=== PATIENT | female | born 1940 | race Caucasian/White ===

== ENCOUNTER → 2018-08-26 | Day surgery (SDC) | payer MEDICARE, BC ==
[2018-08-24 14:09] VITALS: BMI 27.6
[~2018-08-26] MED LIST: ALPRAZolam 0.25 MG TAB PO PRN; ASPIRIN 325 MG TAB PO STA; IOPAMIDOL-250 100ML BTL INTRAARTER ONE; LIDOCAINE 2% INJ 20 MG/ML SQ ONE; MIDAZOLAM 2 MG/2 ML VIAL IVP ONE; SODIUM CHLORIDE 0.9% 1,000 ML IV SCH; SODIUM CHLORIDE 0.9% 1,000 ML in EMPTY BAG 1 BAG IV ONE
[2018-08-26 07:47] VITALS: TEMP 98.3
[2018-08-26 11:46] VITALS: PULSE 60
--- NOTE | 2018-08-26 12:17 | IR ---
Fluoroscopy HISTORY: Pain in left leg 120 seconds fluoroscopy time supplied to the referring clinician. 74 intraoperative C-arm images document the procedure. See dictated report from cardiology.
[2018-08-26 12:23] VITALS: BP 119/62; RESP 14
--- NOTE | 2018-08-26 15:27 | AN ---
ANGIOGRAPHY REPORT DATE OF SERVICE: August 26, 2018 PERFORMING PHYSICIAN: Buck Mera MD, executive administrative asst. PROCEDURE PERFORMED: 1. Abdominal aortogram. 2. Bilateral lower extremities runoff. INDICATION: This is a pleasant 77-year-old female patient with a past medical history significant for hypertension, dyslipidemia, and paroxysmal atrial fibrillation, who was experiencing bilateral lower extremity intermittent claudication. She underwent an anterior duplex study which showed severe disease involving the right SFA. Because of her symptoms, severity and the abnormal duplex study, an abdominal aortogram and bilateral lower extremity runoff was advised. APPROACH: Right common femoral artery. COMPLICATION: None. LEVEL OF SEDATION: Moderate with sedation length of 18 minutes. PROCEDURE DESCRIPTION: After obtaining an informed consent, the patient was brought to the cardiac engineering lab technician. The right common femoral artery was cannulated using micropuncture technique, the micropuncture wire passed easily. Then I I placed a 4-Romanian sheath in the right common femoral artery. As a matter of fact, it was 4/3 sheath. With inner diameter of 4 and outer diameter of 3-Romanian. After that, I did an abdominal aortogram and bilateral lower extremities runoff using a 4-Romanian Omni Flush catheter which was initially placed at the level of the renal arteries and it was pulled into above the bifurcation of the aorta to right and left common iliac arteries. The procedure was completed without any complication. SELECTIVE PERIPHERAL ANGIOGRAM: 1. The aorta appeared to be angiographically normal. 2. Common iliac arteries: The right and left common iliac arteries appeared to be patent. 3. Internal iliac arteries: The right and left internal iliac arteries are patent. 4. External iliac arteries: The right and left external iliac arteries are patent as well. 5. Common femoral arteries: The right and left common femoral arteries appeared to be angiographically normal. 6. The SFA: The right SFA appeared to be angiographically normal. The left SFA appeared to have intermediate mild to moderate disease in the distal portion. 7. Popliteal: The right popliteal has a tight lesion appeared to be in the range of 95%. The left popliteal appeared to have mild disease only. 8. Below the knee: There are 3 vessels runoff below the knee bilaterally. CONCLUSION: Critical right SFA disease and mild to moderate left FA disease. POSTPROCEDURE MANAGEMENT: An atherectomy and balloon angioplasty of the right SFA from the left groin approach. At the same time, I would do selective injections through the sheath in the left groin to assess the severity of the distal left SFA. EDSON / MINAN: [id number] /
== END ==
LOC: CATHCVL 06:54
PROVIDERS: ATTEND Internal Medicine Interventional Cardiology
DX: I70.213 Atherosclerosis of native arteries of extremities with intermittent claudication, bilateral legs (principal); I48.0 Paroxysmal atrial fibrillation; I25.10 Atherosclerotic heart disease of native coronary artery without angina pectoris; I12.9 Hypertensive chronic kidney disease with stage 1 through stage 4 chronic kidney disease, or unspecified chronic kidney disease; N18.9 Chronic kidney disease, unspecified; E78.49 Other hyperlipidemia; Z82.49 Family history of ischemic heart disease and other diseases of the circulatory system; Z95.2 Presence of prosthetic heart valve; J44.9 Chronic obstructive pulmonary disease, unspecified; Z79.01 Long term (current) use of anticoagulants; Z79.890 Hormone replacement therapy; Z79.51 Long term (current) use of inhaled steroids; Z79.899 Other long term (current) drug therapy; Z88.6 Allergy status to analgesic agent; Z88.1 Allergy status to other antibiotic agents; Z88.0 Allergy status to penicillin; Z88.2 Allergy status to sulfonamides; Z88.8 Allergy status to other drugs, medicaments and biological substances
CPT/HCPCS: 36200; 75625; 75716; C1769 ×3; J2001; J2250; Q9966

== ENCOUNTER 2018-10-12 07:00 | Day surgery (SDC) | payer MEDICARE, BC ==
[2018-10-05 16:13] VITALS: BMI 39.0
[2018-10-12] MEDS ORDERED: ASPIRIN 325 MG TAB PO STA (07:16)
[2018-10-12] MEDS ORDERED: ALPRAZolam 0.25 MG TAB PO PRN (07:16)
[2018-10-12] MEDS ORDERED: SODIUM CHLORIDE 0.9% 1,000 ML in EMPTY BAG 1 BAG IV ONE (07:16)
[2018-10-12] MEDS ORDERED: SODIUM CHLORIDE 0.9% 1,000 ML IV ONE (07:18)
[2018-10-12 09:20] LABS: Basophils % (A) 0 %; Eosinophils # (A) 0.3 k/uL (0-0.7); Eosinophils % (A) 6 %; HCT 34.7 % (34.0-46.0); HGB 11.5 gm/dL (11.4-16.0); Lymphocytes # (A) 1.3 k/uL (1.0-4.8); Lymphocytes % (A) 25 %; MCH 28.3 pg (25.0-35.0); MCHC 33.1 g/dL (31.0-37.0); MCV 85.6 fL (80.0-100.0); Mean Platelet Volume 7.6; Monocytes # (A) 0.5 k/uL (0-1.0); Monocytes % (A) 9 %; Neutrophils # (A) 3.1 k/uL (1.3-7.7); Neutrophils % (A) 57 %; Platelet Count 172 k/uL (150-450); RBC 4.05 m/uL (3.80-5.40); RDW 13.6 % (11.5-15.5); WBC 5.4 k/uL (3.8-10.6)
[2018-10-12 09:42] LABS: Calcium 9.5 mg/dL (8.4-10.2); Potassium 4.7 mmol/L (3.5-5.1)
[2018-10-12] MEDS ORDERED: MIDAZOLAM 2 MG/2 ML VIAL IVP ONE (13:20)
[2018-10-12] MEDS ORDERED: LIDOCAINE 1% INJ 10MG/ML (20 ML MDV) SQ ONE (13:23)
[2018-10-12] MEDS: fentaNYL (PF) 50 MCG/ML 2 ML AMP IVP ONE ×2 (13:25→14:41)
[2018-10-12] MEDS ORDERED: HEPARIN SODIUM 1,000 UN/ML (10ML VL) IV ONE (13:42)
[2018-10-12] MEDS ORDERED: MIDAZOLAM 2 MG/2 ML VIAL IV ONE (14:20)
[2018-10-12] MEDS ORDERED: NITROGLYCERIN 1000MCG/10ML SYRINGE INTRAARTER ONE (14:26)
[2018-10-12] MEDS ORDERED: IOPAMIDOL-250 100ML BTL INTRAARTER ONE (14:27)
[2018-10-12] MEDS ORDERED: CLOPIDOGREL 75 MG TAB PO ONE (14:30)
[2018-10-12] MEDS ORDERED: LOSARTAN-HCTZ 50-12.5 MG 1 EACH TAB PO PRN (14:46)
[2018-10-12] MEDS ORDERED: MAG HYDROX/AL HYDROX/SIMETH 30 ML CUP PO ONE (14:53)
[2018-10-12] MEDS ORDERED: SODIUM CHLORIDE 0.9% 1,000 ML IV SCH (15:00)
[2018-10-12] MEDS ORDERED: HYDROcodone/APAP 5-325MG 1 EACH TAB PO STA (15:44)
[2018-10-12] MEDS ORDERED: hydrALAZINE HCL 20 MG/ML 1 ML VIAL IVP PRN (15:50)
[2018-10-12] MEDS: HYDROcodone/APAP 5-325MG 1 EACH TAB PO PRN (19:19)
--- NOTE | 2018-10-12 20:47 | LTR ---
October 12, 2018 To: Dr. Leon Cheema Re: Leena Riojas (42) Dear Dr. Cheema, Ms. Leena Riojas underwent successful atherectomy and balloon angioplasty of the right femoral artery with an excellent angiographic result and reduction of stenosis from 100% to 0%. Thank you for allowing us to participate in her care. Please do not hesitate to call if you have any questions. Sincerely, MD EDSON Morin / MINAN: [id number] /
[2018-10-12] MEDS: MONTELUKAST 10 MG TAB PO SCH (21:05)
[2018-10-12] MEDS: CITALOPRAM HYDROBROMIDE 20 MG TAB PO SCH (21:05)
[2018-10-12] MEDS: METOPROLOL SUCCINATE (ER) 100 MG TAB.ER.24H PO SCH (21:05)
[2018-10-12] MEDS: HYDROmorphone 1 MG/ML 1 ML SYRINGE IVP PRN (21:05)
--- NOTE | 2018-10-12 22:43 | AN ---
ANGIOGRAPHY REPORT DATE OF SERVICE: 10/12/2018 PERFORMING PHYSICIAN: Buck Mera MD, nitroglycerin neutralizer. PROCEDURE PERFORMED: 1. Selective right [id number] angiogram. 2. Selective right popliteal/SFA angiogram. 3. Atherectomy of the right SFA using the TurboHawk atherectomy device with extraction of plaque from the right SFA. 4. Successful balloon angioplasty of the right SFA using a 5 x 14 mm Impact drug- coated balloon with excellent angiographic results and reduction of stenosis from 100% to 0%. 5. Selective left common femoral artery angiogram. INDICATION: This is a 77-year-old gentleman who sees Dr. Patel as well as Dr. Cheema as an outpatient who was experiencing right leg intermittent claudication and underwent a peripheral angiogram. Subsequently I did access the left common femoral artery using micropuncture technique. The micropuncture wire passed easily. Then I placed a 6-Vincentian sheath 11 cm in the left common femoral artery. At that point anticoagulation was initiated using heparin and the patient was given 10,000 units of heparin IV. I did after that select the right SFA using an .035 [place] Advantage wire with a 5- Vincentian RIM catheter. After that, I did advance the .035 [place] Advantage wire to the distal right SFA. I did not cross the lesion in the SFA using the .035 wire. I did after that exchange my 11 cm 6-Vincentian sheath for a 70 cm 6-Vincentian Raabe sheath where the Raabe sheath was positioned in the proximal right SFA. Subsequently I did attempt crossing the occluded right SFA using an .[address] wire and I was unable. Then I attempted using an .014 Command wire and I was unable. Finally I was able to cross the lesion using .018 gold-tipped Glidewire with .018 CXI catheter as a backup support. I did advance the catheter distal to the lesion to the right popliteal and I did selective right popliteal angiogram to prove that I was in the true lumen. After that, I did advance the .014 Command wire preparing for atherectomy. I did atherectomy of the distal right SFA using the TurboHawk device with extraction of plaque from the right SFA. After that I did balloon angioplasty initially using 4 mm x 40 regular balloon and subsequently 5 x 40 drug-coated balloon which was inflated under 6 atmospheres for 3 minutes. The following angiogram showed good angiographic results and the procedure was completed without any complication. After that I did exchange my 70 cm 6-Vincentian sheath for an 11 cm 6-Vincentian sheath using .035 [place] Advantage wire and then I did selective left common femoral artery angiogram before I deployed the Perclose device. The procedure was completed without any complication. POST-PROCEDURE MANAGEMENT: 1. Dual anti-platelet therapy. 2. Risk factor modifications. 3. Follow up with the patient. MMODRony / IJN: [id number] /
--- NOTE | 2018-10-12 23:02 | IR ---
EXAMINATION TYPE: IR fluoroscopy <1hr DATE OF EXAM: 10/12/2018 CLINICAL HISTORY: Right leg pain. TECHNIQUE: Fluoroscopy. COMPARISON: None. FINDINGS: Fluoroscopic guidance was provided during right lower extremity angiogram procedure perfor med by Dr. Mera. A total of 18.6 minutes of fluoroscopic time was utilized during the procedure and 13 cine runs are acquired. Images show metallic hardware at right knee level. Please refer to surgica l note for further details as I was not present nor performed procedure. IMPRESSION: As Above.
[2018-10-12] MEDS: ALPRAZolam 0.5 MG TAB PO SCH (23:13)
[2018-10-13] MEDS: HYDROmorphone 1 MG/ML 1 ML SYRINGE IVP PRN (01:00)
[2018-10-13] MEDS: LEVOTHYROXINE 50 MCG TAB PO SCH (06:07)
[2018-10-13 07:22] LABS: Basophils % (A) 0 %; Eosinophils # (A) 0.3 k/uL (0-0.7); Eosinophils % (A) 4 %; HCT 36.6 % (34.0-46.0); HGB 11.3 gm/dL (11.4-16.0); Lymphocytes # (A) 1.1 k/uL (1.0-4.8); Lymphocytes % (A) 15 %; MCH 26.6 pg (25.0-35.0); MCHC 30.8 g/dL (31.0-37.0); MCV 86.6 fL (80.0-100.0); Mean Platelet Volume 7.8; Monocytes # (A) 0.6 k/uL (0-1.0); Monocytes % (A) 8 %; Neutrophils # (A) 5.2 k/uL (1.3-7.7); Neutrophils % (A) 71 %; Platelet Count 176 k/uL (150-450); RBC 4.23 m/uL (3.80-5.40); RDW 13.8 % (11.5-15.5); WBC 7.4 k/uL (3.8-10.6)
[2018-10-13 07:30] LABS: Calcium 9.3 mg/dL (8.4-10.2); Potassium 4.6 mmol/L (3.5-5.1)
--- NOTE | 2018-10-13 07:57 | DS ---
DISCHARGE SUMMARY ADMISSION DATE: October 12, 2018. DISCHARGE DATE: October 13, 2018 BRIEF HISTORY: This is a 77-year-old female patient with history of paroxysmal atrial fibrillation who underwent yesterday successful balloon angioplasty of the right SFA with good angiographic results and without any complication. 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 She did develop a small hematoma at the left groin yesterday which was reduced with compression as well as with FemoStop. The left groin is soft, but tender without any discrete hematomas. I am going to order an ultrasound to check for pseudoaneurysm. If the ultrasound is negative, the patient can be discharged home. She is going to be discharged on dual anti-platelet therapy along with statin. MMODL / IJN: [id number] /
[2018-10-13] MEDS: CHOLECALCIFEROL 1,000 UNIT TAB PO SCH (08:55)
[2018-10-13] MEDS: CYANOCOBALAMIN 500 MCG TAB PO SCH (08:56)
[2018-10-13] MEDS: METOPROLOL SUCCINATE (ER) 100 MG TAB.ER.24H PO SCH ×2 (08:56→21:03)
[2018-10-13] MEDS: ASPIRIN 81 MG PO SCH (08:56)
[2018-10-13] MEDS: HYDROcodone/APAP 5-325MG 1 EACH TAB PO PRN ×2 (08:56→23:43)
[2018-10-13] MEDS: CLOPIDOGREL 75 MG TAB PO SCH (08:57)
[2018-10-13] MEDS ORDERED: CO Q10 PO SCH (09:00)
[2018-10-13] MEDS ORDERED: ASPIRIN 81 MG PO SCH (09:00)
[2018-10-13] MEDS ORDERED: NON-FORMULARY DRUG (Calcium/Magnesium 1 TAB) PO SCH (09:00)
[2018-10-13] MEDS ORDERED: OIL OF OREGANO PO SCH (09:00)
--- NOTE | 2018-10-13 11:23 | US ---
EXAMINATION TYPE: US lower ext pseudo artery LT DATE OF EXAM: 10/13/2018 COMPARISON: NONE CLINICAL HISTORY: rule out pseudoaneurysm. Patient states on 10/11 left groin catheter for right leg cl eaning. Patient states having a hematoma at site which was located in left lower pelvis EXAM PERFORMED: Grayscale and color Doppler duplex imaging performed of the groin, post cardiac mic ter to assess for pseudoaneurysm. SIDE PERFORMED: Left Color and Waveform Doppler performed to assess for the presence of pseudoaneurysm; Is there ultrasound evidence of a pseudoaneurysm: no Is there a fluid collection present: At area of bruising, pain and insertion site, heterogenous nonva scular lesion visualized = 3.8 x 3.6 x 3.1 cm. IMPRESSION: Small deep hematoma suspected at area of pain and insertion site. No pseudoaneurysm is s een.
[2018-10-13] MEDS: MULTIVITAMINS, THERA 1 EACH TAB PO SCH (13:18)
[2018-10-13] MEDS: CITALOPRAM HYDROBROMIDE 20 MG TAB PO SCH (21:02)
[2018-10-13] MEDS: MONTELUKAST 10 MG TAB PO SCH (21:03)
[2018-10-13] MEDS: ALPRAZolam 0.5 MG TAB PO SCH (22:32)
[2018-10-13 23:35] VITALS: RESP 18
[2018-10-14] MEDS: LEVOTHYROXINE 50 MCG TAB PO SCH (06:08)
[2018-10-14] MEDS: CYANOCOBALAMIN 500 MCG TAB PO SCH (08:56)
[2018-10-14] MEDS: METOPROLOL SUCCINATE (ER) 100 MG TAB.ER.24H PO SCH (08:56)
[2018-10-14] MEDS: CHOLECALCIFEROL 1,000 UNIT TAB PO SCH (08:57)
[2018-10-14] MEDS: CLOPIDOGREL 75 MG TAB PO SCH (08:57)
[2018-10-14] MEDS: ASPIRIN 81 MG PO SCH (08:57)
--- NOTE | 2018-10-14 10:13 | PN ---
PROGRESS NOTE DATE OF SERVICE: October 14, 2018 BRIEF HISTORY: This is a 77-year-old female patient who sees Dr. Patel in the office as an outpatient who was diagnosed recently with right leg intermittent claudication and underwent a peripheral angiogram which showed occluded right SFA. 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 Initially I was going to discharge the patient yesterday, but she developed a small hematoma and she developed also a small skin break because of the FemoStop. We kept the patient overnight for observation. On follow up with her today, she is feeling overall better. The skin break is better. She denies having any chest pain or chest discomfort. She is going to be discharged home on dual anti-platelet therapy. MMODL / IJN: [id number] /
[2018-10-14] MEDS: MULTIVITAMINS, THERA 1 EACH TAB PO SCH (11:34)
[2018-10-14 12:06] VITALS: BP 143/95; PULSE 62; TEMP 98.3
== END 2018-10-14 15:55 | disposition home or self-care (01) ==
LOC: CATHCVL 07:00 → 3SCARD 14:23 → CATHCVL 10-14 15:55
PROVIDERS: ATTEND Internal Medicine Interventional Cardiology
DX: I70.213 Atherosclerosis of native arteries of extremities with intermittent claudication, bilateral legs (principal); I70.92 Chronic total occlusion of artery of the extremities; E78.5 Hyperlipidemia, unspecified; L76.32 Postprocedural hematoma of skin and subcutaneous tissue following other procedure; I25.10 Atherosclerotic heart disease of native coronary artery without angina pectoris; I13.0 Hypertensive heart and chronic kidney disease with heart failure and stage 1 through stage 4 chronic kidney disease, or unspecified chronic kidney disease; N18.9 Chronic kidney disease, unspecified; I50.33 Acute on chronic diastolic (congestive) heart failure; I48.0 Paroxysmal atrial fibrillation; Z82.49 Family history of ischemic heart disease and other diseases of the circulatory system; Z95.0 Presence of cardiac pacemaker; Z95.2 Presence of prosthetic heart valve; I36.1 Nonrheumatic tricuspid (valve) insufficiency; Z79.01 Long term (current) use of anticoagulants; Z79.890 Hormone replacement therapy; Z79.51 Long term (current) use of inhaled steroids; Z79.899 Other long term (current) drug therapy; Z88.6 Allergy status to analgesic agent; Z88.1 Allergy status to other antibiotic agents; Z88.3 Allergy status to other anti-infective agents; Z88.0 Allergy status to penicillin; Z88.2 Allergy status to sulfonamides; Z88.8 Allergy status to other drugs, medicaments and biological substances
CPT/HCPCS: 37225; 85347; 80048 ×2; 85025 ×2; 93975; 93926; C1894 ×2; C1769 ×6; C1714; C2623; C1760; C1725; J2250; J0360; J2001; J3010; J1644; J1170 ×2; Q9966

== ENCOUNTER 2018-10-26 16:11 | Emergency (ER) | payer MEDICARE, BC ==
--- NOTE | 2018-10-26 16:49 | ED ---
General Adult HPI - General Chief complaint: Extremity Problem,Nontraumatic Stated complaint: Hematoma Time Seen by Provider: 10/26/18 16:11 Source: patient, RN notes reviewed Mode of arrival: ambulatory Limitations: no limitations - History of Present Illness Initial comments: This is a 77-year-old female who had a femoral artery occlusion. Couple weeks ago she had a catheterization in the left groin to fix the occlusion in the right side the procedure went without problem according to Dr. abernathy. Patient now comes in with complaints of pain in the left lower quadrant area and saw Dr. Patel today and he wanted the patient to be evaluated have a CAT scan of the abdomen and pelvis. Patient denies any nausea vomiting. Patient denies any change in bowel habits. Patient denies any chest pain difficulty breathing shortness of breath. Patient states the area of pain is the left lower quadrant right where the ecchymotic areas. Patient also has some tenderness and ecchymosis in the groin that is been ongoing since the procedure. - Related Data Home Medications Medication Instructions Recorded Confirmed Cholecalciferol [Vitamin D3] 5,000 unit PO DAILY 08/24/18 10/05/18 Citalopram Hydrobromide 20 mg PO HS 08/24/18 10/05/18 [Citalopram HBr] Furosemide [Lasix] 20 - 40 mg PO BID 08/24/18 10/12/18 HYDROcodone/APAP 5-325MG [[place] 0.5 tab PO DAILY PRN 08/24/18 10/05/18 5-325] Levothyroxine Sodium [Synthroid] 50 mcg PO MOTUWETHFRSA 08/24/18 10/05/18 Losartan/Hydrochlorothiazide 0.5 tab PO DAILY PRN 08/24/18 10/12/18 [Losartan-Hctz 100-25 mg Tab] Metoprolol Succinate (ER) [Toprol 100 mg PO BID 08/24/18 10/12/18 XL] Montelukast [Singulair] 10 mg PO HS 08/24/18 10/05/18 Multivitamins, Thera [Multivitamin 1 tab PO DAILY 08/24/18 10/05/18 (formulary)] ALPRAZolam [Xanax] 0.5 mg PO HS 10/05/18 10/05/18 Apixaban [Eliquis] 2.5 mg PO QAM 10/05/18 10/12/18 Calcium/Magnesium 1 tab PO DAILY 10/05/18 10/05/18 Co Q-10 1 tab PO DAILY 10/05/18 10/05/18 Oil Of Oregano 1 tab PO DAILY 10/05/18 10/05/18 Vitamin B-12 1 tab PO DAILY 10/05/18 10/12/18 Previous Rx's Medication Instructions Recorded Aspirin 81 mg PO DAILY #30 chewable 10/13/18 Atorvastatin Calcium [Lipitor] 10 mg PO DAILY #90 tab 10/13/18 Clopidogrel [Plavix] 75 mg PO DAILY #90 tab 10/13/18 Allergies Allergy/AdvReac Type Severity Reaction Status Date / Time amlodipine [From Lotrel] Allergy Unknown Verified 10/26/18 16:17 benazepril [From Lotrel] Allergy Unknown Verified 10/26/18 16:17 cephalexin [From Keflex] Allergy Rash/Hives Verified 10/26/18 16:17 clindamycin Allergy Rash/Hives Verified 10/26/18 16:17 clonidine [From Catapres] Allergy anxious Verified 10/26/18 16:17 diltiazem Allergy severe Verified 10/26/18 16:17 headache doxazosin [From Cardura] Allergy Unknown Verified 10/26/18 16:17 isosorbide [From Imdur] Allergy Anaphylaxis Verified 10/26/18 16:17 metoprolol [From Toprol XL] Allergy Unknown Verified 10/26/18 16:17 Penicillins Allergy "passes Verified 10/26/18 16:17 out" ramipril [From Altace] Allergy Anaphylaxis Verified 10/26/18 16:17 sulfamethoxazole Allergy severe Verified 10/26/18 16:17 [From Bactrim] skin reaction trimethoprim [From Bactrim] Allergy severe Verified 10/26/18 16:17 skin reaction valsartan [From Diovan] Allergy severe Verified 10/26/18 16:17 headache maxide Allergy Unknown Uncoded 10/26/18 16:17 oral steroids AdvReac Afib Uncoded 10/26/18 16:17 Review of Systems ROS Statement: Those systems with pertinent positive or pertinent negative responses have been documented in the HPI. ROS Other: All systems not noted in ROS Statement are negative. Past Medical History Past Medical History: Atrial Fibrillation, Coronary Artery Disease (CAD), Cancer, COPD, Hyperlipidemia, Hypertension, Osteoarthritis (OA), Sleep Apnea/CPAP/BIPAP, Thyroid Disorder, Vascular Disorder Additional Past Medical History / Comment(s): Hx skin cancer yrs ago on nose. Numbness and pain left lower leg, varicose veins, hx kidney stones, steroids Jun 2018. "2013 blood clot in heart." CPAP use. Hx Shingles 4 yrs ago. History of Any Multi-Drug Resistant Organisms: None Reported Past Surgical History: Appendectomy, Cholecystectomy, Heart Catheterization With Stent, Hernia Repair, Joint Replacement, Pacemaker, Tonsillectomy Additional Past Surgical History / Comment(s): Heart stent x1, Medtronic DAPTA DR Pacemaker 2008, Aortic valve replaced (pig)2008, bilateral total knees, cataracts removed bilaterally. Right cath for athrosclorsis Past Anesthesia/Blood Transfusion Reactions: No Reported Reaction, Motion Sickness Additional Past Anesthesia/Blood Transfusion Reaction / Comment(s): No problems with prior blood transfusions. Date of Last Stent Placement:: 1998 Type of Cardiac Device: Permanent Pacemaker Device Placement Date:: 2008 Past Psychological History: Anxiety, Depression Smoking Status: Never smoker Past Alcohol Use History: None Reported Past Drug Use History: None Reported - Past Family History Mother Family Medical History: Cancer Additional Family Medical History / Comment(s): skin CA Father Family Medical History: Cancer Additional Family Medical History / Comment(s): stomach ulcer at age 52 General Exam - General Exam Comments Initial Comments: GENERAL: Patient is well-developed and well-nourished. Patient is nontoxic and well- hydrated and is in mild distress. ENT: Neck is soft and supple. No significant lymphadenopathy is noted. Oropharynx is clear. Moist mucous membranes. EYES: The sclera were anicteric and conjunctiva were pink and moist. Extraocular movements were intact and pupils were equal round and reactive to light. Eyelids were unremarkable. PULMONARY: Unlabored respirations. Good breath sounds bilaterally. No audible rales rhonchi or wheezing was noted. CARDIOVASCULAR: There is a regular rate and rhythm without any murmurs gallops or rubs. ABDOMEN: Patient has left lower quadrant abdominal pain. Pain is over the area of ecchymosis on the abdomen and there is slight pain above the inguinal canal on a hematoma as well. SKIN: Skin is clear with no lesions or rashes and otherwise unremarkable. NEUROLOGIC: Patient is alert and oriented x3. Cranial nerves II through XII are grossly in tact. Motor and sensory are also intact. Normal speech, volume and content. Symmetrical smile. MUSCULOSKELETAL: Normal extremities with adequate strength and full range of motion. No lower extremity swelling or edema. No calf tenderness. LYMPHATICS: No significant lymphadenopathy is noted PSYCHIATRIC: Normal psychiatric evaluation. Limitations: no limitations Course Vital Signs 10/26/18 10/26/18 16:13 19:28 Temperature 98.4 F Pulse Rate 67 61 Respiratory 18 16 Rate Blood Pressure 186/97 188/93 O2 Sat by Pulse 99 99 Oximetry Medical Decision Making - Medical Decision Making Computed tomography scan of the abdomen pelvis show left inguinal omental hernia. I spoke with Dr. Mera he agreed patient could follow-up outpatient. - Lab Data Result diagrams: 10/26/18 18:49 10/26/18 18:49 Lab Results 10/26/18 10/26/18 Range/Units 18:49 18:49 WBC 7.0 (3.8-10.6) k/uL RBC 3.94 (3.80-5.40) m/uL Hgb 11.0 L (11.4-16.0) gm/dL Hct 33.9 L (34.0-46.0) % MCV 86.1 (80.0-100.0) fL MCH 27.9 (25.0-35.0) pg MCHC 32.3 (31.0-37.0) g/dL RDW 14.1 (11.5-15.5) % Plt Count 262 (150-450) k/uL Neutrophils % 61 % Lymphocytes % 24 % Monocytes % 7 % Eosinophils % 5 % Basophils % 0 % Neutrophils # 4.2 (1.3-7.7) k/uL Lymphocytes # 1.7 (1.0-4.8) k/uL Monocytes # 0.5 (0-1.0) k/uL Eosinophils # 0.4 (0-0.7) k/uL Basophils # 0.0 (0-0.2) k/uL Sodium 137 (137-145) mmol/L Potassium 4.4 (3.5-5.1) mmol/L Chloride 100 (98-107) mmol/L Carbon Dioxide 30 (22-30) mmol/L Anion Gap 7 mmol/L BUN 33 H (7-17) mg/dL Creatinine 0.97 (0.52-1.04) mg/dL Est GFR (CKD-EPI)AfAm 66 (>60 ml/min/1.73 sqM) Est GFR (CKD-EPI)NonAf 57 (>60 ml/min/1.73 sqM) Glucose 96 (74-99) mg/dL Calcium 10.0 (8.4-10.2) mg/dL Total Bilirubin 0.6 (0.2-1.3) mg/dL AST 26 (14-36) U/L ALT 26 (9-52) U/L Alkaline Phosphatase 112 (38-126) U/L Total Protein 7.1 (6.3-8.2) g/dL Albumin 4.2 (3.5-5.0) g/dL Disposition Clinical Impression: Simple left inguinal hernia Disposition: HOME SELF-CARE Instructions (If sedation given, give patient instructions): Inguinal Hernia (ED) Is patient prescribed a controlled substance at d/c from ED?: No Referrals: Leon Cheema MD [Primary Care Provider] - 1-2 days Time of Disposition: 20:28
[2018-10-26 19:06] LABS: Basophils % (A) 0 %; Eosinophils # (A) 0.4 k/uL (0-0.7); Eosinophils % (A) 5 %; HCT 33.9 % (34.0-46.0); Lymphocytes # (A) 1.7 k/uL (1.0-4.8); Lymphocytes % (A) 24 %; MCH 27.9 pg (25.0-35.0); MCHC 32.3 g/dL (31.0-37.0); MCV 86.1 fL (80.0-100.0); Mean Platelet Volume 7.3; Monocytes # (A) 0.5 k/uL (0-1.0); Monocytes % (A) 7 %; Neutrophils # (A) 4.2 k/uL (1.3-7.7); Neutrophils % (A) 61 %; Platelet Count 262 k/uL (150-450); RBC 3.94 m/uL (3.80-5.40); RDW 14.1 % (11.5-15.5)
[2018-10-26 19:18] LABS: Albumin 4.2 g/dL (3.5-5.0); Potassium 4.4 mmol/L (3.5-5.1); Total Bilirubin 0.6 mg/dL (0.2-1.3); Total Protein 7.1 g/dL (6.3-8.2)
[2018-10-26 19:29] VITALS: BP 188/93; PULSE 61; RESP 16
--- NOTE | 2018-10-26 20:15 | CT ---
EXAMINATION TYPE: CT abdomen pelvis w con DATE OF EXAM: 10/26/2018 COMPARISON: 01/05/2013 HISTORY: Abdominal pain CT DLP: 1177.9 mGycm Automated exposure control for dose reduction was used. TECHNIQUE: Helical acquisition of images was performed from the lung bases through the pelvis. CONTRAST: Performed without Oral Contrast and with IV Contrast, patient injected with 80 mL of Isovue 300. FINDINGS: LUNG BASES: No acute process. Moderate cardiomegaly. LIVER/GB: No significant abnormality is appreciated. PANCREAS: No significant abnormality is seen. SPLEEN: No significant abnormality is seen. ADRENALS: No significant abnormality is seen. KIDNEYS: Right kidney has normal appearance. Left kidney is markedly atrophic. FREE AIR: No free air is visualized. RETROPERITONEAL ADENOPATHY: None visualized REPRODUCTIVE ORGANS: No significant abnormality is seen URINARY BLADDER: No significant abnormality is seen. PELVIC ADENOPATHY: None visualized. OSSEOUS STRUCTURES: No significant abnormality is seen. BOWEL: There is a left inguinal herniation of fat consistent with omental herniation measuring 6 x 4 x 3 cm. There is a small geographic region of small multifocal ill-defined added opacities along the left external iliac vasculature, suggesting sequela of prior hemorrhage. OTHER: No acute vascular findings. IMPRESSION: LEFT INGUINAL OMENTAL HERNIATION.
[2018-10-26 20:36] VITALS: TEMP 98
== END 2018-10-26 20:28 | disposition home or self-care (01) ==
LOC: EC 16:11
DX: K40.90 Unilateral inguinal hernia, without obstruction or gangrene, not specified as recurrent (principal); I48.91 Unspecified atrial fibrillation; I25.10 Atherosclerotic heart disease of native coronary artery without angina pectoris; J44.9 Chronic obstructive pulmonary disease, unspecified; I10 Essential (primary) hypertension; M19.90 Unspecified osteoarthritis, unspecified site; G47.30 Sleep apnea, unspecified; E07.9 Disorder of thyroid, unspecified; F32.9 Major depressive disorder, single episode, unspecified; F41.9 Anxiety disorder, unspecified; Z88.0 Allergy status to penicillin; Z88.1 Allergy status to other antibiotic agents; Z88.2 Allergy status to sulfonamides; Z88.8 Allergy status to other drugs, medicaments and biological substances; Z79.01 Long term (current) use of anticoagulants; Z79.890 Hormone replacement therapy; Z79.899 Other long term (current) drug therapy; Z99.89 Dependence on other enabling machines and devices; Z90.49 Acquired absence of other specified parts of digestive tract; Z95.0 Presence of cardiac pacemaker; Z95.5 Presence of coronary angioplasty implant and graft; Z96.653 Presence of artificial knee joint, bilateral; Z85.828 Personal history of other malignant neoplasm of skin; Z83.79 Family history of other diseases of the digestive system
CPT/HCPCS: 36415; 80053; 85025; 74177; 99284; Q9967

== ENCOUNTER 2018-11-28 05:53 | Day surgery (SDC) | payer MEDICARE, BC ==
[2018-11-28] MEDS ORDERED: SODIUM CHLORIDE 0.9% 1,000 ML IV SCH (06:14)
[2018-11-28 06:50] VITALS: TEMP 98.1
[2018-11-28 07:40] LABS: Calcium 9.5 mg/dL (8.4-10.2)
[2018-11-28] MEDS ORDERED: LIDOCAINE 1% INJ 10MG/ML (20 ML MDV) ONE (07:50)
[2018-11-28] MEDS ORDERED: MIDAZOLAM 2 MG/2 ML VIAL ONE (07:50)
[2018-11-28] MEDS ORDERED: SODIUM CHLORIDE 0.9% 500 ML 500 ML IV ONE (07:51)
[2018-11-28] MEDS ORDERED: IOPAMIDOL-250 50ML BTL IV ONE (08:35)
--- NOTE | 2018-11-28 08:54 | P.PCN ---
Preoperative Diagnosis: Diagnosis Persistent symptomatic atrial fibrillation with RVR despite 200 mg of Toprol Pacemaker interrogated. Atrial fibrillation with RVR noted She has a dual-chamber Medtronic pacemaker Atherectomy and stenting of the SFA in early October 2018 Procedures performed Electrical cardioversion for atrial fibrillation Left upper extremity venogram Cinefluoroscopy of the leads Procedure Successful electrical cardioversion to an atrial paced rhythm with a single 360 J shock, delivered in the AP configuration Pacemaker interrogated thereafter Left upper extremity venogram performed Left axillary, subclavian innominate veins patent Cinefluoroscopy of the leads She has a dual-chamber pacemaker system. Atrial lead was screwed in right atrial appendage RV lead screwed in low RV septum No obvious fractures or breaks noted Plan She has an elevated PATEL VASC or, female, greater than 75 years, peripheral vascular disease, hypertension Increase ELIQUIS to 5 mg twice daily. She did have a lot of nosebleeds Now that she is over 30 days after her atherectomy I would stop aspirin and simply continue Plavix as a full dose of ELIQUIS Her PATEL VASC score is 5 Long-term plan is to anticoagulate with a full dose of a NOAC along with a single antiplatelet agent Plavix Options for A. fib management include drug therapy as long as his stress test does not show any evidence of ischemia and LV function is normal Versus upgrade to a biventricular system followed by AV junction modification, especially breath therapy fails Lexiscan Cardilate stress test in the office within 1-2 weeks and follow-up a few weeks later
--- NOTE | 2018-11-28 08:57 | P.PRLE ---
RE: Leena Riojas Dear Dr. thao Riojas has been in atrial fibrillation with a rapid ventricular response despite being on a total of 200 mg of Toprol-XL Her PATEL VASC score is 5 She has had nosebleeds on ELIQUIS and hence he had reduced the dose of ELIQUIS to 2.5 g twice daily She underwent successful electrical cardioversion to sinus rhythm but is very likely that she will recur once again Since it's been over 4 weeks after her atherectomy I am changing her anticoagulation drugs ELIQUIS is being increased to 5 mg twice daily Aspirin is being discontinued Plavix is being continued at 75 mg by mouth daily If she recurs,I will choose either drug therapy or an upgrade to a biventricular system with AV junction modification depending upon the findings of for future testing Thank you for entrusting me with the care of the patient Warm regards Sincerely Ben Patel
[2018-11-28] MEDS ORDERED: APIXABAN 2.5 MG TABLET PO SCH (09:15)
[2018-11-28 10:51] VITALS: RESP 20
[2018-11-28 10:52] VITALS: BP 124/78; PULSE 88
[2018-11-28 11:48] LABS: T4, Free (Free Thyroxine) 2.29 ng/dL (0.78-2.19)
--- NOTE | 2018-12-01 07:21 | CDI ---
Date: 12/01/18 CDS/Gas Welding Equipment Mechanic Name: Margareth White Phone: If any questions, call Hiwot Goodwin Agricultural Researcher at [phone] Patient Name: Leena Riojas Admit Date: 11/28/18 Discharge Date: 11/28/18 ATTENTION: The [facility] Coding Staff appreciate your assistance in clarifying documentation. Please respond to the clarification below the line at the bottom and electronically sign. The [facility] Coding staff will review the response and follow-up if needed. Please note: Queries are made part of the Legal Health Record. If you have any questions, please contact the Agricultural Researcher. Dear Dr. Patel, Please clarify the type of atrial fibrillation that has been diagnosed. The H&P under Impression and Plan documents Paroxysmal atrial fibrillation. The Operative report documents Persistent atrial fibrillation. Please clarify. Thank you for your kind consideration. ___ MTDD
== END 2018-11-28 10:50 | disposition home or self-care (01) ==
LOC: CATHCVL 05:53
PROVIDERS: ATTEND Internal Medicine Clinical Cardiac Electrophysiology
DX: I48.1 Persistent atrial fibrillation (principal); Z95.2 Presence of prosthetic heart valve; I10 Essential (primary) hypertension; E78.5 Hyperlipidemia, unspecified; I25.10 Atherosclerotic heart disease of native coronary artery without angina pectoris; I12.9 Hypertensive chronic kidney disease with stage 1 through stage 4 chronic kidney disease, or unspecified chronic kidney disease; N18.9 Chronic kidney disease, unspecified; J44.9 Chronic obstructive pulmonary disease, unspecified; Z82.49 Family history of ischemic heart disease and other diseases of the circulatory system; Z79.82 Long term (current) use of aspirin; Z79.890 Hormone replacement therapy; Z79.51 Long term (current) use of inhaled steroids; Z79.899 Other long term (current) drug therapy; Z88.1 Allergy status to other antibiotic agents; Z88.8 Allergy status to other drugs, medicaments and biological substances; Z88.6 Allergy status to analgesic agent; Z88.0 Allergy status to penicillin; Z88.2 Allergy status to sulfonamides
CPT/HCPCS: 92960; 84439; 80048; 84443; J2250; J2001; Q9966

== ENCOUNTER 2018-12-19 15:54 | Inpatient (IN) | payer MEDICARE, BC ==
[2018-12-19] MEDS ORDERED: IPRATROPIUM-ALBUTEROL 3 ML NEB INHALATION STA (17:34)
[2018-12-19 17:46] LABS: Appearance,Urine Clear (Clear); Bilirubin,Urine Negative (Negative); Blood,Urine Negative (Negative); Color,Urine Light Yellow; Glucose,Urine (UA) Negative (Negative); Ketones,Urine Negative (Negative); Leukocyte Esterase,Urine Negative (Negative); Nitrite,Urine Negative (Negative); PH, Urine 6.5 (5.0-8.0); Protein,Urine Negative (Negative); Specific Gravity,Urine 1.004 (1.001-1.035); Urobilinogen,Urine <2.0 mg/dL (<2.0)
[2018-12-19 17:49] LABS: Basophils % (A) 1 %; Eosinophils # (A) 0.2 k/uL (0-0.7); Eosinophils % (A) 2 %; HGB 13.3 gm/dL (11.4-16.0); Hypochromasia Slight; Lymphocytes # (A) 1.1 k/uL (1.0-4.8); Lymphocytes % (A) 16 %; MCH 27.8 pg (25.0-35.0); MCHC 31.7 g/dL (31.0-37.0); MCV 87.7 fL (80.0-100.0); Mean Platelet Volume 8.1; Monocytes # (A) 0.6 k/uL (0-1.0); Monocytes % (A) 9 %; Neutrophils # (A) 4.9 k/uL (1.3-7.7); Neutrophils % (A) 70 %; Platelet Count 180 k/uL (150-450); RBC 4.79 m/uL (3.80-5.40); RDW 15.3 % (11.5-15.5); WBC 6.9 k/uL (3.8-10.6)
[2018-12-19 18:05] LABS: INR 1.6 (<1.2); Partial Thromboplastin Time 29.7 sec (22.0-30.0); Prothrombin Time 16.4 sec (9.0-12.0)
[2018-12-19 18:08] LABS: D-Dimer 2.22 mg/L FEU (<0.60)
[2018-12-19 18:48] LABS: Calcium 9.4 mg/dL (8.4-10.2); Potassium 4.1 mmol/L (3.5-5.1); Total Bilirubin 0.9 mg/dL (0.2-1.3); Total Protein 6.6 g/dL (6.3-8.2)
--- NOTE | 2018-12-19 20:21 | XR ---
EXAMINATION: XR chest 2V DATE AND TIME: 12/19/2018 6:04 PM CLINICAL INDICATION: PHH; difficulty breathing TECHNIQUE: Departmental protocol COMPARISON: None FINDINGS: The lungs are clear. The pleural spaces are negative. Headache pacemaker and EKG leads noted. The cardiac silhouette is markedly enlarged. The remainder of the mediastinal silhouette is unremarkable. The skeletal structures and soft tissues are negative for acute findings. IMPRESSION: No definite acute process.
--- NOTE | 2018-12-19 21:27 | CT ---
EXAMINATION TYPE: CT chest angio for PE with contrast and with 3-D reconstruction renderings DATE OF EXAM: 12/19/2018 COMPARISON: None HISTORY: Shortness of breath and chest pain. CT DLP: 472.6 mGycm Automated exposure control for dose reduction was used. CONTRAST: CT Chest for pulmonary embolism performed with with IV Contrast, patient injected with 74ml mL of Isovue 370. FINDINGS: Chest radiograph 05/27/2018. Given the limitations of noncontrast CT, the following observa tions are made: LUNGS: The lungs are grossly clear, there is no concerning parenchymal mass or nodule identified. The re is no pleural effusion or pneumothorax seen. The tracheobronchial tree is patent. MEDIASTINUM: There is satisfactory enhancement of the pulmonary artery and its branches, there is no CT evidence for pulmonary embolism. There is dilation of the central pulmonary arterial tree and the right heart chambers, which can baljinder elate with a clinical diagnosis of pulmonary hypertension. There are no acute aortic findings, but the ascending aorta reaches 4.5 cm diameter consistent with a neurysmal dilation. Moreover, left and right coronary calcifications are noted and aortic and mitral valve plane calcifications. There is moderate cardiomegaly, but no pericardial effusion. No mediastinal or hilar adenopathy. OTHER: No additional significant abnormality is seen. IMPRESSION: 1. Negative for pulmonary embolism, but large caliber of the pulmonary arteries and dilated right he art chambers noted. 2. Moderate cardiomegaly with coronary calcifications and aortic/mitral valve plane calcifications. 3. 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
[2018-12-19] MEDS ORDERED: NALOXONE 0.4 MG/ML 1 ML VIAL IV PRN (23:27)
--- NOTE | 2018-12-19 23:27 | ED ---
SOB HPI - General Chief Complaint: Shortness of Breath Stated Complaint: SOB, lt shoulder pain Time Seen by Provider: 12/19/18 16:45 Source: patient, family Mode of arrival: wheelchair Limitations: no limitations - History of Present Illness Initial Comments: The patient is a 78-year-old female who presents to the emergency department with complaint of exertional shortness of breath. The patient has had the symptoms since November and they have gotten progessively worse. She follows with Dr. Lovelace who is her chute loader. She states the shortness of breath is usually secondary to her atrial fibrillation. She has been previously cardioversioned, last of which she states was in November for which she initially returned to a normal sinus rhythm however the effects were short lived and she reverted back into afib. She also had a cardiac catheterization at that time. She does have a pacemaker which she states Dr. Lovelace wants to put in a "third pacing wire". The shortness of breath has gotten increasingly worse over the past week. States she cannot take a couple steps across the room without having to stop and catch her breath. She saw Dr. Lovelace in office on for these complaints. He placed her on flecainide and spironolactone. He took her off of her hydralazine. She states she took these medications however had extreme nausea and inability to eat. She states she discontinued these medications after her first dose. The nausea has continued. States she has barely ate anything. Admits increased swelling in her lower extremities. Admits chest discomfort and pressure. No ripping or tearing sensation to her back. She has seen a heat treat worker in the past. Admits that she's been using her inhalers as directed however they haven't been working. She is unable to take steroids as it does cause an increase in her heart rate. No history of DVTs or PEs. She does take Eliquis for anticoagulation. States that she may have missed a couple of doses. She admits to prolonged immobility due to her increasing shortness of breath limiting her activities. No recent travel or surgeries. No exogenous hormone use. No calf pain. No fevers, chills, vomiting, abdominal pain. No changes in her bowel or bladder habits. There are no other alleviating, precipitating, or modifying factors - Related Data Home Medications Medication Instructions Recorded Confirmed Cholecalciferol [Vitamin D3 (25 5,000 unit PO DAILY 08/24/18 12/19/18 Mcg = 1000 Iu)] Furosemide [Lasix] 20 - 40 mg PO BID 08/24/18 12/19/18 HYDROcodone/APAP 5-325MG [[place] 0.5 tab PO DAILY PRN 08/24/18 12/19/18 5-325] Levothyroxine Sodium [Synthroid] 50 mcg PO MOTUWETHFRSA 08/24/18 12/19/18 Montelukast [Singulair] 10 mg PO HS 08/24/18 12/19/18 Multivitamins, Thera [Multivitamin 1 tab PO DAILY 08/24/18 12/19/18 (formulary)] Calcium/Magnesium 1 tab PO DAILY 10/05/18 12/19/18 Co Q-10 1 tab PO DAILY 10/05/18 12/19/18 Oil Of Oregano 1 tab PO DAILY 10/05/18 12/19/18 ALPRAZolam [Xanax] 0.25 mg PO BID 12/19/18 12/19/18 Bismuth Subsalicylate 262 mg PO Q8HR 12/19/18 12/19/18 [Pepto-Bismol] Metoprolol Succinate (ER) [Toprol 150 mg PO DAILY 12/19/18 12/19/18 XL] Pravastatin Sodium [Pravachol] 10 mg PO DIRECTED 12/19/18 12/19/18 Spironolactone [Aldactone] 25 mg PO DAILY 12/19/18 12/19/18 Previous Rx's Medication Instructions Recorded Apixaban [Eliquis] 5 mg PO BID #180 tab 11/28/18 Allergies Allergy/AdvReac Type Severity Reaction Status Date / Time amlodipine [From Lotrel] Allergy Unknown Verified 12/21/18 23:31 benazepril [From Lotrel] Allergy Unknown Verified 12/21/18 23:31 cephalexin [From Keflex] Allergy Rash/Hives Verified 12/21/18 23:31 clindamycin Allergy Rash/Hives Verified 12/21/18 23:31 clonidine [From Catapres] Allergy anxious Verified 12/21/18 23:31 diltiazem Allergy severe Verified 12/21/18 23:31 headache doxazosin [From Cardura] Allergy Unknown Verified 12/21/18 23:31 isosorbide [From Imdur] Allergy Anaphylaxis Verified 12/21/18 23:31 metoprolol [From Toprol XL] Allergy Unknown Verified 12/21/18 23:31 Penicillins Allergy "passes Verified 12/21/18 23:31 out" ramipril [From Altace] Allergy Anaphylaxis Verified 12/21/18 23:31 sulfamethoxazole Allergy severe Verified 12/21/18 23:31 [From Bactrim] skin reaction trimethoprim [From Bactrim] Allergy severe Verified 12/21/18 23:31 skin reaction valsartan [From Diovan] Allergy severe Verified 12/21/18 23:31 headache maxide Allergy Unknown Uncoded 10/26/18 16:17 oral steroids AdvReac Afib Uncoded 10/26/18 16:17 Review of Systems ROS Statement: Those systems with pertinent positive or pertinent negative responses have been documented in the HPI. ROS Other: All systems not noted in ROS Statement are negative. Past Medical History Past Medical History: Atrial Fibrillation, Coronary Artery Disease (CAD), Cancer, COPD, Hyperlipidemia, Hypertension, Osteoarthritis (OA), Sleep Apnea/CPAP/BIPAP, Thyroid Disorder, Vascular Disorder Additional Past Medical History / Comment(s): Hx skin cancer yrs ago on nose. Numbness and pain left lower leg, varicose veins, hx kidney stones, steroids Jun 2018. "2013 blood clot in heart." CPAP use. Hx Shingles 4 yrs ago. History of Any Multi-Drug Resistant Organisms: None Reported Past Surgical History: Appendectomy, Cholecystectomy, Heart Catheterization With Stent, Hernia Repair, Joint Replacement, Pacemaker, Tonsillectomy Additional Past Surgical History / Comment(s): Heart stent x1, [employer] DAPTA DR Pacemaker 2008, Aortic valve replaced (pig)2008, bilateral total knees, cataracts removed bilaterally. Right cath for athrosclorsis Past Anesthesia/Blood Transfusion Reactions: No Reported Reaction, Motion Sickness Additional Past Anesthesia/Blood Transfusion Reaction / Comment(s): No problems with prior blood transfusions. Date of Last Stent Placement:: 1998 Type of Cardiac Device: Permanent Pacemaker Device Placement Date:: 2008 Past Psychological History: Anxiety, Depression Smoking Status: Never smoker Past Alcohol Use History: None Reported Past Drug Use History: None Reported - Past Family History Mother Family Medical History: Cancer Additional Family Medical History / Comment(s): skin CA Father Family Medical History: Cancer Additional Family Medical History / Comment(s): stomach ulcer at age 52 Brother(s) Additional Family Medical History / Comment(s): Patient has 6 brothers and one is known to have coronary artery disease. Patient is no sisters. Patient has 4 children one has Crohn's disease and one has rheumatoid arthritis. General Exam Limitations: no limitations General appearance: alert, in no apparent distress, anxious Head exam: Present: atraumatic, normocephalic, normal inspection Eye exam: Present: normal appearance, PERRL, EOMI. Absent: scleral icterus, conjunctival injection, periorbital swelling ENT exam: Present: normal exam, mucous membranes moist Neck exam: Present: normal inspection. Absent: tenderness, meningismus, lymphadenopathy Respiratory exam: Present: normal lung sounds bilaterally. Absent: respiratory distress, wheezes, rales, rhonchi, stridor Cardiovascular Exam: Present: tachycardia, irregular rhythm, other (2+ lower extremity abhijit). Absent: systolic murmur, diastolic murmur, rubs, gallop, clicks GI/Abdominal exam: Present: soft, normal bowel sounds. Absent: distended, tenderness, guarding, rebound, rigid Extremities exam: Present: normal inspection, full ROM, normal capillary refill, pedal edema. Absent: tenderness, joint swelling, calf tenderness Back exam: Present: normal inspection Neurological exam: Present: alert, oriented X3, CN II-XII intact Psychiatric exam: Present: normal affect, normal mood, anxious Skin exam: Present: warm, dry, intact, normal color. Absent: rash Course Vital Signs 12/19/18 12/19/18 12/19/18 16:00 16:30 18:01 Temperature 97.7 F Pulse Rate 115 H 94 101 H Respiratory 20 26 H 20 Rate Blood Pressure 132/84 134/102 145/95 O2 Sat by Pulse 96 97 100 Oximetry 12/19/18 12/19/18 12/19/18 18:08 18:13 21:00 Temperature Pulse Rate 100 101 H 93 Respiratory 16 Rate Blood Pressure 127/87 O2 Sat by Pulse 99 Oximetry 12/19/18 22:00 Temperature Pulse Rate 107 H Respiratory 18 Rate Blood Pressure 137/99 O2 Sat by Pulse 97 Oximetry Procedures - [place] Protocol (Time Out) Nurse: Ester Vasquez Medical Decision Making - Medical Decision Making Patient was placed into room 2. She is hooked up to continuous pulse ox and cardiac monitoring. 12-lead EKG is performed which demonstrates atrial fibrillation with rapid ventricular response. IV access was established. Laboratory studies were conducted. The patient did receive a DuoNeb breathing treatment. A chest x-ray was initially ordered. Upon return of the laboratory results, the patient does have an elevated d-dimer of 2.2. Because of this and possible missed doses of Eliquis, I did send the patient for a CT PE study. Upon return of the results, I did discussed them with the patient. I did discuss the diagnosis, differential and treatment options. The patient does remain in atrial fibrillation with intermittent pacing by her pacemaker. He does have a controlled rate at this time without medication administration. She is reevaluated and admitted to improvement in her breathing with the breathing treatment. I did recommend admission to the hospital. Patient did agree. I called and discussed the case with Dr. Andrews. She did accept admission for the patient. She is requesting that I consult cardiology and pulmonology. She requested prednisone to be given every 6 hours however I discussed this with the patient and she states she cannot tolerate steroids. I will provide the patient with DuoNeb breathing treatments every 4 hours. All of her home medications are ordered. We'll continue to trend her troponins. I will continue to hold the patient's flecainide as she reports bad side effects. The patient remained in stable condition awaiting transport to the floor. - Differential Diagnosis acute respiratory insufficiency, afib with rvr, possible acs, hx sys CHF - Lab Data Result diagrams: 12/20/18 06:02 12/22/18 06:09 Lab Results 12/19/18 12/19/18 12/19/18 Range/Units 16:31 16:31 16:31 WBC 6.9 (3.8-10.6) k/uL RBC 4.79 (3.80-5.40) m/uL Hgb 13.3 (11.4-16.0) gm/dL Hct 42.0 (34.0-46.0) % MCV 87.7 (80.0-100.0) fL MCH 27.8 (25.0-35.0) pg MCHC 31.7 (31.0-37.0) g/dL RDW 15.3 (11.5-15.5) % Plt Count 180 (150-450) k/uL Neutrophils % 70 % Lymphocytes % 16 % Monocytes % 9 % Eosinophils % 2 % Basophils % 1 % Neutrophils # 4.9 (1.3-7.7) k/uL Lymphocytes # 1.1 (1.0-4.8) k/uL Monocytes # 0.6 (0-1.0) k/uL Eosinophils # 0.2 (0-0.7) k/uL Basophils # 0.0 (0-0.2) k/uL Hypochromasia Slight PT 16.4 H (9.0-12.0) sec INR 1.6 H (<1.2) APTT 29.7 (22.0-30.0) sec D-Dimer 2.22 H (<0.60) mg/L FEU Sodium (137-145) mmol/L Potassium (3.5-5.1) mmol/L Chloride (98-107) mmol/L Carbon Dioxide (22-30) mmol/L Anion Gap mmol/L BUN (7-17) mg/dL Creatinine (0.52-1.04) mg/dL Est GFR (CKD-EPI)AfAm (>60 ml/min/1.73 sqM) Est GFR (CKD-EPI)NonAf (>60 ml/min/1.73 sqM) Glucose (74-99) mg/dL POC Glucose (mg/dL) (75-99) mg/dL POC Glu Dehydrogenation Operator ID Calcium (8.4-10.2) mg/dL Magnesium (1.6-2.3) mg/dL Total Bilirubin (0.2-1.3) mg/dL AST (14-36) U/L ALT (9-52) U/L Alkaline Phosphatase (38-126) U/L Troponin I 0.013 (0.000-0.034) ng/mL NT-Pro-B Natriuret Pep pg/mL Total Protein (6.3-8.2) g/dL Albumin (3.5-5.0) g/dL TSH (0.465-4.680) mIU/L Urine Color Urine Appearance (Clear) Urine pH (5.0-8.0) Ur Specific [place] (1.001-1.035) Urine Protein (Negative) Urine Glucose (UA) (Negative) Urine Ketones (Negative) Urine Blood (Negative) Urine Nitrite (Negative) Urine Bilirubin (Negative) Urine Urobilinogen (<2.0) mg/dL Ur Leukocyte Esterase (Negative) 12/19/18 12/19/18 12/19/18 Range/Units 16:31 17:40 18:25 WBC (3.8-10.6) k/uL RBC (3.80-5.40) m/uL Hgb (11.4-16.0) gm/dL Hct (34.0-46.0) % MCV (80.0-100.0) fL MCH (25.0-35.0) pg MCHC (31.0-37.0) g/dL RDW (11.5-15.5) % Plt Count (150-450) k/uL Neutrophils % % Lymphocytes % % Monocytes % % Eosinophils % % Basophils % % Neutrophils # (1.3-7.7) k/uL Lymphocytes # (1.0-4.8) k/uL Monocytes # (0-1.0) k/uL Eosinophils # (0-0.7) k/uL Basophils # (0-0.2) k/uL Hypochromasia PT (9.0-12.0) sec INR (<1.2) APTT (22.0-30.0) sec D-Dimer (<0.60) mg/L FEU Sodium 135 L (137-145) mmol/L Potassium 4.1 (3.5-5.1) mmol/L Chloride 99 (98-107) mmol/L Carbon Dioxide 28 (22-30) mmol/L Anion Gap 8 mmol/L BUN 34 H (7-17) mg/dL Creatinine 1.08 H (0.52-1.04) mg/dL Est GFR (CKD-EPI)AfAm 57 (>60 ml/min/1.73 sqM) Est GFR (CKD-EPI)NonAf 50 (>60 ml/min/1.73 sqM) Glucose 95 (74-99) mg/dL POC Glucose (mg/dL) (75-99) mg/dL POC Glu Dehydrogenation Operator ID Calcium 9.4 (8.4-10.2) mg/dL Magnesium (1.6-2.3) mg/dL Total Bilirubin 0.9 (0.2-1.3) mg/dL AST 37 H (14-36) U/L ALT 23 (9-52) U/L Alkaline Phosphatase 147 H (38-126) U/L Troponin I (0.000-0.034) ng/mL NT-Pro-B Natriuret Pep 1910 pg/mL Total Protein 6.6 (6.3-8.2) g/dL Albumin 4.0 (3.5-5.0) g/dL TSH (0.465-4.680) mIU/L Urine Color Light Yellow Urine Appearance Clear (Clear) Urine pH 6.5 (5.0-8.0) Ur Specific [place] 1.004 (1.001-1.035) Urine Protein Negative (Negative) Urine Glucose (UA) Negative (Negative) Urine Ketones Negative (Negative) Urine Blood Negative (Negative) Urine Nitrite Negative (Negative) Urine Bilirubin Negative (Negative) Urine Urobilinogen <2.0 (<2.0) mg/dL Ur Leukocyte Esterase Negative (Negative) 12/19/18 12/19/18 12/20/18 Range/Units 18:25 20:47 06:02 WBC 7.0 (3.8-10.6) k/uL RBC 4.42 (3.80-5.40) m/uL Hgb 12.3 (11.4-16.0) gm/dL Hct 38.6 (34.0-46.0) % MCV 87.4 (80.0-100.0) fL MCH 27.8 (25.0-35.0) pg MCHC 31.8 (31.0-37.0) g/dL RDW 15.1 (11.5-15.5) % Plt Count 160 (150-450) k/uL Neutrophils % 66 % Lymphocytes % 19 % Monocytes % 10 % Eosinophils % 3 % Basophils % 1 % Neutrophils # 4.6 (1.3-7.7) k/uL Lymphocytes # 1.3 (1.0-4.8) k/uL Monocytes # 0.7 (0-1.0) k/uL Eosinophils # 0.2 (0-0.7) k/uL Basophils # 0.0 (0-0.2) k/uL Hypochromasia Slight PT (9.0-12.0) sec INR (<1.2) APTT (22.0-30.0) sec D-Dimer (<0.60) mg/L FEU Sodium (137-145) mmol/L Potassium (3.5-5.1) mmol/L Chloride (98-107) mmol/L Carbon Dioxide (22-30) mmol/L Anion Gap mmol/L BUN (7-17) mg/dL Creatinine (0.52-1.04) mg/dL Est GFR (CKD-EPI)AfAm (>60 ml/min/1.73 sqM) Est GFR (CKD-EPI)NonAf (>60 ml/min/1.73 sqM) Glucose (74-99) mg/dL POC Glucose (mg/dL) (75-99) mg/dL POC Glu Dehydrogenation Operator ID Calcium (8.4-10.2) mg/dL Magnesium (1.6-2.3) mg/dL Total Bilirubin (0.2-1.3) mg/dL AST (14-36) U/L ALT (9-52) U/L Alkaline Phosphatase (38-126) U/L Troponin I 0.015 (0.000-0.034) ng/mL NT-Pro-B Natriuret Pep pg/mL Total Protein (6.3-8.2) g/dL Albumin (3.5-5.0) g/dL TSH 2.160 (0.465-4.680) mIU/L Urine Color Urine Appearance (Clear) Urine pH (5.0-8.0) Ur Specific [place] (1.001-1.035) Urine Protein (Negative) Urine Glucose (UA) (Negative) Urine Ketones (Negative) Urine Blood (Negative) Urine Nitrite (Negative) Urine Bilirubin (Negative) Urine Urobilinogen (<2.0) mg/dL Ur Leukocyte Esterase (Negative) 12/20/18 12/20/18 12/20/18 Range/Units 06:02 06:02 16:34 WBC (3.8-10.6) k/uL RBC (3.80-5.40) m/uL Hgb (11.4-16.0) gm/dL Hct (34.0-46.0) % MCV (80.0-100.0) fL MCH (25.0-35.0) pg MCHC (31.0-37.0) g/dL RDW (11.5-15.5) % Plt Count (150-450) k/uL Neutrophils % % Lymphocytes % % Monocytes % % Eosinophils % % Basophils % % Neutrophils # (1.3-7.7) k/uL Lymphocytes # (1.0-4.8) k/uL Monocytes # (0-1.0) k/uL Eosinophils # (0-0.7) k/uL Basophils # (0-0.2) k/uL Hypochromasia PT (9.0-12.0) sec INR (<1.2) APTT (22.0-30.0) sec D-Dimer (<0.60) mg/L FEU Sodium 137 (137-145) mmol/L Potassium 3.7 (3.5-5.1) mmol/L Chloride 101 (98-107) mmol/L Carbon Dioxide 31 H (22-30) mmol/L Anion Gap 5 mmol/L BUN 36 H (7-17) mg/dL Creatinine 1.21 H (0.52-1.04) mg/dL Est GFR (CKD-EPI)AfAm 50 (>60 ml/min/1.73 sqM) Est GFR (CKD-EPI)NonAf 44 (>60 ml/min/1.73 sqM) Glucose 111 H (74-99) mg/dL POC Glucose (mg/dL) 164 H (75-99) mg/dL POC Glu Dehydrogenation Operator ID Amy Hagan Calcium 9.4 (8.4-10.2) mg/dL Magnesium 2.0 (1.6-2.3) mg/dL Total Bilirubin (0.2-1.3) mg/dL AST (14-36) U/L ALT (9-52) U/L Alkaline Phosphatase (38-126) U/L Troponin I (0.000-0.034) ng/mL NT-Pro-B Natriuret Pep pg/mL Total Protein (6.3-8.2) g/dL Albumin (3.5-5.0) g/dL TSH (0.465-4.680) mIU/L Urine Color Urine Appearance (Clear) Urine pH (5.0-8.0) Ur Specific [place] (1.001-1.035) Urine Protein (Negative) Urine Glucose (UA) (Negative) Urine Ketones (Negative) Urine Blood (Negative) Urine Nitrite (Negative) Urine Bilirubin (Negative) Urine Urobilinogen (<2.0) mg/dL Ur Leukocyte Esterase (Negative) 12/20/18 12/21/18 12/21/18 Range/Units 20:27 06:43 11:27 WBC (3.8-10.6) k/uL RBC (3.80-5.40) m/uL Hgb (11.4-16.0) gm/dL Hct (34.0-46.0) % MCV (80.0-100.0) fL MCH (25.0-35.0) pg MCHC (31.0-37.0) g/dL RDW (11.5-15.5) % Plt Count (150-450) k/uL Neutrophils % % Lymphocytes % % Monocytes % % Eosinophils % % Basophils % % Neutrophils # (1.3-7.7) k/uL Lymphocytes # (1.0-4.8) k/uL Monocytes # (0-1.0) k/uL Eosinophils # (0-0.7) k/uL Basophils # (0-0.2) k/uL Hypochromasia PT (9.0-12.0) sec INR (<1.2) APTT (22.0-30.0) sec D-Dimer (<0.60) mg/L FEU Sodium (137-145) mmol/L Potassium (3.5-5.1) mmol/L Chloride (98-107) mmol/L Carbon Dioxide (22-30) mmol/L Anion Gap mmol/L BUN (7-17) mg/dL Creatinine (0.52-1.04) mg/dL Est GFR (CKD-EPI)AfAm (>60 ml/min/1.73 sqM) Est GFR (CKD-EPI)NonAf (>60 ml/min/1.73 sqM) Glucose (74-99) mg/dL POC Glucose (mg/dL) 191 H 206 H 193 H (75-99) mg/dL POC Glu Dehydrogenation Operator Hemant Love Jamie Smith, Jamie Calcium (8.4-10.2) mg/dL Magnesium (1.6-2.3) mg/dL Total Bilirubin (0.2-1.3) mg/dL AST (14-36) U/L ALT (9-52) U/L Alkaline Phosphatase (38-126) U/L Troponin I (0.000-0.034) ng/mL NT-Pro-B Natriuret Pep pg/mL Total Protein (6.3-8.2) g/dL Albumin (3.5-5.0) g/dL TSH (0.465-4.680) mIU/L Urine Color Urine Appearance (Clear) Urine pH (5.0-8.0) Ur Specific [place] (1.001-1.035) Urine Protein (Negative) Urine Glucose (UA) (Negative) Urine Ketones (Negative) Urine Blood (Negative) Urine Nitrite (Negative) Urine Bilirubin (Negative) Urine Urobilinogen (<2.0) mg/dL Ur Leukocyte Esterase (Negative) 12/21/18 12/21/18 Range/Units 16:47 20:43 WBC (3.8-10.6) k/uL RBC (3.80-5.40) m/uL Hgb (11.4-16.0) gm/dL Hct (34.0-46.0) % MCV (80.0-100.0) fL MCH (25.0-35.0) pg MCHC (31.0-37.0) g/dL RDW (11.5-15.5) % Plt Count (150-450) k/uL Neutrophils % % Lymphocytes % % Monocytes % % Eosinophils % % Basophils % % Neutrophils # (1.3-7.7) k/uL Lymphocytes # (1.0-4.8) k/uL Monocytes # (0-1.0) k/uL Eosinophils # (0-0.7) k/uL Basophils # (0-0.2) k/uL Hypochromasia PT (9.0-12.0) sec INR (<1.2) APTT (22.0-30.0) sec D-Dimer (<0.60) mg/L FEU Sodium (137-145) mmol/L Potassium (3.5-5.1) mmol/L Chloride (98-107) mmol/L Carbon Dioxide (22-30) mmol/L Anion Gap mmol/L BUN (7-17) mg/dL Creatinine (0.52-1.04) mg/dL Est GFR (CKD-EPI)AfAm (>60 ml/min/1.73 sqM) Est GFR (CKD-EPI)NonAf (>60 ml/min/1.73 sqM) Glucose (74-99) mg/dL POC Glucose (mg/dL) 109 H 185 H (75-99) mg/dL POC Glu Dehydrogenation Operator ID Amy Hagan Kristen Calcium (8.4-10.2) mg/dL Magnesium (1.6-2.3) mg/dL Total Bilirubin (0.2-1.3) mg/dL AST (14-36) U/L ALT (9-52) U/L Alkaline Phosphatase (38-126) U/L Troponin I (0.000-0.034) ng/mL NT-Pro-B Natriuret Pep pg/mL Total Protein (6.3-8.2) g/dL Albumin (3.5-5.0) g/dL TSH (0.465-4.680) mIU/L Urine Color Urine Appearance (Clear) Urine pH (5.0-8.0) Ur Specific [place] (1.001-1.035) Urine Protein (Negative) Urine Glucose (UA) (Negative) Urine Ketones (Negative) Urine Blood (Negative) Urine Nitrite (Negative) Urine Bilirubin (Negative) Urine Urobilinogen (<2.0) mg/dL Ur Leukocyte Esterase (Negative) - EKG Data EKG Comments: First EKG completed at 1614 demonstrates a narrow complex tachycardia without indistinguishable p waves consistent with atrial fibrillation with RVR. There is a right bundle branch block present. No acute ST segment elevation. [place] interval is 0. QRS 132. QTC 593. Second EKG completed at 2232 demonstrates the demand pacemaker captures appropriately. There is underlying atrial fibrillation. Bundle branch block still present. [place] interval 0, QRS 164, QTC 559. No acute ST segment elevations that meet Sgarbossa criteria. Disposition Clinical Impression: Exertional shortness of breath, Atrial fibrillation, Systolic congestive heart failure, Acute respiratory failure Disposition: ADMITTED IP TO THIS HOSP Condition: Good Is patient prescribed a controlled substance at d/c from ED?: No Decision to Admit Reason: Admit from EC Decision Date: 12/19/18 Decision Time: 23:26
[2018-12-20] MEDS ORDERED: methylPREDNISolone SOD SUCCI 125 MG/2 ML VIAL IV SCH
[2018-12-20] MEDS: MONTELUKAST 10 MG TAB PO SCH ×2 (01:59→20:40)
[2018-12-20] MEDS: APIXABAN 5 MG TAB PO SCH ×3 (01:59→20:40)
[2018-12-20] MEDS: ALPRAZolam 0.25 MG TAB PO SCH ×3 (01:59→20:40)
[2018-12-20] MEDS: LEVOTHYROXINE 50 MCG TAB PO SCH (05:49)
[2018-12-20 06:35] LABS: Basophils % (A) 1 %; Eosinophils # (A) 0.2 k/uL (0-0.7); Eosinophils % (A) 3 %; HCT 38.6 % (34.0-46.0); HGB 12.3 gm/dL (11.4-16.0); Hypochromasia Slight; Lymphocytes # (A) 1.3 k/uL (1.0-4.8); Lymphocytes % (A) 19 %; MCH 27.8 pg (25.0-35.0); MCHC 31.8 g/dL (31.0-37.0); MCV 87.4 fL (80.0-100.0); Mean Platelet Volume 7.5; Monocytes # (A) 0.7 k/uL (0-1.0); Monocytes % (A) 10 %; Neutrophils # (A) 4.6 k/uL (1.3-7.7); Neutrophils % (A) 66 %; Platelet Count 160 k/uL (150-450); RBC 4.42 m/uL (3.80-5.40); RDW 15.1 % (11.5-15.5)
[2018-12-20 07:00] LABS: Calcium 9.4 mg/dL (8.4-10.2); Potassium 3.7 mmol/L (3.5-5.1)
[2018-12-20] MEDS ORDERED: FUROSEMIDE 20 MG TAB PO SCH (09:00)
[2018-12-20] MEDS ORDERED: DEXTROSE 5% IN WATER 100 ML with AMIODARONE 150 MG IV ONE (09:09)
[2018-12-20] MEDS ORDERED: AMIODARONE 360 MG in DEXTROSE 5% IN WATER 200 ML IV ONE ×2 (09:09)
[2018-12-20] MEDS ORDERED: AMIODARONE 300 MG in DEXTROSE 5% IN WATER 250 ML IV SCH ×2 (09:15)
[2018-12-20] MEDS ORDERED: SODIUM CHLORIDE 0.9% 1,000 ML IV SCH (09:30)
[2018-12-20] MEDS: METOPROLOL SUCCINATE (ER) 50 MG TAB.ER.24H PO SCH (10:06)
[2018-12-20] MEDS: SPIRONOLACTONE 25 MG TAB PO SCH (10:06)
[2018-12-20] MEDS: SODIUM CHLORIDE 0.9% 1,000 ML IV SCH (10:13)
[2018-12-20] MEDS: INSULIN ASPART (NovoLOG) 100 UNIT/ML VIAL SQ SCH ×3 (12:31→20:40)
[2018-12-20] MEDS: methylPREDNISolone SOD SUCCI 125 MG/2 ML VIAL IV SCH ×2 (12:38→17:49)
--- NOTE | 2018-12-20 13:14 | P.CRDCN ---
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 She follows in the office with Dr. Patel. We have been asked to see her in consultation for shortness of breath. She has been struggling with ongoing shortness of breath for the previous one month. She was successfully cardioverted in October however has converted back to atrial fibrillation shortly thereafter. She has been in the office recently and underwent a Lexiscan stress test that was negative. Her symptoms of shortness of breath are related to going in and out of A. fib. She was attempting to take flecainide however she was unable to tolerate this medication she states it caused persistent nausea and she stopped taking it. She denies symptoms of chest discomfort, dizziness, vomiting or diaphoresis. She continues to feel fatigued, short of breath and nauseated. She also feels intermittent fluttering in the chest. EKG reveals atrial fibrillation, right bundle branch block, intermittent demand dual chamber pacing. Chest x-ray is negative for acute cardiopulmonary process. 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 Laboratory data reviewed, WBC 7, hemoglobin 12.3, platelets 160, d-dimer 2.22, sodium 137, potassium 3.7, creatinine 1.21 with a GFR 44, cardiac enzymes negative 2, NT proBNP 1910. Current cardiac medications include Aldactone 25 mg daily, pravastatin 10 mg daily, Toprol 150 mg daily, Lasix 40 mg daily, Eliquis 5 mg twice a day. At the time of my exam: CONSTITUTIONAL: Denies fever. Denies chills. EYES: Denies blurred vision. Denies vision changes. Denies eye pain. EARS, NOSE, MOUTH & THROAT: Denies headache. Denies sore throat. Denies ear pain. CARDIOVASCULAR: Denies chest pain. Complains of shortness of breath. Denies orthopnea. Denies PND. Complains of palpitations. RESPIRATORY: Denies cough. GASTROINTESTINAL: Denies abdominal pain. Denies diarrhea. Denies constipation. Complains of nausea. Denies vomiting. MUSCULOSKELETAL: Denies myalgias. INTEGUMENTARY: Denies pruitis. Denies rash. NEUROLOGIC: Denies numbness. Denies tingling. Denies weakness. PSYCHIATRIC: Denies anxiety. Denies depression. ENDOCRINE: Denies fatigue. Denies weight change. Denies polydipsia. Denies polyurina. GENITOURINARY: Denies burning, hematuria or urgency with micturation. HEMATOLOGIC: Denies history of anemia. Denies bleeding. GENERAL: This is a 78-year-old female in no apparent distress at the time of my examination. Obese. HEENT: Head is atraumatic, normocephalic. Pupils are equal, round. Sclerae anicteric. Conjunctivae are clear. Mucous membranes of the mouth are moist. Neck is supple. There is no jugular venous distention. No carotid bruit is heard. LUNGS: Clear to auscultation no wheezes, rales or rhonchi. No chest wall tenderness is noted on palpation or with deep breathing. HEART: Irregular rate and rhythm without murmurs, rubs or gallops. S1 and S2 heard. ABDOMEN: Soft, nontender. Bowel sounds are heard. No organomegaly noted. EXTREMITIES: No evidence of peripheral edema and no calf tenderness noted. VASCULAR: Radial and dorsalis pedis pulses palpated, no evidence of clubbing. NEUROLOGIC: Patient is awake, alert and oriented x3. ASSESSMENT Shortness of breath secondary to atrial fibrillation Paroxysmal atrial fibrillation s/p failed cardioversion on [facility] anti- coagulation Hypertension Dyslipidemia Peripheral vascular disease s/p athrectomy and stent placement to SFA October 2018 Permanent dual chamber pacemaker implantation Valvular heart disease s/p bovine aortic valve replacement, non-rheumatic Obesity PLAN Increase lasix to 40 mg BID and resume toprol 150 mg daily. Check magnesium. Proceed with upgrade to BiV pacemaker . I have discussed the risks, benefits and alternative therapies for the above-mentioned procedure and for both sedation/analgesia as well as necessary blood product administration, if indicated, as they pertain to this patient. The patient has indicated understanding and acceptance of the risks and procedures discussed. Questions have been answered appropriately and she is agreeable to move forward with above stated procedure. Ongoing telemetry monitoring. Thank you kindly for this consultation. Nurse Practitioner note has been reviewed, I agree with a documented findings and plan of care. Patient was seen and examined. Past Medical History Past Medical History: Atrial Fibrillation, Coronary Artery Disease (CAD), Cancer, COPD, Hyperlipidemia, Hypertension, Osteoarthritis (OA), Sleep Apnea/CPAP/BIPAP, Thyroid Disorder, Vascular Disorder Additional Past Medical History / Comment(s): Hx skin cancer yrs ago on nose. Numbness and pain left lower leg, varicose veins, hx kidney stones, steroids Jun 2018. "2013 blood clot in heart." CPAP use. Hx Shingles 4 yrs ago. History of Any Multi-Drug Resistant Organisms: None Reported Past Surgical History: Appendectomy, Cholecystectomy, Heart Catheterization With Stent, Hernia Repair, Joint Replacement, Pacemaker, Tonsillectomy Additional Past Surgical History / Comment(s): Heart stent x1, Helixis JULIANNE LACEY Pacemaker 2008, Aortic valve replaced (pig)2008, bilateral total knees, cataracts removed bilaterally. Right cath for athrosclorsis Past Anesthesia/Blood Transfusion Reactions: No Reported Reaction, Motion Sickness Additional Past Anesthesia/Blood Transfusion Reaction / Comment(s): No problems with prior blood transfusions. Date of Last Stent Placement:: 1998 Type of Cardiac Device: Permanent Pacemaker Device Placement Date:: 2008 Past Psychological History: Anxiety, Depression Smoking Status: Never smoker Past Alcohol Use History: None Reported Past Drug Use History: None Reported - Past Family History Mother Family Medical History: Cancer Additional Family Medical History / Comment(s): skin CA Father Family Medical History: Cancer Additional Family Medical History / Comment(s): stomach ulcer at age 52 Medications and Allergies Home Medications Medication Instructions Recorded Confirmed Type Cholecalciferol [Vitamin D3 (25 5,000 unit PO DAILY 08/24/18 12/19/18 History Mcg = 1000 Iu)] Furosemide [Lasix] 20 - 40 mg PO BID 08/24/18 12/19/18 History HYDROcodone/APAP 5-325MG [[place] 0.5 tab PO DAILY PRN 08/24/18 12/19/18 History 5-325] Levothyroxine Sodium [Synthroid] 50 mcg PO MOTUWETHFRSA 08/24/18 12/19/18 History Montelukast [Singulair] 10 mg PO HS 08/24/18 12/19/18 History Multivitamins, Thera [Multivitamin 1 tab PO DAILY 08/24/18 12/19/18 History (formulary)] Calcium/Magnesium 1 tab PO DAILY 10/05/18 12/19/18 History Co Q-10 1 tab PO DAILY 10/05/18 12/19/18 History Oil Of Oregano 1 tab PO DAILY 10/05/18 12/19/18 History Apixaban [Eliquis] 5 mg PO BID #180 tab 11/28/18 12/19/18 Rx ALPRAZolam [Xanax] 0.25 mg PO BID 12/19/18 12/19/18 History Bismuth Subsalicylate 262 mg PO Q8HR 12/19/18 12/19/18 History [Pepto-Bismol] Metoprolol Succinate (ER) [Toprol 150 mg PO DAILY 12/19/18 12/19/18 History XL] Pravastatin Sodium [Pravachol] 10 mg PO DIRECTED 12/19/18 12/19/18 History Spironolactone [Aldactone] 25 mg PO DAILY 12/19/18 12/19/18 History Allergies Allergy/AdvReac Type Severity Reaction Status Date / Time amlodipine [From Lotrel] Allergy Unknown Verified 10/26/18 16:17 benazepril [From Lotrel] Allergy Unknown Verified 10/26/18 16:17 cephalexin [From Keflex] Allergy Rash/Hives Verified 10/26/18 16:17 clindamycin Allergy Rash/Hives Verified 10/26/18 16:17 clonidine [From Catapres] Allergy anxious Verified 10/26/18 16:17 diltiazem Allergy severe Verified 10/26/18 16:17 headache doxazosin [From Cardura] Allergy Unknown Verified 10/26/18 16:17 isosorbide [From Imdur] Allergy Anaphylaxis Verified 10/26/18 16:17 metoprolol [From Toprol XL] Allergy Unknown Verified 10/26/18 16:17 Penicillins Allergy "passes Verified 10/26/18 16:17 out" ramipril [From Altace] Allergy Anaphylaxis Verified 10/26/18 16:17 sulfamethoxazole Allergy severe Verified 10/26/18 16:17 [From Bactrim] skin reaction trimethoprim [From Bactrim] Allergy severe Verified 10/26/18 16:17 skin reaction valsartan [From Diovan] Allergy severe Verified 10/26/18 16:17 headache maxide Allergy Unknown Uncoded 10/26/18 16:17 oral steroids AdvReac Afib Uncoded 10/26/18 16:17 Physical Exam Vitals: Vital Signs Temp Pulse Pulse Resp BP BP BP 12/20/18 07:20 97.5 F L 93 18 134/111 12/20/18 03:51 97.9 F 90 16 123/82 12/20/18 03:44 18 12/20/18 02:16 18 12/20/18 01:18 97.6 F 98 18 126/96 12/19/18 22:00 107 H 18 137/99 12/19/18 21:00 93 16 127/87 12/19/18 18:13 101 H 12/19/18 18:08 100 12/19/18 18:01 101 H 20 145/95 12/19/18 16:30 94 26 H 134/102 12/19/18 16:00 97.7 F 115 H 20 132/84 Pulse Ox 12/20/18 07:20 97 12/20/18 03:51 97 12/20/18 03:44 12/20/18 02:16 12/20/18 01:18 94 L 12/19/18 22:00 97 12/19/18 21:00 99 12/19/18 18:13 12/19/18 18:08 12/19/18 18:01 100 12/19/18 16:30 97 12/19/18 16:00 96 Intake and Output 12/19/18 12/20/18 12/20/18 22:59 06:59 14:59 Intake Total 20 Balance 20 Intake: Amount of Fluid Infused ( 20 ml) Other: Voiding Method Toilet # Voids 1 Weight 90.718 kg Results 12/20/18 06:02 12/20/18 06:02 Cardiac Enzymes 12/19/18 12/19/18 12/19/18 Range/Units 16:31 18:25 20:47 AST 37 H (14-36) U/L Troponin I 0.013 0.015 (0.000-0.034) ng/mL Coagulation 12/19/18 Range/Units 16:31 PT 16.4 H (9.0-12.0) sec APTT 29.7 (22.0-30.0) sec CBC 12/19/18 12/20/18 Range/Units 16:31 06:02 WBC 6.9 7.0 (3.8-10.6) k/uL RBC 4.79 4.42 (3.80-5.40) m/uL Hgb 13.3 12.3 (11.4-16.0) gm/dL Hct 42.0 38.6 (34.0-46.0) % Plt Count 180 160 (150-450) k/uL Comprehensive Metabolic Panel 12/19/18 12/20/18 Range/Units 18:25 06:02 Sodium 135 L 137 (137-145) mmol/L Potassium 4.1 3.7 (3.5-5.1) mmol/L Chloride 99 101 (98-107) mmol/L Carbon Dioxide 28 31 H (22-30) mmol/L BUN 34 H 36 H (7-17) mg/dL Creatinine 1.08 H 1.21 H (0.52-1.04) mg/dL Glucose 95 111 H (74-99) mg/dL Calcium 9.4 9.4 (8.4-10.2) mg/dL AST 37 H (14-36) U/L ALT 23 (9-52) U/L Alkaline Phosphatase 147 H (38-126) U/L Total Protein 6.6 (6.3-8.2) g/dL Albumin 4.0 (3.5-5.0) g/dL Current Medications Generic Name Dose Route Start Last Admin Trade Name Freq PRN Reason Stop Dose Admin Alprazolam 0.25 mg 12/19/18 23:45 12/20/18 01:59 Xanax PO 0.25 mg BID BRIDGETTE Administration Apixaban 5 mg 12/19/18 23:45 12/20/18 01:59 Eliquis PO 5 mg BID BRIDGETTE Administration Furosemide 20 mg 12/20/18 09:00 Lasix PO BID BRIDGETTE Amiodarone HCl 150 mg/ 103 mls @ 618 mls/hr 12/20/18 09:09 Dextrose/Water IV 12/20/18 09:18 .Q10M ONE Amiodarone HCl 360 mg/ 200 mls @ 33.333 mls/hr 12/20/18 09:09 Dextrose/Water IV 12/20/18 15:08 .Q6H ONE Protocol 1 MG/MIN Amiodarone HCl 300 mg/ 250 mls @ 25 mls/hr 12/20/18 09:15 Dextrose/Water IV 12/21/18 03:14 .Q10H BRIDGETTE Protocol 0.5 MG/MIN Levothyroxine Sodium 50 mcg 12/20/18 06:30 12/20/18 05:49 Synthroid PO 50 mcg [id number] BRIDGETTE Administration Montelukast Sodium 10 mg 12/19/18 23:45 12/20/18 01:59 Singulair PO 10 mg HS BRIDGETTE Administration Naloxone HCl 0.2 mg 12/19/18 23:27 Narcan IV Q2M PRN Opioid Reversal Pravastatin Sodium 10 mg 12/20/18 21:00 Pravachol PO HS BRIDGETTE Spironolactone 25 mg 12/20/18 09:00 Aldactone PO DAILY BRIDGETTE Intake and Output 12/19/18 12/20/18 12/20/18 22:59 06:59 14:59 Intake Total 20 Balance 20 Intake: Amount of Fluid Infused ( 20 ml) Other: Voiding Method Toilet # Voids 1 Weight 90.718 kg 12/20/18 06:02 12/20/18 06:02
[2018-12-20] MEDS ORDERED: IPRATROPIUM-ALBUTEROL 3 ML NEB INHALATION PRN (15:08)
--- NOTE | 2018-12-20 15:10 | P.HPIM ---
History of Present Illness H&P Date: 12/20/18 This is a 78-year-old female patient of Dr. Cheeam and Dr. 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 Pike on Xolair injections. Patient complains of shortness of breath related to her atrial fibrillation. She complains of increasing shortness of breath and nausea when she is walking up stairs. She has also noted increased lower extremity edema. She came into [facility] emergency center for evaluation. She states the nebulizer treatment did help only a minimal amount. Patient underwent cardioversion in October but has subsequently converted back to atrial fibrillation. She underwent Lexiscan stress test that was negative recently. She was also unable to tolerate flecainide. Patient was placed in the observation unit and seen by cardiology with plan for upgrade to biventricular pacemaker on . Due to her underlying asthma, we will ask for Dr. Pike to see the patient. She is on Xolair injections but she's not been able to make it to the office recently. Review of Systems All systems: negative Constitutional: Reports fatigue, Reports weakness, Denies anorexia, Denies chills, Denies fever, Denies lethargy, Denies poor appetite Eyes: denies blurred vision, denies pain Ears, nose, mouth and throat: Denies dysphagia, Denies headache, Denies nasal congestion, Denies nasal discharge, Denies sore throat, Denies vertigo Cardiovascular: Reports decreased exercise tolerance, Reports dyspnea on exertion, Reports leg edema, Reports shortness of breath, Denies chest pain, Denies syncope Respiratory: Reports dyspnea, Reports sleep apnea, Denies cough, Denies cough with sputum, Denies excessive sputum, Denies hemoptysis, Denies home oxygen, Denies wheezing Gastrointestinal: Denies abdominal pain, Denies diarrhea, Denies loss of appetite, Denies nausea, Denies vomiting Genitourinary: Denies dysuria, Denies hematuria Musculoskeletal: Denies myalgias Integumentary: Denies pruritus, Denies rash, Denies wounds Neurological: Denies aphasia, Denies change in mentation, Denies change in speech, Denies numbness, Denies seizures, Denies weakness Psychiatric: Denies anxiety, Denies depression Endocrine: Denies fatigue, Denies weight change Past Medical History Past Medical History: Atrial Fibrillation, Coronary Artery Disease (CAD), Cancer, Hyperlipidemia, Hypertension, Osteoarthritis (OA), Sleep Apnea/CPAP/BIPAP, Thyroid Disorder, Vascular Disorder Additional Past Medical History / Comment(s): Hx skin cancer yrs ago on nose. Numbness and pain left lower leg, varicose veins, hx kidney stones, steroids Jun 2018. "2013 blood clot in heart." CPAP use. Hx Shingles 4 yrs ago. History of Any Multi-Drug Resistant Organisms: None Reported Past Surgical History: Appendectomy, Cholecystectomy, Heart Catheterization With Stent, Hernia Repair, Joint Replacement, Pacemaker, Tonsillectomy Additional Past Surgical History / Comment(s): Heart stent x1, [employer] DAPTA Pacemaker 2008, Aortic valve replaced (pig)2008, bilateral total knees, cataracts removed bilaterally. Right cath for athrosclorsis Past Anesthesia/Blood Transfusion Reactions: No Reported Reaction, Motion Sickness Additional Past Anesthesia/Blood Transfusion Reaction / Comment(s): No problems with prior blood transfusions. Date of Last Stent Placement:: 1998 Type of Cardiac Device: Permanent Pacemaker Device Placement Date:: 2008 Past Psychological History: Anxiety, Depression Smoking Status: Never smoker Past Alcohol Use History: None Reported Additional Past Alcohol Use History / Comment(s): Patient is a lifelong nonsmoker but she was exposed to secondhand smoke. No illicit drug use. No alcohol use. Past Drug Use History: None Reported - Past Family History Mother Family Medical History: Cancer Additional Family Medical History / Comment(s): Mother at age 95 from old age. She had history of diabetes and skin cancer. Father Family Medical History: Cancer Additional Family Medical History / Comment(s): stomach ulcer at age 52 with history of coronary artery disease as well. Brother(s) Additional Family Medical History / Comment(s): Patient has 6 brothers and one is known to have coronary artery disease. Patient is no sisters. Patient has 4 children one has Crohn's disease and one has rheumatoid arthritis. Medications and Allergies Home Medications Medication Instructions Recorded Confirmed Type Cholecalciferol [Vitamin D3 (25 5,000 unit PO DAILY 08/24/18 12/19/18 History Mcg = 1000 Iu)] Furosemide [Lasix] 20 - 40 mg PO BID 08/24/18 12/19/18 History HYDROcodone/APAP 5-325MG [[place] 0.5 tab PO DAILY PRN 08/24/18 12/19/18 History 5-325] Levothyroxine Sodium [Synthroid] 50 mcg PO MOTUWETHFRSA 08/24/18 12/19/18 History Montelukast [Singulair] 10 mg PO HS 08/24/18 12/19/18 History Multivitamins, Thera [Multivitamin 1 tab PO DAILY 08/24/18 12/19/18 History (formulary)] Calcium/Magnesium 1 tab PO DAILY 10/05/18 12/19/18 History Co Q-10 1 tab PO DAILY 10/05/18 12/19/18 History Oil Of Oregano 1 tab PO DAILY 10/05/18 12/19/18 History Apixaban [Eliquis] 5 mg PO BID #180 tab 11/28/18 12/19/18 Rx ALPRAZolam [Xanax] 0.25 mg PO BID 12/19/18 12/19/18 History Bismuth Subsalicylate 262 mg PO Q8HR 12/19/18 12/19/18 History [Pepto-Bismol] Metoprolol Succinate (ER) [Toprol 150 mg PO DAILY 12/19/18 12/19/18 History XL] Pravastatin Sodium [Pravachol] 10 mg PO DIRECTED 12/19/18 12/19/18 History Spironolactone [Aldactone] 25 mg PO DAILY 12/19/18 12/19/18 History Allergies Allergy/AdvReac Type Severity Reaction Status Date / Time amlodipine [From Lotrel] Allergy Unknown Verified 10/26/18 16:17 benazepril [From Lotrel] Allergy Unknown Verified 10/26/18 16:17 cephalexin [From Keflex] Allergy Rash/Hives Verified 10/26/18 16:17 clindamycin Allergy Rash/Hives Verified 10/26/18 16:17 clonidine [From Catapres] Allergy anxious Verified 10/26/18 16:17 diltiazem Allergy severe Verified 10/26/18 16:17 headache doxazosin [From Cardura] Allergy Unknown Verified 10/26/18 16:17 isosorbide [From Imdur] Allergy Anaphylaxis Verified 10/26/18 16:17 metoprolol [From Toprol XL] Allergy Unknown Verified 10/26/18 16:17 Penicillins Allergy "passes Verified 10/26/18 16:17 out" ramipril [From Altace] Allergy Anaphylaxis Verified 10/26/18 16:17 sulfamethoxazole Allergy severe Verified 10/26/18 16:17 [From Bactrim] skin reaction trimethoprim [From Bactrim] Allergy severe Verified 10/26/18 16:17 skin reaction valsartan [From Diovan] Allergy severe Verified 10/26/18 16:17 headache maxide Allergy Unknown Uncoded 10/26/18 16:17 oral steroids AdvReac Afib Uncoded 10/26/18 16:17 Physical Exam Vitals: Vital Signs Temp Pulse Pulse Resp BP BP BP 12/20/18 07:20 97.5 F L 93 18 134/111 12/20/18 03:51 97.9 F 90 16 123/82 12/20/18 03:44 18 12/20/18 02:16 18 12/20/18 01:18 97.6 F 98 18 126/96 12/19/18 22:00 107 H 18 137/99 12/19/18 21:00 93 16 127/87 12/19/18 18:13 101 H 12/19/18 18:08 100 12/19/18 18:01 101 H 20 145/95 12/19/18 16:30 94 26 H 134/102 12/19/18 16:00 97.7 F 115 H 20 132/84 Pulse Ox 12/20/18 07:20 97 12/20/18 03:51 97 12/20/18 03:44 12/20/18 02:16 12/20/18 01:18 94 L 12/19/18 22:00 97 12/19/18 21:00 99 12/19/18 18:13 12/19/18 18:08 12/19/18 18:01 100 12/19/18 16:30 97 12/19/18 16:00 96 Intake and Output 12/19/18 12/20/18 12/20/18 22:59 06:59 14:59 Intake Total 20 Balance 20 Intake: Amount of Fluid Infused ( 20 ml) Other: Voiding Method Toilet # Voids 1 Weight 90.718 kg Gen: This is an obese 78-year-old female. Patient is resting in bed and appears to be comfortable and in no acute distress. HEENT: Head is atraumatic, normocephalic. Pupils equal, round. Sclerae is anicteric. NECK: Supple. No JVD. No lymphadenopathy. No thyromegaly. LUNGS: Clear to auscultation. No wheezes or rhonchi. No intercostal retractions. HEART: Irregular rate and rhythm. No murmur. ABDOMEN: Soft. Bowel sounds are present. No masses. No tenderness. EXTREMITIES: No pedal edema. No calf tenderness. NEUROLOGICAL: Patient is awake, alert and oriented x3. Cranial nerves 2 through 12 are grossly intact. Results CBC & Chem 7: 12/20/18 06:02 12/20/18 06:02 Labs: Abnormal Lab Results - Last 24 Hours (Table) 12/19/18 12/19/18 12/20/18 Range/Units 16:31 18:25 06:02 PT 16.4 H (9.0-12.0) sec INR 1.6 H (<1.2) D-Dimer 2.22 H (<0.60) mg/L FEU Sodium 135 L (137-145) mmol/L Carbon Dioxide 31 H (22-30) mmol/L BUN 34 H 36 H (7-17) mg/dL Creatinine 1.08 H 1.21 H (0.52-1.04) mg/dL Glucose 111 H (74-99) mg/dL AST 37 H (14-36) U/L Alkaline Phosphatase 147 H (38-126) U/L Thrombosis Risk Factor Assmnt - DVT/VTE Prophylaxis DVT/VTE Prophylaxis: Pharmacologic Prophylaxis ordered - Choose All That Apply Any of the Below Risk Factors Present?: Yes Each Factor Represents 1 point: Obesity (BMI >25) Other Risk Factors: Yes Each Risk Factor Represents 3 Points: Age 75 years or older Thrombosis Risk Factor Assessment Total Risk Factor Score: 4 Thrombosis Risk Factor Assessment Level: Moderate Risk Assessment and Plan Plan: 1. Atrial fibrillation with mild RVR on presentation, paroxysmal atrial fibrillation. Patient is scheduled for my IV pacemaker upgrade on . Cardiology consult appreciated. Continue eliquis 5 mg twice daily, metoprolol 150 mg daily, Aldactone 25 mg daily 2. Hypertension. Continue Toprol-XL, Lasix, Aldactone. 3. Obstructive sleep apnea on CPAP. Patient will have family bring in CPAP from home 4. Moderate persistent asthma. Consult with Dr. Pike. Solu-Medrol 60 mg IV every 6 hours, Pulmicort, DuoNeb treatments, Singulair. 5. Hyperlipidemia. Continue pravastatin 6. Hypothyroidism. Continue levothyroxine 50 g Wednesday to see once a Wednesday, TSH free T4. 7. Status post aortic valve replacement. 8. Peripheral vascular disease status post atherectomy and stent placement to October 2018. 9. Generalized anxiety disorder. Continue Xanax. 10. DVT prophylaxis. Continue eliquis. 11. GI prophylaxis. Pepcid. Patient will be admitted to the hospital for a minimum of 2 night stay. Discharge plan: home Impression and plan of care have been directed as dictated by the signing physician. Vickie Garg nurse practitioner acting as scribe for signing physician.
--- NOTE | 2018-12-20 15:27 | P.CNPUL ---
History of Present Illness Consult date: 12/20/18 Reason for consult: dyspnea, chest pain Chief complaint: chest pain History of present illness: This is a 78-year-old female who presented to the emergency department stating that she is having shortness of breath and chest tightness. She states that her chest pain went into her shoulder and she was scared and came to the ER. She states that she believes her shortness of breath is from her heart. She denies any wheezing, fevers, chills. She is a lifelong never smoker. She states she does have seasonal and environmental allergies. She states she was told that she has COPD but does not know what it is from since she is a never smoker. She did have bronchitis as a child. She is on Eliquis for anticoagulation. She states that she was getting injections for her breathing but cannot remember the last time she had it. She states that she could not come to the office to get her injections because of her heart and having recurrent atrial fibrillation. She does follow with cardiology for this. She states that she has inhalers and nebulizers which she only uses twice a week. She cannot remember when her last pulmonary function test was not states that "I am due." She does have obstructive sleep apnea as well and uses her CPAP nightly without fail. She uses it 5-6 hours nightly on average. Upon review of the patient's office records the patient did have a pulmonary function test in August 2018. She does have moderate obstruction with good bronchodilator reversibility more consistent with asthma. The patient was also on Xolair and her last injection was September 27, 2018. Past Medical History Past Medical History: Atrial Fibrillation, Coronary Artery Disease (CAD), Cancer, Hyperlipidemia, Hypertension, Osteoarthritis (OA), Sleep Apnea/CPAP/BIPAP, Thyroid Disorder, Vascular Disorder Additional Past Medical History / Comment(s): Hx skin cancer yrs ago on nose. Numbness and pain left lower leg, varicose veins, hx kidney stones, steroids Jun 2018. "2013 blood clot in heart." CPAP use. Hx Shingles 4 yrs ago. History of Any Multi-Drug Resistant Organisms: None Reported Past Surgical History: Appendectomy, Cholecystectomy, Heart Catheterization With Stent, Hernia Repair, Joint Replacement, Pacemaker, Tonsillectomy Additional Past Surgical History / Comment(s): Heart stent x1, [employer] [address] Pacemaker 2008, Aortic valve replaced (pig)2008, bilateral total knees, cataracts removed bilaterally. Right cath for athrosclorsis Past Anesthesia/Blood Transfusion Reactions: No Reported Reaction, Motion Sickness Additional Past Anesthesia/Blood Transfusion Reaction / Comment(s): No problems with prior blood transfusions. Date of Last Stent Placement:: 1998 Type of Cardiac Device: Permanent Pacemaker Device Placement Date:: 2008 Past Psychological History: Anxiety, Depression Smoking Status: Never smoker Past Alcohol Use History: None Reported Additional Past Alcohol Use History / Comment(s): Patient is a lifelong nonsmoker but she was exposed to secondhand smoke. No illicit drug use. No alcohol use. Past Drug Use History: None Reported - Past Family History Mother Family Medical History: Cancer Additional Family Medical History / Comment(s): Mother at age 95 from old age. She had history of diabetes and skin cancer. Father Family Medical History: Cancer Additional Family Medical History / Comment(s): stomach ulcer at age 52 with history of coronary artery disease as well. Brother(s) Additional Family Medical History / Comment(s): Patient has 6 brothers and one is known to have coronary artery disease. Patient is no sisters. Patient has 4 children one has Crohn's disease and one has rheumatoid arthritis. Medications and Allergies Home Medications Medication Instructions Recorded Confirmed Type Cholecalciferol [Vitamin D3 (25 5,000 unit PO DAILY 08/24/18 12/19/18 History Mcg = 1000 Iu)] Furosemide [Lasix] 20 - 40 mg PO BID 08/24/18 12/19/18 History HYDROcodone/APAP 5-325MG [[place] 0.5 tab PO DAILY PRN 08/24/18 12/19/18 History 5-325] Levothyroxine Sodium [Synthroid] 50 mcg PO MOTUWETHFRSA 08/24/18 12/19/18 History Montelukast [Singulair] 10 mg PO HS 08/24/18 12/19/18 History Multivitamins, Thera [Multivitamin 1 tab PO DAILY 08/24/18 12/19/18 History (formulary)] Calcium/Magnesium 1 tab PO DAILY 10/05/18 12/19/18 History Co Q-10 1 tab PO DAILY 10/05/18 12/19/18 History Oil Of Oregano 1 tab PO DAILY 10/05/18 12/19/18 History Apixaban [Eliquis] 5 mg PO BID #180 tab 11/28/18 12/19/18 Rx ALPRAZolam [Xanax] 0.25 mg PO BID 12/19/18 12/19/18 History Bismuth Subsalicylate 262 mg PO Q8HR 12/19/18 12/19/18 History [Pepto-Bismol] Metoprolol Succinate (ER) [Toprol 150 mg PO DAILY 12/19/18 12/19/18 History XL] Pravastatin Sodium [Pravachol] 10 mg PO DIRECTED 12/19/18 12/19/18 History Spironolactone [Aldactone] 25 mg PO DAILY 12/19/18 12/19/18 History Allergies Allergy/AdvReac Type Severity Reaction Status Date / Time amlodipine [From Lotrel] Allergy Unknown Verified 10/26/18 16:17 benazepril [From Lotrel] Allergy Unknown Verified 10/26/18 16:17 cephalexin [From Keflex] Allergy Rash/Hives Verified 10/26/18 16:17 clindamycin Allergy Rash/Hives Verified 10/26/18 16:17 clonidine [From Catapres] Allergy anxious Verified 10/26/18 16:17 diltiazem Allergy severe Verified 10/26/18 16:17 headache doxazosin [From Cardura] Allergy Unknown Verified 10/26/18 16:17 isosorbide [From Imdur] Allergy Anaphylaxis Verified 10/26/18 16:17 metoprolol [From Toprol XL] Allergy Unknown Verified 10/26/18 16:17 Penicillins Allergy "passes Verified 10/26/18 16:17 out" ramipril [From Altace] Allergy Anaphylaxis Verified 10/26/18 16:17 sulfamethoxazole Allergy severe Verified 10/26/18 16:17 [From Bactrim] skin reaction trimethoprim [From Bactrim] Allergy severe Verified 10/26/18 16:17 skin reaction valsartan [From Diovan] Allergy severe Verified 10/26/18 16:17 headache maxide Allergy Unknown Uncoded 10/26/18 16:17 oral steroids AdvReac Afib Uncoded 10/26/18 16:17 Physical Exam Osteopathic Statement: *. No significant issues noted on an osteopathic structural exam other than those noted in the History and Physical/Consult. Vitals: Vital Signs Temp Pulse Pulse Resp BP BP BP 12/20/18 12:19 97.6 F 94 18 121/86 12/20/18 07:20 97.5 F L 93 18 134/111 12/20/18 03:51 97.9 F 90 16 123/82 12/20/18 03:44 18 12/20/18 02:16 18 12/20/18 01:18 97.6 F 98 18 126/96 12/19/18 22:00 107 H 18 137/99 12/19/18 21:00 93 16 127/87 12/19/18 18:13 101 H 12/19/18 18:08 100 12/19/18 18:01 101 H 20 145/95 12/19/18 16:30 94 26 H 134/102 12/19/18 16:00 97.7 F 115 H 20 132/84 Pulse Ox 12/20/18 12:19 96 12/20/18 07:20 97 12/20/18 03:51 97 12/20/18 03:44 12/20/18 02:16 12/20/18 01:18 94 L 12/19/18 22:00 97 12/19/18 21:00 99 12/19/18 18:13 12/19/18 18:08 12/19/18 18:01 100 12/19/18 16:30 97 12/19/18 16:00 96 Intake and Output 12/20/18 12/20/18 12/20/18 06:59 14:59 22:59 Intake Total 20 222 Balance 20 222 Intake: Amount of Fluid Infused ( 20 ml) Oral 222 Other: Voiding Method Toilet Toilet # Voids 1 General: Patient is alert and oriented 3, no acute distress, obese Cardiovascular: Regular rate and rhythm, S1/S2 Lungs: Diminished breath sounds bilaterally otherwise clear Abdomen: Soft nontender nondistended positive bowel sounds Extremities: No edema Results - Laboratory Findings CBC and BMP: 12/20/18 06:02 12/20/18 06:02 PT/INR, D-dimer PT 16.4 sec (9.0-12.0) H 12/19/18 16:31 INR 1.6 (<1.2) H 12/19/18 16:31 D-Dimer 2.22 mg/L FEU (<0.60) H 12/19/18 16:31 Abnormal lab findings: Abnormal Labs 12/19/18 12/19/18 12/20/18 16:31 18:25 06:02 PT 16.4 H INR 1.6 H D-Dimer 2.22 H Sodium 135 L Carbon Dioxide 31 H BUN 34 H 36 H Creatinine 1.08 H 1.21 H Glucose 111 H AST 37 H Alkaline Phosphatase 147 H - Diagnostic Findings Chest x-ray: report reviewed, image reviewed Assessment and Plan Assessment: Acute exacerbation of severe persistent asthma, allergic type Atrial fibrillation with RVR GEO compliant with CPAP Hypertension Dyslipidemia Hypothyroid Morbid obesity History of aortic valve replacement Anxiety O2 to maintain saturation greater than or equal to 90% Steroid taper Pulmicort and DuoNeb Singulair Echocardiogram - suspect pulmonary hypertension Incentive spirometry and pulmonary hygiene GI and DVT prophylaxis Rate control per cardiology Thank you for this consultation. We will continue to follow along.
[2018-12-20 16:37] LABS: Glucose,Whole Blood 164 mg/dL (75-99)
[2018-12-20] MEDS ORDERED: ONDANSETRON ODT 4 MG TAB PO PRN (17:32)
[2018-12-20] MEDS: CALCIUM CARBONATE 500 MG CHEWABLE PO PRN (17:50)
[2018-12-20] MEDS: IPRATROPIUM-ALBUTEROL 3 ML NEB INHALATION SCH (18:48)
[2018-12-20] MEDS: BUDESONIDE 0.5 MG/2 ML NEBU INHALATION SCH (18:49)
[2018-12-20 20:33] LABS: Glucose,Whole Blood 191 mg/dL (75-99)
[2018-12-20] MEDS: PRAVASTATIN SODIUM 20 MG TAB PO SCH (20:40)
[2018-12-20] MEDS: FUROSEMIDE 40 MG TAB PO SCH (20:40)
[2018-12-21] MEDS: methylPREDNISolone SOD SUCCI 125 MG/2 ML VIAL IV SCH (00:26)
[2018-12-21] MEDS: MELATONIN 3 MG TABLET PO PRN ×2 (01:30→23:31)
[2018-12-21] MEDS: SODIUM CHLORIDE 0.9% 1,000 ML IV SCH ×2 (04:16→12:32)
[2018-12-21] MEDS: LEVOTHYROXINE 50 MCG TAB PO SCH (06:16)
[2018-12-21 06:45] LABS: Glucose,Whole Blood 206 mg/dL (75-99)
[2018-12-21] MEDS: BUDESONIDE 0.5 MG/2 ML NEBU INHALATION SCH ×2 (07:29→19:12)
[2018-12-21] MEDS: IPRATROPIUM-ALBUTEROL 3 ML NEB INHALATION SCH ×3 (07:29→19:12)
[2018-12-21] MEDS: INSULIN ASPART (NovoLOG) 100 UNIT/ML VIAL SQ SCH ×4 (09:12→21:52)
[2018-12-21] MEDS: ALPRAZolam 0.25 MG TAB PO SCH ×2 (09:12→23:31)
[2018-12-21] MEDS: FUROSEMIDE 40 MG TAB PO SCH ×2 (09:12→20:26)
[2018-12-21] MEDS: FAMOTIDINE 20 MG TAB PO SCH (09:13)
[2018-12-21] MEDS: METOPROLOL SUCCINATE (ER) 50 MG TAB.ER.24H PO SCH (09:13)
[2018-12-21] MEDS: SPIRONOLACTONE 25 MG TAB PO SCH (09:13)
[2018-12-21] MEDS: APIXABAN 5 MG TAB PO SCH ×2 (09:13→20:24)
[2018-12-21 11:29] LABS: Glucose,Whole Blood 193 mg/dL (75-99)
--- NOTE | 2018-12-21 12:05 | P.PN ---
Subjective Patient is still short of breath doing better than yesterday. Avoid water about the upcoming procedure. No chest discomfort Blood pressure 130s over 64 and 152 88 mmHg afebrile Atrial fibrillation pulse rate between 99-104 beats a minute irregular Mildly short of breath at rest but better than yesterday Breath sounds are reduced bilaterally Heart sounds are crisp S2 Impression Atrial fibrillation with RVR Failed antiarrhythmic drug therapy Intolerance to flecainide Patient has a permanent pacemaker implantation dual-chamber Enlarged right atrium and right ventricle with severe tricuspid regurgitation Reduced LV systolic function since August and the patient's been complaining of heart failure symptoms 2-D echo shows left ventricular ejection fraction of 40-45% with distal septal and apical hypokinesis Bypass and aortic valve is functioning normally with a gradient of 12 mmHg Significant calcification of the mitral valve Enlarged right ventricle Suggest Upgrade to a biventricular pacemaker followed by AV node modification Maximize cardio myopathy medications and diuretics Intraoperatively I will measure her PA pressures also confirm absence of pulmonary hypertension. Other than left frontal hypertrophy and a normally func tioning by prostatic valve she has no significant left-sided disease that could explain RV enlargement. The mitral valve is heavily calcified on the posterior valve seems to be opening recently well and is mitralregurgitation Objective - Vital Signs Vital signs: Vital Signs Temp 97.4 F L 12/21/18 08:00 Pulse 104 H 12/21/18 08:00 Resp 18 12/21/18 04:00 BP 152/88 12/21/18 08:30 Pulse Ox 95 12/21/18 08:00 Intake & Output 12/20/18 12/21/18 12/21/18 18:59 06:59 18:59 Intake Total 444 Balance 444 Intake: Oral 444 Other: Voiding Method Toilet Toilet # Voids 1 1 1 - Labs CBC & Chem 7: 12/20/18 06:02 12/20/18 06:02 Labs: Abnormal Lab Results - Last 24 Hours (Table) 12/20/18 12/20/18 12/21/18 Range/Units 16:34 20:27 06:43 POC Glucose (mg/dL) 164 H 191 H 206 H (75-99) mg/dL 12/21/18 Range/Units 11:27 POC Glucose (mg/dL) 193 H (75-99) mg/dL
[2018-12-21] MEDS ORDERED: SODIUM CHLORIDE 0.9% 1,000 ML IV SCH (12:15)
--- NOTE | 2018-12-21 13:51 | P.PN ---
Subjective Progress Note Date: 12/21/18 12/21/2017: Patient seen and examined. Patient is sitting up in the chair on room air. She states she has been able to ambulate to the bathroom without shortness of breath. She denies cough, fevers, chills, wheezing. She would like to restart on Xolair and states that she will call as an outpatient. Objective - Vital Signs Vital signs: Vital Signs Temp 97.5 F L 12/21/18 12:00 Pulse 95 12/21/18 13:05 Resp 16 12/21/18 12:00 BP 152/88 12/21/18 08:30 Pulse Ox 93 L 12/21/18 12:00 Intake & Output 12/20/18 12/21/18 12/21/18 18:59 06:59 18:59 Intake Total 444 240 Balance 444 240 Intake: Oral 444 240 Other: Voiding Method Toilet Toilet Toilet # Voids 1 1 1 - Exam General: Patient is alert and oriented 3, no acute distress, obese Cardiovascular: Regular rate and rhythm, S1/S2 Lungs: Diminished breath sounds bilaterally otherwise clear Abdomen: Soft nontender nondistended positive bowel sounds Extremities: No edema - Labs CBC & Chem 7: 12/20/18 06:02 12/20/18 06:02 Labs: Abnormal Lab Results - Last 24 Hours (Table) 12/20/18 12/20/18 12/21/18 Range/Units 16:34 20:27 06:43 POC Glucose (mg/dL) 164 H 191 H 206 H (75-99) mg/dL 12/21/18 Range/Units 11:27 POC Glucose (mg/dL) 193 H (75-99) mg/dL Assessment and Plan Assessment: Acute exacerbation of severe persistent asthma, allergic type Atrial fibrillation with RVR GEO compliant with CPAP Hypertension Dyslipidemia Hypothyroid Morbid obesity History of aortic valve replacement Anxiety O2 to maintain saturation greater than or equal to 90% Steroid taper Pulmicort and DuoNeb Singulair Echocardiogram - suspect pulmonary hypertension Incentive spirometry and pulmonary hygiene GI and DVT prophylaxis Rate control per cardiology, plan for biV pacemaker Xolair outpatient
--- NOTE | 2018-12-21 14:30 | P.PN ---
Subjective Progress Note Date: 12/21/18 This is a 78-year-old female patient of Dr. Cheema and Dr. 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 Pike on Xolair injections. Patient complains of shortness of breath related to her atrial fibrillation. She complains of increasing shortness of breath and nausea when she is walking up stairs. She has also noted increased lower extremity edema. She came into [facility] emergency center for evaluation. She states the nebulizer treatment did help only a minimal amount. Patient underwent cardioversion in October but has subsequently converted back to atrial fibrillation. She underwent Lexiscan stress test that was negative recently. She was also unable to tolerate flecainide. Patient was placed in the observation unit and seen by cardiology with plan for upgrade to biventricular pacemaker on . Due to her underlying asthma, we will ask for Dr. Pike to see the patient. She is on Xolair injections but she's not been able to make it to the office recently. 12/21: Patient states that she is feeling tired today. Her shortness of breath is decreased from yesterday. She does have some wheezing and completed Solu- Medrol on 2 doses and will be transitioned to prednisone for tomorrow. She is scheduled for pacemaker upgrade to biventricular pacemaker tomorrow. Patient has been seen by Dr. alvarado with the plan to restart her Xolair in the office as an outpatient. Echocardiogram has been done and report is pending. Patient is afebrile, heart rate 95, blood pressure 152/88, pulse ox 93% on room air. Capillary blood glucose running between 164 and 206. Repeat basic metabolic panel will be ordered for tomorrow. Objective - Vital Signs Vital signs: Vital Signs Temp 97.4 F L 12/21/18 08:00 Pulse 104 H 12/21/18 08:00 Resp 18 12/21/18 04:00 BP 152/88 12/21/18 08:30 Pulse Ox 95 12/21/18 08:00 Intake & Output 12/20/18 12/21/18 12/21/18 18:59 06:59 18:59 Intake Total 444 Balance 444 Intake: Oral 444 Other: Voiding Method Toilet Toilet # Voids 1 1 1 - Exam Review of Systems Constitutional: Reports fatigue, Reports weakness, Denies anorexia, Denies chills, Denies fever, Denies lethargy, Denies poor appetite Eyes: denies blurred vision, denies pain Ears, nose, mouth and throat: Denies dysphagia, Denies headache, Denies nasal congestion, Denies nasal discharge, Denies sore throat, Denies vertigo Cardiovascular: Reports decreased exercise tolerance, Reports dyspnea on exertion, Reports leg edema, Reports shortness of breath, Denies chest pain, Denies syncope Respiratory: Reports dyspnea, Reports sleep apnea, Denies cough, Denies cough with sputum, Denies excessive sputum, Denies hemoptysis, Denies home oxygen, Denies wheezing Gastrointestinal: Denies abdominal pain, Denies diarrhea, Denies loss of appetite, Denies nausea, Denies vomiting Genitourinary: Denies dysuria, Denies hematuria Musculoskeletal: Denies myalgias Integumentary: Denies pruritus, Denies rash, Denies wounds Neurological: Denies aphasia, Denies change in mentation, Denies change in speech, Denies numbness, Denies seizures, Denies weakness Psychiatric: Denies anxiety, Denies depression Endocrine: Denies fatigue, Denies weight change reports abnormal sugars Physical exam: Gen: This is an obese 78-year-old female. Patient appears to be comfortable and in no acute distress. HEENT: Head is atraumatic, normocephalic. Pupils equal, round. Sclerae is anicteric. NECK: Supple. No JVD. No lymphadenopathy. No thyromegaly. LUNGS: Clear to auscultation. No wheezes or rhonchi. No intercostal retrac tions. HEART: Irregular rate and rhythm. No murmur. ABDOMEN: Soft. Bowel sounds are present. No masses. No tenderness. EXTREMITIES: No pedal edema. No calf tenderness. NEUROLOGICAL: Patient is awake, alert and oriented x3. Cranial nerves 2 through 12 are grossly intact. - Labs CBC & Chem 7: 12/20/18 06:02 12/20/18 06:02 Labs: Abnormal Lab Results - Last 24 Hours (Table) 12/20/18 12/20/18 12/21/18 Range/Units 16:34 20:27 06:43 POC Glucose (mg/dL) 164 H 191 H 206 H (75-99) mg/dL Assessment and Plan Plan: 1. Atrial fibrillation with mild RVR on presentation, paroxysmal atrial fibrillation. Patient is scheduled for biventricular pacemaker upgrade on . Cardiology consult appreciated. Continue eliquis 5 mg twice daily, metoprolol 150 mg daily, Aldactone 25 mg daily 2. Hypertension. Continue Toprol-XL, Lasix, Aldactone. 3. Obstructive sleep apnea on CPAP. Patient will have family bring in CPAP from home 4. Moderate persistent asthma. Consult with Dr. Pike. Solu-Medrol 60 mg IV every 6 hours completed and transitioned to prednisone 40 mg daily, Pulmicort, DuoNeb treatments, Singulair. Consult appreciated. Patient follow-up in the office for Xolair as an outpatient. 5. Hyperlipidemia. Continue pravastatin 6. Hypothyroidism. Continue levothyroxine 50 g Wednesday to see once a Wednesday, TSH free T4. 7. Status post aortic valve replacement. 8. Peripheral vascular disease status post atherectomy and stent placement to October 2018. 9. Generalized anxiety disorder. Continue Xanax. 10. DVT prophylaxis. Continue eliquis. 11. GI prophylaxis. Pepcid. 12. Hyperglycemia secondary to steroids. Continue NovoLog scale. Discharge plan: home Impression and plan of care have been directed as dictated by the signing physician. Vickie Garg nurse practitioner acting as scribe for signing tonyai
[2018-12-21 16:49] LABS: Glucose,Whole Blood 109 mg/dL (75-99)
[2018-12-21] MEDS: MONTELUKAST 10 MG TAB PO SCH (20:24)
[2018-12-21] MEDS: PRAVASTATIN SODIUM 20 MG TAB PO SCH (20:24)
[2018-12-21 20:57] LABS: Glucose,Whole Blood 185 mg/dL (75-99)
[2018-12-21] MEDS ORDERED: MELATONIN 3 MG TABLET PO SCH (21:00)
[2018-12-22] MEDS ORDERED: ACETAMINOPHEN TAB 325 MG TAB PO STA ×2 (01:38→05:16)
[2018-12-22] MEDS: MELATONIN 3 MG TABLET PO PRN (02:06)
[2018-12-22] MEDS: CALCIUM CARBONATE 500 MG CHEWABLE PO PRN ×2 (02:07→15:02)
[2018-12-22] MEDS: SODIUM CHLORIDE 0.9% 1,000 ML IV SCH ×2 (03:35→14:21)
[2018-12-22] MEDS ORDERED: VANCOMYCIN 1,500 MG in SODIUM CHLORIDE 0.9% 250 ML IVPB ONE (05:00)
[2018-12-22] MEDS: LEVOTHYROXINE 50 MCG TAB PO SCH (05:30)
[2018-12-22] MEDS: FAMOTIDINE 20 MG TAB PO SCH (05:30)
[2018-12-22] MEDS: ALPRAZolam 0.25 MG TAB PO SCH ×2 (05:30→19:43)
[2018-12-22] MEDS: METOPROLOL SUCCINATE (ER) 50 MG TAB.ER.24H PO SCH (05:31)
[2018-12-22] MEDS: APIXABAN 5 MG TAB PO SCH ×2 (06:36→19:43)
[2018-12-22] MEDS: INSULIN ASPART (NovoLOG) 100 UNIT/ML VIAL SQ SCH ×4 (06:39→19:57)
[2018-12-22 06:43] LABS: Glucose,Whole Blood 109 mg/dL (75-99)
[2018-12-22] MEDS ORDERED: MIDAZOLAM 2 MG/2 ML VIAL ONE (07:21)
[2018-12-22] MEDS ORDERED: fentaNYL (PF) 50 MCG/ML 2 ML AMP ONE (07:21)
[2018-12-22] MEDS ORDERED: PROPOFOL 10 MG/ML 20 ML VIAL IV ONE (07:21)
[2018-12-22] MEDS ORDERED: diphenhydrAMINE 50 MG/ML 1 ML VIAL ONE (07:21)
[2018-12-22] MEDS ORDERED: ePHEDrine SULFATE/0.9% NACL/PF 50 MG/5 ML SYRINGE IV ONE (07:21)
[2018-12-22] MEDS ORDERED: ATROPINE SULFATE 0.1 MG/ML 10ML SYRINGE ONE (07:21)
[2018-12-22] MEDS ORDERED: SODIUM CHLORIDE 0.9% 500 ML 500 ML IV ONE ×3 (07:26→12:43)
[2018-12-22] MEDS: BUDESONIDE 0.5 MG/2 ML NEBU INHALATION SCH ×2 (07:40→20:15)
[2018-12-22] MEDS: IPRATROPIUM-ALBUTEROL 3 ML NEB INHALATION SCH ×3 (07:40→20:15)
[2018-12-22] MEDS ORDERED: LIDOCAINE 1% INJ 10MG/ML (20 ML MDV) ONE ×3 (07:58→09:16)
[2018-12-22] MEDS ORDERED: LIDOCAINE 1% INJ 10MG/ML (20 ML MDV) SQ ONE ×4 (08:09→09:40)
[2018-12-22 08:52] LABS: Calcium 9.7 mg/dL (8.4-10.2)
[2018-12-22] MEDS ORDERED: predniSONE 20 MG TAB PO SCH (09:00)
[2018-12-22 09:14] LABS: Potassium 4.4 mmol/L (3.5-5.1)
--- NOTE | 2018-12-22 09:52 | CDI ---
Documentation Clarification Form Date: 12/22/2018 9:42:02 AM From: Shanna Baptiste RN, CCDS Admit Date: 12/21/2018 9:49:00 PM Patient Name: Leena Riojas Visit Number: [id number] ATTENTION: The Clinical Documentation Specialists (CDI) and [facility] Coding Staff appreciate your assistance in clarifying documentation. Please respond to the clarification below the line at the bottom and electronically sign. The CDI & [facility] Coding staff will review the response and follow-up if needed. Please note: Queries are made part of the Legal Health Record. If you have any questions, please contact the author of this message via ITS. Dr. Ben Patel CHF is documented in the ED Impression and cardiology Progress Note, and requires further specificity. History/Risk Factors: Paroxysmal a-fib failed cardioversion, dual chamber pacemaker, bovine AVR, PVD Clinical Indicators: 12/21 Cardiology Progress Note: "Patient has a permanent pacemaker implantation dual-chamber Enlarged right atrium and right ventricle with severe tricuspid regurgitation Reduced LV systolic function since August and the patient's been complaining of heart failure symptoms." VS/Pulse OX: 96% RA BNP:1910 Echocardiogram Results: 12/21 Cardiology progress Note: "2-D echo shows left ventricular ejection fraction of 40-45% with distal septal and apical hypokinesis." 12/19 Chest X Ray: no acute process Treatment: Lasix 40 mg PO BID Aldactone 25 mg PO QD Toprol XL 150 mg PO QD In your professional opinion, can you please clarify the acuity and type of CHF if known? Chronic Systolic Heart Failure: Chronic Diastolic Heart Failure: Chronic Systolic & Diastolic Heart Failure: Unable to Determine Other, please specify (Last Revision: October 2017) Patient admitted with acute on chronic systolic heart failure with atrial fibrillation and high percentage RV pacing MTDD
[2018-12-22] MEDS ORDERED: IOPAMIDOL-250 50ML BTL IV ONE (10:00)
[2018-12-22] MEDS ORDERED: ACETAMINOPHEN TAB 325 MG TAB PO PRN (10:54)
[2018-12-22] MEDS ORDERED: ACETAMINOPHEN IV (For NPO) 1,000 MG in EMPTY BAG 1 BAG IVPB ONE (10:54)
[2018-12-22] MEDS ORDERED: VANCOMYCIN IV PER PHARMACY 1 EACH MISC MISCELLANE PRN (10:57)
--- NOTE | 2018-12-22 11:06 | P.PCN ---
Preoperative Diagnosis: Diagnosis Right ventricular enlargement, atrial fibrillation, LVH with aortic valve replacement Left ventricular ejection fraction 45% Right heart cath performed to assess the degree of pulmonary hypertension Patient was admitted with acute on chronic heart failure symptoms The venous sheath was placed in the right femoral vein under sterile precautions A [place] catheter was placed in the right heart It is difficult to placed a [place] catheter in the pulmonary artery despite multiple attempts over multiple wires Right ventricular pressures were 50/3/29 Right atrial pressure 38/8/26 SVC 40/22/26 IVC 38/19/26 PA pressures 47/22/36 Impression Moderate-severe pulmonary hypertension
--- NOTE | 2018-12-22 11:51 | P.PCN ---
Preoperative Diagnosis: Procedure: Device interrogation with reprogramming prior to the procedure AV Node Ablation/modification. Device interrogation with reprogramming postprocedure Patient was brought to the EP lab in a fasting state. Written, informed consent was obtained prior to the procedure. Access was obtained, sheath placed in right femoral vein. 1. Preprocedure device interrogation and reprogramming Device interrogation with reprogramming performed. Rate responsiveness was turned off and the pacing rate was reprogrammed to a backup mode prior to ablation. Tachycardia detections turned off. Lead impedance is documented, sensing and pacing thresholds performed prior to the procedure Backup pacing, VVI 40 bpm 3. AV node ablation A Mapping/Ablation catheter was placed and right-sided AV node radiofrequency ablation/modification was performed. Complete heart block was achieved with occasional junctional escape rhythm above 40 bpm 4. Device programming postprocedure Post ablation, device reprogramming was performed. Base Pacing rate was programmed to 90 bpm. Patient's device was reprogrammed and the interrogated. RF mode turned on Vascular sheaths were removed at the end of the procedure, hemostasis was assured, the patient was then transferred to recovery room/telemetry in stable condition. Conclusions: Successful ablation of the AV node. Plan: Pacing at 90 bpm for at least 3 weeks. Telemetry monitoring for 24-48 hours. Continue anticoagulation. Patient tolerated the procedure well without any acute complications
--- NOTE | 2018-12-22 12:26 | P.PRLE ---
RE: Leena Riojas Deacynthia Rodriguez María was admitted with acute on chronic systolic heart failure with reduced LV systolic function of about 40-45% with a high RV pacing percentage and under lying atrial fibrillation, persistent She has failed electrical cardioversion as well as antiarrhythmic drug therapy In addition to the LV systolic dysfunction she also has an enlarged RV I performed an upgrade to a biventricular system Following that I performed an AV node ablation She is now 100% paced by her biventricular device and hopefully this results in improvement in her heart failure status However I performed a right heart cath and while her right-sided pressures are about 50 mg of mercury systolic, the pulmonary capillary wedge pressure/left sided pressures are about 27 mmHg Therefore the left-sided disease does not explain the right-sided pressures in the heart I hope that with a more controlled ventricular response and biventricular pacing for symptoms of heart failure improve although I suspect that some degree of right-sided failure will persist and therefore I would continue with her current dose of Lasix If she did not react adversely to valsartan then a low dose of losartan may be considered I will continue beta blockers as well as spironolactone and Lasix She is on ELIQUIS for life as well as aspirin since she has had atherectomy in her peripheral arterial vessels Thank you for entrusting me with the care of the patient Warm regards Sincerely Ben Patel
[2018-12-22 13:02] LABS: Glucose,Whole Blood 123 mg/dL (75-99)
--- NOTE | 2018-12-22 13:04 | PCN ---
PROCEDURE NOTE Leena Riojas is a 78-year-old female who has underlying persistent atrial fibrillation who has failed electrical cardioversion,. acute on chronic congestive heart failure with the reduction in LV systolic function to about 45%. Her RV pacing percentage is consistently above 40% and sometimes close to 90%. She was admitted to the hospital once again with heart failure symptoms and she was brought in for upgrade to a biventricular system. Patient was brought to the EP lab in a fasting state. Written informed consent was obtained prior to the procedure. The left shoulder area was prepped and draped as per protocol. IV antibiotics, IV vancomycin was administered preoperatively. The left pectoral area was prepped and draped as per protocol. Lidocaine was used, an incision was made in the left pectoral region about 4 cm. This was carried down to the level of the generator. The dual-chamber pacemaker generator was explanted from the pocket. Partial capsulectomy was performed. Hemostasis was assured. The left axillary vein access was obtained and via an appropriately-sized introducer sheath, the coronary sinus was cannulated. The sheath was placed in the coronary sinus and venogram was performed. The patient had a paucity of LV veins. She had a tortuous anterolateral vein and middle cardiac vein and a calcified coronary sinus body. [employer] LV lead is placed in the anterolateral vein successfully. This was a [employer] model #1458Q, 86 cm in length and serial #[id number]. Thresholds were excellent along all the 4 bipoles, and the best threshold was 1 V at 0.4 milliseconds in poles 1 to 2 and pacing impedance 850 ohms, 10 V test was negative. No diaphragmatic stimulation was noted. The sheaths were removed. The lead was secured to the underlying pectoralis muscle and then connected to the new generator. The old generator that was explanted was a dual-chamber pacemaker Medtronic ADDRL1, serial #[id number]. The new generator implanted was a [employer] model #EY3997, serial #[id number]. The chronic right atrial right ventricular leads were interrogated. The chronic right atrial lead was a Medtronic model #4076. serial #[id number]. Patient was in atrial fibrillation, pacing impedance 400 ohms. The chronic RV lead was a Medtronic model #4076 serial #[id number]. The R-waves were 3.9 mV. Pacing impedance 490 ohms, pacing threshold 1.25 V at 0.4 milliseconds. The generator was then placed in subfascial pocket. The wound was closed in 3 layers and dressed per protocol. RESULT: Successful upgrade to a biventricular pacemaker with implantation of a new LV lead in this chronic dual-chamber pacemaker system. LV lead is placed in the anterolateral vein. PLAN: AV node ablation and biventricular pacing thereafter for management of heart failure and reduced LV systolic function with underlying high RV pacing percentage and atrial fibrillation. MMODL / IJN: [id number] /
--- NOTE | 2018-12-22 14:42 | P.PN ---
Subjective Progress Note Date: 12/22/18 This is a 78-year-old female patient of Dr. Cheema and Dr. 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 Pike on Xolair injections. Patient complains of shortness of breath related to her atrial fibrillation. She complains of increasing shortness of breath and nausea when she is walking up stairs. She has also noted increased lower extremity edema. She came into [facility] emergency center for evaluation. She states the nebulizer treatment did help only a minimal amount. Patient underwent cardioversion in October but has subsequently converted back to atrial fibrillation. She underwent Lexiscan stress test that was negative recently. She was also unable to tolerate flecainide. Patient was placed in the observation unit and seen by cardiology with plan for upgrade to biventricular pacemaker on . Due to her underlying asthma, we will ask for Dr. Pike to see the patient. She is on Xolair injections but she's not been able to make it to the office recently. 12/21: Patient states that she is feeling tired today. Her shortness of breath is decreased from yesterday. She does have some wheezing and completed Solu- Medrol on 2 doses and will be transitioned to prednisone for tomorrow. She is scheduled for pacemaker upgrade to biventricular pacemaker tomorrow. Patient has been seen by Dr. alvarado with the plan to restart her Xolair in the office as an outpatient. Echocardiogram has been done and report is pending. Patient is afebrile, heart rate 95, blood pressure 152/88, pulse ox 93% on room air. Capillary blood glucose running between 164 and 206. Repeat basic metabolic panel will be ordered for tomorrow. 12/22: This morning, patient underwent a successful biventricular system upgrade on her pacemaker. She is not 100% paced. Right heart cath was done as well sh owing right-sided pressures are 50 mmHg systolic and pulmonary capillary wedge pressure/left-sided pressures are [address] Patel suspect small degree of right-sided failure persist and will continue current dose of Lasix. Losartan may also be considered. Plan is to continue beta thomas, spironolactone and Lasix. Patient is on eliquis for life as well as aspirin since she had atherectomy at her peripheral artery vessels. Patient is seen for demented after procedure. Her respiratory status is stable. She states she has not been sleeping because of steroids which we will decrease to 30 mg daily starting tomorrow morning. She is requesting that CoQ10 and vitamin D be resumed which we will start. Anticipate discharge home tomorrow. Objective - Vital Signs Vital signs: Vital Signs Temp 97.4 F L 12/22/18 04:34 Pulse 95 12/22/18 04:34 Resp 18 12/22/18 04:34 BP 128/93 12/22/18 04:34 Pulse Ox 95 12/22/18 04:34 Intake & Output 12/21/18 12/22/18 12/22/18 18:59 06:59 18:59 Intake Total 240 400 Output Total 1 Balance 239 400 Intake: IV 400 Oral 240 Output: Stool 1 Other: Voiding Method Toilet Toilet # Voids 3 1 - Exam Review of Systems Constitutional: Reports fatigue, Reports weakness, Denies anorexia, Denies chills, Denies fever, Denies lethargy, Denies poor appetite Eyes: denies blurred vision, denies pain Ears, nose, mouth and throat: Denies dysphagia, Denies headache, Denies nasal congestion, Denies nasal discharge, Denies sore throat, Denies vertigo Cardiovascular: Reports decreased exercise tolerance, Reports dyspnea on exertion, Reports leg edema, Reports shortness of breath, Denies chest pain, Denies syncope Respiratory: Denies dyspnea, Reports sleep apnea, Denies cough, Denies cough with sputum, Denies excessive sputum, Denies hemoptysis, Denies home oxygen, Denies wheezing Gastrointestinal: Denies abdominal pain, Denies diarrhea, Denies loss of appetite, Denies nausea, Denies vomiting Genitourinary: Denies dysuria, Denies hematuria Musculoskeletal: Denies myalgias Integumentary: Denies pruritus, Denies rash, Denies wounds Neurological: Denies aphasia, Denies change in mentation, Denies change in speech, Denies numbness, Denies seizures, Denies weakness Psychiatric: Denies anxiety, Denies depression Endocrine: Denies fatigue, Denies weight change reports abnormal sugars Physical exam: Gen: This is an obese 78-year-old female. Patient appears to be comfortable flat in bed and in no acute distress. HEENT: Head is atraumatic, normocephalic. Pupils equal, round. Sclerae is anicteric. NECK: Supple. No JVD. No lymphadenopathy. No thyromegaly. LUNGS: Clear to auscultation. No wheezes or rhonchi. No intercostal retractions. HEART: Irregular rate and rhythm. No murmur. ABDOMEN: Soft. Bowel sounds are present. No masses. No tenderness. EXTREMITIES: No pedal edema. No calf tenderness. NEUROLOGICAL: Patient is awake, alert and oriented x3. Cranial nerves 2 through 12 are grossly intact. - Labs CBC & Chem 7: 12/20/18 06:02 12/22/18 06:09 Labs: Abnormal Lab Results - Last 24 Hours (Table) 12/21/18 12/21/18 12/22/18 Range/Units 16:47 20:43 06:09 Sodium 135 L (137-145) mmol/L BUN 31 H (7-17) mg/dL Creatinine 1.13 H (0.52-1.04) mg/dL POC Glucose (mg/dL) 109 H 185 H (75-99) mg/dL 12/22/18 12/22/18 Range/Units 06:36 13:01 Sodium (137-145) mmol/L BUN (7-17) mg/dL Creatinine (0.52-1.04) mg/dL POC Glucose (mg/dL) 109 H 123 H (75-99) mg/dL Assessment and Plan Plan: 1. Atrial fibrillation with mild RVR on presentation, paroxysmal atrial fibril lation. Patient is status post biventricular pacemaker upgrade and currently 100% paced. Cardiology consult appreciated. Continue eliquis 5 mg twice daily, metoprolol 150 mg daily, Aldactone 25 mg daily, Lasix 40 mg twice daily oral. 2. Hypertension. Continue Toprol-XL, Lasix, Aldactone. 3. Obstructive sleep apnea on CPAP. 4. Moderate persistent asthma. Consult with Dr. Pike. Decrease prednisone to 30 mg daily, Pulmicort, DuoNeb treatments, Singulair. Consult appreciated. Patient follow-up in the office for Eusebio as an outpatient. 5. Hyperlipidemia. Continue pravastatin 6. Hypothyroidism. Continue levothyroxine 50 g Wednesday to see once a Wednesday, TSH free T4. Are normal 7. Status post aortic valve replacement. 8. Peripheral vascular disease status post atherectomy and stent placement to October 2018. 9. Generalized anxiety disorder. Continue Xanax. 10. DVT prophylaxis. Continue eliquis. 11. GI prophylaxis. Pepcid. 12. Hyperglycemia secondary to steroids. Continue NovoLog scale. Discharge plan: home on Wednesday Impression and plan of care have been directed as dictated by the signing physician. Vickie Garg nurse practitioner acting as scribe for signing physician.
[2018-12-22] MEDS: HYDROcodone/APAP 5-325MG 1 EACH TAB PO PRN ×2 (14:56→23:08)
[2018-12-22 16:38] LABS: Glucose,Whole Blood 117 mg/dL (75-99)
[2018-12-22] MEDS: SPIRONOLACTONE 25 MG TAB PO SCH (17:59)
[2018-12-22] MEDS: FUROSEMIDE 40 MG TAB PO SCH ×2 (18:00→19:43)
[2018-12-22] MEDS: MONTELUKAST 10 MG TAB PO SCH (19:43)
[2018-12-22] MEDS: PRAVASTATIN SODIUM 20 MG TAB PO SCH (19:44)
[2018-12-22 19:49] LABS: Glucose,Whole Blood 147 mg/dL (75-99)
[2018-12-23] MEDS: SODIUM CHLORIDE 0.9% 1,000 ML IV SCH ×2 (02:11→05:50)
[2018-12-23] MEDS: MELATONIN 3 MG TABLET PO PRN (02:18)
[2018-12-23] MEDS: LEVOTHYROXINE 50 MCG TAB PO SCH (05:55)
[2018-12-23] MEDS ORDERED: VANCOMYCIN 1,500 MG in SODIUM CHLORIDE 0.9% 250 ML IVPB ONE (06:00)
[2018-12-23 06:49] LABS: Glucose,Whole Blood 116 mg/dL (75-99)
[2018-12-23] MEDS: INSULIN ASPART (NovoLOG) 100 UNIT/ML VIAL SQ SCH ×4 (07:37→20:53)
--- NOTE | 2018-12-23 07:40 | P.PN ---
Subjective Patient is doing well. She is resting comfortably in bed. She is a paced rhythm at 90 beats a minute status post AV junction ablation following upgrade to a biventricular ICD LV lead was placed in the anterolateral vein, [employer] She denies any chest discomfort she is not dizzy or lightheaded she appears less short of breath at rest Groins of healed well no hematoma There is minimal bruising around the pacemaker site no hematoma Heart sounds are soft and distant S2 is crisp Lungs are clear Blood pressure 110/75 mmHg normal respirations nonlabored pulse rate 90 beats a minute, afebrile 97.4F Impression Acute and chronic congestive heart failure with LV systolic dysfunction EF 45%, reduction in LV systolic function with RV pacing She is a chronic dual-chamber pacemaker and a pacing percentage is almost up to 90% Underlying permanent atrial fibrillation and she has failed electrical cardioversion and antiarrhythmic drug therapy in the past Enlarged RV and RA Pulmonary hypertension moderate to severe. Pressures around 50 mmHg Pulmicort via wedge pressure 27 mmHg Aortic valve by intracardiac echo stable position and opening normally. By transthoracic echo gradient of around 12 mmHg Thickening of the mitral valve leaflets with reduced mobility Tricuspid regurgitation dilated RV and RA Obstructive sleep apnea BMI 39 Suggest Pacemaker interrogation today IV vancomycin is infusing If the chest x-ray is within normal limits in the pacemaker is functioning normally she should be able to go home today on her usual medications without any changes and we'll see her in the office in about 2 weeks Pacemaker will have to be reprogrammed in about 2 weeks Objective - Vital Signs Vital signs: Vital Signs Temp 97.4 F L 12/23/18 04:00 Pulse 90 12/23/18 04:00 Resp 18 12/23/18 04:00 BP 110/75 12/23/18 04:00 Pulse Ox 99 12/23/18 04:00 Intake & Output 12/22/18 12/23/18 12/23/18 18:59 06:59 18:59 Intake Total 400 330 Balance 400 330 Intake: IV 400 Oral 330 Other: Voiding Method Toilet Toilet # Voids 1 1 - Labs CBC & Chem 7: 12/20/18 06:02 12/22/18 06:09 Labs: Abnormal Lab Results - Last 24 Hours (Table) 12/22/18 12/22/18 12/22/18 Range/Units 06:09 13:01 16:24 Sodium 135 L (137-145) mmol/L BUN 31 H (7-17) mg/dL Creatinine 1.13 H (0.52-1.04) mg/dL POC Glucose (mg/dL) 123 H 117 H (75-99) mg/dL 12/22/18 12/23/18 Range/Units 19:48 06:48 Sodium (137-145) mmol/L BUN (7-17) mg/dL Creatinine (0.52-1.04) mg/dL POC Glucose (mg/dL) 147 H 116 H (75-99) mg/dL
[2018-12-23] MEDS: BUDESONIDE 0.5 MG/2 ML NEBU INHALATION SCH ×2 (07:52→19:38)
[2018-12-23] MEDS: IPRATROPIUM-ALBUTEROL 3 ML NEB INHALATION SCH ×3 (07:52→19:38)
[2018-12-23] MEDS: FUROSEMIDE 40 MG TAB PO SCH ×3 (08:31→20:57)
[2018-12-23] MEDS: SPIRONOLACTONE 25 MG TAB PO SCH (08:31)
[2018-12-23] MEDS: CHOLECALCIFEROL 1,000 UNIT TAB PO SCH (08:31)
[2018-12-23] MEDS: FAMOTIDINE 20 MG TAB PO SCH (08:31)
[2018-12-23] MEDS: ALPRAZolam 0.25 MG TAB PO SCH ×2 (08:31→20:51)
[2018-12-23] MEDS: APIXABAN 5 MG TAB PO SCH ×2 (08:31→20:52)
[2018-12-23] MEDS: predniSONE 10 MG TAB PO SCH (08:31)
[2018-12-23] MEDS: METOPROLOL SUCCINATE (ER) 50 MG TAB.ER.24H PO SCH (08:31)
[2018-12-23] MEDS ORDERED: CO Q10 PO SCH (09:00)
--- NOTE | 2018-12-23 09:15 | XR ---
EXAMINATION TYPE: XR chest 2V DATE OF EXAM: 12/23/2018 COMPARISON: 12/19/2018 HISTORY: Lead placement check. TECHNIQUE: Frontal and lateral views of the chest are obtained. FINDINGS: There has been replacement of the previously seen left-sided cardiac device with a new 3-l ead left-sided cardiac device. 2 ventricular leads and 1 charlene lead are seen. No postprocedural pneum othorax is identified. Very trace left pleural effusion is present, new. Cardiomediastinal silhouette is stable but enlarged. No new pulmonary vascular congestion or focal consolidation. Diffuse osseous demineralization and mild degenerative changes of the spine are seen. IMPRESSION: New 3-lead cardiac device as described above without postprocedural pneumothorax.
--- NOTE | 2018-12-23 10:52 | P.DS ---
Providers Date of admission: 12/21/18 21:49 Expected date of discharge: 12/23/18 Attending physician: Annette Andrews Consults: 12/19/18 23:30 Consult Physician Urgent Consulting Provider: [facility] Consult Reason/Comments: persistent afib with CVR, exertional SOB Do you want consulting provider notified?: Yes 12/19/18 23:41 Consult Physician Urgent Consulting Provider: Easton Pike Consult Reason/Comments: respiratory insufficiency Do you want consulting provider notified?: Yes Primary care physician: [facility] Course: This is a 78-year-old female patient of Dr. Cheema and Dr. 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 Pike on Xolair injections. Patient complains of shortness of breath related to her atrial fibrillation. She complains of increasing shortness of breath and nausea when she is walking up stairs. She has also noted increased lower extremity edema. She came into [facility] emergency center for evaluation. She states the nebulizer treatment did help only a minimal amount. Patient underwent cardioversion in October but has subsequently converted back to atrial fibrillation. She underwent Lexiscan stress test that was negative recently. She was also unable to tolerate flecainide. Patient was placed in the observation unit and seen by cardiology with plan for upgrade to biventricular pacemaker on . Due to her underlying asthma, we will ask for Dr. Pike to see the patient. She is on Xolair injections but she's not been able to make it to the office recently. 12/21: Patient states that she is feeling tired today. Her shortness of breath is decreased from yesterday. She does have some wheezing and completed Solu- Medrol on 2 doses and will be transitioned to prednisone for tomorrow. She is scheduled for pacemaker upgrade to biventricular pacemaker tomorrow. Patient has been seen by Dr. alvarado with the plan to restart her Xolair in the office as an outpatient. Echocardiogram has been done and report is pending. Patient is afebrile, heart rate 95, blood pressure 152/88, pulse ox 93% on room air. Capillary blood glucose running between 164 and 206. Repeat basic metabolic panel will be ordered for tomorrow. 12/22: This morning, patient underwent a successful biventricular system upgrade on her pacemaker. She is not 100% paced. Right heart cath was done as well showing right-sided pressures are 50 mmHg systolic and pulmonary capillary wedge pressure/left-sided pressures are [address] Patel suspect small degree of right-sided failure persist and will continue current dose of Lasix. Losartan may also be considered. Plan is to continue beta thomas, spironolactone and Lasix. Patient is on eliquis for life as well as aspirin since she had atherectomy at her peripheral artery vessels. Patient is seen for demented after procedure. Her respiratory status is stable. She states she has not been sleeping because of steroids which we will decrease to 30 mg daily starting tomorrow morning. She is requesting that CoQ10 and vitamin D be resumed which we will start. Anticipate discharge home tomorrow. 12/23: Patient has been evaluated by Dr. Patel this morning. Pacemaker interrogation as well as to occur today. And a chest x-ray is within normal limits, patient was cleared for discharge home with planned follow-up in the office in 2 weeks. Chest x-ray revealed new 3-lead cardiac device without postprocedural pneumothorax. Patient is complaining of dry cough and laryngitis. Lungs are clear at this point. She'll be placed on prednisone tapering dose. Patient has been evaluated by physical therapy with recommendations for subacute rehab. Patient would like to go to [facility] and case management is making arrangements. Patient will be discharged to [facility] once all arrangements are completed. Discharge diagnoses: 1. Atrial fibrillation with mild RVR on presentation, paroxysmal atrial fibrillation. Patient is status post biventricular pacemaker upgrade and currently 100% paced. 2. Hypertension. 3. Obstructive sleep apnea on CPAP. 4. Moderate persistent asthma. 5. Hyperlipidemia. 6. Hypothyroidism. 7. Status post aortic valve replacement. 8. Peripheral vascular disease status post atherectomy and stent placement to October 2018. 9. Generalized anxiety disorder. 10. Hyperglycemia secondary to steroids. Discharge plan: [facility] Impression and plan of care have been directed as dictated by the signing physician. Vickie Garg nurse practitioner acting as scribe for signing physician. Patient Condition at Discharge: Good Plan - Discharge Summary Discharge Rx Participant: No New Discharge Prescriptions: New Ipratropium-Albuterol Nebulize [Duoneb 0.5 mg-3 mg/3 ml Soln] 3 ml INHALATION RT-TID #90 ampul.neb Furosemide [Lasix] 40 mg PO BID tab Melatonin 6 mg PO HS PRN tablet PRN Reason: Insomnia Budesonide [Pulmicort] 0.5 mg INHALATION RT-BID #60 nebu Acetaminophen Tab [Tylenol] 650 mg PO Q6HR PRN tab PRN Reason: Mild Pain predniSONE 0 mg PO DIRECTED #12 tab Continue Montelukast [Singulair] 10 mg PO HS Cholecalciferol [Vitamin D3 (25 Mcg = 1000 Iu)] 5,000 unit PO DAILY Multivitamins, Thera [Multivitamin (formulary)] 1 tab PO DAILY Levothyroxine Sodium [Synthroid] 50 mcg PO MOTUWETHFRSA Calcium/Magnesium 1 tab PO DAILY Co Q-10 1 tab PO DAILY Oil Of Oregano 1 tab PO DAILY Apixaban [Eliquis] 5 mg PO BID #180 tab Spironolactone [Aldactone] 25 mg PO DAILY Metoprolol Succinate (ER) [Toprol XL] 150 mg PO DAILY Bismuth Subsalicylate [Pepto-Bismol] 262 mg PO Q8HR Pravastatin Sodium [Pravachol] 10 mg PO DIRECTED HYDROcodone/APAP 5-325MG [Stanton 5-325] 0.5 tab PO DAILY PRN #2 tab PRN Reason: Pain ALPRAZolam [Xanax] 0.25 mg PO BID #6 tablet Discontinued Furosemide [Lasix] 20 - 40 mg PO BID Discharge Medication List Cholecalciferol [Vitamin D3 (25 Mcg = 1000 Iu)] 5,000 unit PO DAILY 08/24/18 [History] Levothyroxine Sodium [Synthroid] 50 mcg PO MOTUWETHFRSA 08/24/18 [History] Montelukast [Singulair] 10 mg PO HS 08/24/18 [History] Multivitamins, Thera [Multivitamin (formulary)] 1 tab PO DAILY 08/24/18 [History] Calcium/Magnesium 1 tab PO DAILY 10/05/18 [History] Co Q-10 1 tab PO DAILY 10/05/18 [History] Oil Of Oregano 1 tab PO DAILY 10/05/18 [History] Apixaban [Eliquis] 5 mg PO BID #180 tab 11/28/18 [Rx] Bismuth Subsalicylate [Pepto-Bismol] 262 mg PO Q8HR 12/19/18 [History] Metoprolol Succinate (ER) [Toprol XL] 150 mg PO DAILY 12/19/18 [History] Pravastatin Sodium [Pravachol] 10 mg PO DIRECTED 12/19/18 [History] Spironolactone [Aldactone] 25 mg PO DAILY 12/19/18 [History] ALPRAZolam [Xanax] 0.25 mg PO BID #6 tablet 12/23/18 [Rx] Acetaminophen Tab [Tylenol] 650 mg PO Q6HR PRN tab 12/23/18 [Rx] Budesonide [Pulmicort] 0.5 mg INHALATION RT-BID #60 nebu 12/23/18 [Rx] Furosemide [Lasix] 40 mg PO BID tab 12/23/18 [Rx] HYDROcodone/APAP 5-325MG [Stanton 5-325] 0.5 tab PO DAILY PRN #2 tab 12/23/18 [Rx] Ipratropium-Albuterol Nebulize [Duoneb 0.5 mg-3 mg/3 ml Soln] 3 ml INHALATION RT-TID #90 ampul.neb 12/23/18 [Rx] Melatonin 6 mg PO HS PRN tablet 12/23/18 [Rx] predniSONE 0 mg PO DIRECTED #12 tab 12/23/18 [Rx] Follow up Appointment(s)/Referral(s): Leon Cheema MD [Primary Care Provider] - 1 Week (at [facility]) Ben Patel MD [STAFF PHYSICIAN] - As Needed (Device clinic follow-up in 2 weeks Follow-up with Dr. Ramsey in 6 weeks) Activity/Diet/Wound Care/Special Instructions: Post EP study - Ablation instructions 1. Keep access sites dry for 2 days. 2. No heavy lifting or straining for 2 days. 3. Avoid bending the hips repeatedly for 2 days. 4. You may go up and down stairs slowly Call if the following is noted 1. Bleeding, increasing swelling or pain at the access sites. 2. Increasing chest discomfort, especially upon taking a deep breath. 3. Increasing shortness of breath, at rest or with exertion. 4. Undue cough / phlegm 5. Difficulty or pain while swallowing. 6. Pain or change in color in the extremities. 7. Fever, chills, rigors. 8. Increasing headache or neurologic symptoms. 9. Dizziness, fainting, palpitations PATIENT EDUCATION MATERIAL Instructions following a heart rhythm device implant. 1. Keep dressing DRY for 5 DAYS. You may cover the area with Saran or Cling Wrap, prior to a shower. 2. The dressing will be removed in the Device Clinic at [facility]. Absorbable sutures were used to close the wound. 3. Avoid raising the left arm above the shoulder level. 4 week restriction 4. Avoid arm movements, like backscratching, rubbing the head, or pulling on a cord. 4 weeks restriction 5. Gentle range of motion movements of the shoulder, closest to the incision should be performed to avoid a frozen shoulder. (Pendulum exercises of the shoulder) 6. The opposite arm may be used freely. 7. Avoid driving for 7 days. 8. Avoid activities such as golfing, swimming, weed whacking, lifting more than 10 pounds weight, bowling, gymnastics and weight training/lifting. (6 weeks restriction) 9. Activities such as wood chopping with an axe, pull-ups in the gymnasium, power lifting, arc-welding, being close to home induction cooktops will always be a problem. 10. Arm sling is only a reminder not to raise the arm above the head. You do not need to keep the arm completely immobilized. Your free to move the arm and use it and for normal activities. In case of any problems, please call [facility], Nava Miller, @ [phone], Attention: Device Clinic Device clinic follow-up in 2 weeks Follow-up with primary kettleman in 6-8 weeks months/Dr. Ramsey/Kim Keller/Lexie Reyes Discharge Disposition: TRANSFER TO SNF/ECF
[2018-12-23 11:51] LABS: Glucose,Whole Blood 131 mg/dL (75-99)
--- NOTE | 2018-12-23 11:51 | P.PN ---
Subjective Progress Note Date: 12/23/18 This is a 78-year-old female patient of Dr. Cheema and Dr. 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 Pike on Xolair injections. Patient complains of shortness of breath related to her atrial fibrillation. She complains of increasing shortness of breath and nausea when she is walking up stairs. She has also noted increased lower extremity edema. She came into [facility] emergency center for evaluation. She states the nebulizer treatment did help only a minimal amount. Patient underwent cardioversion in October but has subsequently converted back to atrial fibrillation. She underwent Lexiscan stress test that was negative recently. She was also unable to tolerate flecainide. Patient was placed in the observation unit and seen by cardiology with plan for upgrade to biventricular pacemaker on . Due to her underlying asthma, we will ask for Dr. Pike to see the patient. She is on Xolair injections but she's not been able to make it to the office recently. 12/21: Patient states that she is feeling tired today. Her shortness of breath is decreased from yesterday. She does have some wheezing and completed Solu- Medrol on 2 doses and will be transitioned to prednisone for tomorrow. She is scheduled for pacemaker upgrade to biventricular pacemaker tomorrow. Patient has been seen by Dr. alvarado with the plan to restart her Xolair in the office as an outpatient. Echocardiogram has been done and report is pending. Patient is afebrile, heart rate 95, blood pressure 152/88, pulse ox 93% on room air. Capillary blood glucose running between 164 and 206. Repeat basic metabolic panel will be ordered for tomorrow. 12/22: This morning, patient underwent a successful biventricular system upgrade on her pacemaker. She is not 100% paced. Right heart cath was done as well sh owing right-sided pressures are 50 mmHg systolic and pulmonary capillary wedge pressure/left-sided pressures are [address] Patel suspect small degree of right-sided failure persist and will continue current dose of Lasix. Losartan may also be considered. Plan is to continue beta thomas, spironolactone and Lasix. Patient is on eliquis for life as well as aspirin since she had atherectomy at her peripheral artery vessels. Patient is seen for demented after procedure. Her respiratory status is stable. She states she has not been sleeping because of steroids which we will decrease to 30 mg daily starting tomorrow morning. She is requesting that CoQ10 and vitamin D be resumed which we will start. Anticipate discharge home tomorrow. 12/23: Patient has been evaluated by Dr. Patel this morning. Pacemaker interrogation as well as to occur today. And a chest x-ray is within normal limits, patient was cleared for discharge home with planned follow-up in the office in 2 weeks. Chest x-ray revealed new 3-lead cardiac device without postprocedural pneumothorax. Patient is complaining of dry cough and laryngitis. Lungs are clear at this point. She'll be placed on prednisone tapering dose. Patient has been evaluated by physical therapy with recommendations for subacute rehab. Patient would like to go to [facility] and case management is making arrangements. Patient will be discharged to [facility] once all arrangements are completed. * Patient needs 3 day stay and will be prepared for discharge tomorrow morning. Objective - Vital Signs Vital signs: Vital Signs Temp 97.7 F 12/23/18 08:00 Pulse 92 12/23/18 08:09 Resp 16 12/23/18 08:00 BP 104/72 12/23/18 08:00 Pulse Ox 97 12/23/18 08:00 Intake & Output 12/22/18 12/23/18 12/23/18 18:59 06:59 18:59 Intake Total 400 330 Balance 400 330 Intake: IV 400 Oral 330 Other: Voiding Method Toilet Toilet Toilet # Voids 1 1 - Exam Review of Systems Constitutional: Reports weakness, Denies anorexia, Denies chills, Denies fever, Denies lethargy, Denies poor appetite Eyes: denies blurred vision, denies pain Ears, nose, mouth and throat: Denies dysphagia, Denies headache, Denies nasal congestion, Denies nasal discharge, Denies sore throat, Denies vertigo Cardiovascular: Reports decreased exercise tolerance, Reports dyspnea on exertion, Reports leg edema, Reports shortness of breath, Denies chest pain, Denies syncope Respiratory: Denies dyspnea, Reports sleep apnea, Denies cough, Denies cough with sputum, Denies excessive sputum, Denies hemoptysis, Denies home oxygen, Denies wheezing Gastrointestinal: Denies abdominal pain, Denies diarrhea, Denies loss of appetite, Denies nausea, Denies vomiting Genitourinary: Denies dysuria, Denies hematuria Musculoskeletal: Denies myalgias Integumentary: Denies pruritus, Denies rash, Denies wounds Neurological: Denies aphasia, Denies change in mentation, Denies change in speech, Denies numbness, Denies seizures, Denies weakness Psychiatric: Denies anxiety, Denies depression Endocrine: Denies fatigue, Denies weight change reports abnormal sugars Physical exam: Gen: This is an obese 78-year-old female. Patient appears to be comfortable in bed and in no acute distress. HEENT: Head is atraumatic, normocephalic. Pupils equal, round. Sclerae is anicteric. NECK: Supple. No JVD. No lymphadenopathy. No thyromegaly. LUNGS: Clear to auscultation. No wheezes or rhonchi. No intercostal retractions. HEART: Irregular rate and rhythm. No murmur. ABDOMEN: Soft. Bowel sounds are present. No masses. No tenderness. EXTREMITIES: No pedal edema. No calf tenderness. NEUROLOGICAL: Patient is awake, alert and oriented x3. Cranial nerves 2 through 12 are grossly intact. - Labs CBC & Chem 7: 12/20/18 06:02 12/22/18 06:09 Labs: Abnormal Lab Results - Last 24 Hours (Table) 12/22/18 12/22/18 12/22/18 Range/Units 13:01 16:24 19:48 POC Glucose (mg/dL) 123 H 117 H 147 H (75-99) mg/dL 12/23/18 Range/Units 06:48 POC Glucose (mg/dL) 116 H (75-99) mg/dL Assessment and Plan Plan: 1. Atrial fibrillation with mild RVR on presentation, paroxysmal atrial fibrillation. Patient is status post biventricular pacemaker upgrade and currently 100% paced. Cardiology consult appreciated. Continue eliquis 5 mg twice daily, metoprolol 150 mg daily, Aldactone 25 mg daily, Lasix 40 mg twice daily oral. 2. Hypertension. Continue Toprol-XL, Lasix, Aldactone. 3. Obstructive sleep apnea on CPAP. 4. Moderate persistent asthma. Consult with Dr. Pike. Decrease prednisone to 30 mg daily, Pulmicort, DuoNeb treatments, Singulair. Consult appreciated. Patient follow-up in the office for Violetair as an outpatient. 5. Hyperlipidemia. Continue pravastatin 6. Hypothyroidism. Continue levothyroxine 50 g Wednesday to see once a Wednesday, TSH free T4. Are normal 7. Status post aortic valve replacement. 8. Peripheral vascular disease status post atherectomy and stent placement to October 2018. 9. Generalized anxiety disorder. Continue Xanax. 10. DVT prophylaxis. Continue eliquis. 11. GI prophylaxis. Pepcid. 12. Hyperglycemia secondary to steroids. Continue NovoLog scale. Discharge plan: [facility] on Wednesday. Impression and plan of care have been directed as dictated by the signing physician. Vickie Garg nurse practitioner acting as scribe for signing physician.
--- NOTE | 2018-12-23 14:49 | P.PN ---
Subjective Progress Note Date: 12/23/18 12/24/2007: Patient seen and examined for follow-up. The patient is resting in bed on room air. She states her breathing is good. She states she is just tired because he hasn't slept well the past few days. She does have her CPAP at that time but is not currently wearing it. The lesion is encouraged to wear her CPAP for as well as at night. She has been hemodynamically stable. Objective - Vital Signs Vital signs: Vital Signs Temp 97.5 F L 12/23/18 12:00 Pulse 88 12/23/18 12:58 Resp 18 12/23/18 12:00 BP 99/70 12/23/18 12:00 Pulse Ox 98 12/23/18 12:00 Intake & Output 12/22/18 12/23/18 12/23/18 18:59 06:59 18:59 Intake Total 400 330 Output Total 1 Balance 400 330 -1 Intake: IV 400 Oral 330 Output: Stool 1 Other: Voiding Method Toilet Toilet Toilet # Voids 1 1 - Exam General: Patient is alert and oriented 3, no acute distress, obese Cardiovascular: Regular rate and rhythm, S1/S2 Lungs: Diminished breath sounds bilaterally otherwise clear Abdomen: Soft nontender nondistended positive bowel sounds Extremities: No edema - Labs CBC & Chem 7: 12/20/18 06:02 12/22/18 06:09 Labs: Abnormal Lab Results - Last 24 Hours (Table) 12/22/18 12/22/18 12/23/18 Range/Units 16:24 19:48 06:48 POC Glucose (mg/dL) 117 H 147 H 116 H (75-99) mg/dL 12/23/18 Range/Units 11:49 POC Glucose (mg/dL) 131 H (75-99) mg/dL Assessment and Plan Assessment: Acute exacerbation of severe persistent asthma, allergic type Atrial fibrillation with RVR GEO compliant with CPAP Hypertension Dyslipidemia Hypothyroid Morbid obesity History of aortic valve replacement Anxiety O2 to maintain saturation greater than or equal to 90% Steroid taper Pulmicort and DuoNeb Singulair Echocardiogram - suspect pulmonary hypertension - not done Incentive spirometry and pulmonary hygiene GI and DVT prophylaxis Rate control per cardiology, plan for biV pacemaker Xolair outpatient Okay to DC from pulmonary standpoint, follow-up one week
[2018-12-23 16:59] LABS: Glucose,Whole Blood 144 mg/dL (75-99)
[2018-12-23 20:11] LABS: Glucose,Whole Blood 183 mg/dL (75-99)
[2018-12-23] MEDS: MONTELUKAST 10 MG TAB PO SCH (20:51)
[2018-12-23] MEDS: PRAVASTATIN SODIUM 20 MG TAB PO SCH (20:51)
[2018-12-24] MEDS: SODIUM CHLORIDE 0.9% 1,000 ML IV SCH ×2 (02:41)
[2018-12-24] MEDS: HYDROcodone/APAP 5-325MG 1 EACH TAB PO PRN (03:37)
[2018-12-24] MEDS: LEVOTHYROXINE 50 MCG TAB PO SCH (06:21)
[2018-12-24 06:49] LABS: Glucose,Whole Blood 105 mg/dL (75-99)
[2018-12-24] MEDS: IPRATROPIUM-ALBUTEROL 3 ML NEB INHALATION SCH (07:29)
[2018-12-24] MEDS: BUDESONIDE 0.5 MG/2 ML NEBU INHALATION SCH (07:30)
[2018-12-24] MEDS: INSULIN ASPART (NovoLOG) 100 UNIT/ML VIAL SQ SCH ×2 (08:10→12:10)
[2018-12-24] MEDS: predniSONE 10 MG TAB PO SCH (08:24)
[2018-12-24] MEDS: APIXABAN 5 MG TAB PO SCH (08:24)
[2018-12-24] MEDS: SPIRONOLACTONE 25 MG TAB PO SCH (08:24)
[2018-12-24] MEDS: CHOLECALCIFEROL 1,000 UNIT TAB PO SCH (08:24)
[2018-12-24] MEDS: FUROSEMIDE 40 MG TAB PO SCH (08:25)
[2018-12-24] MEDS: METOPROLOL SUCCINATE (ER) 50 MG TAB.ER.24H PO SCH (08:25)
[2018-12-24] MEDS: ALPRAZolam 0.25 MG TAB PO SCH (08:25)
[2018-12-24] MEDS: FAMOTIDINE 20 MG TAB PO SCH (08:25)
[2018-12-24 08:37] VITALS: RESP 18
[2018-12-24] MEDS ORDERED: IPRATROPIUM-ALBUTEROL 3 ML NEB INHALATION PRN (10:02)
--- NOTE | 2018-12-24 10:02 | P.PN ---
Subjective Progress Note Date: 12/24/18 Principal diagnosis: Acute exacerbation of severe persistent asthma, chronic ALLERGIC asthma, atrial fibrillation with rapid ventricular response, obstructive sleep apnea on CPAP, h ypertension hypertensive cardiovascular disease, dyslipidemia, hypothyroidism, morbid obesity, aortic valve disease, December 24 2018, patient seen and evaluated examined during the rounds clinically she is feeling better and denies any chest pain her pacemaker site is healing well, her breathing is better, she is been evaluated for placement in extended care facility for short-term rehab, denies any chest pain afterwards she can resume on her anti-IgE therapy, she said that she takes the albuterol and the Pulmicort do not take ipratropium so we'll stop the DuoNeb according to his wishes, stable pulmonary standpoint for discharge, Objective - Vital Signs Vital signs: Vital Signs Temp 98.1 F 12/24/18 08:00 Pulse 85 12/24/18 08:00 Resp 18 12/24/18 08:00 BP 118/74 12/24/18 08:00 Pulse Ox 97 12/24/18 08:00 Intake & Output 12/23/18 12/24/18 12/24/18 18:59 06:59 18:59 Intake Total 300 Output Total 2 550 Balance -2 -250 Intake: Oral 300 Output: Urine 550 Stool 2 Other: Voiding Method Toilet Toilet # Voids 1 - Exam General: Patient is alert and oriented 3, no acute distress, obese Cardiovascular: Regular rate and rhythm, S1/S2, pacemaker site is healing well Lungs: Diminished breath sounds bilaterally otherwise clear Abdomen: Soft nontender nondistended positive bowel sounds Extremities: No edema - Labs CBC & Chem 7: 12/20/18 06:02 12/22/18 06:09 Labs: Abnormal Lab Results - Last 24 Hours (Table) 12/23/18 12/23/18 12/23/18 Range/Units 11:49 16:57 20:10 POC Glucose (mg/dL) 131 H 144 H 183 H (75-99) mg/dL 12/24/18 Range/Units 06:46 POC Glucose (mg/dL) 105 H (75-99) mg/dL Assessment and Plan Assessment: Acute exacerbation of severe persistent asthma, allergic type Atrial fibrillation with RVR GEO compliant with CPAP Hypertension Dyslipidemia Hypothyroid Morbid obesity History of aortic valve replacement Anxiety Plan: Overall plan is to O2 to maintain saturation greater than or equal to 90% Steroid taper Pulmicort and when necessary albuterol, will DC the [place] Singulair Echocardiogram - suspect pulmonary hypertension - not done Incentive spirometry and pulmonary hygiene GI and DVT prophylaxis Rate control per cardiology, plan for biV pacemaker Xolair outpatient Okay to DC from pulmonary standpoint, Time with Patient: Greater than 30
[2018-12-24 12:07] LABS: Glucose,Whole Blood 99 mg/dL (75-99)
[2018-12-24 12:24] VITALS: BP 124/84; PULSE 92; TEMP 97.4
== END 2018-12-24 12:33 | DRG 226 ==
LOC: EC 15:54 → 1SOBS 23:29 → OBSVTOIN 12-21 21:49
PROVIDERS: ADMIT Family Medicine; ATTEND Family Medicine
PROC: 0JPT0PZ Removal of Cardiac Rhythm Related Device from Trunk Subcutaneous Tissue and Fascia, Open Approach (ICD-10-PCS; principal; 2018-12-22 07:26)
PROC: 0JH609Z Insertion of Cardiac Resynchronization Defibrillator Pulse Generator into Chest Subcutaneous Tissue and Fascia, Open Approach (ICD-10-PCS; principal; 2018-12-22 07:26)
PROC: 02HL3KZ Insertion of Defibrillator Lead into Left Ventricle, Percutaneous Approach (ICD-10-PCS; principal; 2018-12-22 07:26)
PROC: 02K83ZZ Map Conduction Mechanism, Percutaneous Approach (ICD-10-PCS; principal; 2018-12-22 07:26)
PROC: 02583ZZ Destruction of Conduction Mechanism, Percutaneous Approach (ICD-10-PCS; principal; 2018-12-22 07:26)
DX: I48.0 Paroxysmal atrial fibrillation (principal); I50.23 Acute on chronic systolic (congestive) heart failure; J45.51 Severe persistent asthma with (acute) exacerbation; I48.1 Persistent atrial fibrillation; I48.2 Chronic atrial fibrillation; E03.9 Hypothyroidism, unspecified; E66.01 Morbid (severe) obesity due to excess calories; Z68.39 Body mass index [BMI] 39.0-39.9, adult; E78.5 Hyperlipidemia, unspecified; F32.9 Major depressive disorder, single episode, unspecified; F41.1 Generalized anxiety disorder; G47.33 Obstructive sleep apnea (adult) (pediatric); I07.1 Rheumatic tricuspid insufficiency; I11.0 Hypertensive heart disease with heart failure; I25.10 Atherosclerotic heart disease of native coronary artery without angina pectoris; I27.20 Pulmonary hypertension, unspecified; I42.9 Cardiomyopathy, unspecified; I44.2 Atrioventricular block, complete; I45.10 Unspecified right bundle-branch block; I73.9 Peripheral vascular disease, unspecified; J04.0 Acute laryngitis; J44.9 Chronic obstructive pulmonary disease, unspecified; T38.0X5A Adverse effect of glucocorticoids and synthetic analogues, initial encounter; Z77.22 Contact with and (suspected) exposure to environmental tobacco smoke (acute) (chronic); Z79.01 Long term (current) use of anticoagulants; Z79.02 Long term (current) use of antithrombotics/antiplatelets; Z79.890 Hormone replacement therapy; Z79.899 Other long term (current) drug therapy; Z80.8 Family history of malignant neoplasm of other organs or systems; Z82.49 Family history of ischemic heart disease and other diseases of the circulatory system; Z83.3 Family history of diabetes mellitus; Z85.828 Personal history of other malignant neoplasm of skin; Z87.442 Personal history of urinary calculi; Z95.3 Presence of xenogenic heart valve; Z95.5 Presence of coronary angioplasty implant and graft; Z88.0 Allergy status to penicillin; Z88.8 Allergy status to other drugs, medicaments and biological substances; Z88.2 Allergy status to sulfonamides; Z99.89 Dependence on other enabling machines and devices
CPT/HCPCS: 33214; 33225; 36415; 71046; 71275; 80048; 80053; 81003; 83735; 83880; 84443; 84484; 85025; 85379; 85610; 85730; 93005; 93306; 93451; 93650; 94640; 94760; 99285

== ENCOUNTER → 2019-05-19 | Outpatient (CLI) | payer MEDICARE, BC ==
--- NOTE | 2019-05-19 14:38 | US ---
EXAMINATION TYPE: US extremity nonvasc mass RT DATE OF EXAM: 05/19/2019 COMPARISON: NONE CLINICAL HISTORY: SOFT TISSUE MASS RIGHT FOOT. TECHNIQUE/FINDINGS: Targeted color and grayscale ultrasound was performed of the patient's palpable a bnormality of the right foot. Patient has palpable mass on great toe. She has had mass for 7-10 years . It is not painful. Corresponding the palpable abnormality there is a superficial, hypoechoic non-vascular mass measuring 1.1 x 0.8 x 0.5cm. This is well-circumscribed borders. IMPRESSION: Superficial nonspecific 1.1 cm avascular mass posterior to the great toe on the right fo ot. Considerations are for Everett's neuroma, complex ganglion cyst, nerve sheath tumor, epidermal inc lusion cyst, versus other. MRI with contrast could evaluate internal characteristics and enhancement. This does not appear as a typical lipoma.
== END | disposition home or self-care (01) ==
LOC: RADUSWWP 13:44
PROVIDERS: ATTEND Podiatrist Foot & Ankle Surgery
DX: R22.41 Localized swelling, mass and lump, right lower limb (principal)

== ENCOUNTER → 2019-12-01 | Outpatient (CLI) | payer MEDICARE, BC ==
--- NOTE | 2019-12-01 16:19 | US ---
EXAMINATION TYPE: US transvaginal DATE OF EXAM: 12/01/2019 COMPARISON: CT 2019 CLINICAL HISTORY: N93.9 Abn vaginal bleeding. Intermittent spotting x 1 year, 6, para 4, misc arriage 2, history of tubal ligation TECHNIQUE: Transvaginal only per ordering physician. Date of LMP: 30 years ago EXAM MEASUREMENTS: Uterus: 6.6 x 3.3 x 3.6 cm Endometrial Stripe: 0.6 cm Right Ovary: not seen Left Ovary: not seen Difficult and limited study due to body habitus 1. Uterus: heterogeneous 2. Endometrium: measures in upper limits of normal 3. Right Ovary: not seen due to overlying bowel 4. Left Ovary: not seen due to overlying bowel 5. Bilateral Adnexa: wnl 6. Posterior cul-de-sac: wnl IMPRESSION: 1. Normal pelvic ultrasound. 2. Exam is limited due to bowel gas.
== END | disposition home or self-care (01) ==
LOC: RADUSWWP 15:10
PROVIDERS: ATTEND Internal Medicine Geriatric Medicine
DX: R14.3 Flatulence (principal)
CPT/HCPCS: 76830

== ENCOUNTER → 2020-04-17 | Outpatient (CLI) | payer MEDICARE, BC ==
--- NOTE | 2020-04-18 06:30 | CT ---
EXAMINATION TYPE: CT lumbar spine wo con DATE OF EXAM: 04/17/2020 5:52 PM COMPARISON: CT lumbar spine May 18, 2016 HISTORY: Lt side back pain, weakness and numbness in legs. No current injury but pt did reference [place] several years ago. Lumbar disc disease, left lower extremity weakness, scoliosis, low back pa in, and radiculopathy all per order. CT DLP: 1383.60 mGycm Automated exposure control for dose reduction was used. Unenhanced CT of the lumbar spine was performed. Bone and soft tissue window settings are submitted as well as coronal and sagittal reconstructions. There are 5 lumbar type vertebra are redemonstrated. There is persistent levoconvex scoliosis centere d at L2-L3 level. Vertebral body heights are maintained. There is grade 1 retrolisthesis L1 on L2, L2 on L3, L3 on L4, and to lesser degree L4-L5 all redemonstrated. There is grade 1 anterolisthesis L5 on S1 redemonstrated. There is severe disc space narrowing and vacuum disc phenomenon with moderate a nterior spurring L2-L3 level redemonstrated. This additional fairly moderate multilevel disc space na rrowing with multilevel vacuum disc phenomenon. Moderate anterior and lateral spurring lower thoracic and upper lumbar spine is redemonstrated. Axial images at the T12-L1 level show mild broad disc bulge mildly effacing the anterior thecal sac, bilateral neural foramina are patent. No significant change from prior. Axial images at the L1-L2 level show spondylolisthesis with moderate broad-based posterior disc protr usion mildly effacing the anterior thecal sac. There is mild facet arthropathy bilaterally, there is [id number] right-sided neural foraminal narrowing. Axial images at L2-L3 level show posterior spur disc complex and spondylitic associated facing anteri or thecal sac. There is prominent right lateral spur. This causes mild to moderate inferior neural fo raminal narrowing. Left-sided neural foramina patent. Axial images at L3-L4 levels with spondylolisthesis with mild/moderate facet arthropathy bilaterally. There is effacement of the right anterolateral thecal sac. There is asymmetric moderate right-sided neural foraminal narrowing. Axial images at L4-L5 level show moderate to advanced facet arthropathy bilaterally effacing lateral thecal sac bilaterally. There is mild right and moderate to severe left-sided neural foraminal narrow ing, encroachment of exiting left L4 nerve suspected sagittal image 44 and axial image 55. Axial images at L5-S1 levels with advanced left greater than right facet arthropathy. There is spondy lolisthesis. Spinal canal preserved. There is moderate left and mild right-sided neural foraminal brandon rowing. Some distal colonic diverticula are present redemonstrated. Asymmetric left renal cortical thinning a nd diminished size redemonstrated. Atherosclerotic and ectatic abdominal aorta again seen. No greater than 3.0 cm AAA. IMPRESSION: Scoliosis, multilevel spondylolisthesis and fairly moderate to advanced degenerative cotton ges. No significant change or progression from 2016 CT No paraspinal masses are identified. Lumbar segments are intact.
== END | disposition home or self-care (01) ==
LOC: RADCTMAIN 17:00
PROVIDERS: ATTEND Orthopaedic Surgery Orthopaedic Surgery of the Spine
DX: M43.16 Spondylolisthesis, lumbar region (principal); M47.896 Other spondylosis, lumbar region; M41.9 Scoliosis, unspecified
CPT/HCPCS: 72131

== ENCOUNTER 2020-09-11 21:33 | Inpatient (IN) | payer MEDICARE, BC ==
--- NOTE | 2020-09-11 22:30 | ED ---
General Adult HPI - General Chief complaint: Shortness of Breath Stated complaint: Leg swelling Time Seen by Provider: 09/11/20 21:57 Source: patient Mode of arrival: ambulatory Limitations: no limitations - History of Present Illness Initial comments: 79-year-old female with history of COPD, heart failure, A. fib presents to emergency department with a chief complaint of shortness of breath. Patient reports about 3 months ago she was switched from her Lasix to demadex which she believes it is not working well. Patient reports now her legs are starting to swell, particularly around the ankles and feet. Patient reports she is gained about 20 pounds during the last 2 weeks. She also reports dyspnea on exertion and some generalized chest pressure without pain radiation. Denies any dizziness, lightheadedness, blurry vision or headaches. Patient reports she feels some crackles whenever taking deep breaths. She denies any nausea vomiting or diarrhea. States she had a recent echocardiogram. - Related Data Home Medications Medication Instructions Recorded Confirmed Cholecalciferol [Vitamin D3 (25 5,000 unit PO DAILY 08/24/18 09/11/20 Mcg = 1000 Iu)] Levothyroxine Sodium [Synthroid] 50 mcg PO DAILY 08/24/18 09/11/20 Montelukast [Singulair] 10 mg PO HS 08/24/18 09/11/20 Oil Of Oregano 1 tab PO DAILY 10/05/18 09/11/20 Metoprolol Succinate (ER) [Toprol 100 mg PO BID 12/19/18 09/11/20 XL] Pravastatin Sodium [Pravachol] 10 mg PO DAILY 12/19/18 09/11/20 ALPRAZolam [Xanax] 0.25 mg PO BID PRN 09/11/20 09/11/20 Ammonium Lactate Cream [Lac-Hydrin 1 applic TOPICAL BID 09/11/20 09/11/20 12% Cream] Ascorbic Acid [Vitamin C] 500 mg PO DAILY 09/11/20 09/11/20 Citalopram Hydrobromide 20 mg PO DAILY 09/11/20 09/11/20 [Citalopram HBr] HYDROcodone/APAP 5-325MG [[place] 1 tab PO Q6H PRN 09/11/20 09/11/20 5-325] L.acidoph,Paracasei, B.lactis 1 cap PO DAILY 09/11/20 09/11/20 [Probiotic] Magnesium Oxide 400 mg PO DAILY 09/11/20 09/11/20 Melatonin 5 mg PO HS 09/11/20 09/11/20 Torsemide [Demadex] 20 mg PO BID 09/11/20 09/11/20 Ubidecarenone [Co Q-10] 100 mg PO DAILY 09/11/20 09/11/20 Zinc 50 mg PO DAILY 09/11/20 09/11/20 Previous Rx's Medication Instructions Recorded Apixaban [Eliquis] 5 mg PO BID #180 tab 11/28/18 Acetaminophen Tab [Tylenol] 650 mg PO Q6HR PRN tab 12/23/18 Allergies Allergy/AdvReac Type Severity Reaction Status Date / Time amlodipine [From Lotrel] Allergy Unknown Verified 09/11/20 22:53 benazepril [From Lotrel] Allergy Unknown Verified 09/11/20 22:53 cephalexin [From Keflex] Allergy Rash/Hives Verified 09/11/20 22:53 clindamycin Allergy Rash/Hives Verified 09/11/20 22:53 clonidine [From Catapres] Allergy anxious Verified 09/11/20 22:53 diltiazem Allergy severe Verified 09/11/20 22:53 headache doxazosin [From Cardura] Allergy Unknown Verified 09/11/20 22:53 isosorbide [From Imdur] Allergy Anaphylaxis Verified 09/11/20 22:53 metoprolol [From Toprol XL] Allergy Unknown Verified 09/11/20 22:53 Penicillins Allergy "passes Verified 09/11/20 22:53 out" ramipril [From Altace] Allergy Anaphylaxis Verified 09/11/20 22:53 sulfamethoxazole Allergy severe Verified 09/11/20 22:53 [From Bactrim] skin reaction trimethoprim [From Bactrim] Allergy severe Verified 09/11/20 22:53 skin reaction valsartan [From Diovan] Allergy severe Verified 09/11/20 22:53 headache maxide Allergy Unknown Uncoded 10/26/18 16:17 oral steroids AdvReac Afib Uncoded 10/26/18 16:17 Review of Systems ROS Statement: Those systems with pertinent positive or pertinent negative responses have been documented in the HPI. ROS Other: All systems not noted in ROS Statement are negative. Past Medical History Past Medical History: Atrial Fibrillation, Coronary Artery Disease (CAD), Cancer, COPD, Hyperlipidemia, Hypertension, Osteoarthritis (OA), Sleep Apnea/CPAP/BIPAP, Thyroid Disorder, Vascular Disorder Additional Past Medical History / Comment(s): Hx skin cancer yrs ago on nose. Numbness and pain left lower leg, varicose veins, hx kidney stones, steroids Jun 2018. "2013 blood clot in heart." CPAP use. Hx Shingles 4 yrs ago. CHF, History of Any Multi-Drug Resistant Organisms: None Reported Past Surgical History: Appendectomy, Cholecystectomy, Heart Catheterization With Stent, Hernia Repair, Joint Replacement, Pacemaker, Tonsillectomy Additional Past Surgical History / Comment(s): Heart stent x1, Medtronic DAPTA DR Pacemaker 2008, Aortic valve replaced (pig)2008, bilateral total knees, cataracts removed bilaterally. Right cath for athrosclorsis Past Anesthesia/Blood Transfusion Reactions: No Reported Reaction, Motion Sickness Additional Past Anesthesia/Blood Transfusion Reaction / Comment(s): No problems with prior blood transfusions. Date of Last Stent Placement:: 1998 Type of Cardiac Device: Permanent Pacemaker Device Placement Date:: 2008 Past Psychological History: Anxiety, Depression Smoking Status: Never smoker Past Alcohol Use History: None Reported Past Drug Use History: None Reported - Past Family History Mother Family Medical History: Cancer Additional Family Medical History / Comment(s): skin CA Father Family Medical History: Cancer Additional Family Medical History / Comment(s): stomach ulcer at age 52 Brother(s) Additional Family Medical History / Comment(s): Patient has 6 brothers and one is known to have coronary artery disease. Patient is no sisters. Patient has 4 children one has Crohn's disease and one has rheumatoid arthritis. General Exam Limitations: no limitations General appearance: alert, in no apparent distress Head exam: Present: atraumatic, normocephalic, normal inspection Eye exam: Present: normal appearance, PERRL, EOMI Pupils: Present: normal accommodation ENT exam: Present: normal exam, normal oropharynx, mucous membranes moist Neck exam: Present: normal inspection, full ROM. Absent: tenderness Respiratory exam: Present: normal lung sounds bilaterally, rales (Skin diffuse crackles, bilaterally.). Absent: respiratory distress, wheezes, rhonchi, stridor, chest wall tenderness Cardiovascular Exam: Present: regular rate, normal rhythm, normal heart sounds GI/Abdominal exam: Present: soft. Absent: distended, tenderness, guarding Extremities exam: Present: normal inspection, full ROM, normal capillary refill, pedal edema (Nonpitting edema bilateral lower extremities), other (Palpable DP and PT bilaterally.). Absent: tenderness, joint swelling Back exam: Present: normal inspection, full ROM Neurological exam: Present: alert, oriented X3 Psychiatric exam: Present: normal affect, normal mood Skin exam: Present: warm, dry, intact, normal color Course Vital Signs 09/11/20 09/12/20 09/12/20 21:44 01:15 02:09 Temperature 98.4 F 97.4 F L Pulse Rate 60 60 60 Respiratory 18 16 20 Rate Blood Pressure 135/81 143/89 124/67 O2 Sat by Pulse 98 98 97 Oximetry Medical Decision Making - Medical Decision Making 79-year-old female with history of COPD, heart failure, A. fib presents to emergency department with a chief complaint of shortness of breath. on physical examination, patient is not in respiratory distress. Oxygen saturation within normal limits. On auscultation, patient has few scattered rales diffusely. She has bilateral lower extremity edema, nonpitting. CBC unremarkable. Elevated coags. Elevated d-dimer 2.85. carbon dioxide is 32. Elevated BUNs at 32. Creatinine 1.13. Initial troponin negative. BNP 1380. Chest x-ray showing cardiomegaly but no signs of heart failure at this time. We had a hard time obtaining IV access. After multiple attempts, a 22-gauge was obtained and this was not a large enough access for IV contrast. VQ scan pending for the morning. Patient will be started on 90 mg of Lovenox SQ. eliquis on hold. 40mg Lasix Q8hr per Dr Andrews. Patient will be admitted for further medical management. Case discussed with . Admitting is Dr Andrews Cardiology on consult - Lab Data Result diagrams: 09/12/20 00:15 09/12/20 00:15 Lab Results 09/12/20 09/12/20 09/12/20 Range/Units 00:15 00:15 00:15 WBC 4.5 (3.8-10.6) k/uL RBC 5.10 (3.80-5.40) m/uL Hgb 14.8 (11.4-16.0) gm/dL Hct 46.7 H (34.0-46.0) % MCV 91.5 (80.0-100.0) fL MCH 29.0 (25.0-35.0) pg MCHC 31.7 (31.0-37.0) g/dL RDW 14.2 (11.5-15.5) % Plt Count 93 L (150-450) k/uL MPV 8.2 Neutrophils % 54 % Lymphocytes % 26 % Monocytes % 13 % Eosinophils % 5 % Basophils % 0 % Neutrophils # 2.4 (1.3-7.7) k/uL Lymphocytes # 1.1 (1.0-4.8) k/uL Monocytes # 0.6 (0-1.0) k/uL Eosinophils # 0.2 (0-0.7) k/uL Basophils # 0.0 (0-0.2) k/uL Manual Slide Review Performed Hypochromasia Slight PT 14.9 H (9.0-12.0) sec INR 1.5 H (<1.2) APTT 30.7 H (22.0-30.0) sec D-Dimer 2.31 H (<0.60) mg/L FEU Sodium 137 (137-145) mmol/L Potassium 4.0 (3.5-5.1) mmol/L Chloride 95 L (98-107) mmol/L Carbon Dioxide 32 H (22-30) mmol/L Anion Gap 10 mmol/L BUN 32 H (7-17) mg/dL Creatinine 1.13 H (0.52-1.04) mg/dL Est GFR (CKD-EPI)AfAm 54 (>60 ml/min/1.73 sqM) Est GFR (CKD-EPI)NonAf 47 (>60 ml/min/1.73 sqM) Glucose 84 (74-99) mg/dL Calcium 10.4 H (8.4-10.2) mg/dL Magnesium 2.0 (1.6-2.3) mg/dL Total Bilirubin 1.9 H (0.2-1.3) mg/dL AST 52 H (14-36) U/L ALT 18 (4-34) U/L Alkaline Phosphatase 205 H (38-126) U/L Troponin I (0.000-0.034) ng/mL NT-Pro-B Natriuret Pep pg/mL Total Protein 7.4 (6.3-8.2) g/dL Albumin 4.5 (3.5-5.0) g/dL 09/12/20 09/12/20 Range/Units 00:15 00:15 WBC (3.8-10.6) k/uL RBC (3.80-5.40) m/uL Hgb (11.4-16.0) gm/dL Hct (34.0-46.0) % MCV (80.0-100.0) fL MCH (25.0-35.0) pg MCHC (31.0-37.0) g/dL RDW (11.5-15.5) % Plt Count (150-450) k/uL MPV Neutrophils % % Lymphocytes % % Monocytes % % Eosinophils % % Basophils % % Neutrophils # (1.3-7.7) k/uL Lymphocytes # (1.0-4.8) k/uL Monocytes # (0-1.0) k/uL Eosinophils # (0-0.7) k/uL Basophils # (0-0.2) k/uL Manual Slide Review Hypochromasia PT (9.0-12.0) sec INR (<1.2) APTT (22.0-30.0) sec D-Dimer (<0.60) mg/L FEU Sodium (137-145) mmol/L Potassium (3.5-5.1) mmol/L Chloride (98-107) mmol/L Carbon Dioxide (22-30) mmol/L Anion Gap mmol/L BUN (7-17) mg/dL Creatinine (0.52-1.04) mg/dL Est GFR (CKD-EPI)AfAm (>60 ml/min/1.73 sqM) Est GFR (CKD-EPI)NonAf (>60 ml/min/1.73 sqM) Glucose (74-99) mg/dL Calcium (8.4-10.2) mg/dL Magnesium (1.6-2.3) mg/dL Total Bilirubin (0.2-1.3) mg/dL AST (14-36) U/L ALT (4-34) U/L Alkaline Phosphatase (38-126) U/L Troponin I 0.026 (0.000-0.034) ng/mL NT-Pro-B Natriuret Pep 1370 pg/mL Total Protein (6.3-8.2) g/dL Albumin (3.5-5.0) g/dL Disposition Clinical Impression: Exertional shortness of breath Disposition: ADMITTED IP TO THIS HOSP Condition: Good Is patient prescribed a controlled substance at d/c from ED?: No Referrals: Leon Cheema MD [Primary Care Provider] - 1-2 days Time of Disposition: 02:11
--- NOTE | 2020-09-11 23:43 | XR ---
EXAMINATION TYPE: XR chest 2V DATE OF EXAM: 09/11/2020 COMPARISON: 12/23/2018 HISTORY: Chest pain TECHNIQUE: 2 views FINDINGS: Heart is enlarged. There is no heart failure. There is left axillary pacemaker. There is no pleural effusion. There are no hilar masses. Bony thorax is intact. IMPRESSION: Cardiomegaly. No active cardiopulmonary disease. No change.
[2020-09-12 00:25] LABS: Basophils % (A) 0 %; Eosinophils # (A) 0.2 k/uL (0-0.7); Eosinophils % (A) 5 %; HCT 46.7 % (34.0-46.0); HGB 14.8 gm/dL (11.4-16.0); Hypochromasia Slight; Lymphocytes # (A) 1.1 k/uL (1.0-4.8); Lymphocytes % (A) 26 %; MCHC 31.7 g/dL (31.0-37.0); MCV 91.5 fL (80.0-100.0); Mean Platelet Volume 8.2; Monocytes # (A) 0.6 k/uL (0-1.0); Monocytes % (A) 13 %; Neutrophils # (A) 2.4 k/uL (1.3-7.7); Neutrophils % (A) 54 %; RDW 14.2 % (11.5-15.5); WBC 4.5 k/uL (3.8-10.6)
[2020-09-12 00:26] LABS: Platelet Count 93 k/uL (150-450)
[2020-09-12 00:39] LABS: INR 1.5 (<1.2); Partial Thromboplastin Time 30.7 sec (22.0-30.0); Prothrombin Time 14.9 sec (9.0-12.0)
[2020-09-12 00:51] LABS: D-Dimer 2.31 mg/L FEU (<0.60)
[2020-09-12] MEDS ORDERED: FUROSEMIDE 10 MG/ML 4 ML VIAL IV STA (01:11)
[2020-09-12 01:18] LABS: Albumin 4.5 g/dL (3.5-5.0); Calcium 10.4 mg/dL (8.4-10.2); Total Bilirubin 1.9 mg/dL (0.2-1.3); Total Protein 7.4 g/dL (6.3-8.2)
[2020-09-12] MEDS ORDERED: ENOXAPARIN 100 MG/ML SYRINGE SQ STA (01:51)
[2020-09-12] MEDS ORDERED: ACETAMINOPHEN TAB 325 MG TAB PO PRN (08:41)
[2020-09-12] MEDS ORDERED: HYDROcodone/APAP 5-325MG 1 EACH TAB PO PRN (08:41)
--- NOTE | 2020-09-12 08:42 | NM ---
EXAMINATION TYPE: NM pul vent and perfuse DATE OF EXAM: 09/12/2020 COMPARISON: Chest x-ray from yesterday. HISTORY: Elevated d-dimer. Dyspnea on exertion. TECHNIQUE: Utilizing inhalation of 69.6 mCi Tc 99m DTPA aerosol and intravenous injection of 5.3 mCi of Tc 99m MAA, ventilation and perfusion images are acquired post injection in multiple projections. FINDINGS: Small to moderate size matching defects seen bilaterally. There is no evidence of mismatched defects. IMPRESSION: Low scintigraphic evidence for acute pulmonary embolism
[2020-09-12] MEDS ORDERED: CHOLECALCIFEROL 25 MCG (1000 IU) TABLET PO SCH (09:00)
[2020-09-12] MEDS: METOPROLOL SUCCINATE (ER) 100 MG TAB.ER.24H PO SCH ×2 (09:08→21:16)
[2020-09-12] MEDS: ASCORBIC ACID 500 MG TAB PO SCH (09:08)
[2020-09-12] MEDS: CHOLECALCIFEROL 25 MCG (1000 IU) TABLET PO SCH (09:08)
[2020-09-12] MEDS: PRAVASTATIN SODIUM 20 MG TAB PO SCH (09:08)
[2020-09-12] MEDS: ZINC SULFATE 220 MG CAP PO SCH (09:08)
[2020-09-12] MEDS: CITALOPRAM HYDROBROMIDE 20 MG TAB PO SCH (09:08)
[2020-09-12] MEDS: MAGNESIUM OXIDE 400 MG TAB PO SCH (09:08)
[2020-09-12] MEDS: AMMONIUM LACTATE 12% CREAM 140 GM TUBE TOPICAL SCH ×2 (09:08→21:15)
[2020-09-12] MEDS: APIXABAN 5 MG TAB PO SCH ×2 (09:09→21:16)
[2020-09-12] MEDS: NON FORMULARY DRUG (Ubidecarenone [Co Q-10] 100 MG Capsule) PO SCH (09:09)
[2020-09-12] MEDS: LACTOBACILLUS ACIDOPH & BULGAR 1 EACH PACKET PO SCH (09:09)
[2020-09-12] MEDS: LEVOTHYROXINE 50 MCG TAB PO SCH (09:12)
--- NOTE | 2020-09-12 11:01 | P.CRDCN ---
History of Present Illness History of present illness: HISTORY OF PRESENTING ILLNESS This is a pleasant 79-year-old female past medical history significant for chronic diastolic heart failure, pulmonary hypertension, hypertension, valvular heart disease status post aortic valve replacement, atrial fibrillation status post AV node ablation, BiV pacemaker and coronary artery disease status post PCI in 1998. She follows in the office with Dr. Patel. We have been asked to see in consultation for exertional shortness of breath. She states she has been having exertional shortness of breath that has been going on for the last 2 years. She states her symptoms have been worked up in the past however she is achieving no relief. Over the last 1 week her symptoms seem to be somewhat intensified. Her diuretics have been adjusted however she doesn't always take them. She states she does have chest pain and tightness at times, mostly at r est, with some radiation to the neck, left shoulder and down the left arm. She is currently comfortable laying flat in bed. She has no orthopnea. Most recent echo in the office 07/2019 revealed preserved LV systolic function with EF 50- 55%, grade 3 diastolic dysfunction, moderately dilated RA, mild-moderate MR, prosthetic AV with mean gradient of 12 mmHg, severe TR and RVSP 32 mmHg. DIAGNOSTICS EKG reveals ventricular paced rhythm with underling atrial fibrillation. Telemetry tracings indicate paced rhythm. Chest xray negative for an acute cardiopulmonary process. VQ scan low probability for PE Laboratory reviewed, WBC 4.5, hemoglobin 14.8, platelets 93, INR 1.5, d-dimer 2.31, sodium 137, potassium 4.0, creatinine 1.13, magnesium 2.0, cardiac enzymes negative 3, NT proBNP 1370. Current cardiac medications include Eliquis 5 mg twice a day, Toprol 100 mg twice a day, pravastatin 10 mg daily, torsemide 20 mg twice a day. REVIEW OF SYSTEMS At the time of my exam: CONSTITUTIONAL: Denies fever or chills. CARDIOVASCULAR: Denies chest pain, shortness of breath, orthopnea, PND or palpitations. RESPIRATORY: Denies cough. GASTROINTESTINAL: Denies abdominal pain, diarrhea, constipation, nausea or vomiting. MUSCULOSKELETAL: Denies myalgias. NEUROLOGIC: Denies numbness, tingling, headacbe or weakness. ENDOCRINE: Denies fatigue, weight change, polydipsia or polyurina. GENITOURINARY: Denies burning, hematuria or urgency with micturation. HEMATOLOGIC: Denies history of anemia or bleeding. PHYSICAL EXAMINATION Blood pressure 126/67 heart rate 60 afebrile and maintaining oxygen saturation on room air. CONSTITUTIONAL: No apparent distress. HEENT: Head is normocephalic. Pupils are equal, round. Sclerae anicteric. Mucous membranes of the mouth are moist. No JVD. No carotid bruit. CHEST EXAMINATION: Lungs are clear to auscultation. No chest wall tenderness is noted on palpation or with deep breathing. HEART EXAMINATION: Irregular rate and rhythm. S1, S2 heard. Systolic ejection murmur at the base, no gallops or rub. ABDOMEN: Soft, nontender. Positive bowel sounds. EXTREMITIES: 2+ peripheral pulses, bilateral lower extremity non-pitting edema and no calf tenderness. NEUROLOGIC EXAMINATION: Patient is awake, alert and oriented x3. ASSESSMENT Exertional shortness of breath, chronic Acute on chronic diastolic heart failure Chronic kidney disease Hypertension Coronary artery disease s/p PCI 1998 Valvular heart disease s/p bovine aortic valve replacement 2008 BiV pacemaker implantation Permanent atrial fibrillation on eliquis PLAN IV lasix has been started by the primary care team. Continue for another 24 hours. Follow renal function and electrolytes in the morning. Document accurate intake and output along with daily weights. Depending on her course we may consider ischemic work-up with a stress test. Decrease aspirin to 81 mg daily. Further recommendations to follow based on clinical course. Thank you kindly for this consultation. Nurse Practitioner note has been reviewed, I agree with a documented findings and plan of care. Patient was seen and examined. Past Medical History Past Medical History: Atrial Fibrillation, Coronary Artery Disease (CAD), Cancer, COPD, Hyperlipidemia, Hypertension, Osteoarthritis (OA), Sleep Apnea/CPAP/BIPAP, Thyroid Disorder, Vascular Disorder Additional Past Medical History / Comment(s): Hx skin cancer yrs ago on nose. Numbness and pain left lower leg, varicose veins, hx kidney stones, steroids Jun 2018. "2013 blood clot in heart." CPAP use. Hx Shingles 4 yrs ago. CHF, History of Any Multi-Drug Resistant Organisms: None Reported Past Surgical History: Appendectomy, Cholecystectomy, Heart Catheterization With Stent, Hernia Repair, Joint Replacement, Pacemaker, Tonsillectomy Additional Past Surgical History / Comment(s): Heart stent x1, Medtronic JULIANNE LACEY Pacemaker 2008, Aortic valve replaced (pig)2008, bilateral total knees, cataracts removed bilaterally. Right cath for athrosclorsis Past Anesthesia/Blood Transfusion Reactions: No Reported Reaction, Motion Sickness Additional Past Anesthesia/Blood Transfusion Reaction / Comment(s): No problems with prior blood transfusions. Date of Last Stent Placement:: 1998 Type of Cardiac Device: Permanent Pacemaker Device Placement Date:: 2008 Past Psychological History: Anxiety, Depression Smoking Status: Never smoker Past Alcohol Use History: None Reported Additional Past Alcohol Use History / Comment(s): Patient is a lifelong nonsmoker but she was exposed to secondhand smoke. No illicit drug use. No alcohol use. Past Drug Use History: None Reported - Past Family History Mother Family Medical History: Cancer Additional Family Medical History / Comment(s): skin CA Father Family Medical History: Cancer Additional Family Medical History / Comment(s): stomach ulcer at age 52 Brother(s) Additional Family Medical History / Comment(s): Patient has 6 brothers and one is known to have coronary artery disease. Patient is no sisters. Patient has 4 children one has Crohn's disease and one has rheumatoid arthritis. Medications and Allergies Home Medications Medication Instructions Recorded Confirmed Type Cholecalciferol [Vitamin D3 (25 5,000 unit PO DAILY 08/24/18 09/11/20 History Mcg = 1000 Iu)] Levothyroxine Sodium [Synthroid] 50 mcg PO DAILY 08/24/18 09/11/20 History Montelukast [Singulair] 10 mg PO HS 08/24/18 09/11/20 History Oil Of Oregano 1 tab PO DAILY 10/05/18 09/11/20 History Apixaban [Eliquis] 5 mg PO BID #180 tab 11/28/18 09/11/20 Rx Metoprolol Succinate (ER) [Toprol 100 mg PO BID 12/19/18 09/11/20 History XL] Pravastatin Sodium [Pravachol] 10 mg PO DAILY 12/19/18 09/11/20 History Acetaminophen Tab [Tylenol] 650 mg PO Q6HR PRN tab 12/23/18 09/11/20 Rx ALPRAZolam [Xanax] 0.25 mg PO BID PRN 09/11/20 09/11/20 History Ammonium Lactate Cream [Lac-Hydrin 1 applic TOPICAL BID 09/11/20 09/11/20 History 12% Cream] Ascorbic Acid [Vitamin C] 500 mg PO DAILY 09/11/20 09/11/20 History Citalopram Hydrobromide 20 mg PO DAILY 09/11/20 09/11/20 History [Citalopram HBr] HYDROcodone/APAP 5-325MG [[place] 1 tab PO Q6H PRN 09/11/20 09/11/20 History 5-325] L.acidoph,Paracasei, B.lactis 1 cap PO DAILY 09/11/20 09/11/20 History [Probiotic] Magnesium Oxide 400 mg PO DAILY 09/11/20 09/11/20 History Melatonin 5 mg PO HS 09/11/20 09/11/20 History Torsemide [Demadex] 20 mg PO BID 09/11/20 09/11/20 History Ubidecarenone [Co Q-10] 100 mg PO DAILY 09/11/20 09/11/20 History Zinc 50 mg PO DAILY 09/11/20 09/11/20 History Allergies Allergy/AdvReac Type Severity Reaction Status Date / Time amlodipine [From Lotrel] Allergy Unknown Verified 09/11/20 22:53 benazepril [From Lotrel] Allergy Unknown Verified 09/11/20 22:53 cephalexin [From Keflex] Allergy Rash/Hives Verified 09/11/20 22:53 clindamycin Allergy Rash/Hives Verified 09/11/20 22:53 clonidine [From Catapres] Allergy anxious Verified 09/11/20 22:53 diltiazem Allergy severe Verified 09/11/20 22:53 headache doxazosin [From Cardura] Allergy Unknown Verified 09/11/20 22:53 isosorbide [From Imdur] Allergy Anaphylaxis Verified 09/11/20 22:53 metoprolol [From Toprol XL] Allergy Unknown Verified 09/11/20 22:53 Penicillins Allergy "passes Verified 09/11/20 22:53 out" ramipril [From Altace] Allergy Anaphylaxis Verified 09/11/20 22:53 sulfamethoxazole Allergy severe Verified 09/11/20 22:53 [From Bactrim] skin reaction trimethoprim [From Bactrim] Allergy severe Verified 09/11/20 22:53 skin reaction valsartan [From Diovan] Allergy severe Verified 09/11/20 22:53 headache maxide Allergy Unknown Uncoded 10/26/18 16:17 oral steroids AdvReac Afib Uncoded 10/26/18 16:17 Physical Exam Vitals: Vital Signs Temp Pulse Pulse Resp BP BP Pulse Ox 09/12/20 03:03 97.6 F 60 18 134/87 100 09/12/20 02:09 60 20 124/67 97 09/12/20 01:15 97.4 F L 60 16 143/89 98 09/11/20 21:44 98.4 F 60 18 135/81 98 Intake and Output 09/11/20 09/12/20 09/12/20 22:59 06:59 14:59 Other: Voiding Method Toilet # Voids 1 1 Weight 92.079 kg 91.1 kg Results 09/12/20 00:15 09/12/20 00:15 Cardiac Enzymes 09/12/20 09/12/20 09/12/20 Range/Units 00:15 00:15 05:48 AST 52 H (14-36) U/L Troponin I 0.026 0.017 (0.000-0.034) ng/mL Coagulation 09/12/20 Range/Units 00:15 PT 14.9 H (9.0-12.0) sec APTT 30.7 H (22.0-30.0) sec CBC 09/12/20 Range/Units 00:15 WBC 4.5 (3.8-10.6) k/uL RBC 5.10 (3.80-5.40) m/uL Hgb 14.8 (11.4-16.0) gm/dL Hct 46.7 H (34.0-46.0) % Plt Count 93 L (150-450) k/uL Comprehensive Metabolic Panel 09/12/20 Range/Units 00:15 Sodium 137 (137-145) mmol/L Potassium 4.0 (3.5-5.1) mmol/L Chloride 95 L (98-107) mmol/L Carbon Dioxide 32 H (22-30) mmol/L BUN 32 H (7-17) mg/dL Creatinine 1.13 H (0.52-1.04) mg/dL Glucose 84 (74-99) mg/dL Calcium 10.4 H (8.4-10.2) mg/dL AST 52 H (14-36) U/L ALT 18 (4-34) U/L Alkaline Phosphatase 205 H (38-126) U/L Total Protein 7.4 (6.3-8.2) g/dL Albumin 4.5 (3.5-5.0) g/dL Current Medications Generic Name Dose Route Start Last Admin Trade Name Freq PRN Reason Stop Dose Admin Acetaminophen 650 mg 09/12/20 08:41 Acetaminophen Tab 325 Mg Tab PO Q6HR PRN Mild Pain Hydrocodone Bitart/Acetaminophen 1 each 09/12/20 08:41 Hydrocodone/Apap 5-325mg 1 Each Tab PO Q6H PRN Pain Alprazolam 0.25 mg 09/12/20 08:41 Alprazolam 0.25 Mg Tab PO BID PRN Anxiety Apixaban 5 mg 09/12/20 09:00 09/12/20 09:09 Apixaban 5 Mg Tab PO 5 mg BID BR[facility]GET[facility] Administration Ascorbic Acid 500 mg 09/12/20 09:00 09/12/20 09:08 Ascorbic Acid 500 Mg Tab PO 500 mg DAILY BRIDGETTE Administration Aspirin 81 mg 09/13/20 09:00 Aspirin 81 Mg PO DAILY BRIDGETTE Cholecalciferol 125 mcg 09/12/20 09:00 09/12/20 09:08 Cholecalciferol 25 Mcg (1000 Iu) Tablet PO 125 mcg DAILY BRIDGET[facility] Administration Citalopram Hydrobromide 20 mg 09/12/20 09:00 09/12/20 09:08 Citalopram Hydrobromide 20 Mg Tab PO 20 mg DAILY BR[facility] Administration Furosemide 40 mg 09/12/20 21:00 Furosemide 10 Mg/Ml 4 Ml Vial IV Q12HR BRIDGETTE Lactic Acid 1 applic 09/12/20 09:00 09/12/20 09:08 Ammonium Lactate 12% Cream 140 Gm Tube TOPICAL 1 applic BID BRIDGETTE Administration Lactobacillus Acidoph/Bulgaricus 1 each 09/12/20 09:00 09/12/20 09:09 Lactobacillus Acidoph & Bulgar 1 Each Packet PO 1 each DAILY BRIDGETTE Administration Levothyroxine Sodium 50 mcg 09/12/20 09:00 09/12/20 09:12 Levothyroxine 50 Mcg Tab PO 50 mcg DAILY@0630 BR[facility]GET[facility] Administration Magnesium Oxide 400 mg 09/12/20 09:00 09/12/20 09:08 Magnesium Oxide 400 Mg Tab PO 400 mg DAILY BR[place] Administration Melatonin 5 mg 09/12/20 21:00 Melatonin 5 Mg Tablet PO HS [facility] Metoprolol Succinate 100 mg 09/12/20 09:00 09/12/20 09:08 Metoprolol Succinate (Er) 100 Mg Tab.Er.24h PO 100 mg BID BR[place]GET[facility] Administration Montelukast Sodium 10 mg 09/12/20 21:00 Montelukast 10 Mg Tab PO HS [facility] Non-Formulary Medication 100 mg 09/12/20 09:00 09/12/20 09:09 Ubidecarenone [Co Q-10] PO Not Given DAILY [facility] Pravastatin Sodium 10 mg 09/12/20 09:00 09/12/20 09:08 Pravastatin Sodium 20 Mg Tab PO 10 mg DAILY [facility] Administration Zinc Sulfate 220 mg 09/12/20 09:00 09/12/20 09:08 Zinc Sulfate 220 Mg Cap PO 220 mg DAILY [facility] Administration Intake and Output 09/11/20 09/12/20 09/12/20 22:59 06:59 14:59 Other: Voiding Method Toilet # Voids 1 1 Weight 92.079 kg 91.1 kg 09/12/20 00:15 09/12/20 00:15
--- NOTE | 2020-09-12 12:22 | P.HPIM ---
History of Present Illness H&P Date: 09/12/20 Chief Complaint: Dyspnea HISTORY OF PRESENT ILLNESS This is a 79-year-old female patient of Dr. Cheema and Dr. 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 Pike on Xolair injections. Patient complains of increasing shortness of breath, shortness of breath with exertion, weight gain of 20 pounds over the past 2 weeks and increase edema to the bilateral lower extremities. 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 Her off Lasix and put her on Demadex 3 months ago because she was retaining fluid. She was on Lasix 20 mg twice daily prior to transition to Demadex. Patient presented to [facility] emergency center for evaluation. Patient was afebrile, heart rate 60, blood pressure 135/81, pulse ox 90% on room air. A d-dimer was 2.85. WBC 4.5, hemoglobin 14.8, platelet count 93. Sodium 137, potassium 4.0, chloride 95, CO2 32, BUN 32 and creatinine 1.13. Blood sugar 84. Magnesium 2.0. Total bilirubin 1.9. AST 52, ALT 18, alkaline phosphatase 205. Troponin 0.026. ProBNP 1370. Chest x-ray reveals cardiomegaly. No active coronary pulmonary disease. No change. EKG ventricular paced rhythm with atrial fibrillation. VQ scan shows low probability for acute pulmonary embolism. Patient was given 1 dose of Lovenox, admitted to the cardiac stepdown unit and cardiology consult requested. REVIEW OF SYSTEMS Constitutional: No fever, no chills, no night sweats. No weight change. No weakness, fatigue or lethargy. No daytime sleepiness. EENT: No headache. No blurred vision or double vision, no loss of vision. No loss of Hearing, no ringing in the ears, no dizziness. No nasal drainage or congestion. No epistaxis. No sore throat. Lungs: Reports shortness of breath, cough, no sputum production. No wheezing. Cardiovascular: No chest pain, no lower extremity edema. No palpitations. No paroxysmal nocturnal dyspnea. No orthopnea. No lightheadedness or dizziness. No syncopal episodes. Abdominal: No abdominal pain. No nausea, vomiting. No diarrhea. No constipation. No bloody or tarry stools.. No loss of appetite. Genitourinary: No dysuria, increased frequency, urgency. No urinary retention. Musculoskeletal: No myalgias. No muscle weakness, no gait dysfunction, no frequent falls. No back pain. No neck pain. Integumentary: No wounds, no lesions. No rash or pruritus. No unusual bruising. No change in hair or nails. Neurologic: No aphasia. No facial droop. No change in mentation. No head injury. No headache. No paralysis. No paresthesia. Psychiatric: No depression. No anxiety. No mood swings. Endocrine: No abnormal blood sugars. No weight change. No excessive sweating or thirst. No cold intolerance. SOCIAL HISTORY Patient is a lifelong nonsmoker but she was exposed to secondhand smoke. No illicit drug use. No alcohol use. FAMILY HISTORY Mother at age 95 from old age. She had history of diabetes and skin cancer. Father at age 52 from stomach ulcer. Patient has 6 brothers and one is known to have coronary artery disease. Patient is no sisters. Patient has 4 children one has Crohn's disease and one has rheumatoid arthritis. PHYSICAL EXAMINATION Gen: This is a 79-year-old female. Patient is resting in bed and appears comfortable and in no acute distress. HEENT: Head is atraumatic, normocephalic. Pupils equal, round. Sclerae is anicteric. NECK: Supple. No JVD. No lymphadenopathy. No thyromegaly. LUNGS: Clear to auscultation. No wheezes or rhonchi. No intercostal retractions. HEART: Regular rate and rhythm. No murmur. ABDOMEN: Soft. Bowel sounds are present. No masses. No tenderness. EXTREMITIES: No pedal edema. No calf tenderness. NEUROLOGICAL: Patient is awake, alert and oriented x3. Cranial nerves 2 through 12 are grossly intact. ASSESSMENT AND PLAN 1. Acute on chronic diastolic heart failure. Patient will be started on Lasix 40 mg twice daily, monitor I&O and daily weights, monitor renal function and electrolytes. For now to consult. 2. Persistent atrial fibrillation status post ventricular pacemaker. Continue eliquis 5 mg twice daily, metoprolol 100 mg twice daily. 3. Hypertension. Continue Toprol-XL, Lasix. 4. Obstructive sleep apnea on CPAP. Continue CPAP 5. Moderate persistent asthma without exacerbation. Patient follows with Dr. Pike. Continue Singulair. 6. Hyperlipidemia. Continue pravastatin 7. Hypothyroidism. Continue levothyroxine 50 g daily. 8. Status post aortic valve replacement. 9. Peripheral vascular disease status post atherectomy and stent placement to October 2018. 10. Generalized anxiety disorder. Continue Xanax 0.25 mg twice daily as needed. 11. DVT prophylaxis. Continue eliquis. 12. GI prophylaxis. Pepcid. Patient will be admitted to the hospital for a minimum of 2 night stay. DISCHARGE PLAN [ ]. Impression and plan of care have been directed as dictated by the signing physician. Vickie Garg nurse practitioner acting as scribe for signing physician. Past Medical History Past Medical History: Atrial Fibrillation, Coronary Artery Disease (CAD), Cancer , COPD, Hyperlipidemia, Hypertension, Osteoarthritis (OA), Sleep Apnea/CPAP/BIPAP, Thyroid Disorder, Vascular Disorder Additional Past Medical History / Comment(s): Hx skin cancer yrs ago on nose. Numbness and pain left lower leg, varicose veins, hx kidney stones, steroids Jun 2018. "2013 blood clot in heart." CPAP use. Hx Shingles 4 yrs ago. CHF, History of Any Multi-Drug Resistant Organisms: None Reported Past Surgical History: Appendectomy, Cholecystectomy, Heart Catheterization With Stent, Hernia Repair, Joint Replacement, Pacemaker, Tonsillectomy Additional Past Surgical History / Comment(s): Heart stent x1, [employer]ania [employer] [address] Pacemaker 2008, Aortic valve replaced (pig)2008, bilateral total knees, cataracts removed bilaterally. Right cath for athrosclorsis Past Anesthesia/Blood Transfusion Reactions: No Reported Reaction, Motion Sickness Additional Past Anesthesia/Blood Transfusion Reaction / Comment(s): No problems with prior blood transfusions. Date of Last Stent Placement:: 1998 Type of Cardiac Device: Permanent Pacemaker Device Placement Date:: 2008 Past Psychological History: Anxiety, Depression Smoking Status: Never smoker Past Alcohol Use History: None Reported Additional Past Alcohol Use History / Comment(s): Patient is a lifelong nonsmoker but she was exposed to secondhand smoke. No illicit drug use. No alcohol use. Past Drug Use History: None Reported - Past Family History Mother Family Medical History: Cancer Additional Family Medical History / Comment(s): skin CA Father Family Medical History: Cancer Additional Family Medical History / Comment(s): stomach ulcer at age 52 Brother(s) Additional Family Medical History / Comment(s): Patient has 6 brothers and one is known to have coronary artery disease. Patient is no sisters. Patient has 4 children one has Crohn's disease and one has rheumatoid arthritis. Medications and Allergies Home Medications Medication Instructions Recorded Confirmed Type Cholecalciferol [Vitamin D3 (25 5,000 unit PO DAILY 08/24/18 09/11/20 History Mcg = 1000 Iu)] Levothyroxine Sodium [Synthroid] 50 mcg PO DAILY 08/24/18 09/11/20 History Montelukast [Singulair] 10 mg PO HS 08/24/18 09/11/20 History Oil Of Oregano 1 tab PO DAILY 10/05/18 09/11/20 History Apixaban [Eliquis] 5 mg PO BID #180 tab 11/28/18 09/11/20 Rx Metoprolol Succinate (ER) [Toprol 100 mg PO BID 12/19/18 09/11/20 History XL] Pravastatin Sodium [Pravachol] 10 mg PO DAILY 12/19/18 09/11/20 History Acetaminophen Tab [Tylenol] 650 mg PO Q6HR PRN tab 12/23/18 09/11/20 Rx ALPRAZolam [Xanax] 0.25 mg PO BID PRN 09/11/20 09/11/20 History Ammonium Lactate Cream [Lac-Hydrin 1 applic TOPICAL BID 09/11/20 09/11/20 History 12% Cream] Ascorbic Acid [Vitamin C] 500 mg PO DAILY 09/11/20 09/11/20 History Citalopram Hydrobromide 20 mg PO DAILY 09/11/20 09/11/20 History [Citalopram HBr] HYDROcodone/APAP 5-325MG [[place] 1 tab PO Q6H PRN 09/11/20 09/11/20 History 5-325] L.acidoph,Paracasei, B.lactis 1 cap PO DAILY 09/11/20 09/11/20 History [Probiotic] Magnesium Oxide 400 mg PO DAILY 09/11/20 09/11/20 History Melatonin 5 mg PO HS 09/11/20 09/11/20 History Torsemide [Demadex] 20 mg PO BID 09/11/20 09/11/20 History Ubidecarenone [Co Q-10] 100 mg PO DAILY 09/11/20 09/11/20 History Zinc 50 mg PO DAILY 09/11/20 09/11/20 History Allergies Allergy/AdvReac Type Severity Reaction Status Date / Time amlodipine [From Lotrel] Allergy Unknown Verified 09/11/20 22:53 benazepril [From Lotrel] Allergy Unknown Verified 09/11/20 22:53 cephalexin [From Keflex] Allergy Rash/Hives Verified 09/11/20 22:53 clindamycin Allergy Rash/Hives Verified 09/11/20 22:53 clonidine [From Catapres] Allergy anxious Verified 09/11/20 22:53 diltiazem Allergy severe Verified 09/11/20 22:53 headache doxazosin [From Cardura] Allergy Unknown Verified 09/11/20 22:53 isosorbide [From Imdur] Allergy Anaphylaxis Verified 09/11/20 22:53 metoprolol [From Toprol XL] Allergy Unknown Verified 09/11/20 22:53 Penicillins Allergy "passes Verified 09/11/20 22:53 out" ramipril [From Altace] Allergy Anaphylaxis Verified 09/11/20 22:53 sulfamethoxazole Allergy severe Verified 09/11/20 22:53 [From Bactrim] skin reaction trimethoprim [From Bactrim] Allergy severe Verified 09/11/20 22:53 skin reaction valsartan [From Diovan] Allergy severe Verified 09/11/20 22:53 headache maxide Allergy Unknown Uncoded 10/26/18 16:17 oral steroids AdvReac Afib Uncoded 10/26/18 16:17 Physical Exam Vitals: Vital Signs Temp Pulse Pulse Resp BP BP Pulse Ox 09/12/20 03:03 97.6 F 60 18 134/87 100 09/12/20 02:09 60 20 124/67 97 09/12/20 01:15 97.4 F L 60 16 143/89 98 09/11/20 21:44 98.4 F 60 18 135/81 98 Intake and Output 09/11/20 09/12/20 09/12/20 22:59 06:59 14:59 Other: Voiding Method Toilet # Voids 1 1 Weight 92.079 kg 91.1 kg Results CBC & Chem 7: 09/12/20 00:15 09/12/20 00:15 Labs: Abnormal Lab Results - Last 24 Hours (Table) 09/12/20 09/12/20 09/12/20 Range/Units 00:15 00:15 00:15 Hct 46.7 H (34.0-46.0) % Plt Count 93 L (150-450) k/uL PT 14.9 H (9.0-12.0) sec INR 1.5 H (<1.2) APTT 30.7 H (22.0-30.0) sec D-Dimer 2.31 H (<0.60) mg/L FEU Chloride 95 L (98-107) mmol/L Carbon Dioxide 32 H (22-30) mmol/L BUN 32 H (7-17) mg/dL Creatinine 1.13 H (0.52-1.04) mg/dL Calcium 10.4 H (8.4-10.2) mg/dL Total Bilirubin 1.9 H (0.2-1.3) mg/dL AST 52 H (14-36) U/L Alkaline Phosphatase 205 H (38-126) U/L Thrombosis Risk Factor Assmnt - Choose All That Apply Each Factor Represents 1 point: Swollen legs (current), Varicose veins Other congenital or acquired thrombophilia - If yes, enter type in comment: No Thrombosis Risk Factor Assessment Total Risk Factor Score: 2 Thrombosis Risk Factor Assessment Level: Low Risk
[2020-09-12] MEDS: FUROSEMIDE 10 MG/ML 4 ML VIAL IV SCH (21:16)
[2020-09-12] MEDS: MONTELUKAST 10 MG TAB PO SCH (21:16)
[2020-09-12] MEDS: ALPRAZolam 0.25 MG TAB PO PRN (21:16)
[2020-09-12] MEDS: MELATONIN 5 MG TABLET PO SCH (21:16)
[2020-09-13] MEDS: LEVOTHYROXINE 50 MCG TAB PO SCH (06:35)
[2020-09-13 08:38] LABS: Cholesterol 127 mg/dL (<200); HDL Cholesterol 41 mg/dL (40-60); LDL Cholesterol,Calculated 64 mg/dL (0-99); Triglycerides 110 mg/dL (<150)
[2020-09-13] MEDS ORDERED: CAFFEINE CITRATE 60 MG/3 ML VIAL IV PRN (08:48)
[2020-09-13] MEDS ORDERED: AMINOPHYLLINE 500 MG/20 ML VIAL IV PRN (08:48)
[2020-09-13] MEDS ORDERED: REGADENOSON 0.4 MG/5 ML SYRINGE IV PRN (08:48)
[2020-09-13] MEDS ORDERED: ASPIRIN 325 MG TAB PO SCH (09:00)
[2020-09-13 10:23] LABS: Calcium 9.9 mg/dL (8.4-10.2)
[2020-09-13 10:25] LABS: Potassium 4.8 mmol/L (3.5-5.1)
--- NOTE | 2020-09-13 11:02 | P.PN ---
<[place] Gertrudis - Last Filed: 09/13/20 11:02> Subjective HISTORY OF PRESENTING ILLNESS This is a pleasant 79-year-old female past medical history significant for chronic diastolic heart failure, pulmonary hypertension, hypertension, valvular heart disease status post aortic valve replacement, atrial fibrillation status post AV node ablation, BiV pacemaker and coronary artery disease status post PCI in 1998. She follows in the office with Dr. Patel. We have been asked to see in consultation for exertional shortness of breath. She states she has been having exertional shortness of breath that has been going on for the last 2 years. She states her symptoms have been worked up in the past however she is achieving no relief. Over the last 1 week her symptoms seem to be somewhat intensified. Her diuretics have been adjusted however she doesn't always take them. She states she does have chest pain and tightness at times, mostly at rest, with some radiation to the neck, left shoulder and down the left arm. She is currently comfortable laying flat in bed. She has no orthopnea. Most recent echo in the office 07/2019 revealed preserved LV systolic function with EF 50- 55%, grade 3 diastolic dysfunction, moderately dilated RA, mild-moderate MR, prosthetic AV with mean gradient of 12 mmHg, severe TR and RVSP 32 mmHg. 09/13/2020 Pt seen and examined laying flat sleeping in bed in no acute distress. She states she slept well through the night. She has been up to the bathroom several times and feels like her breathing is mildly improving. No worsening shortness of breath. No chest pain, dizziness or palpitations. Blood pressure 133/74 heart rate 63 afebrile and maintaining oxygen saturation on room air. Laboratory data reviewed, sodium 142, potassium 4.8, creatinine 1.06, LDL 64 and HDL 41. No documented output, however weight is down 1 kg. Currently maintained on IV lasix. PHYSICAL EXAMINATION CONSTITUTIONAL: No apparent distress. HEENT: Head is normocephalic. Pupils are equal, round. Sclerae anicteric. Mucous membranes of the mouth are moist. No JVD. No carotid bruit. CHEST EXAMINATION: Lungs are clear to auscultation. No chest wall tenderness is noted on palpation or with deep breathing. HEART EXAMINATION: Irregular rate and rhythm. S1, S2 heard. Systolic ejection murmur at the base, no gallops or rub. EXTREMITIES: 2+ peripheral pulses, bilateral lower extremity non-pitting edema and no calf tenderness. ASSESSMENT Exertional shortness of breath, chronic Acute on chronic diastolic heart failure Chronic kidney disease Hypertension Coronary artery disease s/p PCI 1998 Valvular heart disease s/p bovine aortic valve replacement 2008 BiV pacemaker implantation Permanent atrial fibrillation on eliquis PLAN Clinically she is improving. We discussed performing a Lexiscan stress test however she had a VQ yesterday which contraindicates her from having another nuclear scan today. Her troponins are normal and she is improving with diuresis. Therefore, we will pursue stress testing as an outpatient in the office. Continue to monitor for another 24 hours. Nurse Practitioner note has been reviewed, I agree with a documented findings and plan of care. Patient was seen and examined. Objective - Vital Signs Vital signs: Vital Signs Temp 97.7 F 09/13/20 04:00 Pulse 63 09/13/20 04:00 Resp 18 09/13/20 04:00 BP 133/74 09/13/20 04:00 Pulse Ox 96 09/13/20 04:00 Intake & Output 09/12/20 09/13/20 09/13/20 18:59 06:59 18:59 Intake Total 1320 300 Balance 1320 300 Weight 90.9 kg Intake: Oral 1320 300 Other: # Voids 1 2 # Bowel Movements 1 - Labs CBC & Chem 7: 09/12/20 00:15 09/13/20 06:42 Labs: Abnormal Lab Results - Last 24 Hours (Table) 09/13/20 Range/Units 06:42 BUN 30 H (7-17) mg/dL Creatinine 1.06 H (0.52-1.04) mg/dL <Harrison Witt - Last Filed: 09/13/20 16:55> Objective - Vital Signs Vital signs: Vital Signs Temp 97.7 F 09/13/20 08:00 Pulse 60 09/13/20 12:00 Resp 18 09/13/20 14:00 BP 131/69 09/13/20 12:00 Pulse Ox 95 09/13/20 12:00 Intake & Output 09/12/20 09/13/20 09/13/20 18:59 06:59 18:59 Intake Total 1320 300 240 Balance 1320 300 240 Weight 90.9 kg Intake: Oral 1320 300 240 Other: # Voids 1 2 1 # Bowel Movements 1 1 - Labs CBC & Chem 7: 09/12/20 00:15 09/13/20 06:42 Labs: Abnormal Lab Results - Last 24 Hours (Table) 09/13/20 Range/Units 06:42 BUN 30 H (7-17) mg/dL Creatinine 1.06 H (0.52-1.04) mg/dL
--- NOTE | 2020-09-13 12:33 | ECHOF ---
Referral Reason:exertional sob MEASUREMENTS -------- HEIGHT: 149.9 cm WEIGHT: 90.7 kg BP: 126/67 RVIDd: 5.9 cm (< 3.3) IVSd: 1.4 cm (0.6 - 1.1) LVIDd: 2.7 cm (3.9 - 5.3) LVPWd: 1.4 cm (0.6 - 1.1) IVSs: 1.6 cm LVIDs: 1.9 cm LVPWs: 1.7 cm LAESV Index (A-L): 43.65 ml/m MV EXCURSION: 10.811 mm (> 18.000) MV EF SLOPE: 51 mm/s (70 - 150) EPSS: 0.4 cm AV maxP.73 mmHg AV meanP.26 mmHg RAP: 20.00 mmHg RVSP: 38.72 mmHg FINDINGS -------- Atrial fibrillation. This was a technically difficult study with suboptimal apical views. The left ventricular size is normal. There is moderate concentric left ventricular hypertrophy. O verall left ventricular systolic function is low-normal with, an EF between 50 - 55 %. The right ventricle is severely enlarged. LA is severely dilated >40 ml/m2 The right atrium is moderately enlarged. 5.0mg of Lumason was utilized for enhancement of images Interatrial and interventricular septum intact. Peak/mean gradient across the Aortic Valve is 25.73mmHg / 15.26mmHg. Normally functioning bioprosth etic valve. Moderate mitral annular calcification present. No mitral regurgitation. Severe tricuspid regurgitation present. There is mild pulmonary hypertension. The right ventricul ar systolic pressure, as measured by Doppler, is 38.72mmHg. Under estimated RVSP due lack of a good TR envelope. Moderate pulmonic regurgitation. The aortic root size is normal. The inferior vena cava is severely dilated. The inferior vena cava is dilated with no significant i nspiratory collapse which is consistent estimated right atrial pressure of >20 mmHg. There is no pericardial effusion. CONCLUSIONS -------- 1. The left ventricular size is normal. 2. There is moderate concentric left ventricular hypertrophy. 3. Overall left ventricular systolic function is low-normal with, an EF between 50 - 55 %. 4. The right ventricle is severely enlarged. 5. LA is severely dilated >40 ml/m2 6. The right atrium is moderately enlarged. 7. Peak/mean gradient across the Aortic Valve is 25.73mmHg / 15.26mmHg. 8. Normally functioning bioprosthetic valve. 9. Moderate mitral annular calcification present. 10. Severe tricuspid regurgitation present. 11. There is mild pulmonary hypertension. 12. The right ventricular systolic pressure, as measured by Doppler, is 38.72mmHg. 13. Under estimated RVSP due lack of a good TR envelope. 14. Moderate pulmonic regurgitation. 15. The inferior vena cava is severely dilated. 16. The inferior vena cava is dilated with no significant inspiratory collapse which is consistent es timated right atrial pressure of >20 mmHg. ENVIRONMENTAL COMPLIANCE MANAGER: Meredith Egan RDCS
[2020-09-13] MEDS: APIXABAN 5 MG TAB PO SCH ×2 (12:52→20:57)
[2020-09-13] MEDS: PRAVASTATIN SODIUM 20 MG TAB PO SCH (12:52)
[2020-09-13] MEDS: CHOLECALCIFEROL 25 MCG (1000 IU) TABLET PO SCH (12:52)
[2020-09-13] MEDS: METOPROLOL SUCCINATE (ER) 100 MG TAB.ER.24H PO SCH ×2 (12:53→20:57)
[2020-09-13] MEDS: ZINC SULFATE 220 MG CAP PO SCH (12:53)
[2020-09-13] MEDS: FAMOTIDINE 20 MG TAB PO SCH (12:53)
[2020-09-13] MEDS: LACTOBACILLUS ACIDOPH & BULGAR 1 EACH PACKET PO SCH (12:53)
[2020-09-13] MEDS: MAGNESIUM OXIDE 400 MG TAB PO SCH (12:53)
[2020-09-13] MEDS: ASCORBIC ACID 500 MG TAB PO SCH (12:53)
[2020-09-13] MEDS: AMMONIUM LACTATE 12% CREAM 140 GM TUBE TOPICAL SCH ×2 (12:54→20:58)
[2020-09-13] MEDS: CITALOPRAM HYDROBROMIDE 20 MG TAB PO SCH (12:54)
[2020-09-13] MEDS: NON FORMULARY DRUG (Ubidecarenone [Co Q-10] 100 MG Capsule) PO SCH (12:54)
[2020-09-13] MEDS: ASPIRIN 81 MG PO SCH (12:54)
[2020-09-13] MEDS: FUROSEMIDE 10 MG/ML 4 ML VIAL IV SCH (13:02)
--- NOTE | 2020-09-13 13:22 | P.PN ---
Subjective Progress Note Date: 09/13/20 HISTORY OF PRESENT ILLNESS This is a 79-year-old female patient of Dr. Cheema and Dr. 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 Pike on Xolair injections. Patient complains of increasing shortness of breath, shortness of breath with exertion, weight gain of 20 pounds over the past 2 weeks and increase edema to the bilateral lower extremities. 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 Her off Lasix and put her on Demadex 3 months ago because she was retaining fluid. She was on Lasix 20 mg twice daily prior to transition to Demadex. Patient presented to [facility] emergency center for evaluation. Patient was afebrile, heart rate 60, blood pressure 135/81, pulse ox 90% on room air. A d-dimer was 2.85. WBC 4.5, hemoglobin 14.8, platelet count 93. Sodium 137, potassium 4.0, chloride 95, CO2 32, BUN 32 and creatinine 1.13. Blood sugar 84. Magnesium 2.0. Total bilirubin 1.9. AST 52, ALT 18, alkaline phosphatase 205. Troponin 0.026. ProBNP 1370. Chest x-ray reveals cardiomegaly. No active coronary pulmonary disease. No change. EKG ventricular paced rhythm with atrial fibrillation. VQ scan shows low probability for acute pulmonary embolism. Patient was given 1 dose of Lovenox, admitted to the cardiac stepdown unit and cardiology consult requested. 09/13: Echocardiogram reveals EF of 50-55% with moderate concentric left hypertrophy, severe tricuspid regurgitation, mild pulmonary hypertension, moderate pulmonary regurgitation, inferior vena cava severely dilated, RVSP 32 mmHg. the patient denies having any chest pain. She seems dyspneic with speaking. She has decreased edema and decreased shortness of breath with activity. She is on Lasix IV 40 twice daily will be switched to oral. Weight is down almost 2 kg. Cardiology is planning for outpatient stress test. Patient has been afebrile, heart rate 60, blood pressure 130/79, pulse ox 94% on room air. Electrolytes are within normal limits. BUN 30 creatinine 1.06. Triglycerides 110, cholesterol 127, LDL 64, HDL 41. Patient will be monitored overnight and plan for discharge tomorrow. Patient is requesting discharge to rehab. Social work to meet with the patient and her daughter to determine facility. We'll plan for discharge tomorrow. REVIEW OF SYSTEMS Constitutional: No fever, no chills, no night sweats. No weight change. No weakness, fatigue or lethargy. No daytime sleepiness. EENT: No headache. No blurred vision or double vision, no loss of vision. No loss of Hearing, no ringing in the ears, no dizziness. No nasal drainage or c ongestion. No epistaxis. No sore throat. Lungs: Reports shortness of breath, improved, cough, no sputum production. No wheezing. Reports shortness of breath with exertion and improved Cardiovascular: No chest pain, improved lower extremity edema. No palpitations. No paroxysmal nocturnal dyspnea. No orthopnea. No lightheadedness or dizziness. No syncopal episodes. Abdominal: No abdominal pain. No nausea, vomiting. No diarrhea. No constipation. No bloody or tarry stools.. No loss of appetite. Genitourinary: No dysuria, increased frequency, urgency. No urinary retention. Musculoskeletal: No myalgias. No muscle weakness, no gait dysfunction, no frequent falls. No back pain. No neck pain. Integumentary: No wounds, no lesions. No rash or pruritus. No unusual bruising. No change in hair or nails. Neurologic: No aphasia. No facial droop. No change in mentation. No head injury. No headache. No paralysis. No paresthesia. Psychiatric: No depression. No anxiety. No mood swings. Endocrine: No abnormal blood sugars. No weight change. No excessive sweating or thirst. No cold intolerance. PHYSICAL EXAMINATION Gen: This is a 79-year-old female. Patient is resting in bed and appears comfortable and in no acute distress. HEENT: Head is atraumatic, normocephalic. Pupils equal, round. Sclerae is anicteric. NECK: Supple. No JVD. No lymphadenopathy. No thyromegaly. LUNGS: Clear to auscultation. No wheezes or rhonchi. No intercostal retractions. HEART: Irregular rate and rhythm. Systolic ejection murmur murmur. ABDOMEN: Soft. Bowel sounds are present. No masses. No tenderness. EXTREMITIES: + pedal edema. No calf tenderness. NEUROLOGICAL: Patient is awake, alert and oriented x3. Cranial nerves 2 through 12 are grossly intact. ASSESSMENT AND PLAN 1. Acute on chronic diastolic heart failure. Patient will be started on Lasix 40 mg twice daily addition to oral this morning, monitor I&O and daily weights, monitor renal function and electrolytes. Cardiology consult appreciated. 2. Persistent atrial fibrillation status post ventricular pacemaker. Continue eliquis 5 mg twice daily, metoprolol 100 mg twice daily. 3. Hypertension. Continue Toprol-XL, Lasix. 4. Obstructive sleep apnea on CPAP. Continue CPAP 5. Moderate persistent asthma without exacerbation. Patient follows with Dr. Pike. Continue Singulair. 6. Hyperlipidemia. Continue pravastatin 7. Hypothyroidism. Continue levothyroxine 50 g daily. 8. Status post aortic valve replacement. 9. Peripheral vascular disease status post atherectomy and stent placement to October 2018. 10. Generalized anxiety disorder. Continue Xanax 0.25 mg twice daily as needed. 11. DVT prophylaxis. Continue eliquis. 12. GI prophylaxis. Pepcid. DISCHARGE PLAN Subacute rehab tomorrow. Impression and plan of care have been directed as dictated by the signing physician. Vickie Garg nurse practitioner acting as scribe for signing physician. Objective - Vital Signs Vital signs: Vital Signs Temp 97.7 F 09/13/20 04:00 Pulse 63 09/13/20 04:00 Resp 18 09/13/20 04:00 BP 133/74 09/13/20 04:00 Pulse Ox 96 09/13/20 04:00 Intake & Output 09/12/20 09/13/20 09/13/20 18:59 06:59 18:59 Intake Total 1320 300 Balance 1320 300 Weight 90.9 kg Intake: Oral 1320 300 Other: # Voids 1 2 # Bowel Movements 1 - Labs CBC & Chem 7: 09/12/20 00:15 09/13/20 06:42
--- NOTE | 2020-09-13 13:32 | P.DS ---
<BritanyVickie A - Last Filed: 09/13/20 13:22> Providers Expected date of discharge: 09/14/20 Hospital Course: HISTORY OF PRESENT ILLNESS This is a 79-year-old female patient of Dr. Cheema and Dr. 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 Pike on Xolair injections. Patient complains of increasing shortness of breath, shortness of breath with exertion, weight gain of 20 pounds over the past 2 weeks and increase edema to the bilateral lower extremities. 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 Her off Lasix and put her on Demadex 3 months ago because she was retaining fluid. She was on Lasix 20 mg twice daily prior to transition to Demadex. Patient presented to [facility] emergency center for evaluation. Patient was afebrile, heart rate 60, blood pressure 135/81, pulse ox 90% on room air. A d-dimer was 2.85. WBC 4.5, hemoglobin 14.8, platelet count 93. Sodium 137, potassium 4.0, chloride 95, CO2 32, BUN 32 and creatinine 1.13. Blood sugar 84. Magnesium 2.0. Total bilirubin 1.9. AST 52, ALT 18, alkaline phosphatase 205. Troponin 0.026. ProBNP 1370. Chest x-ray reveals cardiomegaly. No active coronary pulmonary disease. No change. EKG ventricular paced rhythm with atrial fibrillation. VQ scan shows low probability for acute pulmonary embolism. Patient was given 1 dose of Lovenox, admitted to the cardiac stepdown unit and cardiology consult requested. 09/13: Echocardiogram reveals EF of 50-55% with moderate concentric left hypertrophy, severe tricuspid regurgitation, mild pulmonary hypertension, moderate pulmonary regurgitation, inferior vena cava severely dilated, RVSP 32 mmHg. the patient denies having any chest pain. She seems dyspneic with speaking. She has decreased edema and decreased shortness of breath with activity. She is on Lasix IV 40 twice daily will be switched to oral. Weight is down almost 2 kg. Cardiology is planning for outpatient stress test. Patient has been afebrile, heart rate 60, blood pressure 130/79, pulse ox 94% on room air. Electrolytes are within normal limits. BUN 30 creatinine 1.06. Triglycerides 110, cholesterol 127, LDL 64, HDL 41. Patient will be monitored overnight and plan for discharge tomorrow. Patient is requesting discharge to rehab. Social work to meet with the patient and her daughter to determine facility. We'll plan for discharge tomorrow. ASSESSMENT AND PLAN 1. Acute on chronic diastolic heart failure. 2. Persistent atrial fibrillation status post ventricular pacemaker. 3. Hypertension. 4. Obstructive sleep apnea on CPAP. 5. Moderate persistent asthma without exacerbation. 6. Hyperlipidemia. 7. Hypothyroidism. 8. Status post aortic valve replacement. 9. Peripheral vascular disease status post atherectomy and stent placement to October 2018. 10. Generalized anxiety disorder. DISCHARGE PLAN Subacute rehab. Impression and plan of care have been directed as dictated by the signing physician. Vickie Garg nurse practitioner acting as scribe for signing physician. Patient Condition at Discharge: Good Plan - Discharge Summary Discharge Rx Participant: No New Discharge Prescriptions: New Aspirin 81 mg PO DAILY chew Furosemide [Lasix] 40 mg PO BID@0900,1600 tab Continue Montelukast [Singulair] 10 mg PO HS Cholecalciferol [Vitamin D3 (25 Mcg = 1000 Iu)] 5,000 unit PO DAILY Levothyroxine Sodium [Synthroid] 50 mcg PO DAILY Oil Of Oregano 1 tab PO DAILY Apixaban [Eliquis] 5 mg PO BID #180 tab Metoprolol Succinate (ER) [Toprol XL] 100 mg PO BID Pravastatin Sodium [Pravachol] 10 mg PO DAILY Acetaminophen Tab [Tylenol] 650 mg PO Q6HR PRN tab PRN Reason: Mild Pain Ubidecarenone [Co Q-10] 100 mg PO DAILY L.acidoph,Paracasei, B.lactis [Probiotic] 1 cap PO DAILY Zinc 50 mg PO DAILY Melatonin 5 mg PO HS Ascorbic Acid [Vitamin C] 500 mg PO DAILY Citalopram Hydrobromide [Citalopram HBr] 20 mg PO DAILY Ammonium Lactate Cream [Lac-Hydrin 12% Cream] 1 applic TOPICAL BID Magnesium Oxide 400 mg PO DAILY Changed HYDROcodone/APAP 5-325MG [[place] 5-325] 1 tab PO Q6H PRN #12 tab PRN Reason: Pain ALPRAZolam [Xanax] 0.25 mg PO BID PRN #6 tab PRN Reason: Anxiety Discontinued Torsemide [Demadex] 20 mg PO BID Discharge Medication List Cholecalciferol [Vitamin D3 (25 Mcg = 1000 Iu)] 5,000 unit PO DAILY 08/24/18 [History] Levothyroxine Sodium [Synthroid] 50 mcg PO DAILY 08/24/18 [History] Montelukast [Singulair] 10 mg PO HS 08/24/18 [History] Oil Of Oregano 1 tab PO DAILY 10/05/18 [History] Apixaban [Eliquis] 5 mg PO BID #180 tab 11/28/18 [Rx] Metoprolol Succinate (ER) [Toprol XL] 100 mg PO BID 12/19/18 [History] Pravastatin Sodium [Pravachol] 10 mg PO DAILY 12/19/18 [History] Acetaminophen Tab [Tylenol] 650 mg PO Q6HR PRN tab 12/23/18 [Rx] Ammonium Lactate Cream [Lac-Hydrin 12% Cream] 1 applic TOPICAL BID 09/11/20 [History] Ascorbic Acid [Vitamin C] 500 mg PO DAILY 09/11/20 [History] Citalopram Hydrobromide [Citalopram HBr] 20 mg PO DAILY 09/11/20 [History] L.acidoph,Paracasei, B.lactis [Probiotic] 1 cap PO DAILY 09/11/20 [History] Magnesium Oxide 400 mg PO DAILY 09/11/20 [History] Melatonin 5 mg PO HS 09/11/20 [History] Ubidecarenone [Co Q-10] 100 mg PO DAILY 09/11/20 [History] Zinc 50 mg PO DAILY 09/11/20 [History] ALPRAZolam [Xanax] 0.25 mg PO BID PRN #6 tab 09/13/20 [Rx] Aspirin 81 mg PO DAILY chew 09/13/20 [Rx] Furosemide [Lasix] 40 mg PO BID@0900,1600 tab 09/13/20 [Rx] HYDROcodone/APAP 5-325MG [[place] 5-325] 1 tab PO Q6H PRN #12 tab 09/13/20 [Rx] Follow up Appointment(s)/Referral(s): Ben Patel MD [STAFF PHYSICIAN] - 2 Weeks Leon Cheema MD [Primary Care Provider] - 1 Week Discharge Disposition: TRANSFER TO SNF/ECF <Yanni Osei - Last Filed: 09/14/20 11:36> Providers Date of admission: 09/12/20 02:42 Attending physician: Annette Andrews Consults: 09/12/20 02:21 Consult Physician Urgent Consulting Provider: Ben Patel Consult Reason/Comments: exertional dyspnea, Bilateral lower extremity edema Do you want consulting provider notified?: Yes Primary care physician: Leon Cheema [facility] Course: Addendum: Patient was examined today resting in bed without any difficulties. Anticipating discharge to [facility] this afternoon. Patient has no complaint or concerns at this time. Patient is resting without any difficulties. Impression and plan of care have been directed as dictated by the signing physician. Yanni Osei nurse practitioner acting as scribe for signing physician.
[2020-09-13] MEDS: FUROSEMIDE 40 MG TAB PO SCH (17:33)
[2020-09-13] MEDS: MELATONIN 5 MG TABLET PO SCH (20:57)
[2020-09-13] MEDS: MONTELUKAST 10 MG TAB PO SCH (20:57)
[2020-09-13] MEDS: ALPRAZolam 0.25 MG TAB PO PRN (20:58)
[2020-09-14] MEDS: LEVOTHYROXINE 50 MCG TAB PO SCH (06:51)
[2020-09-14 07:29] LABS: Calcium 9.8 mg/dL (8.4-10.2); Potassium 3.6 mmol/L (3.5-5.1)
[2020-09-14] MEDS: NON FORMULARY DRUG (Ubidecarenone [Co Q-10] 100 MG Capsule) PO SCH (07:32)
[2020-09-14 09:33] VITALS: TEMP 97.9
[2020-09-14] MEDS: FUROSEMIDE 40 MG TAB PO SCH (09:34)
[2020-09-14] MEDS: ZINC SULFATE 220 MG CAP PO SCH (09:34)
[2020-09-14] MEDS: METOPROLOL SUCCINATE (ER) 100 MG TAB.ER.24H PO SCH (09:34)
[2020-09-14] MEDS: CITALOPRAM HYDROBROMIDE 20 MG TAB PO SCH (09:34)
[2020-09-14] MEDS: LACTOBACILLUS ACIDOPH & BULGAR 1 EACH PACKET PO SCH (09:34)
[2020-09-14] MEDS: ASPIRIN 81 MG PO SCH (09:34)
[2020-09-14] MEDS: APIXABAN 5 MG TAB PO SCH (09:34)
[2020-09-14] MEDS: MAGNESIUM OXIDE 400 MG TAB PO SCH (09:34)
[2020-09-14] MEDS: FAMOTIDINE 20 MG TAB PO SCH (09:34)
[2020-09-14] MEDS: PRAVASTATIN SODIUM 20 MG TAB PO SCH (09:35)
[2020-09-14] MEDS: CHOLECALCIFEROL 25 MCG (1000 IU) TABLET PO SCH (09:35)
[2020-09-14] MEDS: ASCORBIC ACID 500 MG TAB PO SCH (09:35)
[2020-09-14] MEDS: AMMONIUM LACTATE 12% CREAM 140 GM TUBE TOPICAL SCH (09:36)
[2020-09-14 12:33] VITALS: BP 147/89; PULSE 60; RESP 16
== END 2020-09-14 15:05 | DRG 291 ==
LOC: EC 21:33 → 3SCARD 09-12 02:42
PROVIDERS: ADMIT Family Medicine; ATTEND Family Medicine
DX: I13.0 Hypertensive heart and chronic kidney disease with heart failure and stage 1 through stage 4 chronic kidney disease, or unspecified chronic kidney disease (principal); I50.33 Acute on chronic diastolic (congestive) heart failure; I48.19 Other persistent atrial fibrillation; N18.9 Chronic kidney disease, unspecified; Z79.01 Long term (current) use of anticoagulants; I73.9 Peripheral vascular disease, unspecified; E78.5 Hyperlipidemia, unspecified; Z95.2 Presence of prosthetic heart valve; Z95.0 Presence of cardiac pacemaker; I49.5 Sick sinus syndrome; E03.9 Hypothyroidism, unspecified; G47.33 Obstructive sleep apnea (adult) (pediatric); F41.1 Generalized anxiety disorder; I27.20 Pulmonary hypertension, unspecified; I25.10 Atherosclerotic heart disease of native coronary artery without angina pectoris; Z95.5 Presence of coronary angioplasty implant and graft; I07.1 Rheumatic tricuspid insufficiency
CPT/HCPCS: 36415; 71046; 78582; 80048; 80053; 80061; 83735; 83880; 84484; 85025; 85379; 85610; 85730; 87635; 93005; 93306; 94760

== ENCOUNTER 2021-08-17 13:23 | Inpatient (IN) | payer MEDICARE, BC ==
[2021-08-17] MEDS ORDERED: DIPH,PERTUS(ACELL)TETVAC-LF 0.5 ML VIAL IM ONE (14:03)
[2021-08-17] MEDS ORDERED: ACETAMINOPHEN TAB 325 MG TAB PO STA (14:04)
--- NOTE | 2021-08-17 14:08 | ED ---
General Adult HPI - General Chief complaint: Fall Stated complaint: R hand sore Time Seen by Provider: 08/17/21 13:55 Source: patient, family, RN notes reviewed, old records reviewed Mode of arrival: wheelchair Limitations: no limitations - History of Present Illness Initial comments: 80-year-old female, alert and oriented, presents to the emergency room with family member complaining of having an episode of dizziness yesterday around 5 PM and falling. She states that she put her hand out to stop her fall hitting a table sustaining a skin tear to her right hand and wrist. She did go to urgent care today and they recommended she come to the emergency room for evaluation since she is taking eliquis and had a fall. Patient denies hitting her head during this fall. Patient denies any dizziness at this time. She does have a history of atrial fibrillation, COPD, hypertension, coronary artery disease and pacemaker. She does have bilateral lower extremity edema that is chronic. She walks with a walker at home. She had a fall a month and a half ago when she hit her head but did not seek medical care at that time. -: days(s) (1) Location: right, upper extremity Severity scale (1-10): 8 Quality: aching Consistency: intermittent Improves with: immobilization Worsens with: none Associated Symptoms: other (dizziness) Treatments Prior to Arrival: other (urgent care, bandage to right hand ) - Related Data Home Medications Medication Instructions Recorded Confirmed Levothyroxine Sodium [Synthroid] 50 mcg PO DAILY 08/24/18 08/17/21 Montelukast [Singulair] 10 mg PO HS 08/24/18 08/17/21 Metoprolol Succinate (ER) [Toprol 100 mg PO HS 12/19/18 08/17/21 XL] Pravastatin Sodium [Pravachol] 10 mg PO DAILY 12/19/18 08/17/21 Ubidecarenone [Co Q-10] 100 mg PO DAILY 09/11/20 08/17/21 Citalopram Hydrobromide [CeleXA] 20 mg PO DAILY 08/17/21 08/17/21 Meclizine [Antivert] 12.5 mg PO BID PRN 08/17/21 08/17/21 Midodrine [ProAmatine] 5 mg PO TID 08/17/21 08/17/21 dexAMETHasone 4 mg PO DAILY 08/17/21 08/17/21 metOLazone [Zaroxolyn] 2.5 mg PO MOWEFR 08/17/21 08/17/21 Previous Rx's Medication Instructions Recorded Apixaban [Eliquis] 5 mg PO BID #180 tab 11/28/18 Furosemide [Lasix] 40 mg PO BID@0900,1600 tab 09/13/20 Allergies Allergy/AdvReac Type Severity Reaction Status Date / Time amlodipine [From Lotrel] Allergy Unknown Verified 08/17/21 16:47 benazepril [From Lotrel] Allergy Unknown Verified 08/17/21 16:47 cephalexin [From Keflex] Allergy Rash/Hives Verified 08/17/21 16:47 clindamycin Allergy Rash/Hives Verified 08/17/21 16:47 doxazosin [From Cardura] Allergy Unknown Verified 08/17/21 16:47 hydrochlorothiazide Allergy Unknown Verified 08/17/21 16:47 [From Maxzide] isosorbide [From Imdur] Allergy Anaphylaxis Verified 08/17/21 16:47 metoprolol [From Toprol XL] Allergy Unknown Verified 08/17/21 16:47 ramipril [From Altace] Allergy Anaphylaxis Verified 08/17/21 16:47 sulfamethoxazole Allergy severe Verified 08/17/21 16:47 [From Bactrim] skin reaction triamterene [From Maxzide] Allergy Unknown Verified 08/17/21 16:47 trimethoprim [From Bactrim] Allergy severe Verified 08/17/21 16:47 skin reaction valsartan [From Diovan] Allergy severe Verified 08/17/21 16:47 headache clonidine [From Catapres] AdvReac anxious Verified 08/17/21 16:47 diltiazem AdvReac severe Verified 08/17/21 16:47 headache Penicillins AdvReac "passes Verified 08/17/21 16:47 out" oral steroids AdvReac Afib Uncoded 08/17/21 16:47 Review of Systems ROS Statement: Those systems with pertinent positive or pertinent negative responses have been documented in the HPI. ROS Other: All systems not noted in ROS Statement are negative. Past Medical History Past Medical History: Atrial Fibrillation, Coronary Artery Disease (CAD), Cancer, COPD, Hyperlipidemia, Hypertension, Osteoarthritis (OA), Sleep Ap liudmila/CPAP/BIPAP, Thyroid Disorder, Vascular Disorder Additional Past Medical History / Comment(s): Hx skin cancer yrs ago on nose. Numbness and pain left lower leg, varicose veins, hx kidney stones, steroids Jun 2018. "2013 blood clot in heart." CPAP use. Hx Shingles 4 yrs ago. CHF, History of Any Multi-Drug Resistant Organisms: None Reported Past Surgical History: Appendectomy, Cholecystectomy, Heart Catheterization With Stent, Hernia Repair, Joint Replacement, Pacemaker, Tonsillectomy Additional Past Surgical History / Comment(s): Heart stent x1, [employer] DAPTA DR Pacemaker 2008, Aortic valve replaced (pig)2008, bilateral total knees, cataracts removed bilaterally. Right cath for athrosclorsis Past Anesthesia/Blood Transfusion Reactions: No Reported Reaction, Motion Sickness Additional Past Anesthesia/Blood Transfusion Reaction / Comment(s): No problems with prior blood transfusions. Date of Last Stent Placement:: 1998 Type of Cardiac Device: Permanent Pacemaker Device Placement Date:: 2008 Past Psychological History: Anxiety, Depression Smoking Status: Never smoker Past Alcohol Use History: None Reported Past Drug Use History: None Reported - Past Family History Mother Family Medical History: Cancer Additional Family Medical History / Comment(s): skin CA Father Family Medical History: Cancer Additional Family Medical History / Comment(s): stomach ulcer at age 52 Brother(s) Additional Family Medical History / Comment(s): Patient has 6 brothers and one is known to have coronary artery disease. Patient is no sisters. Patient has 4 children one has Crohn's disease and one has rheumatoid arthritis. General Exam Limitations: physical limitation (walks with walker) General appearance: alert, in no apparent distress Head exam: Present: atraumatic, normocephalic, normal inspection Eye exam: Present: normal appearance, PERRL, EOMI. Absent: conjunctival injection, nystagmus, periorbital swelling, periorbital tenderness ENT exam: Present: normal exam, normal oropharynx, mucous membranes moist Neck exam: Present: normal inspection, full ROM. Absent: tenderness, meningismus, lymphadenopathy, thyromegaly Respiratory exam: Present: normal lung sounds bilaterally. Absent: respiratory distress, wheezes, rales, rhonchi, stridor, chest wall tenderness, accessory muscle use Cardiovascular Exam: Present: regular rate GI/Abdominal exam: Present: soft. Absent: distended, tenderness, guarding, rebound, rigid Extremities exam: Present: pedal edema, other (Bilateral lower extremity edema chronic). Absent: tenderness Right Hand Wrist exam: Present: other (3cmx 4cm skin tear dorsal surface of hand; 1cm skin tear right wrist) Back exam: Present: normal inspection, other (Abrasion to right upper shoulder). Absent: tenderness, CVA tenderness (R), CVA tenderness (L) Neurological exam: Present: alert, oriented X3 Expanded Patient oriented to: Present: person, place, time Speech: Present: fluid speech Cranial nerves: EOM's Intact: Normal, Tongue Deviation: Normal Cerebellar function: Finger to Nose: Normal Motor strength exam: RUE: 5, LUE: 5, RLE: 3, LLE: 3 Eye Response: (4) open spontaneously Motor Response: (6) obeys commands Verbal Response: (5) oriented [place] Total: 15 Psychiatric exam: Present: normal affect, normal mood Skin exam: Present: warm, dry. Absent: diaphoretic Course Vital Signs 08/17/21 08/17/21 08/17/21 13:24 16:44 18:34 Temperature 98.1 F Pulse Rate 61 62 65 Respiratory 18 18 18 Rate Blood Pressure 131/80 149/106 133/85 O2 Sat by Pulse 98 98 96 Oximetry EKG Findings - AL, Pacemaker, Normal: Pacemaker: ventricular pacing w/capture (except when refractory) (Ventricular rate of 60, QRS 0.190, QTC 0.566) Medical Decision Making - Medical Decision Making 80-year-old presents with dizziness and fall yesterday catching her right hand on the table resulting in a skin tear to her right hand and wrist. She denies hitting her head. She did go to urgent care today and they recommended she come to the emergency room for evaluation since she is taking eliquis for afib. CT of brain shows no intracranial hemorrhage or mass effect or midline shift. There is approximately 4 mm posterior displacement of the left occipital condyle relative lateral mass of C1. There is likely chronic fracture of the posterior arch of C2 on the left with a 1.6 cm well-corticated ossific fragment directed towards the posterior paraspinal soft tissues. There is a mild deformity of the posterior arch of C3 on the left likely related to a healed fracture. There is also a chronic grade 1 anterolisthesis of C7 on T1. Labs show no evidence of leukocytosis. Potassium is 2.9 and she was started on replacement in the emergency room. BUN and creatinine are elevated at 100 and 2.01 respectively, consistent with acute kidney injury. Troponin is positive at 0.098. EKG shows ventricularly paced rhythm. Chest x-ray shows no acute pulmonary process. Case was discussed with Dr. Sr. She will be admitted for hypokalemia, elevated troponin, acute kidney injury and dizziness. Consults for cardiology and nephrology placed - Lab Data Result diagrams: 08/17/21 14:32 08/17/21 14:32 Lab Results 08/17/21 08/17/21 08/17/21 Range/Units 14:32 14:32 14:32 WBC 6.5 (3.8-10.6) k/uL RBC 5.18 (3.80-5.40) m/uL Hgb 13.9 (11.4-16.0) gm/dL Hct 45.7 (34.0-46.0) % MCV 88.3 (80.0-100.0) fL MCH 26.9 (25.0-35.0) pg MCHC 30.5 L (31.0-37.0) g/dL RDW 17.5 H (11.5-15.5) % Plt Count 102 L (150-450) k/uL MPV 9.7 Neutrophils % 80 % Lymphocytes % 11 % Monocytes % 7 % Eosinophils % 0 % Basophils % 0 % Neutrophils # 5.3 (1.3-7.7) k/uL Lymphocytes # 0.7 L (1.0-4.8) k/uL Monocytes # 0.5 (0-1.0) k/uL Eosinophils # 0.0 (0-0.7) k/uL Basophils # 0.0 (0-0.2) k/uL Hypochromasia Moderate Anisocytosis Slight PT 16.6 H (9.0-12.0) sec INR 1.6 H (<1.2) Sodium 134 L (137-145) mmol/L Potassium 2.9 L (3.5-5.1) mmol/L Chloride 88 L (98-107) mmol/L Carbon Dioxide 36 H (22-30) mmol/L Anion Gap 10 mmol/L BUN 100 H (7-17) mg/dL Creatinine 2.01 H (0.52-1.04) mg/dL Est GFR (CKD-EPI)AfAm 27 (>60 ml/min/1.73 sqM) Est GFR (CKD-EPI)NonAf 23 (>60 ml/min/1.73 sqM) Glucose 95 (74-99) mg/dL Calcium 10.7 H (8.4-10.2) mg/dL Magnesium (1.6-2.3) mg/dL Total Bilirubin 3.7 H (0.2-1.3) mg/dL AST 62 H (14-36) U/L ALT 27 (4-34) U/L Alkaline Phosphatase 153 H (38-126) U/L Troponin I (0.000-0.034) ng/mL Total Protein 7.1 (6.3-8.2) g/dL Albumin 4.1 (3.5-5.0) g/dL Coronavirus (PCR) (Not Detectd) 08/17/21 08/17/21 08/17/21 Range/Units 14:32 14:32 16:23 WBC (3.8-10.6) k/uL RBC (3.80-5.40) m/uL Hgb (11.4-16.0) gm/dL Hct (34.0-46.0) % MCV (80.0-100.0) fL MCH (25.0-35.0) pg MCHC (31.0-37.0) g/dL RDW (11.5-15.5) % Plt Count (150-450) k/uL MPV Neutrophils % % Lymphocytes % % Monocytes % % Eosinophils % % Basophils % % Neutrophils # (1.3-7.7) k/uL Lymphocytes # (1.0-4.8) k/uL Monocytes # (0-1.0) k/uL Eosinophils # (0-0.7) k/uL Basophils # (0-0.2) k/uL Hypochromasia Anisocytosis PT (9.0-12.0) sec INR (<1.2) Sodium (137-145) mmol/L Potassium (3.5-5.1) mmol/L Chloride (98-107) mmol/L Carbon Dioxide (22-30) mmol/L Anion Gap mmol/L BUN (7-17) mg/dL Creatinine (0.52-1.04) mg/dL Est GFR (CKD-EPI)AfAm (>60 ml/min/1.73 sqM) Est GFR (CKD-EPI)NonAf (>60 ml/min/1.73 sqM) Glucose (74-99) mg/dL Calcium (8.4-10.2) mg/dL Magnesium 2.6 H (1.6-2.3) mg/dL Total Bilirubin (0.2-1.3) mg/dL AST (14-36) U/L ALT (4-34) U/L Alkaline Phosphatase (38-126) U/L Troponin I 0.098 H* (0.000-0.034) ng/mL Total Protein (6.3-8.2) g/dL Albumin (3.5-5.0) g/dL Coronavirus (PCR) Not Detected (Not Detectd) Disposition Clinical Impression: Fall, Hypokalemia, MARY (acute kidney injury), Elevated troponin Disposition: ADMITTED IP TO THIS [facility] Decision Date: 08/17/21 Decision Time: 16:18
[2021-08-17 14:44] LABS: Anisocytosis Slight; Basophils % (A) 0 %; Eosinophils % (A) 0 %; HCT 45.7 % (34.0-46.0); HGB 13.9 gm/dL (11.4-16.0); Hypochromasia Moderate; Lymphocytes # (A) 0.7 k/uL (1.0-4.8); Lymphocytes % (A) 11 %; MCH 26.9 pg (25.0-35.0); MCHC 30.5 g/dL (31.0-37.0); MCV 88.3 fL (80.0-100.0); Mean Platelet Volume 9.7; Monocytes # (A) 0.5 k/uL (0-1.0); Monocytes % (A) 7 %; Neutrophils # (A) 5.3 k/uL (1.3-7.7); Neutrophils % (A) 80 %; Platelet Count 102 k/uL (150-450); RBC 5.18 m/uL (3.80-5.40); RDW 17.5 % (11.5-15.5); WBC 6.5 k/uL (3.8-10.6)
[2021-08-17 14:56] LABS: Albumin 4.1 g/dL (3.5-5.0); Calcium 10.7 mg/dL (8.4-10.2); Potassium 2.9 mmol/L (3.5-5.1); Total Bilirubin 3.7 mg/dL (0.2-1.3); Total Protein 7.1 g/dL (6.3-8.2)
[2021-08-17 15:01] LABS: INR 1.6 (<1.2); Prothrombin Time 16.6 sec (9.0-12.0)
[2021-08-17] MEDS ORDERED: Potassium Replacement Protocol 1 EACH MISC MISCELLANE PRN (15:25)
--- NOTE | 2021-08-17 15:41 | CT ---
EXAMINATION TYPE: CT brain cspine wo con DATE OF EXAM: 08/17/2021 COMPARISON: CT cervical spine 05/18/2016. CT brain 08/22/2012. HISTORY: fall CT DLP: 1181 mGycm Automated exposure control for dose reduction was used. TECHNIQUE: CT scan of the head and cervical spine are performed without contrast. FINDINGS: There is no acute intracranial hemorrhage, mass effect, or midline shift identified. The ventricles and sulci are prominent likely related to the degree of cerebral atrophy. The globes are intact and the visualized sinuses are clear. Cervical spine is visualized in its entirety from C1 through upper thoracic levels and demonstrates m ild reversal of the normal cervical or doses. There is a grade 1 spondylolisthesis of C7 on T1 simil ar to prior CT from 2015. There is approximately 4 mm of posterior displacement of the occipital cond yle relative lateral mass of C1. Congenital nonunion of the posterior arch of C1. There is fracture o f the posterior arch of C2 on the left with a 1.6 cm well-corticated ossific fragment directed toward s the posterior paraspinal soft tissues. The nondisplaced fracture of the arch of C3 on the left. There is diffuse degenerative disc disease and hypertrophic spondylosis throughout the cervical spine with relative sparing of C2-C3. There is osseous fusion of the C3-C4 vertebral bodies. IMPRESSION: 1. No acute intracranial hemorrhage, mass effect, or midline shift is seen. 2. There is approximately 4 mm of posterior displacement of the left occipital condyle relative later al mass of C1. There is a likely chronic fracture of the posterior arch of C2 on the left with a 1.6 cm well-corticated ossific fragment directed towards the posterior paraspinal soft tissues. There is a mild deformity of the posterior arch of C3 on the left. Likely relating to a healed fracture. 3. There is chronic grade 1 anterolisthesis of C7 on T1.
--- NOTE | 2021-08-17 15:44 | XR ---
EXAMINATION TYPE: XR chest 2V DATE OF EXAM: 08/17/2021 COMPARISON: Chest x-ray September 11, 2020 HISTORY: Fall injury with pain. TECHNIQUE: Frontal and lateral views of the chest are obtained. FINDINGS: There are chronic parenchymal changes without suspicious focal air space opacity or pneumo thorax seen. Stable small to tiny right pleural effusion or pleural thickening. Cardiomegaly with mul ti lead pacemaker is redemonstrated/. The osseous structures remain demineralized. IMPRESSION: Chronic changes and cardiomegaly without acute pulmonary process.
[2021-08-17] MEDS ORDERED: POTASSIUM CHLORIDE 10 MEQ in WATER FOR INJECTION 1 100ML.BAG IVPB SCH (16:00)
--- NOTE | 2021-08-17 16:13 | XR ---
EXAMINATION TYPE: XR wrist complete RT, XR hand complete RT DATE OF EXAM: 08/17/2021 CLINICAL HISTORY: Fall TECHNIQUE: Frontal, lateral and oblique images of the right and wrist are obtained. COMPARISON: None FINDINGS: Hand/wrist: Osteopenia. Advanced degenerative changes the first carpometacarpal joint. First digit is held in add uction. There is no acute fracture/dislocation evident in the hand or wrist. Degenerative changes of the radioulnar joint and IP joints. The overlying soft tissue appears unremarkable. IMPRESSION: There is no acute fracture or dislocation in the right hand or wrist.
[2021-08-17] MEDS ORDERED: NALOXONE 0.4 MG/ML 1 ML VIAL IV PRN (16:22)
[2021-08-17] MEDS: POTASSIUM CHLORIDE ER 20 MEQ TAB.ER PO SCH ×3 (16:40→18:39)
[2021-08-17] MEDS ORDERED: MECLIZINE 12.5 MG TAB PO PRN (16:53)
[2021-08-17] MEDS: MIDODRINE 5 MG TAB PO SCH (18:39)
[2021-08-17 18:49] LABS: Appearance,Urine Clear (Clear); Bilirubin,Urine Negative (Negative); Blood,Urine Negative (Negative); Color,Urine Yellow; Glucose,Urine (UA) Negative (Negative); Ketones,Urine Negative (Negative); Leukocyte Esterase,Urine Large (Negative); Mucus,Urine Rare /hpf; Nitrite,Urine Negative (Negative); PH, Urine 5.5 (5.0-8.0); Protein,Urine Negative (Negative); RBC,Urine 1 /hpf (0-5); Specific Gravity,Urine 1.015 (1.001-1.035); Squamous Epithelial Cell,Urine <1 /hpf (0-4); Urobilinogen,Urine <2.0 mg/dL (<2.0); WBC,Urine 53 /hpf (0-5)
--- NOTE | 2021-08-17 19:48 | XR ---
EXAMINATION TYPE: XR Hip Bilateral Complete DATE OF EXAM: 08/17/2021 COMPARISON: NONE HISTORY: Bilateral hip pain TECHNIQUE: 4 views FINDINGS: There is no sign of fracture nor dislocation. The acetabula appear intact. Proximal femurs are intact. IMPRESSION: No acute abnormality of the hip joints.
--- NOTE | 2021-08-17 19:50 | XR ---
EXAMINATION TYPE: XR femur bilateral DATE OF EXAM: 08/17/2021 COMPARISON: NONE HISTORY: Hip pain TECHNIQUE: 8 views FINDINGS: There is bilateral knee prosthesis. Components appear in anatomic position. There is vascul ar calcification. The hip joints are intact. There is no evidence of focal bone destruction. IMPRESSION: No acute abnormality of the left and right femur.
[2021-08-18] MEDS ORDERED: LORazepam 2 MG/ML INJ IV STA (01:09)
[2021-08-18] MEDS: APIXABAN 5 MG TAB PO SCH ×3 (01:51→20:00)
[2021-08-18] MEDS: MONTELUKAST 10 MG TAB PO SCH ×2 (01:52→20:00)
[2021-08-18] MEDS: METOPROLOL SUCCINATE (ER) 100 MG TAB.ER.24H PO SCH ×2 (01:52→09:40)
[2021-08-18] MEDS: LEVOTHYROXINE 50 MCG TAB PO SCH (07:00)
[2021-08-18] MEDS ORDERED: FUROSEMIDE 40 MG TAB PO SCH (09:00)
[2021-08-18] MEDS ORDERED: NON FORMULARY DRUG (Ubidecarenone [Co Q-10] 100 MG Capsule) PO SCH (09:00)
[2021-08-18] MEDS ORDERED: metOLazone 2.5 MG TAB PO SCH (09:00)
[2021-08-18 09:37] LABS: Albumin 3.7 g/dL (3.5-5.0); Calcium 10.4 mg/dL (8.4-10.2); Magnesium 2.5 mg/dL (1.6-2.3); Potassium 3.7 mmol/L (3.5-5.1); Total Protein 6.8 g/dL (6.3-8.2)
[2021-08-18] MEDS: MIDODRINE 5 MG TAB PO SCH ×3 (09:39→17:50)
[2021-08-18] MEDS: PRAVASTATIN SODIUM 20 MG TAB PO SCH (09:39)
[2021-08-18] MEDS: dexAMETHasone 4 MG TAB PO SCH (09:39)
[2021-08-18] MEDS: CITALOPRAM HYDROBROMIDE 20 MG TAB PO SCH (09:39)
--- NOTE | 2021-08-18 11:12 | P.HPIM ---
History of Present Illness H&P Date: 08/18/21 HISTORY OF PRESENT ILLNESS This is a 80-year-old female patient of Dr. Cheema and Dr. 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 Pike on Xolair injections. Patient patient states that she was feeling dizzy and hit her hand on the table, obtain skin tear to the right hand that was bleeding significantly. She denies any other injuries and no loss consciousness. She also gives history of a fall about 2 months ago where she hit her head and did not seek treatment at that time. She also gives history of having pain muscle pain secondary to statins and was taking CoQ10. She is also obtain the Materna vaccine on 08/07 and has had significant pain in her arm since that and has been on Benadryl and steroi ds. Patient initially presented to urgent care and was subsequently sent to the hospital for further evaluation. Patient presented to [facility] emergency center for evaluation. Patient was afebrile, heart rate 61, blood pressure 131/80, pulse ox 90% on room air. EKG is ventricular pacer. WBC 6.5, hemoglobin 13.9, platelet count 102. Sodium 134, potassium 2.9, chloride 88, CO2 36, BUN 100 creatinine 2.01. Blood sugar 95. INR 1.6. Calcium 10.7. Total bilirubin 3.7, AST 62, ALT 27, alkaline phosphatase 153. Coronavirus PCR not detected. Troponin 0.098, 0.077 and 0.086. Magnesium 2.6. Urinalysis was leukoesterase large, WBCs 53. X-ray bilateral hips showed no acute abnormality. Bilateral femur x-ray revealed no acute abnormality. X-ray right wrist no acute fracture or dislocation. CAT scan of the brain and cervical spine revealed no acute intracranial hemorrhage, mass effect or midline shift. There is approximately 4 mm of posterior displacement of the left occipital condyle relative lateral mass of C1. There is a likely chronic fracture of the posterior arch of C2 on the left with 1.6 cm well corticated ossific fragment directed towards the posterior p araspinal soft tissues there is a mild deformity of the posterior arch of C3 on the left. Likely related to healed fracture. There is chronic grade 1 anterior listhesis of C7 on T1. Chest x-ray reveals chronic changes and cardiomegaly without acute pulmonary process. Patient is seen today in the emergency center waiting for a bed on the cardiac stepdown unit, consults and placed with cardiology and nephrology, wound care center consult added. REVIEW OF SYSTEMS Constitutional: No fever, no chills, no night sweats. No weight change. No weakness, fatigue or lethargy. No daytime sleepiness. EENT: No headache. No blurred vision or double vision, no loss of vision. No loss of Hearing, no ringing in the ears, reports dizziness. No nasal drainage or congestion. No epistaxis. No sore throat. Lungs: Denies shortness of breath, cough, no sputum production. No wheezing. Cardiovascular: No chest pain, no lower extremity edema. No palpitations. No paroxysmal nocturnal dyspnea. No orthopnea. No lightheadedness reports dizziness. No syncopal episodes. Abdominal: No abdominal pain. No nausea, vomiting. No diarrhea. No constipation. No bloody or tarry stools.. No loss of appetite. Genitourinary: No dysuria, increased frequency, urgency. No urinary retention. Musculoskeletal: No myalgias. No muscle weakness, no gait dysfunction, no frequent falls. No back pain. No neck pain. Integumentary: Reports right hand wounds, no lesions. No rash or pruritus. No unusual bruising. No change in hair or nails. Neurologic: No aphasia. No facial droop. No change in mentation. No head injury. No headache. No paralysis. No paresthesia. Psychiatric: No depression. No anxiety. No mood swings. Endocrine: No abnormal blood sugars. No weight change. No excessive sweating or thirst. No cold intolerance. SOCIAL HISTORY Patient is a lifelong nonsmoker but she was exposed to secondhand smoke. No illicit drug use. No alcohol use. FAMILY HISTORY Mother at age 95 from old age. She had history of diabetes and skin cancer. Father at age 52 from stomach ulcer. Patient has 6 brothers and o ne is known to have coronary artery disease. Patient is no sisters. Patient has 4 children one has Crohn's disease and one has rheumatoid arthritis. PHYSICAL EXAMINATION Gen: This is a 80-year-old female. Patient is resting on the ER stretcher and appears comfortable and in no acute distress. HEENT: Head is atraumatic, normocephalic. Pupils equal, round. Sclerae is anicteric. NECK: Supple. No JVD. No lymphadenopathy. No thyromegaly. LUNGS: Clear to auscultation. No wheezes or rhonchi. No intercostal retractions. HEART: Regular rate and rhythm. No murmur. ABDOMEN: Soft. Bowel sounds are present. No masses. No tenderness. EXTREMITIES: No pedal edema. No calf tenderness. NEUROLOGICAL: Patient is awake, alert and oriented x3. Cranial nerves 2 through 12 are grossly intact. ASSESSMENT AND PLAN 1. Dizziness of unclear etiology, rule out arrhythmia, orthostatic hypotension. Continue cardiac monitoring. 2. Acute kidney injury. Avoid nephrotoxic agents, hold Lasix and metolazone. 3. Acute urinary tract infection. Patient will be started on doxycycline 100 mg twice daily, urine culture. 4. Elevated troponins. Consult with cardiology. 5. Persistent atrial fibrillation status post ventricular pacemaker. Continue eliquis 5 mg twice daily, metoprolol 100 mg at bedtime. 6. Hypokalemia status post replacement. 7. Hypertension. Continue Toprol-XL, hold Lasix. 8. Moderate persistent asthma without exacerbation. Patient follows with Dr. Pike. Continue Singulair. 9. Hyperlipidemia. Continue pravastatin 10. Hypothyroidism. Continue levothyroxine 50 g daily. 11. Status post aortic valve replacement. 12. Peripheral vascular disease status post atherectomy and stent placement to October 2018. 13. Obstructive sleep apnea on CPAP. Continue CPAP 14. Generalized anxiety disorder. 15. DVT prophylaxis. Continue eliquis. 16. GI prophylaxis. Pepcid. Patient will be admitted to the hospital for a minimum of 2 night stay. DISCHARGE PLAN TBD. Consult PT and OT. Impression and plan of care have been directed as dictated by the signing physician. Vickie Garg nurse practitioner acting as scribe for signing physician. Past Medical History Past Medical History: Atrial Fibrillation, Coronary Artery Disease (CAD), Cancer, COPD, Hyperlipidemia, Hypertension, Osteoarthritis (OA), Sleep Apnea/CPAP/BIPAP, Thyroid Disorder, Vascular Disorder Additional Past Medical History / Comment(s): Hx skin cancer yrs ago on nose. Numbness and pain left lower leg, varicose veins, hx kidney stones, steroids Jun 2018. "2013 blood clot in heart." CPAP use. Hx Shingles 4 yrs ago. CHF, History of Any Multi-Drug Resistant Organisms: None Reported Past Surgical History: Appendectomy, Cholecystectomy, Heart Catheterization With Stent, Hernia Repair, Joint Replacement, Pacemaker, Tonsillectomy Additional Past Surgical History / Comment(s): Heart stent x1, Medtronic DAPTA Pacemaker 2008, Aortic valve replaced (pig)2008, bilateral total knees, cataracts removed bilaterally. Right cath for athrosclorsis Past Anesthesia/Blood Transfusion Reactions: No Reported Reaction, Motion Sickness Additional Past Anesthesia/Blood Transfusion Reaction / Comment(s): No problems with prior blood transfusions. Date of Last Stent Placement:: 1998 Type of Cardiac Device: Permanent Pacemaker Device Placement Date:: 2008 Past Psychological History: Anxiety, Depression Smoking Status: Never smoker Past Alcohol Use History: None Reported Past Drug Use History: None Reported - Past Family History Mother Family Medical History: Cancer Additional Family Medical History / Comment(s): skin CA Father Family Medical History: Cancer Additional Family Medical History / Comment(s): stomach ulcer at age 52 Brother(s) Additional Family Medical History / Comment(s): Patient has 6 brothers and one is known to have coronary artery disease. Patient is no sisters. Patient has 4 children one has Crohn's disease and one has rheumatoid arthritis. Medications and Allergies Home Medications Medication Instructions Recorded Confirmed Type Levothyroxine Sodium [Synthroid] 50 mcg PO DAILY 08/24/18 08/17/21 History Montelukast [Singulair] 10 mg PO HS 08/24/18 08/17/21 History Apixaban [Eliquis] 5 mg PO BID #180 tab 11/28/18 08/17/21 Rx Metoprolol Succinate (ER) [Toprol 100 mg PO HS 12/19/18 08/17/21 History XL] Pravastatin Sodium [Pravachol] 10 mg PO DAILY 12/19/18 08/17/21 History Ubidecarenone [Co Q-10] 100 mg PO DAILY 09/11/20 08/17/21 History Furosemide [Lasix] 40 mg PO BID@0900,1600 tab 09/13/20 08/17/21 Rx Citalopram Hydrobromide [CeleXA] 20 mg PO DAILY 08/17/21 08/17/21 History Meclizine [Antivert] 12.5 mg PO BID PRN 08/17/21 08/17/21 History Midodrine [ProAmatine] 5 mg PO TID 08/17/21 08/17/21 History dexAMETHasone 4 mg PO DAILY 08/17/21 08/17/21 History metOLazone [Zaroxolyn] 2.5 mg PO MOWEFR 08/17/21 08/17/21 History Allergies Allergy/AdvReac Type Severity Reaction Status Date / Time amlodipine [From Lotrel] Allergy Unknown Verified 08/17/21 16:47 benazepril [From Lotrel] Allergy Unknown Verified 08/17/21 16:47 cephalexin [From Keflex] Allergy Rash/Hives Verified 08/17/21 16:47 clindamycin Allergy Rash/Hives Verified 08/17/21 16:47 doxazosin [From Cardura] Allergy Unknown Verified 08/17/21 16:47 hydrochlorothiazide Allergy Unknown Verified 08/17/21 16:47 [From Maxzide] isosorbide [From Imdur] Allergy Anaphylaxis Verified 08/17/21 16:47 metoprolol [From Toprol XL] Allergy Unknown Verified 08/17/21 16:47 ramipril [From Altace] Allergy Anaphylaxis Verified 08/17/21 16:47 sulfamethoxazole Allergy severe Verified 08/17/21 16:47 [From Bactrim] skin reaction triamterene [From Maxzide] Allergy Unknown Verified 08/17/21 16:47 trimethoprim [From Bactrim] Allergy severe Verified 08/17/21 16:47 skin reaction valsartan [From Diovan] Allergy severe Verified 08/17/21 16:47 headache clonidine [From Catapres] AdvReac anxious Verified 08/17/21 16:47 diltiazem AdvReac severe Verified 08/17/21 16:47 headache Penicillins AdvReac "passes Verified 08/17/21 16:47 out" oral steroids AdvReac Afib Uncoded 08/17/21 16:47 Physical Exam Vitals: Vital Signs Temp Pulse Resp BP Pulse Ox 08/18/21 06:57 97.9 F 60 18 116/75 92 L 08/18/21 04:00 71 18 119/83 96 08/18/21 01:15 60 18 115/72 96 08/17/21 21:00 62 18 141/87 96 08/17/21 18:34 65 18 133/85 96 08/17/21 16:44 62 18 149/106 98 08/17/21 13:24 98.1 F 61 18 131/80 98 Results CBC & Chem 7: 08/17/21 14:32 08/18/21 08:56 Labs: Abnormal Lab Results - Last 24 Hours (Table) 08/17/21 08/17/21 08/17/21 Range/Units 14:32 14:32 14:32 MCHC 30.5 L (31.0-37.0) g/dL RDW 17.5 H (11.5-15.5) % Plt Count 102 L (150-450) k/uL Lymphocytes # 0.7 L (1.0-4.8) k/uL PT 16.6 H (9.0-12.0) sec INR 1.6 H (<1.2) Sodium 134 L (137-145) mmol/L Potassium 2.9 L (3.5-5.1) mmol/L Chloride 88 L (98-107) mmol/L Carbon Dioxide 36 H (22-30) mmol/L BUN 100 H (7-17) mg/dL Creatinine 2.01 H (0.52-1.04) mg/dL Calcium 10.7 H (8.4-10.2) mg/dL Magnesium (1.6-2.3) mg/dL Total Bilirubin 3.7 H (0.2-1.3) mg/dL AST 62 H (14-36) U/L Alkaline Phosphatase 153 H (38-126) U/L Troponin I (0.000-0.034) ng/mL Ur Leukocyte Esterase (Negative) Urine WBC (0-5) /hpf Urine Mucus (None) /hpf 08/17/21 08/17/21 08/17/21 Range/Units 14:32 14:32 16:26 MCHC (31.0-37.0) g/dL RDW (11.5-15.5) % Plt Count (150-450) k/uL Lymphocytes # (1.0-4.8) k/uL PT (9.0-12.0) sec INR (<1.2) Sodium (137-145) mmol/L Potassium (3.5-5.1) mmol/L Chloride (98-107) mmol/L Carbon Dioxide (22-30) mmol/L BUN (7-17) mg/dL Creatinine (0.52-1.04) mg/dL Calcium (8.4-10.2) mg/dL Magnesium 2.6 H (1.6-2.3) mg/dL Total Bilirubin (0.2-1.3) mg/dL AST (14-36) U/L Alkaline Phosphatase (38-126) U/L Troponin I 0.098 H* (0.000-0.034) ng/mL Ur Leukocyte Esterase Large H (Negative) Urine WBC 53 H (0-5) /hpf Urine Mucus Rare H (None) /hpf 08/17/21 Range/Units 18:11 MCHC (31.0-37.0) g/dL RDW (11.5-15.5) % Plt Count (150-450) k/uL Lymphocytes # (1.0-4.8) k/uL PT (9.0-12.0) sec INR (<1.2) Sodium (137-145) mmol/L Potassium (3.5-5.1) mmol/L Chloride (98-107) mmol/L Carbon Dioxide (22-30) mmol/L BUN (7-17) mg/dL Creatinine (0.52-1.04) mg/dL Calcium (8.4-10.2) mg/dL Magnesium (1.6-2.3) mg/dL Total Bilirubin (0.2-1.3) mg/dL AST (14-36) U/L Alkaline Phosphatase (38-126) U/L Troponin I 0.077 H* (0.000-0.034) ng/mL Ur Leukocyte Esterase (Negative) Urine WBC (0-5) /hpf Urine Mucus (None) /hpf Microbiology - Last 24 Hours (Table) 08/17/21 16:26 Urine Culture - Preliminary Urine,Clean Catch
--- NOTE | 2021-08-18 12:47 | P.CRDCN ---
History of Present Illness History of present illness: HISTORY OF PRESENTING ILLNESS This is a pleasant 79-year-old female past medical history significant for chronic heart failure with preserved ejection fraction, pulmonary hypertension, hypertension, valvular heart disease status post TAVR in 2008, atrial fibrillation status post AV node ablation, BiV pacemaker and coronary artery disease status post PCI in 1998, obstructive sleep apnea wears CPAP, history of vertigo. She follows in the office with Dr. Patel. We have been asked to see in consultation for elevated troponin. Patient presents to the emergency department with episode of dizziness and fall yesterday evening around 5PM. Patient states last week she received her Covid vaccine had side effects of arm soreness, itching. She states she was started on a steroid and has been taking it for 5 days. She also states she was taking benadryl as well at home. She states yesterday she stood up and was walking with her walker at home and had episode of dizziness and fell to the ground. She states that she put her hand out to stop her fall hitting a table sustaining a skin tear to her right hand and wrist. She did go to urgent care and they recommended she come to the emergency room for evaluation. She also endorses decrease PO intake. She denies any chest pain, shortness of breath, loss of consciousness, nausea, vomiting, diarrhea. She denies any symptoms of orthopnea or PND. DIAGNOSTICS EKG reveals ventricular paced rhythm with underling atrial fibrillation. Telemetry tracings indicate paced rhythm. Chest xray negative for an acute cardiopulmonary process. X-ray of the hand, wrist, hip and femur with no acute fracture. CT brain revealed no intracranial hemorrhage. Approximately 4 mm posterior displacement of left occipital condyle relative lateral mass of C1. Mild deformity of the posterior arch of C3 on the left likely related to healed fracture Laboratory reviewed, sodium 134, potassium 3.7, BUN 99, serum creatinine 1.8, magnesium 2.5, troponin 0.09, 0.07, 0.08, COVID-19 negative Current cardiac medications include metolazone 2.5 mg Wednesday, dexamethasone 4mg daily, pravastatin 10 mg daily, midodrine 5 mg 3 times a day, metoprolol titrate 100 mg nightly, meclizine 12.5 mg twice a day, Synthroid, Lasix 40 mg twice a day, Eliquis 5 mg twice a day Most recent Echocardiogram 09/2020 revealed preserved LV systolic function with EF 50-55% REVIEW OF SYSTEMS At the time of my exam: CONSTITUTIONAL: Denies fever or chills. CARDIOVASCULAR: Denies chest pain, shortness of breath, orthopnea, PND or palpitations. RESPIRATORY: Denies cough. GASTROINTESTINAL: Denies abdominal pain, diarrhea, constipation, nausea or vomiting. MUSCULOSKELETAL: Denies myalgias. NEUROLOGIC: Denies numbness, tingling, headacbe or weakness. ENDOCRINE: Denies fatigue, weight change, polydipsia or polyurina. GENITOURINARY: Denies burning, hematuria or urgency with micturation. HEMATOLOGIC: Denies history of anemia or bleeding. PHYSICAL EXAMINATION Blood pressure 116/75, heart rate 60, afebrile, oxygen saturation is 96% on room air CONSTITUTIONAL: No apparent distress. HEENT: Head is normocephalic. Pupils are equal, round. Sclerae anicteric. Mucous membranes of the mouth are moist. No JVD. No carotid bruit. CHEST EXAMINATION: Lungs are clear to auscultation. No chest wall tenderness is noted on palpation or with deep breathing. HEART EXAMINATION: Irregular rate and rhythm. S1, S2 heard. Systolic ejection murmur at the base, no gallops or rub. ABDOMEN: Soft, nontender. Positive bowel sounds. EXTREMITIES: 2+ peripheral pulses, bilateral lower extremity non-pitting edema and no calf tenderness. NEUROLOGIC EXAMINATION: Patient is awake, alert and oriented x3. ASSESSMENT Elevated troponin, not indicative of acute coronary syndrome, likely related to acute kidney injury, no chest pain or evidence of ischemia on EKG Acute Kidney Injury Dizziness could be related to recent benadryl use History of Vertigo Chronic heart failure with preserved ejection fraction Chronic kidney disease Hypertension Coronary artery disease s/p PCI 1998 Valvular heart disease s/p bovine aortic valve replacement 2008 BiV pacemaker implantation Permanent atrial fibrillation on eliquis PLAN Obtain 2D echocardiogram Hold Lasix and metolazone at this time IV fluids 0.9NaCL 75mL/hr Continue cardiac telemetry Interrogate patient's device Continue Eliquis, metoprolol, and statin Further recommendations to follow based on clinical course. Thank you kindly for this consultation. Nurse Practitioner note has been reviewed, I agree with a documented findings and plan of care. Patient was seen and examined. Past Medical History Past Medical History: Atrial Fibrillation, Coronary Artery Disease (CAD), Cance r, COPD, Hyperlipidemia, Hypertension, Osteoarthritis (OA), Sleep Apnea/CPAP/BIPAP, Thyroid Disorder, Vascular Disorder Additional Past Medical History / Comment(s): Hx skin cancer yrs ago on nose. Numbness and pain left lower leg, varicose veins, hx kidney stones, steroids Jun 2018. "2013 blood clot in heart." CPAP use. Hx Shingles 4 yrs ago. CHF, History of Any Multi-Drug Resistant Organisms: None Reported Past Surgical History: Appendectomy, Cholecystectomy, Heart Catheterization With Stent, Hernia Repair, Joint Replacement, Pacemaker, Tonsillectomy Additional Past Surgical History / Comment(s): Heart stent x1, [employer] DAPTA DR Pacemaker 2008, Aortic valve replaced (pig)2008, bilateral total knees, cataracts removed bilaterally. Right cath for athrosclorsis Past Anesthesia/Blood Transfusion Reactions: No Reported Reaction, Motion Sickness Additional Past Anesthesia/Blood Transfusion Reaction / Comment(s): No problems with prior blood transfusions. Date of Last Stent Placement:: 1998 Type of Cardiac Device: Permanent Pacemaker Device Placement Date:: 2008 Past Psychological History: Anxiety, Depression Smoking Status: Never smoker Past Alcohol Use History: None Reported Past Drug Use History: None Reported - Past Family History Mother Family Medical History: Cancer Additional Family Medical History / Comment(s): skin CA Father Family Medical History: Cancer Additional Family Medical History / Comment(s): stomach ulcer at age 52 Brother(s) Additional Family Medical History / Comment(s): Patient has 6 brothers and one is known to have coronary artery disease. Patient is no sisters. Patient has 4 children one has Crohn's disease and one has rheumatoid arthritis. Medications and Allergies Home Medications Medication Instructions Recorded Confirmed Type Levothyroxine Sodium [Synthroid] 50 mcg PO DAILY 08/24/18 08/17/21 History Montelukast [Singulair] 10 mg PO HS 08/24/18 08/17/21 History Apixaban [Eliquis] 5 mg PO BID #180 tab 11/28/18 08/17/21 Rx Metoprolol Succinate (ER) [Toprol 100 mg PO HS 12/19/18 08/17/21 History XL] Pravastatin Sodium [Pravachol] 10 mg PO DAILY 12/19/18 08/17/21 History Ubidecarenone [Co Q-10] 100 mg PO DAILY 09/11/20 08/17/21 History Furosemide [Lasix] 40 mg PO BID@0900,1600 tab 09/13/20 08/17/21 Rx Citalopram Hydrobromide [CeleXA] 20 mg PO DAILY 08/17/21 08/17/21 History Meclizine [Antivert] 12.5 mg PO BID PRN 08/17/21 08/17/21 History Midodrine [ProAmatine] 5 mg PO TID 08/17/21 08/17/21 History dexAMETHasone 4 mg PO DAILY 08/17/21 08/17/21 History metOLazone [Zaroxolyn] 2.5 mg PO MOWEFR 08/17/21 08/17/21 History Allergies Allergy/AdvReac Type Severity Reaction Status Date / Time amlodipine [From Lotrel] Allergy Unknown Verified 08/17/21 16:47 benazepril [From Lotrel] Allergy Unknown Verified 08/17/21 16:47 cephalexin [From Keflex] Allergy Rash/Hives Verified 08/17/21 16:47 clindamycin Allergy Rash/Hives Verified 08/17/21 16:47 doxazosin [From Cardura] Allergy Unknown Verified 08/17/21 16:47 hydrochlorothiazide Allergy Unknown Verified 08/17/21 16:47 [From Maxzide] isosorbide [From Imdur] Allergy Anaphylaxis Verified 08/17/21 16:47 metoprolol [From Toprol XL] Allergy Unknown Verified 08/17/21 16:47 ramipril [From Altace] Allergy Anaphylaxis Verified 08/17/21 16:47 sulfamethoxazole Allergy severe Verified 08/17/21 16:47 [From Bactrim] skin reaction triamterene [From Maxzide] Allergy Unknown Verified 08/17/21 16:47 trimethoprim [From Bactrim] Allergy severe Verified 08/17/21 16:47 skin reaction valsartan [From Diovan] Allergy severe Verified 08/17/21 16:47 headache clonidine [From Catapres] AdvReac anxious Verified 08/17/21 16:47 diltiazem AdvReac severe Verified 08/17/21 16:47 headache Penicillins AdvReac "passes Verified 08/17/21 16:47 out" oral steroids AdvReac Afib Uncoded 08/17/21 16:47 Physical Exam Vitals: Vital Signs Temp Pulse Resp BP Pulse Ox 08/17/21 18:34 65 18 133/85 96 08/17/21 16:44 62 18 149/106 98 08/17/21 13:24 98.1 F 61 18 131/80 98 Intake and Output 08/17/21 08/17/21 08/17/21 06:59 14:59 22:59 Other: Weight 72.575 kg Results 08/17/21 14:32 08/18/21 08:56 Cardiac Enzymes 08/17/21 08/17/21 08/17/21 Range/Units 14:32 14:32 18:11 AST 62 H (14-36) U/L Troponin I 0.098 H* 0.077 H* (0.000-0.034) ng/mL Coagulation 08/17/21 Range/Units 14:32 PT 16.6 H (9.0-12.0) sec CBC 08/17/21 Range/Units 14:32 WBC 6.5 (3.8-10.6) k/uL RBC 5.18 (3.80-5.40) m/uL Hgb 13.9 (11.4-16.0) gm/dL Hct 45.7 (34.0-46.0) % Plt Count 102 L (150-450) k/uL Comprehensive Metabolic Panel 08/17/21 Range/Units 14:32 Sodium 134 L (137-145) mmol/L Potassium 2.9 L (3.5-5.1) mmol/L Chloride 88 L (98-107) mmol/L Carbon Dioxide 36 H (22-30) mmol/L BUN 100 H (7-17) mg/dL Creatinine 2.01 H (0.52-1.04) mg/dL Glucose 95 (74-99) mg/dL Calcium 10.7 H (8.4-10.2) mg/dL AST 62 H (14-36) U/L ALT 27 (4-34) U/L Alkaline Phosphatase 153 H (38-126) U/L Total Protein 7.1 (6.3-8.2) g/dL Albumin 4.1 (3.5-5.0) g/dL Current Medications Generic Name Dose Route Start Last Admin Trade Name Freq PRN Reason Stop Dose Admin Apixaban 5 mg 08/17/21 21:00 Apixaban 5 Mg Tab PO BID [facility] Protocol Citalopram Hydrobromide 20 mg 08/18/21 09:00 Citalopram Hydrobromide 20 Mg Tab PO DAILY [facility] Dexamethasone 4 mg 08/18/21 09:00 Dexamethasone 4 Mg Tab PO DAILY [facility] Furosemide 40 mg 08/18/21 09:00 Furosemide 40 Mg Tab PO BID@0900,1600 [facility] Levothyroxine Sodium 50 mcg 08/18/21 06:30 Levothyroxine 50 Mcg Tab PO DAILY@0630 [facility] Meclizine HCl 12.5 mg 08/17/21 16:53 Meclizine 12.5 Mg Tab PO BID PRN Vertigo Metolazone 2.5 mg 08/18/21 09:00 Metolazone 2.5 Mg Tab PO MOWEFR [facility] Metoprolol Succinate 100 mg 08/17/21 21:00 Metoprolol Succinate (Er) 100 Mg Tab.Er.24h PO HS [facility] Midodrine 5 mg 08/17/21 17:30 08/17/21 18:39 Midodrine 5 Mg Tab PO 5 mg AC-TID [facility] Administration Miscellaneous Information 1 each 08/17/21 15:25 Potassium Replacement Protocol 1 Each Misc MISCELLANE DAILY PRN Per Protocol Protocol Montelukast Sodium 10 mg 08/17/21 21:00 Montelukast 10 Mg Tab PO HS [facility] Naloxone HCl 0.2 mg 08/17/21 16:22 Naloxone 0.4 Mg/Ml 1 Ml Vial IV Q2M PRN Opioid Reversal Pravastatin Sodium 10 mg 08/18/21 09:00 Pravastatin Sodium 20 Mg Tab PO DAILY [facility] Intake and Output 08/17/21 08/17/21 08/17/21 06:59 14:59 22:59 Other: Weight 72.575 kg Patient Weight 08/18/21 06:59 Weight 72.575 kg 08/17/21 14:32 08/17/21 14:32
[2021-08-18] MEDS ORDERED: SODIUM CHLORIDE 0.9% 1,000 ML IV STA (12:48)
--- NOTE | 2021-08-18 14:11 | P.NPCON ---
History of Present Illness - Reason for Consult acute renal failure - History of Present Illness Patient is a 80-year-old female with history of chronic A. fib chronic diastolic CHF peripheral vascular disease and valvular heart disease. Patient was admitted to the hospital with history of feeling weak she's felt dizzy and hit her head on the table and developed a skin tear. Patient denies any previous history of kidney diseases. Patient did report decreased oral intake over the past few days. She also had an episode of diarrhea. Serum creatinine was 2.0 on admission, decreased to 1.83 today. Serum creatinine was 1.2 on 09/27/2020. No history of use of NSAIDs. Patient was maintained on Lasix at home prior to admission. She was also on midodrine. Systolic blood pressures here have not been lower than 115 mmHg. Patient states she has been voiding. calcium was noted to be elevated at 10.7, now down to 10.4. Patient did admit to use of Tums for heartburn. Troponin has been borderline elevated at 0.086. Review of Systems As per HPI, other systems negative Past Medical History Past Medical History: Atrial Fibrillation, Asthma, Coronary Artery Disease (CAD), Cancer, Heart Failure, COPD, Hyperlipidemia, Hypertension, Osteoarthritis (OA), Sleep Apnea/CPAP/BIPAP, Thyroid Disorder, Vascular Disorder Additional Past Medical History / Comment(s): Tachy/tracey syndrome with pacemaker, PVD, bilateral intermittent claudication, varicosities, GEO with Cpap, hypothyroid, vertigo, kidney stones surgically removed, skin cancer removed from nose, past shingelles. History of Any Multi-Drug Resistant Organisms: None Reported Past Surgical History: Appendectomy, Cholecystectomy, Heart Catheterization, Heart Catheterization With Stent, Joint Replacement, Pacemaker, Tonsillectomy Additional Past Surgical History / Comment(s): Cardioversion, 2008 Aortic valve replacement/bovine, pacemaker originally placed 2008 with gen change 2013, PCI with stent 1998, R groin hemotoma with evacuation of clot, bilateral vascular procedures/aortagram with runoffs/ arteriogram/arthrectomy with stent SFA, bilateral total knee arthroplasties, colonoscopy, skin cancer removal, bilateral cataract removals. Past Anesthesia/Blood Transfusion Reactions: No Reported Reaction, Motion Sickness Additional Past Anesthesia/Blood Transfusion Reaction / Comment(s): No problems with prior blood transfusions. Date of Last Stent Placement:: 1998 Type of Cardiac Device: Permanent Pacemaker Device Placement Date:: 2008 device/gen change 2013 Past Psychological History: Anxiety, Depression Additional Psychological History / Comment(s): Pt resides with her spouse. She uses a walker to ambulate. She no longer drives. Her spouse is able to assist her when needed and can drive. Lately, spouse has been managing her medications. Smoking Status: Second hand smoke exposure Past Alcohol Use History: None Reported Additional Past Alcohol Use History / Comment(s): Patient is a lifelong nonsmoker but she was exposed to secondhand smoke. Past Drug Use History: None Reported - Past Family History Mother Family Medical History: Cancer Additional Family Medical History / Comment(s): skin CA Father Family Medical History: Cancer Additional Family Medical History / Comment(s): stomach ulcer at age 52 Brother(s) Additional Family Medical History / Comment(s): Patient has 6 brothers and one is known to have coronary artery disease. Patient is no sisters. Patient has 4 children one has Crohn's disease and one has rheumatoid arthritis. Medications and Allergies Home Medications Medication Instructions Recorded Confirmed Type Levothyroxine Sodium [Synthroid] 50 mcg PO DAILY 08/24/18 08/17/21 History Montelukast [Singulair] 10 mg PO HS 08/24/18 08/17/21 History Apixaban [Eliquis] 5 mg PO BID #180 tab 11/28/18 08/17/21 Rx Metoprolol Succinate (ER) [Toprol 100 mg PO HS 12/19/18 08/17/21 History XL] Pravastatin Sodium [Pravachol] 10 mg PO DAILY 12/19/18 08/17/21 History Ubidecarenone [Co Q-10] 100 mg PO DAILY 09/11/20 08/17/21 History Furosemide [Lasix] 40 mg PO BID@0900,1600 tab 09/13/20 08/17/21 Rx Citalopram Hydrobromide [CeleXA] 20 mg PO DAILY 08/17/21 08/17/21 History Meclizine [Antivert] 12.5 mg PO BID PRN 08/17/21 08/17/21 History Midodrine [ProAmatine] 5 mg PO TID 08/17/21 08/17/21 History dexAMETHasone 4 mg PO DAILY 08/17/21 08/17/21 History metOLazone [Zaroxolyn] 2.5 mg PO MOWEFR 08/17/21 08/17/21 History Allergies Allergy/AdvReac Type Severity Reaction Status Date / Time amlodipine [From Lotrel] Allergy Unknown Verified 08/17/21 16:47 benazepril [From Lotrel] Allergy Unknown Verified 08/17/21 16:47 cephalexin [From Keflex] Allergy Rash/Hives Verified 08/17/21 16:47 clindamycin Allergy Rash/Hives Verified 08/17/21 16:47 doxazosin [From Cardura] Allergy Unknown Verified 08/17/21 16:47 hydrochlorothiazide Allergy Unknown Verified 08/17/21 16:47 [From Maxzide] isosorbide [From Imdur] Allergy Anaphylaxis Verified 08/17/21 16:47 metoprolol [From Toprol XL] Allergy Unknown Verified 08/17/21 16:47 ramipril [From Altace] Allergy Anaphylaxis Verified 08/17/21 16:47 sulfamethoxazole Allergy severe Verified 08/17/21 16:47 [From Bactrim] skin reaction triamterene [From Maxzide] Allergy Unknown Verified 08/17/21 16:47 trimethoprim [From Bactrim] Allergy severe Verified 08/17/21 16:47 skin reaction valsartan [From Diovan] Allergy severe Verified 08/17/21 16:47 headache clonidine [From Catapres] AdvReac anxious Verified 08/17/21 16:47 diltiazem AdvReac severe Verified 08/17/21 16:47 headache Penicillins AdvReac "passes Verified 08/17/21 16:47 out" oral steroids AdvReac Afib Uncoded 08/17/21 16:47 Physical Exam Vitals: Vital Signs Temp Pulse Resp BP Pulse Ox 08/18/21 12:15 60 12 130/85 99 08/18/21 06:57 97.9 F 60 18 116/75 92 L 08/18/21 04:00 71 18 119/83 96 08/18/21 01:15 60 18 115/72 96 08/17/21 21:00 62 18 141/87 96 08/17/21 18:34 65 18 133/85 96 08/17/21 16:44 62 18 149/106 98 Patient is comfortable awake she is not in any acute distress. Alert oriented 3. Examination of the heart S1 and S2 Examination lungs bilateral breath sounds are heard Abdomen is soft nontender Examination lower extremities shows no significant edema. 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 Acute kidney injury, mostly prerenal, currently improving with IV fluids. 2. Chronic kidney disease NKF stage III with previous creatinine 1.2 in September 2020. UA is completely benign with no proteinuria or hematuria noted. Mostly nephrosclerosis 3. Pyuria rule out urinary tract infection 4. Chronic A. fib status post pacemaker, maintained on a liquid is for anticoagulation and metoprolol for rate control 5. Hypokalemia status post replacement 6. Elevated troponins being followed by cardiology Plan: 1. Continue with IV fluids 2. Continue empiric antibiotics and follow-up on results of urine culture 3. Agree with holding diuretics. 4. Continue with midodrine 5. Check ultrasound of the kidneys 6. Repeat labs in a.m. Thank you for the consultation we'll continue to follow the patient with you during her hospitalization
[2021-08-18] MEDS: DOXYCYCLINE 100 MG CAP PO SCH ×2 (14:22→21:16)
--- NOTE | 2021-08-18 16:13 | US ---
EXAMINATION TYPE: US kidneys/renal and bladder DATE OF EXAM: 08/18/2021 COMPARISON: Correlation CT lumbar spine 04/17/2020 CLINICAL HISTORY: 80 year-old female renal failure TECHNIQUE: Multiple sonographic images of the kidneys and bladder are obtained. FINDINGS: EXAM MEASUREMENTS: Right Kidney: 9.7 x 4.6 x 4.4 cm Left Kidney: 5.6 x 3.2 x 2.9 cm Right Kidney: no evidence of hydronephrosis or mass Left Kidney: limited evaluation, atropic. No evidence of hydronephrosis. Bladder: Underdistention limits its evaluation. Bilateral Jets seen: no hypoechoic masslike area LUQ adjacent to spleen and left kidney = 3.0 x 3.2 x 3.1cm IMPRESSION: 1. Atrophic left kidney. Limited detail visualization. No definite hydronephrosis on either side. 2. Lobulated masslike area measuring 3.2 cm adjacent to the left kidney and spleen. No clear correlat e on the lumbar spine CT of 04/17/2020. Further contrast enhanced CT of the abdomen/pelvis recommended to exclude a new mass.
[2021-08-19] MEDS: MIDODRINE 5 MG TAB PO SCH ×3 (06:13→17:09)
[2021-08-19] MEDS: LEVOTHYROXINE 50 MCG TAB PO SCH (06:13)
[2021-08-19 08:25] LABS: Calcium 9.9 mg/dL (8.4-10.2)
[2021-08-19 08:28] LABS: Magnesium 2.3 mg/dL (1.6-2.3); Potassium 4.1 mmol/L (3.5-5.1)
[2021-08-19] MEDS: CITALOPRAM HYDROBROMIDE 20 MG TAB PO SCH (09:34)
[2021-08-19] MEDS: dexAMETHasone 4 MG TAB PO SCH (09:34)
[2021-08-19] MEDS: APIXABAN 5 MG TAB PO SCH ×2 (09:34→21:21)
[2021-08-19] MEDS: FAMOTIDINE 20 MG TAB PO SCH (09:35)
[2021-08-19] MEDS: DOXYCYCLINE 100 MG CAP PO SCH ×2 (09:35→21:21)
[2021-08-19] MEDS: PRAVASTATIN SODIUM 20 MG TAB PO SCH (09:36)
[2021-08-19] MEDS: ACETAMINOPHEN TAB 325 MG TAB PO PRN ×2 (09:36→22:41)
--- NOTE | 2021-08-19 10:46 | ECHOF ---
Referral Reason:elevated troponin MEASUREMENTS -------- HEIGHT: 177.8 cm WEIGHT: 72.6 kg BP: RVIDd: 4.7 cm (< 3.3) IVSd: 1.3 cm (0.6 - 1.1) LVIDd: 2.9 cm (3.9 - 5.3) LVPWd: 1.5 cm (0.6 - 1.1) IVSs: 1.9 cm LVIDs: 1.6 cm LVPWs: 2.2 cm LAESV Index (A-L): 45.43 ml/m Ao Diam: 2.8 cm (2.0 - 3.7) AV Cusp: 1.4 cm (1.5 - 2.6) LA Diam: 4.9 cm (2.7 - 3.8) MV EXCURSION: 13.883 mm (> 18.000) MV EF SLOPE: 57 mm/s (70 - 150) EPSS: 0.6 cm MV E Robert: 1.16 m/s MV DecT: 256 ms MV A Robert: 0.46 m/s MV E/A Ratio: 2.50 AV maxP.46 mmHg AV meanP.08 mmHg RAP: 20.00 mmHg RVSP: 36.14 mmHg FINDINGS -------- Paced rhythm. This was a technically good study. The left ventricular size is normal. There is moderate concentric left ventricular hypertrophy. O verall left ventricular systolic function is normal with, an EF between 55 - 60 %. Left ventricular fillimg pressure cannot be estimated due to paced rhythm. The right ventricle is severely enlarged. LA is severely dilated >40 ml/m2 The right atrial size is normal. Aortic valve is trileaflet and is moderately thickened. There is moderate aortic stenosis present. Peak/mean gradient across the Aortic Valve is 31.46mmHg / 20.08mmHg. The mitral valve is normal. The mitral valve leaflets are moderately thickened. Moderate mitral a nnular calcification present. Mild mitral regurgitation is present. The peak and mean MV gradien ts are 6.97mmHg 1.94mmHg as measured by doppler. Moderate mitral stenosis. The tricuspid valve appears structurally normal. Severe tricuspid regurgitation present. Right ve ntricular systolic pressure is normal at < 35 mmHg. There is mild pulmonary hypertension. There is no pulmonic regurgitation present. The aortic root size is normal. The inferior vena cava is dilated with no significant inspiratory collapse which is consistent estima luz right atrial pressure of >20 mmHg. There is no pericardial effusion. CONCLUSIONS -------- 1. Paced rhythm. 2. The left ventricular size is normal. 3. There is moderate concentric left ventricular hypertrophy. 4. Overall left ventricular systolic function is normal with, an EF between 55 - 60 %. 5. Left ventricular fillimg pressure cannot be estimated due to paced rhythm. 6. The right ventricle is severely enlarged. 7. LA is severely dilated >40 ml/m2 8. Aortic valve is trileaflet and is moderately thickened. 9. There is moderate aortic stenosis present. 10. Peak/mean gradient across the Aortic Valve is 31.46mmHg / 20.08mmHg. 11. The mitral valve leaflets are moderately thickened. 12. Moderate mitral annular calcification present. 13. Mild mitral regurgitation is present. 14. The peak and mean MV gradients are 6.97mmHg 1.94mmHg as measured by doppler. 15. Moderate mitral stenosis. 16. Severe tricuspid regurgitation present. 17. Right ventricular systolic pressure is normal at < 35 mmHg. 18. There is mild pulmonary hypertension. 19. The inferior vena cava is dilated with no significant inspiratory collapse which is consistent es timated right atrial pressure of >20 mmHg. 20. There is no pericardial effusion. LAND INSPECTOR: Jazzy Saul RDCS
[2021-08-19 11:24] LABS: Anisocytosis Slight; Basophils % (A) 0 %; Eosinophils % (A) 0 %; HGB 13.9 gm/dL (11.4-16.0); Hypochromasia Marked; Lymphocytes # (A) 0.9 k/uL (1.0-4.8); Lymphocytes % (A) 14 %; MCH 26.6 pg (25.0-35.0); MCHC 29.5 g/dL (31.0-37.0); MCV 90.3 fL (80.0-100.0); Mean Platelet Volume 10.1; Monocytes # (A) 0.5 k/uL (0-1.0); Monocytes % (A) 8 %; Neutrophils # (A) 4.8 k/uL (1.3-7.7); Neutrophils % (A) 77 %; Platelet Count 103 k/uL (150-450); RBC 5.21 m/uL (3.80-5.40); RDW 17.1 % (11.5-15.5); WBC 6.2 k/uL (3.8-10.6)
[2021-08-19 12:04] VITALS: BMI 31.2
--- NOTE | 2021-08-19 12:30 | P.CONS ---
History of Present Illness - Reason for Consult Consult date: 08/19/21 wound care - History of Present Illness This is a 80-year-old pleasant female being seen on [address] for nonhealing ulceration to the right dorsal hand. Patient states that she had fallen at home resulting in a skin tear to the right dorsal hand. Patient is refusing to have the dressing removed for to be visualized. Utilize the chart notes and nursing information regarding the ulceration. Ulceration of the skin tears to the right dorsal hand. Wound edges are attached to the wound base, ulceration is Limited to skin breakdown. Patient's past medical history significant for her fibrillation, coronary artery disease, COPD, hyperlipidemia, hypertension, hypothyroidism, peripheral vascular disease. Denies diabetes she is a lifelong nonsmoker. Review Of Systems: Constitutional: No fever, no chills, no night sweats. No weight change. No weakness, fatigue or lethargy. No daytime sleepiness. Integumentary:reports wounds, no lesions. No rash or pruritus. No unusual bruising. No change in hair or nails. Physical exam: General Appearance: Alert, cooperative, no distress, appears stated age. Skin: See HPI all other Skin color, texture, tugor normal, no rashes or lesions. Neurologic: Alert oriented x3 Assessment: 1. Skin tear 2. Non-pressure ulceration of right hand Limited to skin breakdown Plan: 1. Apply zinc, non-adherent dressing and wrap with rolled gauze. Change every other day. We will more than happy to see her in the wound care clinic if needed upon discharge. Thank you for the consultation any questions contact the wound care center DNP note has been reviewed and discussed with Dr. iPttman and the impression and plan of care has been directed as dictated. Past Medical History Past Medical History: Atrial Fibrillation, Asthma, Coronary Artery Disease (CAD), Cancer, Heart Failure, COPD, Hyperlipidemia, Hypertension, Osteoarthritis (OA), Sleep Apnea/CPAP/BIPAP, Thyroid Disorder, Vascular Disorder Additional Past Medical History / Comment(s): Tachy/tracey syndrome with pacemaker, PVD, bilateral intermittent claudication, varicosities, GEO with Cpap, hypothyroid, vertigo, kidney stones surgically removed, skin cancer removed from nose, past shingelles. History of Any Multi-Drug Resistant Organisms: None Reported Past Surgical History: Appendectomy, Cholecystectomy, Heart Catheterization, Heart Catheterization With Stent, Joint Replacement, Pacemaker, Tonsillectomy Additional Past Surgical History / Comment(s): Cardioversion, 2008 Aortic valve replacement/bovine, pacemaker originally placed 2008 with gen change 2013, PCI with stent 1998, R groin hemotoma with evacuation of clot, bilateral vascular procedures/aortagram with runoffs/ arteriogram/arthrectomy with stent SFA, bilateral total knee arthroplasties, colonoscopy, skin cancer removal, bilateral cataract removals. Past Anesthesia/Blood Transfusion Reactions: No Reported Reaction, Motion Sickness Additional Past Anesthesia/Blood Transfusion Reaction / Comm: No problems with prior blood transfusions. Date of Last Stent Placement:: 1998 Type of Cardiac Device: Permanent Pacemaker Device Placement Date:: 2008 device/gen change 2013 Past Psychological History: Anxiety, Depression Additional Psychological History / Comment(s): Pt resides with her spouse. She uses a walker to ambulate. She no longer drives. Her spouse is able to assist her when needed and can drive. Lately, spouse has been managing her medications. Smoking Status: Second hand smoke exposure Past Alcohol Use History: None Reported Additional Past Alcohol Use History / Comment(s): Patient is a lifelong nonsmoker but she was exposed to secondhand smoke. Past Drug Use History: None Reported - Past Family History Mother Family Medical History: Cancer Additional Family Medical History / Comment(s): skin CA Father Family Medical History: Cancer Additional Family Medical History / Comment(s): stomach ulcer at age 52 Brother(s) Additional Family Medical History / Comment(s): Patient has 6 brothers and one is known to have coronary artery disease. Patient is no sisters. Patient has 4 children one has Crohn's disease and one has rheumatoid arthritis. Medications and Allergies Home Medications Medication Instructions Recorded Confirmed Type Levothyroxine Sodium [Synthroid] 50 mcg PO DAILY 08/24/18 08/17/21 History Montelukast [Singulair] 10 mg PO HS 08/24/18 08/17/21 History Apixaban [Eliquis] 5 mg PO BID #180 tab 11/28/18 08/17/21 Rx Metoprolol Succinate (ER) [Toprol 100 mg PO HS 12/19/18 08/17/21 History XL] Pravastatin Sodium [Pravachol] 10 mg PO DAILY 12/19/18 08/17/21 History Ubidecarenone [Co Q-10] 100 mg PO DAILY 09/11/20 08/17/21 History Furosemide [Lasix] 40 mg PO BID@0900,1600 tab 09/13/20 08/17/21 Rx Citalopram Hydrobromide [CeleXA] 20 mg PO DAILY 08/17/21 08/17/21 History Meclizine [Antivert] 12.5 mg PO BID PRN 08/17/21 08/17/21 History Midodrine [ProAmatine] 5 mg PO TID 08/17/21 08/17/21 History dexAMETHasone 4 mg PO DAILY 08/17/21 08/17/21 History metOLazone [Zaroxolyn] 2.5 mg PO MOWEFR 08/17/21 08/17/21 History Allergies Allergy/AdvReac Type Severity Reaction Status Date / Time amlodipine [From Lotrel] Allergy Unknown Verified 08/17/21 16:47 benazepril [From Lotrel] Allergy Unknown Verified 08/17/21 16:47 cephalexin [From Keflex] Allergy Rash/Hives Verified 08/17/21 16:47 clindamycin Allergy Rash/Hives Verified 08/17/21 16:47 doxazosin [From Cardura] Allergy Unknown Verified 08/17/21 16:47 hydrochlorothiazide Allergy Unknown Verified 08/17/21 16:47 [From Maxzide] isosorbide [From Imdur] Allergy Anaphylaxis Verified 08/17/21 16:47 metoprolol [From Toprol XL] Allergy Unknown Verified 08/17/21 16:47 ramipril [From Altace] Allergy Anaphylaxis Verified 08/17/21 16:47 sulfamethoxazole Allergy severe Verified 08/17/21 16:47 [From Bactrim] skin reaction triamterene [From Maxzide] Allergy Unknown Verified 08/17/21 16:47 trimethoprim [From Bactrim] Allergy severe Verified 08/17/21 16:47 skin reaction valsartan [From Diovan] Allergy severe Verified 08/17/21 16:47 headache clonidine [From Catapres] AdvReac anxious Verified 08/17/21 16:47 diltiazem AdvReac severe Verified 08/17/21 16:47 headache Penicillins AdvReac "passes Verified 08/17/21 16:47 out" oral steroids AdvReac Afib Uncoded 08/17/21 16:47 Physical Exam Vitals: Vital Signs Temp Pulse Pulse Resp BP BP Pulse Ox 08/19/21 11:45 97.6 F 60 15 128/85 99 08/19/21 08:00 60 16 08/19/21 07:51 97.4 F L 60 16 130/84 97 08/19/21 03:45 59 L 17 121/82 95 08/18/21 23:35 60 19 138/88 93 L 08/18/21 19:50 98.1 F 60 18 134/88 98 08/18/21 17:52 98.1 F 80 14 136/82 97 Intake and Output 08/18/21 08/19/21 08/19/21 22:59 06:59 14:59 Intake Total 400 Balance 400 Intake: Oral 400 Other: Voiding Method Toilet Toilet Toilet # Voids 1 1 Weight 72.575 kg Results CBC & Chem 7: 08/19/21 07:39 08/19/21 07:39 Labs: Abnormal Lab Results - Last 24 Hours (Table) 08/19/21 08/19/21 Range/Units 07:39 07:39 Hct 47.0 H (34.0-46.0) % MCHC 29.5 L (31.0-37.0) g/dL RDW 17.1 H (11.5-15.5) % Plt Count 103 L (150-450) k/uL Lymphocytes # 0.9 L (1.0-4.8) k/uL Sodium 136 L (137-145) mmol/L Chloride 96 L (98-107) mmol/L Carbon Dioxide 34 H (22-30) mmol/L BUN 83 H (7-17) mg/dL Creatinine 1.48 H (0.52-1.04) mg/dL Glucose 120 H (74-99) mg/dL Microbiology - Last 24 Hours (Table) 08/17/21 16:26 Urine Culture - Final Urine,Clean Catch Assessment and Plan (1) Skin tear of right hand without complication Current Visit: Yes Status: Acute Code(s): S61.411A - LACERATION WITHOUT FOREIGN BODY OF RIGHT HAND, INIT ENCNTR SNOMED Code(s): 577415658 (2) Non-pressure chronic ulcer of skin of other sites limited to breakdown of skin Current Visit: Yes Status: Acute Code(s): L98.491 - NON-PRS CHRONIC ULCER SKIN/ SITES LIMITED TO BRKDWN SKIN SNOMED Code(s): 22293482
--- NOTE | 2021-08-19 13:55 | P.PN ---
Subjective Progress Note Date: 08/19/21 HISTORY OF PRESENT ILLNESS This is a 80-year-old female patient of Dr. Cheema and Dr. 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 Pike on Xolair injections. Patient patient states that she was feeling dizzy and hit her hand on the table, obtain skin tear to the right hand that was bleeding significantly. She denies any other injuries and no loss consciousness. She also gives history of a fall about 2 months ago where she hit her head and did not seek treatment at that time. She also gives history of having pain muscle pain secondary to statins and was taking CoQ10. She is also obtain the Materna vaccine on 08/07 and has had significant pain in her arm since that and has been on Benadryl and steroids. Allyson lan initially presented to urgent care and was subsequently sent to the hospital for further evaluation. Patient presented to [facility] emergency center for evaluation. Patient was afebrile, heart rate 61, blood pressure 131/80, pulse ox 90% on room air. EKG is ventricular pacer. WBC 6.5, hemoglobin 13.9, platelet count 102. Sodium 134, potassium 2.9, chloride 88, CO2 36, BUN 100 creatinine 2.01. Blood sugar 95. INR 1.6. Calcium 10.7. Total bilirubin 3.7, AST 62, ALT 27, alkaline phosphatase 153. Coronavirus PCR not detected. Troponin 0.098, 0.077 and 0.086. Magnesium 2.6. Urinalysis was leukoesterase large, WBCs 53. X-ray bilateral hips showed no acute abnormality. Bilateral femur x-ray revealed no acute abnormality. X-ray right wrist no acute fracture or dislocation. CAT scan of the brain and cervical spine revealed no acute intracranial hemorrhage, mass effect or midline shift. There is approximately 4 mm of posterior displacement of the left occipital condyle relative lateral mass of C1. There is a likely chronic fracture of the posterior arch of C2 on the left with 1.6 cm well corticated ossific fragment directed towards the posterior paraspinal soft tissues there is a mild deformity of the posterior arch of C3 on the left. Likely related to healed fracture. There is chronic grade 1 anterior listhesis of C7 on T1. Chest x-ray reveals chronic changes and cardiomegaly without acute pulmonary process. Patient is seen today in the emergency center waiting for a bed on the cardiac stepdown unit, consults and placed with cardiology and nephrology, wound care center consult added. 08/19: Patient has been afebrile, heart rate 60, blood pressure 128/85, pulse ox 99% on room air. Repeat blood work reveals WBC 6.2, hemoglobin 13.9, platelet count 103. Sodium 136, potassium 4.1, chloride 96, CO2 34, BUN 83 and creatinine 1.48. Blood sugar 120. Hemoglobin A1c ordered. Patient has been seen by nephrology for acute kidney injury with recommendations to continue IV fluids, hold diuretics, continue midodrine, monitor renal function. Patient has been seen by cardiology and acute coronary syndrome has been ruled out, pacemaker to be interrogated, recommend continuing eliquis metoprolol and statin. Echocardiogram reveals EF of 55-60% with moderate concentric left ventricular hypertrophy, moderate aortic stenosis, moderate mitral calcification, mild mitral regurgitation, moderate mitral stenosis, severe tricuspid regurgitation, mild pulmonary hypertension. Renal ultrasound revealed atrophic left kidney. No definite hydronephrosis on either side. Lobulated masslike area measuring 3.2 cm adjacent to the left kidney and spleen. Further contrast-enhanced CAT scan of the abdomen and pelvis recommended to exclude new mass. Consult with urologist been added. Patient has been seen by Wound Center with recommendations to apply zinc nonadherent dressing and wrap with rolled gauze and change every other day. This is a wound to her right dorsal hand. Patient may follow-up in the Wound Center if needed. Discharge plan is to return home with homecare. REVIEW OF SYSTEMS Constitutional: No fever, no chills, no night sweats. No weight change. No weakness, fatigue or lethargy. No daytime sleepiness. EENT: No headache. No blurred vision or double vision, no loss of vision. No loss of Hearing, no ringing in the ears, reports dizziness. No nasal drainage or congestion. No epistaxis. No sore throat. Lungs: Denies shortness of breath, cough, no sputum production. No wheezing. Cardiovascular: No chest pain, no lower extremity edema. No palpitations. No paroxysmal nocturnal dyspnea. No orthopnea. No lightheadedness reports dizziness. No syncopal episodes. Abdominal: No abdominal pain. No nausea, vomiting. No diarrhea. No constipation. No bloody or tarry stools.. No loss of appetite. Genitourinary: No dysuria, increased frequency, urgency. No urinary retention. Musculoskeletal: No myalgias. No muscle weakness, no gait dysfunction, no frequent falls. No back pain. No neck pain. Integumentary: Reports right hand wounds, no lesions. No rash or pruritus. No unusual bruising. No change in hair or nails. Neurologic: No aphasia. No facial droop. No change in mentation. No head injury. No headache. No paralysis. No paresthesia. Psychiatric: No depression. No anxiety. No mood swings. Endocrine: Noted abnormal blood sugars. No weight change. PHYSICAL EXAMINATION Gen: This is a 80-year-old female. Patient is resting in recliner and appears comfortable and in no acute distress. HEENT: Head is atraumatic, normocephalic. Pupils equal, round. Sclerae is anicteric. NECK: Supple. No JVD. No lymphadenopathy. No thyromegaly. LUNGS: Clear to auscultation. No wheezes or rhonchi. No intercostal retractions. HEART: Regular rate and rhythm. Systolic ejection murmur. ABDOMEN: Soft. Bowel sounds are present. No masses. No tenderness. EXTREMITIES: No pedal edema. No calf tenderness. NEUROLOGICAL: Patient is awake, alert and oriented x3. Cranial nerves 2 through 12 are grossly intact. ASSESSMENT AND PLAN 1. Dizziness most likely secondary to acute kidney injury, dehydration and moderate aortic stenosis. Continue cardiac monitoring. 2. Acute kidney injury. Avoid nephrotoxic agents, hold Lasix and metolazone. 3. Acute urinary tract infection. Patient will be started on doxycycline 100 mg twice daily, urine culture. 4. Elevated troponins and acute coronary syndrome ruled out. Consult with cardiology. 5. Persistent atrial fibrillation status post ventricular pacemaker. Continue eliquis 5 mg twice daily, metoprolol 100 mg at bedtime. 6. Hypokalemia status post replacement. 7. Hypertension. Continue Toprol-XL, hold Lasix. 8. Moderate persistent asthma without exacerbation. Patient follows with Dr. Pike. Continue Singulair. 9. Hyperlipidemia. Continue pravastatin 10. Hypothyroidism. Continue levothyroxine 50 g daily. 11. Status post aortic valve replacement. 12. Peripheral vascular disease status post atherectomy and stent placement to October 2018. 13. Obstructive sleep apnea on CPAP. Continue CPAP 14. Generalized anxiety disorder. 15. Elevated blood sugar readings. Obtain hemoglobin A1c. 16. Valvular heart disease with moderate aortic stenosis, mild mitral regurgitation, moderate mitral stenosis, severe tricuspid regurgitation and mild pulmonary hypertension. 17. DVT prophylaxis. Continue eliquis. 18. GI prophylaxis. Pepcid. Patient will be admitted to the hospital for a minimum of 2 night stay. DISCHARGE PLAN Home with [facility]. Consult PT and OT. Impression and plan of care have been directed as dictated by the signing physician. Vickie Garg nurse practitioner acting as scribe for signing physician. Objective - Vital Signs Vital signs: Vital Signs Temp 97.4 F L 08/19/21 07:51 Pulse 60 08/19/21 07:51 Resp 16 08/19/21 07:51 BP 130/84 08/19/21 07:51 Pulse Ox 97 08/19/21 07:51 Intake & Output 08/18/21 08/19/21 08/19/21 18:59 06:59 18:59 Weight 72.575 kg Other: Voiding Method Toilet # Voids 1 - Labs CBC & Chem 7: 08/19/21 07:39 08/19/21 07:39 Labs: Abnormal Lab Results - Last 24 Hours (Table) 08/18/21 08/18/21 Range/Units 08:56 08:56 Sodium 134 L (137-145) mmol/L Chloride 95 L (98-107) mmol/L Carbon Dioxide 31 H (22-30) mmol/L BUN 99 H (7-17) mg/dL Creatinine 1.83 H (0.52-1.04) mg/dL Glucose 147 H (74-99) mg/dL Calcium 10.4 H (8.4-10.2) mg/dL Magnesium 2.5 H (1.6-2.3) mg/dL Total Bilirubin 3.0 H (0.2-1.3) mg/dL AST 61 H (14-36) U/L Troponin I 0.086 H* (0.000-0.034) ng/mL Microbiology - Last 24 Hours (Table) 08/17/21 16:26 Urine Culture - Final Urine,Clean Catch
--- NOTE | 2021-08-19 14:09 | P.PN ---
Subjective This is a pleasant 79-year-old female past medical history significant for chronic heart failure with preserved ejection fraction, pulmonary hypertension, hypertension, valvular heart disease status post TAVR in 2008, atrial fibrillation status post AV node ablation, BiV pacemaker and coronary artery disease status post PCI in 1998, obstructive sleep apnea wears CPAP, history of vertigo. She follows in the office with Dr. Patel. We have been asked to see in consultation for elevated troponin. Patient presents to the emergency department with episode of dizziness and fall yesterday evening around 5PM. Patient states last week she received her Covid vaccine had side effects of arm soreness, itching. She states she was started on a steroid and has been taking it for 5 days. She also states she was taking benadryl as well at home. She stat es yesterday she stood up and was walking with her walker at home and had episode of dizziness and fell to the ground. She states that she put her hand out to stop her fall hitting a table sustaining a skin tear to her right hand and wrist. She did go to urgent care and they recommended she come to the emergency room for evaluation. She also endorses decrease PO intake. 08/19/21 Patient seen and examined at bedside, no distress. She denies any further dizziness or lightheadedness. Echocardiogram revealed EF 55-60%, LA severely dilated, RA ventricle is severely enlarged, moderate aortic stenosis with exertion gradient of 31 mmHg/ 20 mmHg, mild mitral regurgitation, moderate mitral stenosis, mild pulmonary hypertension. Telemetry reviewed, patient is paced with heart rates in the 60s Patient is currently maintained on Eliquis 5 mg twice a day, metoprolol succinate 100 mg nightly, pravastatin 10 mg daily, IV fluids Labs, sodium 136, potassium 4.1, BUN 83, serum creatinine 1.4, magnesium 2.3 PHYSICAL EXAMINATION Vitals reviewed CONSTITUTIONAL: No apparent distress. HEENT: Neck Supple. No JVD. CHEST EXAMINATION: Lungs are clear to auscultation. No chest wall tenderness is noted on palpation or with deep breathing. HEART EXAMINATION: Irregular rate and rhythm. S1, S2 heard. Systolic ejection murmur at the base, no gallops or rub. ABDOMEN: Soft, nontender. Positive bowel sounds. EXTREMITIES: 2+ peripheral pulses, bilateral lower extremity non-pitting edema and no calf tenderness. NEUROLOGIC EXAMINATION: Patient is awake, alert and oriented x3. ASSESSMENT Elevated troponin, not indicative of acute coronary syndrome, likely related to acute kidney injury, no chest pain or evidence of ischemia on EKG Acute Kidney Injury Dizziness could be related to recent benadryl use History of Vertigo Chronic heart failure with preserved ejection fraction Chronic kidney disease Hypertension Coronary artery disease s/p PCI 1998 Valvular heart disease s/p bovine aortic valve replacement 2008 BiV pacemaker implantation Permanent atrial fibrillation on eliquis Mitral stenosis Aortic stenosis PLAN: Patient's kidney function improved with IV Fluids, no further dizziness or ligh theadedness, no chest pain or shortness of breath. Her symptoms of dizziness are likely medication related and dehydration. We will obtain Device Interrogation. Continue cardiac telemetry Continue home Eliquis, metoprolol, and statin Would continue to hold Lasix and metolazone On discharge patient to follow up with Dr. Patel Further recommendations to follow based on clinical course. Nurse Practitioner note has been reviewed, I agree with a documented findings and plan of care. Patient was seen and examined. Objective - Vital Signs Vital signs: Vital Signs Temp 97.6 F 08/19/21 11:45 Pulse 60 08/19/21 11:45 Resp 15 08/19/21 11:45 BP 128/85 08/19/21 11:45 Pulse Ox 99 08/19/21 11:45 Intake & Output 08/18/21 08/19/21 08/19/21 18:59 06:59 18:59 Intake Total 640 Balance 640 Weight 72.575 kg 72.575 kg Intake: Oral 640 Other: Voiding Method Toilet Toilet # Voids 1 - Labs CBC & Chem 7: 08/19/21 07:39 08/19/21 07:39 Labs: Abnormal Lab Results - Last 24 Hours (Table) 08/19/21 08/19/21 Range/Units 07:39 07:39 Hct 47.0 H (34.0-46.0) % MCHC 29.5 L (31.0-37.0) g/dL RDW 17.1 H (11.5-15.5) % Plt Count 103 L (150-450) k/uL Lymphocytes # 0.9 L (1.0-4.8) k/uL Sodium 136 L (137-145) mmol/L Chloride 96 L (98-107) mmol/L Carbon Dioxide 34 H (22-30) mmol/L BUN 83 H (7-17) mg/dL Creatinine 1.48 H (0.52-1.04) mg/dL Glucose 120 H (74-99) mg/dL Microbiology - Last 24 Hours (Table) 08/17/21 16:26 Urine Culture - Final Urine,Clean Catch
--- NOTE | 2021-08-19 15:04 | P.PN ---
Subjective Principal diagnosis: Patient is seen for follow-up for acute kidney injury. It is mostly prerenal. Patient is maintained on IV fluids and her renal function has improved. Creatinine is down to 1.48. Calcium has also improved to 9.9 today. Good urine output. Patient denies any complaints today. Objective - Vital Signs Vital signs: Vital Signs Temp 97.6 F 08/19/21 11:45 Pulse 60 08/19/21 11:45 Resp 15 08/19/21 11:45 BP 128/85 08/19/21 11:45 Pulse Ox 99 08/19/21 11:45 Intake & Output 08/18/21 08/19/21 08/19/21 18:59 06:59 18:59 Intake Total 640 Balance 640 Weight 72.575 kg 72.575 kg Intake: Oral 640 Other: Voiding Method Toilet Toilet # Voids 1 - Exam Patient is awake comfortable. She is alert and oriented 3. Examination of the heart S1 and S2 Examination lungs bilateral breath sounds are heard Abdomen is soft obese nontender Examination of lower extremities shows chronic edema. Chronic skin changes noted. [employer] exam is grossly intact. - Labs CBC & Chem 7: 08/19/21 07:39 08/19/21 07:39 Labs: Abnormal Lab Results - Last 24 Hours (Table) 08/19/21 08/19/21 Range/Units 07:39 07:39 Hct 47.0 H (34.0-46.0) % MCHC 29.5 L (31.0-37.0) g/dL RDW 17.1 H (11.5-15.5) % Plt Count 103 L (150-450) k/uL Lymphocytes # 0.9 L (1.0-4.8) k/uL Sodium 136 L (137-145) mmol/L Chloride 96 L (98-107) mmol/L Carbon Dioxide 34 H (22-30) mmol/L BUN 83 H (7-17) mg/dL Creatinine 1.48 H (0.52-1.04) mg/dL Glucose 120 H (74-99) mg/dL Microbiology - Last 24 Hours (Table) 08/17/21 16:26 Urine Culture - Final Urine,Clean Catch Assessment and Plan Assessment: 1. Acute kidney injury, mostly prerenal, currently improving with IV fluids. No evidence of hydronephrosis on ultrasound. 2. Chronic kidney disease NKF stage III with previous creatinine 1.2 in September 2020. UA is completely benign with no proteinuria or hematuria noted. Mostly nephrosclerosis 3. Pyuria rule out urinary tract infection 4. Chronic A. fib status post pacemaker, maintained on a liquid is for anticoagulation and metoprolol for rate control 5. Hypokalemia status post replacement 6. Elevated troponins being followed by cardiology, unlikely acute coronary syndrome. Plan: 1. Discontinue IV fluids 2. Continue empiric antibiotics and follow-up on results of urine culture 3. Agree with holding diuretics. 4. Continue with midodrine 5. Check labs in am
--- NOTE | 2021-08-19 15:36 | P.GSCN ---
History of Present Illness Consult date: 08/19/21 History of present illness: 80 yo female in the hospital for dizziness. SHe has multiple medial problems outlined in the pmh. THe patient has crf/arf. AN us of the abdomen was done identifying a mass in between the spleen and left kidney. The patient has an atrophic left kidney. A ct scan in 2019 showed the scarring of the kidney where the lower pole was worse than the upper pole No mass was seen then.Her urine does not show blood. She however states that she has had recurrent gross hematuria for many years. She states she has a history of stones. Review of Systems All systems: negative - Constitutional Denies fever, Denies weight loss - EENT Eyes: denies blurred vision Ears, nose, mouth and throat: Denies dysphagia - Cardiovascular Denies chest pain, Denies shortness of breath - Respiratory Denies cough, Denies 7 - Gastrointestinal Reports as per HPI - Genitourinary Genitourinary: Denies dysuria, Denies hematuria - Integumentary Denies rash, Denies unusual bruising - Neurological Denies headaches, Denies syncope - Hematologic/Lymphatic Denies easy bleeding, Denies easy bruising Past Medical History Past Medical History: Atrial Fibrillation, Asthma, Coronary Artery Disease (CAD), Cancer, Heart Failure, COPD, Hyperlipidemia, Hypertension, Osteoarthritis (OA), Sleep Apnea/CPAP/BIPAP, Thyroid Disorder, Vascular Disorder Additional Past Medical History / Comment(s): Tachy/tracey syndrome with pacemaker, PVD, bilateral intermittent claudication, varicosities, GEO with Cpap, hypothyroid, vertigo, kidney stones surgically removed, skin cancer removed from nose, past shingelles. History of Any Multi-Drug Resistant Organisms: None Reported Past Surgical History: Appendectomy, Cholecystectomy, Heart Catheterization, Heart Catheterization With Stent, Joint Replacement, Pacemaker, Tonsillectomy Additional Past Surgical History / Comment(s): Cardioversion, 2009 Aortic valve replacement/bovine, pacemaker originally placed 2008 with gen change 2013, PCI with stent 1998, R groin hemotoma with evacuation of clot, bilateral vascular procedures/aortagram with runoffs/ arteriogram/arthrectomy with stent SFA, bilateral total knee arthroplasties, colonoscopy, skin cancer removal, bilateral cataract removals. Past Anesthesia/Blood Transfusion Reactions: No Reported Reaction, Motion Sickness Additional Past Anesthesia/Blood Transfusion Reaction / Comm: No problems with prior blood transfusions. Date of Last Stent Placement:: 1998 Type of Cardiac Device: Permanent Pacemaker Device Placement Date:: 2008 device/gen change 2013 Past Psychological History: Anxiety, Depression Additional Psychological History / Comment(s): Pt resides with her spouse. She uses a walker to ambulate. She no longer drives. Her spouse is able to assist her when needed and can drive. Lately, spouse has been managing her me dications. Smoking Status: Second hand smoke exposure Past Alcohol Use History: None Reported Additional Past Alcohol Use History / Comment(s): Patient is a lifelong nonsmoker but she was exposed to secondhand smoke. Past Drug Use History: None Reported - Past Family History Mother Family Medical History: Cancer Additional Family Medical History / Comment(s): skin CA Father Family Medical History: Cancer Additional Family Medical History / Comment(s): stomach ulcer at age 52 Brother(s) Additional Family Medical History / Comment(s): Patient has 6 brothers and one is known to have coronary artery disease. Patient is no sisters. Patient has 4 children one has Crohn's disease and one has rheumatoid arthritis. Medications and Allergies Home Medications Medication Instructions Recorded Confirmed Type Levothyroxine Sodium [Synthroid] 50 mcg PO DAILY 08/24/18 08/17/21 History Montelukast [Singulair] 10 mg PO HS 08/24/18 08/17/21 History Apixaban [Eliquis] 5 mg PO BID #180 tab 11/28/18 08/17/21 Rx Metoprolol Succinate (ER) [Toprol 100 mg PO HS 12/19/18 08/17/21 History XL] Pravastatin Sodium [Pravachol] 10 mg PO DAILY 12/19/18 08/17/21 History Ubidecarenone [Co Q-10] 100 mg PO DAILY 09/11/20 08/17/21 History Furosemide [Lasix] 40 mg PO BID@0900,1600 tab 09/13/20 08/17/21 Rx Citalopram Hydrobromide [CeleXA] 20 mg PO DAILY 08/17/21 08/17/21 History Meclizine [Antivert] 12.5 mg PO BID PRN 08/17/21 08/17/21 History Midodrine [ProAmatine] 5 mg PO TID 08/17/21 08/17/21 History dexAMETHasone 4 mg PO DAILY 08/17/21 08/17/21 History metOLazone [Zaroxolyn] 2.5 mg PO MOWEFR 08/17/21 08/17/21 History Allergies Allergy/AdvReac Type Severity Reaction Status Date / Time amlodipine [From Lotrel] Allergy Unknown Verified 08/17/21 16:47 benazepril [From Lotrel] Allergy Unknown Verified 08/17/21 16:47 cephalexin [From Keflex] Allergy Rash/Hives Verified 08/17/21 16:47 clindamycin Allergy Rash/Hives Verified 08/17/21 16:47 doxazosin [From Cardura] Allergy Unknown Verified 08/17/21 16:47 hydrochlorothiazide Allergy Unknown Verified 08/17/21 16:47 [From Maxzide] isosorbide [From Imdur] Allergy Anaphylaxis Verified 08/17/21 16:47 metoprolol [From Toprol XL] Allergy Unknown Verified 08/17/21 16:47 ramipril [From Altace] Allergy Anaphylaxis Verified 08/17/21 16:47 sulfamethoxazole Allergy severe Verified 08/17/21 16:47 [From Bactrim] skin reaction triamterene [From Maxzide] Allergy Unknown Verified 08/17/21 16:47 trimethoprim [From Bactrim] Allergy severe Verified 08/17/21 16:47 skin reaction valsartan [From Diovan] Allergy severe Verified 08/17/21 16:47 headache clonidine [From Catapres] AdvReac anxious Verified 08/17/21 16:47 diltiazem AdvReac severe Verified 08/17/21 16:47 headache Penicillins AdvReac "passes Verified 08/17/21 16:47 out" oral steroids AdvReac Afib Uncoded 08/17/21 16:47 Surgical - Exam Vital Signs Temp Pulse Resp BP Pulse Ox 98.1 F 61 18 131/80 98 08/17/21 13:24 08/17/21 13:24 08/17/21 13:24 08/17/21 13:24 08/17/21 13:24 - General well developed, well nourished, no distress - Eyes PERRL - ENT no hearing loss - Neck trachea midline - Respiratory normal expansion, normal respiratory effort - Cardiovascular Rhythm: regular - Abdomen Abdomen: soft, non tender - Integumentary no rash, no growths - Neurologic normal sensation - Musculoskeletal normal posture - Psychiatric oriented to time, oriented to person, oriented to place, speech is normal, memory intact Results - Labs 08/19/21 07:39 08/19/21 07:39 Abnormal Lab Results - Last 24 Hours (Table) 08/19/21 Range/Units 07:39 Sodium 136 L (137-145) mmol/L Chloride 96 L (98-107) mmol/L Carbon Dioxide 34 H (22-30) mmol/L BUN 83 H (7-17) mg/dL Creatinine 1.48 H (0.52-1.04) mg/dL Glucose 120 H (74-99) mg/dL Microbiology - Last 24 Hours (Table) 08/17/21 16:26 Urine Culture - Final Urine,Clean Catch Diabetes panel 08/19/21 Range/Units 07:39 Sodium 136 L (137-145) mmol/L Potassium 4.1 (3.5-5.1) mmol/L Chloride 96 L (98-107) mmol/L Carbon Dioxide 34 H (22-30) mmol/L BUN 83 H (7-17) mg/dL Creatinine 1.48 H (0.52-1.04) mg/dL Glucose 120 H (74-99) mg/dL Calcium 9.9 (8.4-10.2) mg/dL Calcium panel 08/19/21 Range/Units 07:39 Calcium 9.9 (8.4-10.2) mg/dL Pituitary panel 08/19/21 Range/Units 07:39 Sodium 136 L (137-145) mmol/L Potassium 4.1 (3.5-5.1) mmol/L Chloride 96 L (98-107) mmol/L Carbon Dioxide 34 H (22-30) mmol/L BUN 83 H (7-17) mg/dL Creatinine 1.48 H (0.52-1.04) mg/dL Glucose 120 H (74-99) mg/dL Calcium 9.9 (8.4-10.2) mg/dL Adrenal panel 08/19/21 Range/Units 07:39 Sodium 136 L (137-145) mmol/L Potassium 4.1 (3.5-5.1) mmol/L Chloride 96 L (98-107) mmol/L Carbon Dioxide 34 H (22-30) mmol/L BUN 83 H (7-17) mg/dL Creatinine 1.48 H (0.52-1.04) mg/dL Glucose 120 H (74-99) mg/dL Calcium 9.9 (8.4-10.2) mg/dL - Imaging CT scan - abdomen: report reviewed, image reviewed CT scan - pelvis: report reviewed, image reviewed US - kidney/bladder: report reviewed, image reviewed Assessment and Plan Assessment: Impression: Atypical mass in retroperitoneum between kidney and spleen of indeterminate etiology based on ultrasound, history of hematuria. Acute and chronic renal failure. History of stones Recommendations: A computed tomography scan of the abdomen should be obtained to assess the mass further. Unfortunately contrast cannot be given. Hopefully with the CAT scan and ultrasound findings we can clarify exactly what this lesion is. Time with Patient: Greater than 30
[2021-08-19] MEDS: METOPROLOL SUCCINATE (ER) 100 MG TAB.ER.24H PO SCH (21:22)
[2021-08-19] MEDS: MONTELUKAST 10 MG TAB PO SCH (21:22)
[2021-08-19] MEDS ORDERED: MELATONIN 5 MG TABLET PO PRN (22:25)
[2021-08-20] MEDS: MIDODRINE 5 MG TAB PO SCH ×3 (06:18→16:42)
[2021-08-20] MEDS: LEVOTHYROXINE 50 MCG TAB PO SCH (06:19)
--- NOTE | 2021-08-20 07:38 | CT ---
EXAMINATION TYPE: CT abdomen pelvis wo con DATE OF EXAM: 08/20/2021 COMPARISON: Ultrasound dated 08/18/2021 HISTORY: Mass near Kidney on recent ultrasound CT DLP: 582.4 mGycm Examination of the solid and hollow viscera is limited given the lack of contrast. FINDINGS: LUNG BASES: No evidence for nodule. No evidence for infiltrate. Small bilateral pleural effusions. Th ere is evidence of cardiomegaly. LIVER/GB: The gallbladder is unremarkable. No space-occupying hepatic lesion. PANCREAS: No pancreatic mass identified. No inflammatory process seen. SPLEEN: No evidence for splenomegaly. No intrasplenic lesions seen. ADRENALS: No adrenal nodules identified. No evidence for thickening. KIDNEYS: Lobulated masslike area seen on recent ultrasound measuring 3.2 cm adjacent to the left kidn ey and spleen is not visualized and may have reflected a loop of bowel. Atrophic change of the left kidney. Nonobstructing calculus mid to upper pole right kidney measuring 3 mm. No evidence for renal mass. No hydronephrosis. BOWEL: Appendix has a normal appearance. No evidence of bowel obstruction. No inflammatory process. Lymph nodes: No evidence for adenopathy greater than 1 cm. Abdominal aorta: Atheromatous changes seen. No evidence for aneurysm. Genital organs: No significant abnormality. Other: There is evidence of a megacava. Small amount of ascites within the pelvis. IMPRESSION: 1.Lobulated masslike area seen on recent ultrasound measuring 3.2 cm adjacent to the left kidney and spleen is not visualized and may have reflected a loop of bowel. 2. Small bilateral pleural effusions and cardiomegaly. 3. Atrophic change left kidney. 4. Megacava noted.
[2021-08-20] MEDS: ACETAMINOPHEN TAB 325 MG TAB PO PRN (08:43)
[2021-08-20] MEDS: PRAVASTATIN SODIUM 20 MG TAB PO SCH (08:44)
[2021-08-20] MEDS: FAMOTIDINE 20 MG TAB PO SCH (08:44)
[2021-08-20] MEDS: dexAMETHasone 4 MG TAB PO SCH (08:44)
[2021-08-20] MEDS: DOXYCYCLINE 100 MG CAP PO SCH (08:44)
[2021-08-20] MEDS: CITALOPRAM HYDROBROMIDE 20 MG TAB PO SCH (08:44)
[2021-08-20] MEDS: APIXABAN 5 MG TAB PO SCH (08:44)
--- NOTE | 2021-08-20 09:05 | P.PN ---
Subjective Progress Note Date: 08/20/21 The patient was seen for a possible left renal mass. This is done on ultrasound. A computed tomography scan in 2019 did not identify anything. I did a computed tomography scan yesterday and there also was not a mass. The radiologist felt that it probably was confusion with bowel. From a urologic standpoint nothing further needs to be done. There is a tiny stone in the right kidney that is asymptomatic which should be left alone Objective - Vital Signs Vital signs: Vital Signs Temp 98.4 F 08/20/21 04:00 Pulse 67 08/20/21 04:00 Resp 18 08/20/21 04:00 BP 156/99 08/20/21 04:00 Pulse Ox 97 08/20/21 04:00 Intake & Output 08/19/21 08/20/21 08/20/21 18:59 06:59 18:59 Intake Total 1640 10 Output Total 3 600 Balance 1637 -590 Weight 72.575 kg Intake: IV 10 0.9 10 Oral 1640 Output: Urine 3 600 Other: Voiding Method Toilet Toilet # Voids 1 - Labs CBC & Chem 7: 08/19/21 07:39 08/19/21 07:39 Labs: Abnormal Lab Results - Last 24 Hours (Table) 08/19/21 08/19/21 Range/Units 07:39 07:39 Hct 47.0 H (34.0-46.0) % MCHC 29.5 L (31.0-37.0) g/dL RDW 17.1 H (11.5-15.5) % Plt Count 103 L (150-450) k/uL Lymphocytes # 0.9 L (1.0-4.8) k/uL Hemoglobin A1c 6.6 H (0.0-6.0) %
[2021-08-20 09:43] LABS: Calcium 10.5 mg/dL (8.4-10.2)
--- NOTE | 2021-08-20 11:58 | P.PN ---
Subjective Principal diagnosis: Patient is seen for follow-up for acute kidney injury. It is mostly prerenal. Patient is status post IV fluids and her renal function has improved. Creatinine is down to 1.5 Good urine output. Patient denies any complaints today. Objective - Vital Signs Vital signs: Vital Signs Temp 98.0 F 08/20/21 08:35 Pulse 65 08/20/21 08:35 Resp 18 08/20/21 08:35 BP 123/68 08/20/21 08:35 Pulse Ox 96 08/20/21 08:35 Intake & Output 08/19/21 08/20/21 08/20/21 18:59 06:59 18:59 Intake Total 1640 10 Output Total 3 600 350 Balance 1637 -590 -350 Weight 72.575 kg Intake: IV 10 0.9 10 Oral 1640 Output: Urine 3 600 350 Other: Voiding Method Toilet Toilet Toilet # Voids 1 - Exam Patient is awake comfortable. She is alert and oriented 3. Examination of the heart S1 and S2 Examination lungs bilateral breath sounds are heard Abdomen is soft obese nontender Examination of lower extremities shows chronic edema. Chronic skin changes noted. [employer]ESSION[employer] exam is grossly intact. - Labs CBC & Chem 7: 08/19/21 07:39 08/20/21 08:37 Labs: Abnormal Lab Results - Last 24 Hours (Table) 08/19/21 08/20/21 Range/Units 07:39 08:37 Sodium 135 L (137-145) mmol/L BUN 71 H (7-17) mg/dL Creatinine 1.54 H (0.52-1.04) mg/dL Glucose 160 H (74-99) mg/dL Hemoglobin A1c 6.6 H (0.0-6.0) % Calcium 10.5 H (8.4-10.2) mg/dL Assessment and Plan Assessment: 1. Acute kidney injury, mostly prerenal, improved with IV hydration. No evidence of hydronephrosis on ultrasound. 2. Chronic kidney disease NKF stage III with previous creatinine 1.2 in September 2020. UA is completely benign with no proteinuria or hematuria noted. Mostly nephrosclerosis 3. Pyuria, urine culture did not show any specific organism. 4. Chronic A. fib status post pacemaker, maintained on a liquid is for anticoagulation and metoprolol for rate control 5. Hypokalemia status post replacement 6. Elevated troponins being followed by cardiology, unlikely acute coronary syndrome. Plan: Continue off of IV fluids Follow-up as outpatient for CK D
[2021-08-20 13:35] VITALS: PULSE 60; RESP 16
[2021-08-20 15:17] VITALS: BP 132/82; TEMP 98.2
--- NOTE | 2021-08-20 15:34 | P.PN ---
Subjective This is a pleasant 79-year-old female past medical history significant for chronic heart failure with preserved ejection fraction, pulmonary hypertension, hypertension, valvular heart disease status post TAVR in 2008, atrial fibrillation status post AV node ablation, BiV pacemaker and coronary artery disease status post PCI in 1998, obstructive sleep apnea wears CPAP, history of vertigo. She follows in the office with Dr. Patel. We have been asked to see in consultation for elevated troponin. Patient presents to the emergency department with episode of dizziness and fall yesterday evening around 5PM. Patient states last week she received her Covid vaccine had side effects of arm soreness, itching. She states she was started on a steroid and has been taking it for 5 days. She also states she was taking benadryl as well at home. She stat es yesterday she stood up and was walking with her walker at home and had episode of dizziness and fell to the ground. She states that she put her hand out to stop her fall hitting a table sustaining a skin tear to her right hand and wrist. She did go to urgent care and they recommended she come to the emergency room for evaluation. She also endorses decrease PO intake. 08/20/2021 Patient seen and examined at bedside, no distress. She denies any further dizziness or lightheadedness. -Echocardiogram revealed EF 55-60%, LA severely dilated, RA ventricle is severely enlarged, moderate aortic stenosis with exertion gradient of 31 mmHg/ 20 mmHg, mild mitral regurgitation, moderate mitral stenosis, mild pulmonary hypertension. -Device was interrogated with no acute findings -Telemetry reviewed, patient is paced with heart rates in the 60s Patient is currently maintained on Eliquis 5 mg twice a day, metoprolol succinate 100 mg nightly, pravastatin 10 mg daily Labs, sodium 135, potassium 4.0, BUN 71, serum creatinine 1.5 PHYSICAL EXAMINATION Vitals reviewed CONSTITUTIONAL: No apparent distress. HEENT: Neck Supple. No JVD. CHEST EXAMINATION: Lungs are clear to auscultation. No chest wall tenderness is noted on palpation or with deep breathing. HEART EXAMINATION: Regular rate and rhythm. S1, S2 heard. Systolic ejection murmur at the base, no gallops or rub. ABDOMEN: Soft, nontender. Positive bowel sounds. EXTREMITIES: 2+ peripheral pulses, bilateral lower extremity non-pitting edema and no calf tenderness. NEUROLOGIC EXAMINATION: Patient is awake, alert and oriented x3. ASSESSMENT Elevated troponin, not indicative of acute coronary syndrome, likely related to acute kidney injury, no chest pain or evidence of ischemia on EKG Acute Kidney Injury Dizziness could be related to recent benadryl use History of Vertigo Chronic heart failure with preserved ejection fraction Chronic kidney disease Hypertension Coronary artery disease s/p PCI 1998 Valvular heart disease s/p bovine aortic valve replacement 2008 BiV pacemaker implantation Permanent atrial fibrillation on eliquis Mitral stenosis Aortic stenosis PLAN: Patient's with no further dizziness or lightheadedness, no chest pain or shortness of breath. Her symptoms of dizziness are likely medication related and dehydration. Device interrogation completed with no acute findings. Continue home Eliquis, metoprolol, and statin Would continue to hold Lasix and metolazone On discharge patient to follow up with Dr. Patel From cardiology perspective no further inpatient testing or workup at this time. We will follow the patient has daily. Patient to follow up outpatient with Dr. Patel Nurse Practitioner note has been reviewed, I agree with a documented findings and plan of care. Patient was seen and examined. Objective - Vital Signs Vital signs: Vital Signs Temp 98.2 F 08/20/21 14:40 Pulse 60 08/20/21 14:40 Resp 16 08/20/21 14:40 BP 132/82 08/20/21 14:40 Pulse Ox 98 08/20/21 14:40 Intake & Output 08/19/21 08/20/21 08/20/21 18:59 06:59 18:59 Intake Total 1640 10 Output Total 3 600 350 Balance 1637 -590 -350 Weight 72.575 kg Intake: IV 10 0.9 10 Oral 1640 Output: Urine 3 600 350 Other: Voiding Method Toilet Toilet Toilet # Voids 1 1 - Labs CBC & Chem 7: 08/19/21 07:39 08/20/21 08:37 Labs: Abnormal Lab Results - Last 24 Hours (Table) 08/19/21 08/20/21 Range/Units 07:39 08:37 Sodium 135 L (137-145) mmol/L BUN 71 H (7-17) mg/dL Creatinine 1.54 H (0.52-1.04) mg/dL Glucose 160 H (74-99) mg/dL Hemoglobin A1c 6.6 H (0.0-6.0) % Calcium 10.5 H (8.4-10.2) mg/dL
[2021-08-20] MEDS ORDERED: ZINC OXIDE 20% OINT 28.4 GM TUBE TOPICAL SCH (16:00)
--- NOTE | 2021-08-21 14:51 | P.DS ---
Providers Date of admission: 08/18/21 10:51 Expected date of discharge: 08/20/21 Attending physician: Shreyas Solis MD Consults: 08/17/21 16:23 Consult Physician Routine Consulting Provider: Luis Alberto Sanchez Consult Reason/Comments: MARY Do you want consulting provider notified?: Yes Consult Physician Routine Consulting Provider: Buck Mera Consult Reason/Comments: elevated troponin, dizziness Do you want consulting provider notified?: Yes 08/19/21 08:29 Consult Physician Routine Consulting Provider: Dl Mendez Consult Reason/Comments: mass adjacent to kidney on US Do you want consulting provider notified?: Yes Primary care physician: [facility] Course: HISTORY OF PRESENT ILLNESS This is a 80-year-old female patient of Dr. Cheema and Dr. 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 Pike on Xolair injections. Patient patient states that she was feeling dizzy and hit her hand on the table, obtain skin tear to the right hand that was bleeding significantly. She denies any other injuries and no loss consciousness. She also gives history of a fall about 2 months ago where she hit her head and did not seek treatment at that time. She also gives history of having pain muscle pain secondary to statins and was taking CoQ10. She is also obtain the Materna vaccine on 08/07 and has had significant pain in her arm since that and has been on Benadryl and steroids. Patient initially presented to urgent care and was subsequently sent to the hospital for further evaluation. Patient presented to [facility] emergency center for evaluation. Patient was afebrile, heart rate 61, blood pressure 131/80, pulse ox 90% on room air. EKG is ventricular pacer. WBC 6.5, hemoglobin 13.9, platelet count 102. Sodium 134, potassium 2.9, chloride 88, CO2 36, BUN 100 creatinine 2.01. Blood sugar 95. INR 1.6. Calcium 10.7. Total bilirubin 3.7, AST 62, ALT 27, alkaline phosphatase 153. Coronavirus PCR not detected. Troponin 0.098, 0.077 and 0.086. Magnesium 2.6. Urinalysis was leukoesterase large, WBCs 53. X-ray bilateral hips showed no acute abnormality. Bilateral femur x-ray revealed no acute abnormality. X-ray right wrist no acute fracture or dislocation. CAT scan of the brain and cervical spine revealed no acute intracranial hemorr danetet, mass effect or midline shift. There is approximately 4 mm of posterior displacement of the left occipital condyle relative lateral mass of C1. There is a likely chronic fracture of the posterior arch of C2 on the left with 1.6 cm well corticated ossific fragment directed towards the posterior paraspinal soft tissues there is a mild deformity of the posterior arch of C3 on the left. Likely related to healed fracture. There is chronic grade 1 anterior listhesis of C7 on T1. Chest x-ray reveals chronic changes and cardiomegaly without acute pulmonary process. Patient is seen today in the emergency center waiting for a bed on the cardiac stepdown unit, consults and placed with cardiology and nephrology, wound care center consult added. 08/19: Patient has been afebrile, heart rate 60, blood pressure 128/85, pulse ox 99% on room air. Repeat blood work reveals WBC 6.2, hemoglobin 13.9, platelet count 103. Sodium 136, potassium 4.1, chloride 96, CO2 34, BUN 83 and creatinine 1.48. Blood sugar 120. Hemoglobin A1c ordered. Patient has been seen by nephrology for acute kidney injury with recommendations to continue IV fluids, hold diuretics, continue midodrine, monitor renal func tion. Patient has been seen by cardiology and acute coronary syndrome has been ruled out, pacemaker to be interrogated, recommend continuing eliquis metoprolol and statin. Echocardiogram reveals EF of 55-60% with moderate concentric left ventricular hypertrophy, moderate aortic stenosis, moderate mitral calcification, mild mitral regurgitation, moderate mitral stenosis, severe tricuspid regurgitation, mild pulmonary hypertension. Renal ultrasound revealed atrophic left kidney. No definite hydronephrosis on either side. Lobulated masslike area measuring 3.2 cm adjacent to the left kidney and spleen. Further contrast-enhanced CAT scan of the abdomen and pelvis recommended to exclude new mass. Consult with urologist been added. Patient has been seen by Wound Center with recommendations to apply zinc nonadherent dressing and wrap with rolled gauze and change every other day. This is a wound to her right dorsal hand. Patient may follow-up in the Wound Center if needed. Discharge plan is to return home with homecare. 08/20: Repeat blood work reveals sodium 135, other electrolytes normal, BUN 71 creatinine 1.54. Blood sugar 160. Hemoglobin A1c came back at 6.6. Urine culture was finalized with normal skin genital sussy. Patient has been afebrile, heart rate in the 60s, blood pressure 123/68, pulse ox 96% on room air. Patient is complaining of feeling tired. She walked to the bathroom and back to bed with a walker. She has worked with therapies with recommendations for home with home care. She has been seen by urology and CAT scan of the abdomen and pelvis was ordered without contrast which revealed lobulated masslike area seen at the recent ultrasound measuring 3.2 cm adjacent to the left kidney and spleen is not visualized and may reflect a loop of bowel. Small bilateral pleural effusions and cardiomegaly. Atrophy of the left kidney. William-cava noted. No further workup is necessary per urology. Nephrology is clear the patient for discharge and follow-up as an outpatient. Pacemaker was interrogated in no acute findings. Patient cleared for discharge by cardiology with plan to follow-up with Dr. Patel. She will be discharged home today in stable condition. DISCHARGE DIAGNOSES 1. Dizziness most likely secondary to acute kidney injury, dehydration and moderate aortic stenosis. 2. Acute kidney injury. 3. Acute urinary tract infection. 4. Elevated troponins and acute coronary syndrome ruled out. 5. Persistent atrial fibrillation status post ventricular pacemaker. 6. Hypokalemia status post replacement. 7. Hypertension. 8. Moderate persistent asthma without exacerbation. 9. Hyperlipidemia. 10. Hypothyroidism. 11. Status post aortic valve replacement. 12. Peripheral vascular disease status post atherectomy and stent placement to October 2018. 13. Obstructive sleep apnea on CPAP. 14. Generalized anxiety disorder. 15. Elevated blood sugar readings. A1c 6.6. 16. Valvular heart disease with moderate aortic stenosis, mild mitral regurgitation, moderate mitral stenosis, severe tricuspid regurgitation and mild pulmonary hypertension. DISCHARGE PLAN Home with [facility]. Greater than 35 minutes was utilized and coordinating patient's discharge. Impression and plan of care have been directed as dictated by the signing physician. Vickie Garg nurse practitioner acting as scribe for signing physician. Patient Condition at Discharge: Good Plan - Discharge Summary Discharge Rx Participant: No New Discharge Prescriptions: New Doxycycline [Vibramycin] 100 mg PO BID #14 cap Continue Montelukast [Singulair] 10 mg PO HS Levothyroxine Sodium [Synthroid] 50 mcg PO DAILY Apixaban [Eliquis] 5 mg PO BID #180 tab Metoprolol Succinate (ER) [Toprol XL] 100 mg PO HS Pravastatin Sodium [Pravachol] 10 mg PO DAILY Ubidecarenone [Co Q-10] 100 mg PO DAILY Furosemide [Lasix] 40 mg PO BID@0900,1600 tab Midodrine [ProAmatine] 5 mg PO TID dexAMETHasone 4 mg PO DAILY Citalopram Hydrobromide [CeleXA] 20 mg PO DAILY metOLazone [Zaroxolyn] 2.5 mg PO MOWEFR Meclizine [Antivert] 12.5 mg PO BID PRN PRN Reason: Vertigo Discharge Medication List Levothyroxine Sodium [Synthroid] 50 mcg PO DAILY 08/24/18 [History] Montelukast [Singulair] 10 mg PO HS 08/24/18 [History] Apixaban [Eliquis] 5 mg PO BID #180 tab 11/28/18 [Rx] Metoprolol Succinate (ER) [Toprol XL] 100 mg PO HS 12/19/18 [History] Pravastatin Sodium [Pravachol] 10 mg PO DAILY 12/19/18 [History] Ubidecarenone [Co Q-10] 100 mg PO DAILY 09/11/20 [History] Furosemide [Lasix] 40 mg PO BID@0900,1600 tab 09/13/20 [Rx] Citalopram Hydrobromide [CeleXA] 20 mg PO DAILY 08/17/21 [History] Meclizine [Antivert] 12.5 mg PO BID PRN 08/17/21 [History] Midodrine [ProAmatine] 5 mg PO TID 08/17/21 [History] dexAMETHasone 4 mg PO DAILY 08/17/21 [History] metOLazone [Zaroxolyn] 2.5 mg PO MOWEFR 08/17/21 [History] Doxycycline [Vibramycin] 100 mg PO BID #14 cap 08/20/21 [Rx] Follow up Appointment(s)/Referral(s): Ben Patel MD [STAFF PHYSICIAN] - 1 Week (The office will call with a follow up date and time. ) Leon Cheema MD [Primary Care Provider] - 1 Week (Office is closed. Please call to schedule follow up. ) [facility], [NON-STAFF] - Patient Instructions/Handouts: Acute Kidney Injury (DC), Hypokalemia (DC), Skin Tear (ED) Activity/Diet/Wound Care/Special Instructions: Change dressing to right hand every other day. - Remove old dressing. If stuck to wound, soak in warm water to loosen. - rinse with warm water, pat dry - apply zinc cream to wound - apply vaseline gauze to wound - cover baseline gauze with non adherent pad - cover nonadherent with 4x4 pads - final step: wrap in roller gauze and secure with paper tape Discharge Disposition: HOME WITH HOME HEALTH SERVICES
== END 2021-08-20 19:34 | disposition home health service (06) | DRG 683 ==
LOC: EC 13:23 → 3SCARD 16:52 → OBSVTOIN 08-18 10:51 → 3SCARD 08-18 17:41
PROVIDERS: ADMIT Internal Medicine; ATTEND Internal Medicine
DX: N17.9 Acute kidney failure, unspecified (principal); I13.0 Hypertensive heart and chronic kidney disease with heart failure and stage 1 through stage 4 chronic kidney disease, or unspecified chronic kidney disease; I48.21 Permanent atrial fibrillation; I50.32 Chronic diastolic (congestive) heart failure; N39.0 Urinary tract infection, site not specified; Z20.822 Contact with and (suspected) exposure to COVID-19; N18.30 Chronic kidney disease, stage 3 unspecified; E03.9 Hypothyroidism, unspecified; Z79.899 Other long term (current) drug therapy; Z79.890 Hormone replacement therapy; E78.5 Hyperlipidemia, unspecified; E86.0 Dehydration; E87.6 Hypokalemia; F32.A Depression, unspecified; F41.1 Generalized anxiety disorder; G47.33 Obstructive sleep apnea (adult) (pediatric); I08.3 Combined rheumatic disorders of mitral, aortic and tricuspid valves; I25.10 Atherosclerotic heart disease of native coronary artery without angina pectoris; I27.20 Pulmonary hypertension, unspecified; I73.9 Peripheral vascular disease, unspecified; J44.9 Chronic obstructive pulmonary disease, unspecified; J45.40 Moderate persistent asthma, uncomplicated; M43.13 Spondylolisthesis, cervicothoracic region; I49.5 Sick sinus syndrome; L98.491 Non-pressure chronic ulcer of skin of other sites limited to breakdown of skin; S61.511A Laceration without foreign body of right wrist, initial encounter; R42 Dizziness and giddiness; N20.0 Calculus of kidney; N28.89 Other specified disorders of kidney and ureter; S61.411A Laceration without foreign body of right hand, initial encounter; Y93.01 Activity, walking, marching and hiking; Z96.653 Presence of artificial knee joint, bilateral; W08.XXXA Fall from other furniture, initial encounter; Y92.019 Unspecified place in single-family (private) house as the place of occurrence of the external cause; Z91.81 History of falling; Z77.22 Contact with and (suspected) exposure to environmental tobacco smoke (acute) (chronic); Z79.01 Long term (current) use of anticoagulants; Z20.828 Contact with and (suspected) exposure to other viral communicable diseases; Z80.8 Family history of malignant neoplasm of other organs or systems; Z82.49 Family history of ischemic heart disease and other diseases of the circulatory system; Z83.3 Family history of diabetes mellitus; Z85.828 Personal history of other malignant neoplasm of skin; Z87.442 Personal history of urinary calculi; Z95.0 Presence of cardiac pacemaker; Z95.3 Presence of xenogenic heart valve; Z95.5 Presence of coronary angioplasty implant and graft; Z90.49 Acquired absence of other specified parts of digestive tract; Z88.1 Allergy status to other antibiotic agents; Z88.2 Allergy status to sulfonamides; Z88.8 Allergy status to other drugs, medicaments and biological substances; Z88.0 Allergy status to penicillin; Z87.42 Personal history of other diseases of the female genital tract; Z86.19 Personal history of other infectious and parasitic diseases; R79.89 Other specified abnormal findings of blood chemistry
CPT/HCPCS: 36415; 70450; 71046; 72125; 73521; 74176; 76770; 80048; 80053; 81001; 83036; 83735; 84484; 85025; 85610; 87086; 87635; 90471; 90715; 93005; 93306; 99285

== ENCOUNTER 2021-10-02 01:57 | Inpatient (IN) | payer MEDICARE, BC ==
[2021-10-02] MEDS ORDERED: ACETAMINOPHEN TAB 325 MG TAB PO STA (02:50)
--- NOTE | 2021-10-02 02:51 | ED ---
Weakness HPI - General Chief complaint: Weakness Stated complaint: Fall Time Seen by Provider: 10/02/21 02:32 Source: patient, EMS Mode of arrival: EMS - History of Present Illness Initial comments: This patient is 80-year-old woman who is brought to have evaluation for constellation symptoms mainly the fact that she is having generalized weakness, difficulty walking and then had a fall from a commode when she attempted to get up. Patient also states that she is having some dyspnea, mainly when she attempts to lie down. She has had bilateral leg edema increasing over days. Denies fever or chills. Nonproductive cough. No chest pain. MD Complaint: generalized weakness, lack of energy, difficulty walking -: days(s) Location: generalized Improves with: none Worsens with: exertion Associated Symptoms: shortness of breath - Related Data Home Medications Medication Instructions Recorded Confirmed Levothyroxine Sodium [Synthroid] 50 mcg PO DAILY 08/24/18 08/17/21 Montelukast [Singulair] 10 mg PO HS 08/24/18 08/17/21 Metoprolol Succinate (ER) [Toprol 100 mg PO HS 12/19/18 08/17/21 XL] Pravastatin Sodium [Pravachol] 10 mg PO DAILY 12/19/18 08/17/21 Ubidecarenone [Co Q-10] 100 mg PO DAILY 09/11/20 08/17/21 Citalopram Hydrobromide [CeleXA] 20 mg PO DAILY 08/17/21 08/17/21 Meclizine [Antivert] 12.5 mg PO BID PRN 08/17/21 08/17/21 Midodrine [ProAmatine] 5 mg PO TID 08/17/21 08/17/21 dexAMETHasone 4 mg PO DAILY 08/17/21 08/17/21 metOLazone [Zaroxolyn] 2.5 mg PO MOWEFR 08/17/21 08/17/21 Previous Rx's Medication Instructions Recorded Apixaban [Eliquis] 5 mg PO BID #180 tab 11/28/18 Furosemide [Lasix] 40 mg PO BID@0900,1600 tab 09/13/20 Doxycycline [Vibramycin] 100 mg PO BID #14 cap 08/20/21 Allergies Allergy/AdvReac Type Severity Reaction Status Date / Time amlodipine [From Lotrel] Allergy Unknown Verified 08/17/21 16:47 benazepril [From Lotrel] Allergy Unknown Verified 08/17/21 16:47 cephalexin [From Keflex] Allergy Rash/Hives Verified 08/17/21 16:47 clindamycin Allergy Rash/Hives Verified 08/17/21 16:47 doxazosin [From Cardura] Allergy Unknown Verified 08/17/21 16:47 hydrochlorothiazide Allergy Unknown Verified 08/17/21 16:47 [From Maxzide] isosorbide [From Imdur] Allergy Anaphylaxis Verified 08/17/21 16:47 metoprolol [From Toprol XL] Allergy Unknown Verified 08/17/21 16:47 ramipril [From Altace] Allergy Anaphylaxis Verified 08/17/21 16:47 sulfamethoxazole Allergy severe Verified 08/17/21 16:47 [From Bactrim] skin reaction triamterene [From Maxzide] Allergy Unknown Verified 08/17/21 16:47 trimethoprim [From Bactrim] Allergy severe Verified 08/17/21 16:47 skin reaction valsartan [From Diovan] Allergy severe Verified 08/17/21 16:47 headache clonidine [From Catapres] AdvReac anxious Verified 08/17/21 16:47 diltiazem AdvReac severe Verified 08/17/21 16:47 headache Penicillins AdvReac "passes Verified 08/17/21 16:47 out" oral steroids AdvReac Afib Uncoded 08/17/21 16:47 Review of Systems ROS Statement: Those systems with pertinent positive or pertinent negative responses have been documented in the HPI. ROS Other: All systems not noted in ROS Statement are negative. Constitutional: Reports: weakness. Denies: fever, chills Respiratory: Reports: dyspnea. Denies: cough, wheezes Cardiovascular: Reports: orthopnea. Denies: chest pain, palpitations, edema, syncope Gastrointestinal: Denies: abdominal pain, nausea, vomiting Genitourinary: Denies: dysuria, frequency, hematuria Musculoskeletal: Denies: back pain Skin: Denies: rash Neurological: Reports: headache. Denies: weakness (No focal weakness) Past Medical History Past Medical History: Atrial Fibrillation, Asthma, Coronary Artery Disease (CAD), Cancer, Heart Failure, COPD, Hyperlipidemia, Hypertension, Osteoarthritis (OA), Sleep Apnea/CPAP/BIPAP, Thyroid Disorder, Vascular Disorder Additional Past Medical History / Comment(s): Tachy/tracey syndrome with pacemak er, PVD, bilateral intermittent claudication, varicosities, GEO with Cpap, hypothyroid, vertigo, kidney stones surgically removed, skin cancer removed from nose, past shingelles. History of Any Multi-Drug Resistant Organisms: None Reported Past Surgical History: Appendectomy, Cholecystectomy, Heart Catheterization, Heart Catheterization With Stent, Joint Replacement, Pacemaker, Tonsillectomy Additional Past Surgical History / Comment(s): Cardioversion, 2008 Aortic valve replacement/bovine, pacemaker originally placed 2008 with gen change 2013, PCI with stent 1998, R groin hemotoma with evacuation of clot, bilateral vascular procedures/aortagram with runoffs/ arteriogram/arthrectomy with stent SFA, bilateral total knee arthroplasties, colonoscopy, skin cancer removal, bilateral cataract removals. Past Anesthesia/Blood Transfusion Reactions: No Reported Reaction, Motion Sickness Additional Past Anesthesia/Blood Transfusion Reaction / Comment(s): No problems with prior blood transfusions. Date of Last Stent Placement:: 1998 Type of Cardiac Device: Permanent Pacemaker Device Placement Date:: 2008 device/gen change 2013 Past Psychological History: Anxiety, Depression Smoking Status: Second hand smoke exposure Past Alcohol Use History: None Reported Past Drug Use History: None Reported - Past Family History Mother Family Medical History: Cancer Additional Family Medical History / Comment(s): skin CA Father Family Medical History: Cancer Additional Family Medical History / Comment(s): stomach ulcer at age 52 Brother(s) Additional Family Medical History / Comment(s): Patient has 6 brothers and one is known to have coronary artery disease. Patient is no sisters. Patient has 4 children one has Crohn's disease and one has rheumatoid arthritis. General Exam General appearance: alert Head exam: Present: atraumatic, normocephalic Eye exam: Present: normal appearance. Absent: scleral icterus, conjunctival inj ection Neck exam: Present: normal inspection, tenderness Respiratory exam: Present: normal lung sounds bilaterally, rales (Bilateral bases). Absent: respiratory distress, wheezes, rhonchi, stridor Cardiovascular Exam: Present: regular rate, normal rhythm, systolic murmur. Absent: diastolic murmur, rubs, gallop GI/Abdominal exam: Present: soft. Absent: distended, tenderness, guarding, rebound, rigid, mass Extremities exam: Present: normal inspection, normal capillary refill, pedal edema (Mild edema bilateral lower extremities). Absent: calf tenderness Back exam: Present: normal inspection. Absent: CVA tenderness (R), CVA tenderness (L) Neurological exam: Present: alert Skin exam: Present: warm, dry, intact, normal color, other (Mild chronic stasis changes bilateral lower extremities). Absent: rash Course Vital Signs 10/02/21 10/02/21 10/02/21 02:14 03:17 04:00 Temperature 97.9 F Pulse Rate 60 74 60 Respiratory 18 20 20 Rate Blood Pressure 118/69 110/86 91/76 O2 Sat by Pulse 94 L 94 L 95 Oximetry 10/02/21 05:00 Temperature Pulse Rate 60 Respiratory 20 Rate Blood Pressure 115/93 O2 Sat by Pulse 92 L Oximetry EKG Findings - EKG Comments: EKG Findings:: Prolonged QT - EKG Results: EKG: interpreted by MARIBEL Medical Decision Making - Lab Data Result diagrams: 10/02/21 02:56 10/02/21 02:56 Lab Results 10/02/21 10/02/21 10/02/21 Range/Units 02:56 02:56 02:56 WBC 5.4 (3.8-10.6) k/uL RBC 5.04 (3.80-5.40) m/uL Hgb 13.8 (11.4-16.0) gm/dL Hct 45.1 (34.0-46.0) % MCV 89.4 (80.0-100.0) fL MCH 27.4 (25.0-35.0) pg MCHC 30.6 L (31.0-37.0) g/dL RDW 18.8 H (11.5-15.5) % Plt Count 67 L (150-450) k/uL MPV 10.1 Neutrophils % (Manual) 73 % Lymphocytes % (Manual) 21 % Monocytes % (Manual) 5 % Eosinophils % (Manual) 1 % Neutrophils # (Manual) 3.94 (1.3-7.7) k/uL Lymphocytes # (Manual) 1.13 (1.0-4.8) k/uL Monocytes # (Manual) 0.27 (0-1.0) k/uL Eosinophils # (Manual) 0.05 (0-0.7) k/uL Nucleated RBCs 0 (0-0) /100 WBC Manual Slide Review Performed Hypochromasia Marked Poikilocytosis (manual Present Anisocytosis Slight Anisocytosis (manual) Present Sodium 135 L (137-145) mmol/L Potassium 3.4 L (3.5-5.1) mmol/L Chloride 90 L (98-107) mmol/L Carbon Dioxide 34 H (22-30) mmol/L Anion Gap 11 mmol/L BUN 81 H (7-17) mg/dL Creatinine 1.76 H (0.52-1.04) mg/dL Est GFR (CKD-EPI)AfAm 31 (>60 ml/min/1.73 sqM) Est GFR (CKD-EPI)NonAf 27 (>60 ml/min/1.73 sqM) Glucose 103 H (74-99) mg/dL Lactic Ac Sepsis Rflx Plasma Lactic Acid Colby 2.4 H* (0.7-2.0) mmol/L Calcium 10.5 H (8.4-10.2) mg/dL Magnesium 2.3 (1.6-2.3) mg/dL Total Bilirubin 4.3 H (0.2-1.3) mg/dL AST 65 H (14-36) U/L ALT 19 (4-34) U/L Alkaline Phosphatase 180 H (38-126) U/L Troponin I (0.000-0.034) ng/mL NT-Pro-B Natriuret Pep pg/mL Total Protein 7.2 (6.3-8.2) g/dL Albumin 4.2 (3.5-5.0) g/dL 10/02/21 10/02/21 10/02/21 Range/Units 02:56 02:56 03:38 WBC (3.8-10.6) k/uL RBC (3.80-5.40) m/uL Hgb (11.4-16.0) gm/dL Hct (34.0-46.0) % MCV (80.0-100.0) fL MCH (25.0-35.0) pg MCHC (31.0-37.0) g/dL RDW (11.5-15.5) % Plt Count (150-450) k/uL MPV Neutrophils % (Manual) % Lymphocytes % (Manual) % Monocytes % (Manual) % Eosinophils % (Manual) % Neutrophils # (Manual) (1.3-7.7) k/uL Lymphocytes # (Manual) (1.0-4.8) k/uL Monocytes # (Manual) (0-1.0) k/uL Eosinophils # (Manual) (0-0.7) k/uL Nucleated RBCs (0-0) /100 WBC Manual Slide Review Hypochromasia Poikilocytosis (manual Anisocytosis Anisocytosis (manual) Sodium (137-145) mmol/L Potassium (3.5-5.1) mmol/L Chloride (98-107) mmol/L Carbon Dioxide (22-30) mmol/L Anion Gap mmol/L BUN (7-17) mg/dL Creatinine (0.52-1.04) mg/dL Est GFR (CKD-EPI)AfAm (>60 ml/min/1.73 sqM) Est GFR (CKD-EPI)NonAf (>60 ml/min/1.73 sqM) Glucose (74-99) mg/dL Lactic Ac Sepsis Rflx Y Plasma Lactic Acid Colby (0.7-2.0) mmol/L Calcium (8.4-10.2) mg/dL Magnesium (1.6-2.3) mg/dL Total Bilirubin (0.2-1.3) mg/dL AST (14-36) U/L ALT (4-34) U/L Alkaline Phosphatase (38-126) U/L Troponin I 0.037 H* (0.000-0.034) ng/mL NT-Pro-B Natriuret Pep 4530 pg/mL Total Protein (6.3-8.2) g/dL Albumin (3.5-5.0) g/dL Disposition Referrals: Leon Cheema MD [Primary Care Provider] - 1-2 days
--- NOTE | 2021-10-02 03:28 | XR ---
EXAMINATION TYPE: XR chest 2V DATE OF EXAM: 10/02/2021 COMPARISON: 08/17/2021 HISTORY: Weakness TECHNIQUE: FINDINGS: Heart is enlarged. There is no heart failure. There is left axillary pacemaker. There are c hest leads. There is some apparent mild blunting of the left posterior costophrenic angle. Bony thora x appears intact. IMPRESSION: Cardiomegaly. No heart failure seen. There is new small left pleural effusion compared to old exam.
[2021-10-02 03:38] LABS: Albumin 4.2 g/dL (3.5-5.0); Calcium 10.5 mg/dL (8.4-10.2); Total Bilirubin 4.3 mg/dL (0.2-1.3); Total Protein 7.2 g/dL (6.3-8.2)
[2021-10-02 03:39] LABS: Magnesium 2.3 mg/dL (1.6-2.3); Potassium 3.4 mmol/L (3.5-5.1)
--- NOTE | 2021-10-02 03:41 | CT ---
EXAMINATION TYPE: CT brain sheilaine wo con DATE OF EXAM: 10/02/2021 COMPARISON: None HISTORY: FALL CT DLP: 1266.9 mGycm Automated exposure control for dose reduction was used. Images obtained of the brain and cervical spine without contrast. There is cerebral cortical atrophy. There is no mass effect or midline shift. There is no evidence of intracranial hemorrhage. There is 1 cm lacunar infarct right posterior frontal lobe white matter. Th ere is similar 6 mm focus in the left internal capsule. There is normal aeration of the mastoid sinus es. Calvarium is intact. There are spondylotic changes in the mid and lower cervical spine. There is mild anterior subluxation of C6 in relation to C7. There is fusion of the 3 and C4 vertebral bodies. There is no compression f racture. There is multilevel hypertrophic facet arthropathy. IMPRESSION: Cervical multilevel spondylotic changes. No fracture. No change compared to old exam. Cerebral atrophy. 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 Old left internal capsule lacunar infa rct. No acute intracranial abnormality. No change.
[2021-10-02 03:47] LABS: Anisocytosis Slight; HCT 45.1 % (34.0-46.0); HGB 13.8 gm/dL (11.4-16.0); Hypochromasia Marked; MCH 27.4 pg (25.0-35.0); MCHC 30.6 g/dL (31.0-37.0); MCV 89.4 fL (80.0-100.0); Mean Platelet Volume 10.1; RBC 5.04 m/uL (3.80-5.40); RDW 18.8 % (11.5-15.5); WBC 5.4 k/uL (3.8-10.6)
[2021-10-02 04:38] LABS: Platelet Count 67 k/uL (150-450)
[2021-10-02 04:45] LABS: Eosinophils # (M) 0.05 k/uL (0-0.7); Lymphocytes # (M) 1.13 k/uL (1.0-4.8); Monocytes # (M) 0.27 k/uL (0-1.0); Neutrophils # (M) 3.94 k/uL (1.3-7.7); Neutrophils % (M) 73 %; Nucleated Red Blood Cells 0 /100 WBC (0-0); Total Cells Counted 100
[2021-10-02 04:46] LABS: Anisocytosis (M) Present; Poikilocytosis (M) Present
[2021-10-02] MEDS ORDERED: Acetaminophen-Codeine 300-30mg TAB PO STA (05:54)
[2021-10-02] MEDS ORDERED: MECLIZINE 12.5 MG TAB PO PRN (08:05)
[2021-10-02] MEDS ORDERED: HEPARIN SODIUM,PORCINE/PF 5,000 UNIT/0.5 ML SYRINGE SQ SCH (09:00)
[2021-10-02] MEDS ORDERED: NON FORMULARY DRUG (Ubidecarenone [Co Q-10] 100 MG Capsule) PO SCH (09:00)
[2021-10-02] MEDS ORDERED: FUROSEMIDE 40 MG TAB PO SCH (09:00)
[2021-10-02] MEDS ORDERED: PRAVASTATIN SODIUM 20 MG TAB PO SCH (09:00)
[2021-10-02] MEDS: LEVOTHYROXINE 50 MCG TAB PO SCH (09:12)
[2021-10-02] MEDS: APIXABAN 5 MG TAB PO SCH ×2 (09:12→20:43)
[2021-10-02] MEDS: CITALOPRAM HYDROBROMIDE 20 MG TAB PO SCH (09:13)
[2021-10-02] MEDS: MIDODRINE 5 MG TAB PO SCH ×3 (09:13→20:43)
[2021-10-02 10:15] LABS: Appearance,Urine Clear (Clear); Bilirubin,Urine Negative (Negative); Blood,Urine Negative (Negative); Color,Urine Yellow; Glucose,Urine (UA) Negative (Negative); Ketones,Urine Negative (Negative); Leukocyte Esterase,Urine Trace (Negative); Nitrite,Urine Negative (Negative); Protein,Urine Negative (Negative); RBC,Urine <1 /hpf (0-5); Specific Gravity,Urine 1.014 (1.001-1.035); WBC,Urine <1 /hpf (0-5)
[2021-10-02 12:35] LABS: ABG Base Excess 12.4 mmol/L; ABG HCO3 36 mmol/L (21-25); ABG PCO2 47 mmHg (35-45); ABG PH 7.49 (7.35-7.45); ABG PO2 157 mmHg (83-108); ABG TCO2 37 mmol/L (19-24); Allen Test Performed? Yes
[2021-10-02] MEDS: FUROSEMIDE 10 MG/ML 4 ML VIAL IV SCH ×2 (12:46→20:43)
--- NOTE | 2021-10-02 12:50 | P.CRDCN ---
History of Present Illness Consult date: 10/02/21 History of present illness: HISTORY OF PRESENT ILLNESS: This is a 80 year old female with a past medical history significant for congestive heart failure with preserved ejection fraction, pulmonary hypertension, hypertension, valvular heart disease, history of TAVR in 2008, chronic atrial fibrillation with previous ablations, BiV pacemaker, coronary artery disease with PCI in 1998, peripheral vascular disease, obstructive sleep apnea with CPAP use, and vertigo. Patient follows in the office with Dr. Patel. We have been asked to see the patient in consultation for CHF. Patient examined at the bedside. Patient is very lethargic at the time of examination. She is unable to stay alert long enough to answer any questions. There is no family present. According to the nurse, the patients brought her in the hospital after having a possible syncopal episode in the bathroom, along with increased weakness and lower extremity edema. * EKG reveals ventricular paced rhythm * Chest xray cardiomegaly. No heart failure seen. There is new small left pleural effusion compared to old exam. * Laboratory data: WBC 5.4. Hemoglobin 13.8. Platelet count 67. Sodium 135. Potassium 3.4. BUN 81. Creatinine 1.76. ProBNP 4530. Troponin 0.037. 0.045. 0.043. * Current home cardiac medications include Pravachol 10 mg daily, metoprolol succinate 100 mg at night, Lasix 40 mg twice a day, Eliquis 5 mg twice a day, and Midodrine 5mg TID * Most recent echocardiogram obtained in August 2021 revealed ejection fraction 55-60%, moderate aortic stenosis, mild mitral regurgitation, moderate mitral stenosis, and severe tricuspid regurgitation REVIEW OF SYSTEMS: At the time of my exam: Unable to obtain thorough review of systems secondary to altered mental status PHYSICAL EXAM: VITAL SIGNS: Reviewed. GENERAL: Well-developed in no acute distress. HEENT: Head is normocephalic. Pupils are equal, round. Sclerae anicteric. Mucous membranes of the mouth are moist. Neck supple. No JVD or thyromegaly LUNGS: Respirations even and unlabored. Lungs diminished auscultation bilaterally with bibasilar crackles. HEART: Regular rate and rhythm. S1 and S2 heard. Systolic murmur. ABDOMEN: Soft. Nondistended. Nontender. EXTREMITIES: Normal range of motion. No clubbing or cyanosis. Peripheral pulses intact. 2+ lower extremity edema NEUROLOGIC: Lethargic ASSESSMENT: Lethargy/altered mental status Questionable syncope Acute on chronic heart failure with preserved ejection fraction Acute kidney injury Abnormal troponins, not suggestive of acute coronary syndrome, likely secondary to acute kidney injury Permanent atrial fibrillation, on Eliquis History of BiV pacemaker implantation Valvular heart disease History of TAVR, 2008 Coronary artery disease with previous PCI, exact details unknown Peripheral vascular disease PLAN: No need to repeat echo as this was performed last month Begin IV lasix 40mg Q12 hours Monitor kidney function Accurate I&O Daily weights Continue Eliquis Interrogate pacemaker Continue telemetry monitoring Further recommendations pending patient's course Nurse practitioner note has been reviewed by physician. Signing provider agrees with the documented findings, assessment, and plan of care. Past Medical History Past Medical History: Atrial Fibrillation, Asthma, Coronary Artery Disease (CAD), Cancer, Heart Failure, COPD, Hyperlipidemia, Hypertension, Osteoarthritis (OA), Sleep Apnea/CPAP/BIPAP, Thyroid Disorder, Vascular Disorder Additional Past Medical History / Comment(s): Tachy/tracey syndrome with pacemaker, PVD, bilateral intermittent claudication, varicosities, GEO with Cpap, hypothyroid, vertigo, kidney stones surgically removed, skin cancer removed from nose, past shingelles. History of Any Multi-Drug Resistant Organisms: None Reported Past Surgical History: Appendectomy, Cholecystectomy, Heart Catheterization, Heart Catheterization With Stent, Joint Replacement, Pacemaker, Tonsillectomy Additional Past Surgical History / Comment(s): Cardioversion, 2008 Aortic valve replacement/bovine, pacemaker originally placed 2008 with gen change 2013, PCI with stent 1998, R groin hemotoma with evacuation of clot, bilateral vascular procedures/aortagram with runoffs/ arteriogram/arthrectomy with stent SFA, bilateral total knee arthroplasties, colonoscopy, skin cancer removal, bilateral cataract removals. Past Anesthesia/Blood Transfusion Reactions: No Reported Reaction, Motion Sickness Additional Past Anesthesia/Blood Transfusion Reaction / Comment(s): No problems with prior blood transfusions. Date of Last Stent Placement:: 1998 Type of Cardiac Device: Permanent Pacemaker Device Placement Date:: 2008 device/gen change 2013 Past Psychological History: Anxiety, Depression Smoking Status: Second hand smoke exposure Past Alcohol Use History: None Reported Past Drug Use History: None Reported - Past Family History Mother Family Medical History: Cancer Additional Family Medical History / Comment(s): skin CA Father Family Medical History: Cancer Additional Family Medical History / Comment(s): stomach ulcer at age 52 Brother(s) Additional Family Medical History / Comment(s): Patient has 6 brothers and one is known to have coronary artery disease. Patient is no sisters. Patient has 4 children one has Crohn's disease and one has rheumatoid arthritis. Medications and Allergies Home Medications Medication Instructions Recorded Confirmed Type Levothyroxine Sodium [Synthroid] 50 mcg PO DAILY 08/24/18 10/02/21 History Montelukast [Singulair] 10 mg PO HS 08/24/18 10/02/21 History Apixaban [Eliquis] 5 mg PO BID #180 tab 11/28/18 10/02/21 Rx Metoprolol Succinate (ER) [Toprol 100 mg PO HS 12/19/18 10/02/21 History XL] Pravastatin Sodium [Pravachol] 10 mg PO DAILY 12/19/18 10/02/21 History Ubidecarenone [Co Q-10] 100 mg PO DAILY 09/11/20 10/02/21 History Furosemide [Lasix] 40 mg PO BID@0900,1600 tab 09/13/20 10/02/21 Rx Citalopram Hydrobromide [CeleXA] 20 mg PO DAILY 08/17/21 10/02/21 History Meclizine [Antivert] 12.5 mg PO BID PRN 08/17/21 10/02/21 History Midodrine [ProAmatine] 5 mg PO TID 08/17/21 10/02/21 History metOLazone [Zaroxolyn] 2.5 mg PO MOWEFR 08/17/21 10/02/21 History Baclofen [Lioresal] 5 mg PO BID PRN 10/02/21 10/02/21 History Allergies Allergy/AdvReac Type Severity Reaction Status Date / Time amlodipine [From Lotrel] Allergy Unknown Verified 10/02/21 07:03 benazepril [From Lotrel] Allergy Unknown Verified 10/02/21 07:03 cephalexin [From Keflex] Allergy Rash/Hives Verified 10/02/21 07:03 clindamycin Allergy Rash/Hives Verified 10/02/21 07:03 doxazosin [From Cardura] Allergy Unknown Verified 10/02/21 07:03 hydrochlorothiazide Allergy Unknown Verified 10/02/21 07:03 [From Maxzide] isosorbide [From Imdur] Allergy Anaphylaxis Verified 10/02/21 07:03 metoprolol [From Toprol XL] Allergy Unknown Verified 10/02/21 07:03 ramipril [From Altace] Allergy Anaphylaxis Verified 10/02/21 07:03 sulfamethoxazole Allergy severe Verified 10/02/21 07:03 [From Bactrim] skin reaction triamterene [From Maxzide] Allergy Unknown Verified 10/02/21 07:03 trimethoprim [From Bactrim] Allergy severe Verified 10/02/21 07:03 skin reaction valsartan [From Diovan] Allergy severe Verified 10/02/21 07:03 headache clonidine [From Catapres] AdvReac anxious Verified 10/02/21 07:03 diltiazem AdvReac severe Verified 10/02/21 07:03 headache Penicillins AdvReac "passes Verified 10/02/21 07:04 out" oral steroids AdvReac Afib Uncoded 10/02/21 07:03 Physical Exam Vitals: Vital Signs Temp Pulse Pulse Resp BP BP Pulse Ox 10/02/21 10:51 66 18 117/76 96 10/02/21 10:16 97.5 F L 60 16 102/56 99 10/02/21 08:47 61 18 102/57 98 10/02/21 07:38 63 18 89/44 96 10/02/21 06:21 60 20 109/66 100 10/02/21 05:00 60 20 115/93 92 L 10/02/21 04:00 60 20 91/76 95 10/02/21 03:17 74 20 110/86 94 L 10/02/21 02:14 97.9 F 60 18 118/69 94 L Intake and Output 10/01/21 10/02/21 10/02/21 22:59 06:59 14:59 Other: Weight 78.471 kg Results 10/02/21 02:56 10/02/21 02:56 Cardiac Enzymes 10/02/21 10/02/21 10/02/21 Range/Units 02:56 02:56 08:52 AST 65 H (14-36) U/L Troponin I 0.037 H* 0.045 H* (0.000-0.034) ng/mL 10/02/21 Range/Units 10:46 AST (14-36) U/L Troponin I 0.043 H* (0.000-0.034) ng/mL CBC 10/02/21 Range/Units 02:56 WBC 5.4 (3.8-10.6) k/uL RBC 5.04 (3.80-5.40) m/uL Hgb 13.8 (11.4-16.0) gm/dL Hct 45.1 (34.0-46.0) % Plt Count 67 L (150-450) k/uL Comprehensive Metabolic Panel 10/02/21 Range/Units 02:56 Sodium 135 L (137-145) mmol/L Potassium 3.4 L (3.5-5.1) mmol/L Chloride 90 L (98-107) mmol/L Carbon Dioxide 34 H (22-30) mmol/L BUN 81 H (7-17) mg/dL Creatinine 1.76 H (0.52-1.04) mg/dL Glucose 103 H (74-99) mg/dL Calcium 10.5 H (8.4-10.2) mg/dL AST 65 H (14-36) U/L ALT 19 (4-34) U/L Alkaline Phosphatase 180 H (38-126) U/L Total Protein 7.2 (6.3-8.2) g/dL Albumin 4.2 (3.5-5.0) g/dL Current Medications Generic Name Dose Route Start Last Admin Trade Name Freq PRN Reason Stop Dose Admin Apixaban 5 mg 10/02/21 09:00 10/02/21 09:12 Apixaban 5 Mg Tab PO 10/08/21 21:01 5 mg BID BRIDGETTE Administration Protocol Atorvastatin Calcium 40 mg 10/03/21 09:00 Atorvastatin 40 Mg Tab PO DAILY BRIDGETTE Citalopram Hydrobromide 20 mg 10/02/21 09:00 10/02/21 09:13 Citalopram Hydrobromide 20 Mg Tab PO 20 mg DAILY BRIDGETTE Administration Furosemide 40 mg 10/02/21 11:45 Furosemide 10 Mg/Ml 4 Ml Vial IV Q12HR BRIDGETTE Levothyroxine Sodium 50 mcg 10/02/21 06:30 10/02/21 09:12 Levothyroxine 50 Mcg Tab PO 50 mcg DAILY@0630 BRIDGETTE Administration Meclizine HCl 12.5 mg 10/02/21 08:05 Meclizine 12.5 Mg Tab PO BID PRN Vertigo Metolazone 2.5 mg 10/03/21 09:00 Metolazone 2.5 Mg Tab PO MOWEFR BRIDGETTE Metoprolol Succinate 100 mg 10/02/21 21:00 Metoprolol Succinate (Er) 100 Mg Tab.Er.24h PO HS BRIDGETTE Midodrine 5 mg 10/02/21 09:00 10/02/21 09:13 Midodrine 5 Mg Tab PO 5 mg TID BRIDGETTE Administration Montelukast Sodium 10 mg 10/02/21 21:00 Montelukast 10 Mg Tab PO HS [facility] Sodium Chloride 10 ml 10/02/21 09:00 10/02/21 09:14 Sodium Chloride 0.9% Flush 10 Ml Syringe IV 10 ml BID BRIDGETTE Administration Intake and Output 10/01/21 10/02/21 10/02/21 22:59 06:59 14:59 Other: Weight 78.471 kg 10/02/21 02:56 10/02/21 02:56
--- NOTE | 2021-10-02 13:35 | P.HPIM ---
History of Present Illness H&P Date: 10/02/21 Chief Complaint: generalized weakness Patient is 80-year-old female with a past medical history of atrial fibrillation, chronic diastolic heart failure, peripheral vascular disease, hypertension, dyslipidemia, bovine aortic valve replacement and 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 Patient currently is somnolent so history was obtained from at bedside. states that patient has chronic dizziness. He states that she has a hard time walking and fell from commode when she attempted to get up. He says that she has been complaining of shortness of breath and also worsening lower extremity swelling in bilateral lower extremities. He states that she is compliant with her medications and takes Lasix 40 mg twice a day. also states that she recently started bentyl for muscle spasms. In the ED patient was found to have a creatinine of 1.7 (baseline 1.5), lactic acid trending down from 2.4-1.7, platelets 64 and chest x-ray showed cardiomegaly with no signs of heart failure. There is new small left pleural effusion compared to old exam. Review of Systems 10 ROS reviewed and are negative except as noted in HPI Past Medical History Past Medical History: Atrial Fibrillation, Asthma, Coronary Artery Disease (CAD), Cancer, Heart Failure, COPD, Hyperlipidemia, Hypertension, Osteoarthritis (OA), Sleep Apnea/CPAP/BIPAP, Thyroid Disorder, Vascular Disorder Additional Past Medical History / Comment(s): Tachy/tracey syndrome with pacemaker, PVD, bilateral intermittent claudication, varicosities, GEO with Cpap, hypothyroid, vertigo, kidney stones surgically removed, skin cancer removed from nose, past shingelles. History of Any Multi-Drug Resistant Organisms: None Reported Past Surgical History: Appendectomy, Cholecystectomy, Heart Catheterization, Heart Catheterization With Stent, Joint Replacement, Pacemaker, Tonsillectomy Additional Past Surgical History / Comment(s): Cardioversion, 2008 Aortic valve replacement/bovine, pacemaker originally placed 2008 with gen change 2013, PCI with stent 1998, R groin hemotoma with evacuation of clot, bilateral vascular procedures/aortagram with runoffs/ arteriogram/arthrectomy with stent SFA, bilateral total knee arthroplasties, colonoscopy, skin cancer removal, bilateral cataract removals. Past Anesthesia/Blood Transfusion Reactions: No Reported Reaction, Motion Sickness Additional Past Anesthesia/Blood Transfusion Reaction / Comment(s): No problems with prior blood transfusions. Date of Last Stent Placement:: 1998 Type of Cardiac Device: Permanent Pacemaker Device Placement Date:: 2008 device/gen change 2013 Past Psychological History: Anxiety, Depression Smoking Status: Second hand smoke exposure Past Alcohol Use History: None Reported Past Drug Use History: None Reported - Past Family History Mother Family Medical History: Cancer Additional Family Medical History / Comment(s): skin CA Father Family Medical History: Cancer Additional Family Medical History / Comment(s): stomach ulcer at age 52 Brother(s) Additional Family Medical History / Comment(s): Patient has 6 brothers and one is known to have coronary artery disease. Patient is no sisters. Patient has 4 children one has Crohn's disease and one has rheumatoid arthritis. Medications and Allergies Home Medications Medication Instructions Recorded Confirmed Type Levothyroxine Sodium [Synthroid] 50 mcg PO DAILY 08/24/18 10/02/21 History Montelukast [Singulair] 10 mg PO HS 08/24/18 10/02/21 History Apixaban [Eliquis] 5 mg PO BID #180 tab 11/28/18 10/02/21 Rx Metoprolol Succinate (ER) [Toprol 100 mg PO HS 12/19/18 10/02/21 History XL] Pravastatin Sodium [Pravachol] 10 mg PO DAILY 12/19/18 10/02/21 History Ubidecarenone [Co Q-10] 100 mg PO DAILY 09/11/20 10/02/21 History Furosemide [Lasix] 40 mg PO BID@0900,1600 tab 09/13/20 10/02/21 Rx Citalopram Hydrobromide [CeleXA] 20 mg PO DAILY 08/17/21 10/02/21 History Meclizine [Antivert] 12.5 mg PO BID PRN 08/17/21 10/02/21 History Midodrine [ProAmatine] 5 mg PO TID 08/17/21 10/02/21 History metOLazone [Zaroxolyn] 2.5 mg PO MOWEFR 08/17/21 10/02/21 History Baclofen [Lioresal] 5 mg PO BID PRN 10/02/21 10/02/21 History Allergies Allergy/AdvReac Type Severity Reaction Status Date / Time amlodipine [From Lotrel] Allergy Unknown Verified 10/02/21 07:03 benazepril [From Lotrel] Allergy Unknown Verified 10/02/21 07:03 cephalexin [From Keflex] Allergy Rash/Hives Verified 10/02/21 07:03 clindamycin Allergy Rash/Hives Verified 10/02/21 07:03 doxazosin [From Cardura] Allergy Unknown Verified 10/02/21 07:03 hydrochlorothiazide Allergy Unknown Verified 10/02/21 07:03 [From Maxzide] isosorbide [From Imdur] Allergy Anaphylaxis Verified 10/02/21 07:03 metoprolol [From Toprol XL] Allergy Unknown Verified 10/02/21 07:03 ramipril [From Altace] Allergy Anaphylaxis Verified 10/02/21 07:03 sulfamethoxazole Allergy severe Verified 10/02/21 07:03 [From Bactrim] skin reaction triamterene [From Maxzide] Allergy Unknown Verified 10/02/21 07:03 trimethoprim [From Bactrim] Allergy severe Verified 10/02/21 07:03 skin reaction valsartan [From Diovan] Allergy severe Verified 10/02/21 07:03 headache clonidine [From Catapres] AdvReac anxious Verified 10/02/21 07:03 diltiazem AdvReac severe Verified 10/02/21 07:03 headache Penicillins AdvReac "passes Verified 10/02/21 07:04 out" oral steroids AdvReac Afib Uncoded 10/02/21 07:03 Physical Exam Osteopathic Statement: *. No significant issues noted on an osteopathic structu ral exam other than those noted in the History and Physical/Consult. Vitals: Vital Signs Temp Pulse Pulse Resp BP BP Pulse Ox 10/02/21 10:51 66 18 117/76 96 10/02/21 10:16 97.5 F L 60 16 102/56 99 10/02/21 08:47 61 18 102/57 98 10/02/21 07:38 63 18 89/44 96 10/02/21 06:21 60 20 109/66 100 10/02/21 05:00 60 20 115/93 92 L 10/02/21 04:00 60 20 91/76 95 10/02/21 03:17 74 20 110/86 94 L 10/02/21 02:14 97.9 F 60 18 118/69 94 L Intake and Output 10/01/21 10/02/21 10/02/21 22:59 06:59 14:59 Other: Weight 78.471 kg Results CBC & Chem 7: 10/02/21 02:56 10/02/21 02:56 Labs: Abnormal Lab Results - Last 24 Hours (Table) 10/02/21 10/02/21 10/02/21 Range/Units 02:56 02:56 02:56 MCHC 30.6 L (31.0-37.0) g/dL RDW 18.8 H (11.5-15.5) % Plt Count 67 L (150-450) k/uL ABG pH (7.35-7.45) ABG pCO2 (35-45) mmHg ABG pO2 (83-108) mmHg ABG HCO3 (21-25) mmol/L ABG Total CO2 (19-24) mmol/L ABG O2 Saturation (94-97) % Sodium 135 L (137-145) mmol/L Potassium 3.4 L (3.5-5.1) mmol/L Chloride 90 L (98-107) mmol/L Carbon Dioxide 34 H (22-30) mmol/L BUN 81 H (7-17) mg/dL Creatinine 1.76 H (0.52-1.04) mg/dL Glucose 103 H (74-99) mg/dL Plasma Lactic Acid Col[place] 2.4 H* (0.7-2.0) mmol/L Calcium 10.5 H (8.4-10.2) mg/dL Total Bilirubin 4.3 H (0.2-1.3) mg/dL AST 65 H (14-36) U/L Alkaline Phosphatase 180 H (38-126) U/L Troponin I (0.000-0.034) ng/mL Ur Leukocyte Esterase (Negative) 10/02/21 10/02/21 10/02/21 Range/Units 02:56 08:52 09:55 MCHC (31.0-37.0) g/dL RDW (11.5-15.5) % Plt Count (150-450) k/uL ABG pH (7.35-7.45) ABG pCO2 (35-45) mmHg ABG pO2 (83-108) mmHg ABG HCO3 (21-25) mmol/L ABG Total CO2 (19-24) mmol/L ABG O2 Saturation (94-97) % Sodium (137-145) mmol/L Potassium (3.5-5.1) mmol/L Chloride (98-107) mmol/L Carbon Dioxide (22-30) mmol/L BUN (7-17) mg/dL Creatinine (0.52-1.04) mg/dL Glucose (74-99) mg/dL Plasma Lactic Acid [place] (0.7-2.0) mmol/L Calcium (8.4-10.2) mg/dL Total Bilirubin (0.2-1.3) mg/dL AST (14-36) U/L Alkaline Phosphatase (38-126) U/L Troponin I 0.037 H* 0.045 H* (0.000-0.034) ng/mL Ur Leukocyte Esterase Trace H (Negative) 10/02/21 10/02/21 Range/Units 10:46 12:30 MCHC (31.0-37.0) g/dL RDW (11.5-15.5) % Plt Count (150-450) k/uL ABG pH 7.49 H (7.35-7.45) ABG pCO2 47 H (35-45) mmHg ABG pO2 157 H (83-108) mmHg ABG HCO3 36 H (21-25) mmol/L ABG Total CO2 37 H (19-24) mmol/L ABG O2 Saturation 99.0 H (94-97) % Sodium (137-145) mmol/L Potassium (3.5-5.1) mmol/L Chloride (98-107) mmol/L Carbon Dioxide (22-30) mmol/L BUN (7-17) mg/dL Creatinine (0.52-1.04) mg/dL Glucose (74-99) mg/dL Plasma Lactic Acid [place] (0.7-2.0) mmol/L Calcium (8.4-10.2) mg/dL Total Bilirubin (0.2-1.3) mg/dL AST (14-36) U/L Alkaline Phosphatase (38-126) U/L Troponin I 0.043 H* (0.000-0.034) ng/mL Ur Leukocyte Esterase (Negative) Assessment and Plan Assessment: -Consult PT OT -Hold Bentyl as it is causing her to be more somnolent and likely also contributing to her falls Lower extremity swellings consistent with lymphedema -Keep lower extremities elevated -DANNY hose -Doubt DVT since patient is on anticoagulation Mild acute on chronic diastolic heart failure -Cardiology started patient on IV Lasix 40 mg twice a day -Resume Zaroxolyn -Daily weight -Strict I's and O's -Pacemaker interrogation Mild acute kidney injury on CK D stage III -Likely cardiorenal -Resume Lasix -Creatinine baseline is around 1.5 Thrombocytopenia -Monitor CBC -Resume anticoagulation. His platelets below 50. Anticoagulation Non-NH elevated troponin secondary to heart failure and chronic kidney disease -Troponin level is better than her baseline Persistent A. fib with RVR status post pacemaker -Resume Elocon ascending metoprolol Hypertension -Resume home meds Asthma -Stable. Resume montelukast Hyperlipidemia -Resume statin Hypothyroidism -Resume levothyroxine Status post aortic valve replacement Peripheral vascular disease Obstructive sleep apnea: to bring CPAP from home DVT prophylaxis: Eliquis CODE STATUS:full code DVT prophylaxis: Eliquis Discussed with: Patient, ER, rn Anticipated length of stay > than [address]: home A total of 75 minutes was spent on the care of this complex patient more than 50% of the time was spent in counseling and care coordination.
[2021-10-02] MEDS: MONTELUKAST 10 MG TAB PO SCH (20:43)
[2021-10-02] MEDS: METOPROLOL SUCCINATE (ER) 100 MG TAB.ER.24H PO SCH (20:43)
[2021-10-02 21:48] LABS: Anisocytosis Slight; HCT 48.8 % (34.0-46.0); HGB 14.6 gm/dL (11.4-16.0); Hypochromasia Marked; MCH 27.9 pg (25.0-35.0); MCV 93.1 fL (80.0-100.0); Mean Platelet Volume 10.2; RBC 5.24 m/uL (3.80-5.40); RDW 18.4 % (11.5-15.5); WBC 6.1 k/uL (3.8-10.6)
[2021-10-02 21:54] LABS: Platelet Count 64 k/uL (150-450)
[2021-10-03] MEDS: LEVOTHYROXINE 50 MCG TAB PO SCH (06:25)
[2021-10-03] MEDS: FUROSEMIDE 10 MG/ML 4 ML VIAL IV SCH ×2 (09:11→21:40)
[2021-10-03] MEDS: ATORVASTATIN 40 MG TAB PO SCH (09:12)
[2021-10-03] MEDS: APIXABAN 5 MG TAB PO SCH ×2 (09:12→21:40)
[2021-10-03] MEDS: MIDODRINE 5 MG TAB PO SCH ×3 (09:12→21:40)
[2021-10-03] MEDS: CITALOPRAM HYDROBROMIDE 20 MG TAB PO SCH (09:12)
[2021-10-03 09:57] LABS: Calcium 10.4 mg/dL (8.4-10.2)
[2021-10-03 10:10] LABS: Anisocytosis Slight; HCT 46.8 % (34.0-46.0); HGB 13.8 gm/dL (11.4-16.0); Hypochromasia Marked; MCHC 29.4 g/dL (31.0-37.0); MCV 95.1 fL (80.0-100.0); Macrocytosis Slight; Mean Platelet Volume 9.8; RBC 4.92 m/uL (3.80-5.40); RDW 18.7 % (11.5-15.5); WBC 6.1 k/uL (3.8-10.6)
[2021-10-03 10:12] LABS: Platelet Count 62 k/uL (150-450)
[2021-10-03 10:14] LABS: Potassium 3.4 mmol/L (3.5-5.1)
[2021-10-03 10:36] VITALS: BMI 34.9
[2021-10-03] MEDS ORDERED: POTASSIUM CHLORIDE ER 20 MEQ TAB.ER PO STA (10:57)
--- NOTE | 2021-10-03 10:59 | P.PN ---
Subjective Progress Note Date: 10/03/21 HISTORY OF PRESENT ILLNESS: This is a 80 year old female with a past medical history significant for congestive heart failure with preserved ejection fraction, pulmonary hypertension, hypertension, valvular heart disease, history of TAVR in 2008, chronic atrial fibrillation with previous ablations, BiV pacemaker, coronary artery disease with PCI in 1998, peripheral vascular disease, obstructive sleep apnea with CPAP use, and vertigo. Patient follows in the office with Dr. Mukesh ledesma. We have been asked to see the patient in consultation for CHF. Patient examined at the bedside. Patient is very lethargic at the time of examination. She is unable to stay alert long enough to answer any questions. There is no family present. According to the nurse, the patients brought her in the hospital after having a possible syncopal episode in the bathroom, along with increased weakness and lower extremity edema. * EKG reveals ventricular paced rhythm * Chest xray cardiomegaly. No heart failure seen. There is new small left pleural effusion compared to old exam. * Laboratory data: WBC 5.4. Hemoglobin 13.8. Platelet count 67. Sodium 135. Potassium 3.4. BUN 81. Creatinine 1.76. ProBNP 4530. Troponin 0.037. 0.045. 0.043. * Current home cardiac medications include Pravachol 10 mg daily, metoprolol succinate 100 mg at night, Lasix 40 mg twice a day, Eliquis 5 mg twice a day, and Midodrine 5mg TID * Most recent echocardiogram obtained in August 2021 revealed ejection fraction 55-60%, moderate aortic stenosis, mild mitral regurgitation, moderate mitral stenosis, and severe tricuspid regurgitation 10/03/2021 Patient examined this morning at the bedside. Patient is more awake today compared to yesterday. She denies chest pain or pressure. She reports mild SOB. She remains on IV lasix. Creatinine today 1.67. PHYSICAL EXAM: VITAL SIGNS: Reviewed. GENERAL: Well-developed in no acute distress. HEENT: Head is normocephalic. Pupils are equal, round. Sclerae anicteric. Mucous membranes of the mouth are moist. Neck supple. No JVD or thyromegaly LUNGS: Respirations even and unlabored. Lungs diminished auscultation bi laterally. HEART: Regular rate and rhythm. S1 and S2 heard. Systolic murmur. ABDOMEN: Soft. Nondistended. Nontender. EXTREMITIES: Normal range of motion. No clubbing or cyanosis. Peripheral pulses intact. 1-2+ lower nonpitting extremity edema ASSESSMENT: Lethargy/altered mental status Questionable syncope Acute on chronic heart failure with preserved ejection fraction Acute kidney injury Abnormal troponins, not suggestive of acute coronary syndrome, likely secondary to acute kidney injury Permanent atrial fibrillation, on Eliquis History of BiV pacemaker implantation Valvular heart disease History of TAVR, 2009 Coronary artery disease with previous PCI, exact details unknown Peripheral vascular disease PLAN: Continue IV Lasix Monitor kidney function Accurate I&O Daily weights Continue Eliquis Await results of PPM interrogation Continue telemetry monitoring Replace potassium Further recommendations pending patient's course Nurse practitioner note has been reviewed by physician. Signing provider agrees with the documented findings, assessment, and plan of care. Objective - Vital Signs Vital signs: Vital Signs Temp 97.9 F 10/03/21 09:10 Pulse 60 10/03/21 09:10 Resp 20 10/03/21 09:10 BP 121/89 10/03/21 09:10 Pulse Ox 96 10/03/21 09:10 Intake & Output 10/02/21 10/03/21 10/03/21 18:59 06:59 18:59 Output Total 500 Balance -500 Weight 78.471 kg 78.471 kg Output: Urine 500 Other: Voiding Method External Catheter External Catheter - Labs CBC & Chem 7: 10/03/21 08:55 10/03/21 08:55 Labs: Abnormal Lab Results - Last 24 Hours (Table) 10/02/21 10/02/21 10/02/21 Range/Units 10:46 12:30 21:23 Hct 48.8 H (34.0-46.0) % MCHC 30.0 L (31.0-37.0) g/dL RDW 18.4 H (11.5-15.5) % Plt Count 64 L (150-450) k/uL ABG pH 7.49 H (7.35-7.45) ABG pCO2 47 H (35-45) mmHg ABG pO2 157 H (83-108) mmHg ABG HCO3 36 H (21-25) mmol/L ABG Total CO2 37 H (19-24) mmol/L ABG O2 Saturation 99.0 H (94-97) % Sodium (137-145) mmol/L Potassium (3.5-5.1) mmol/L Chloride (98-107) mmol/L BUN (7-17) mg/dL Creatinine (0.52-1.04) mg/dL Calcium (8.4-10.2) mg/dL Troponin I 0.043 H* (0.000-0.034) ng/mL 10/03/21 10/03/21 Range/Units 08:55 08:55 Hct 46.8 H (34.0-46.0) % MCHC 29.4 L (31.0-37.0) g/dL RDW 18.7 H (11.5-15.5) % Plt Count 62 L (150-450) k/uL ABG pH (7.35-7.45) ABG pCO2 (35-45) mmHg ABG pO2 (83-108) mmHg ABG HCO3 (21-25) mmol/L ABG Total CO2 (19-24) mmol/L ABG O2 Saturation (94-97) % Sodium 135 L (137-145) mmol/L Potassium 3.4 L (3.5-5.1) mmol/L Chloride 94 L (98-107) mmol/L BUN 79 H (7-17) mg/dL Creatinine 1.67 H (0.52-1.04) mg/dL Calcium 10.4 H (8.4-10.2) mg/dL Troponin I (0.000-0.034) ng/mL
--- NOTE | 2021-10-03 11:44 | P.PN ---
Subjective Progress Note Date: 10/03/21 Patient is 80-year-old female with a past medical history of atrial fibrillation, chronic diastolic heart failure, peripheral vascular disease, hypertension, dyslipidemia, bovine aortic valve replacement and pacemaker secondary to tachybradycardia syndrome, hypothyroidism, GEO and noncompliant w ith CPAP, hypothyroidism, CK D stage III, asthma who was brought in for generalized weakness and difficulty with walking. n the ED patient was found to have a creatinine of 1.7 (baseline 1.5), lactic acid trending down from 2.4-1.7, platelets 64 and chest x-ray showed cardiomegaly with no signs of heart failure. There is new small left pleural effusion compared to old exam. Patient was started on IV Lasix. 10/03/2021: This morning patient was a bit more awake and alert then yesterday. She is having some incoherent thoughts. She initially mentioned that she was seeing fire and she also has my bates. I then oriented patient. She was AAO 2. I then asked her again about the fire and about my bates and then the patient replied back saying that she was sleepy and doesn't know why she said it. Patient stated that she still feels short of breath. Objective - Vital Signs Vital signs: Vital Signs Temp 97.9 F 10/03/21 09:10 Pulse 60 10/03/21 09:10 Resp 20 10/03/21 09:10 BP 121/89 10/03/21 09:10 Pulse Ox 96 10/03/21 09:10 Intake & Output 10/02/21 10/03/21 10/03/21 18:59 06:59 18:59 Output Total 500 Balance -500 Weight 78.471 kg 78.471 kg Output: Urine 500 Other: Voiding Method External Catheter External Catheter - Exam General examination - Alert and Oriented 2 in NAD, appears chronically debilitated Heart - + S1S2 no murmurs Lungs - Clear to auscultation Abdomen soft NT ND +ve BS Extremities - nonpitting edema bilateral lower extremities, patient of the left upper extremity 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 Psych - somnolent, lethargic and mildly confused - Labs CBC & Chem 7: 10/03/21 08:55 10/03/21 08:55 Labs: Abnormal Lab Results - Last 24 Hours (Table) 03/10/02/21 10/02/21 Range/Units 10:46 12:30 21:23 Hct 48.8 H (34.0-46.0) % MCHC 30.0 L (31.0-37.0) g/dL RDW 18.4 H (11.5-15.5) % Plt Count 64 L (150-450) k/uL ABG pH 7.49 H (7.35-7.45) ABG pCO2 47 H (35-45) mmHg ABG pO2 157 H (83-108) mmHg ABG HCO3 36 H (21-25) mmol/L ABG Total CO2 37 H (19-24) mmol/L ABG O2 Saturation 99.0 H (94-97) % Sodium (137-145) mmol/L Potassium (3.5-5.1) mmol/L Chloride (98-107) mmol/L BUN (7-17) mg/dL Creatinine (0.52-1.04) mg/dL Calcium (8.4-10.2) mg/dL Troponin I 0.043 H* (0.000-0.034) ng/mL 10/03/21 10/03/21 Range/Units 08:55 08:55 Hct 46.8 H (34.0-46.0) % MCHC 29.4 L (31.0-37.0) g/dL RDW 18.7 H (11.5-15.5) % Plt Count 62 L (150-450) k/uL ABG pH (7.35-7.45) ABG pCO2 (35-45) mmHg ABG pO2 (83-108) mmHg ABG HCO3 (21-25) mmol/L ABG Total CO2 (19-24) mmol/L ABG O2 Saturation (94-97) % Sodium 135 L (137-145) mmol/L Potassium 3.4 L (3.5-5.1) mmol/L Chloride 94 L (98-107) mmol/L BUN 79 H (7-17) mg/dL Creatinine 1.67 H (0.52-1.04) mg/dL Calcium 10.4 H (8.4-10.2) mg/dL Troponin I (0.000-0.034) ng/mL Assessment and Plan Assessment: Generalized weakness -Consult PT OT -Hold Bentyl as it is causing her to be more somnolent and likely also contributing to her falls Lower extremity swellings consistent with lymphedema -Keep lower extremities elevated -DANNY -Doubt DVT since patient is on anticoagulation Mild acute on chronic diastolic heart failure -Cardiology started patient on IV Lasix 40 mg twice a day -Resume Zaroxolyn -Daily weight -Strict I's and O's -Pacemaker interrogation Mild acute kidney injury on CK D stage III -Likely cardiorenal -Resume Lasix -Creatinine baseline is around 1.5 -Creatinine is stable this morning around her baseline Left upper extremity twitching likely due to metabolic derangement especially since patient was taking Bentyl with renal failure -We'll consult neurology to rule out neurologic etiologies Thrombocytopenia -Monitor CBC -Resume anticoagulation. Hold anticoagulation and platelets less than 50 -This morning platelets are 62 and stable Non-CO elevated troponin secondary to heart failure and chronic kidney disease -Troponin level is better than her baseline Persistent A. fib with RVR status post pacemaker -Resume Eliquis and metoprolol Hypertension -Resume home meds Asthma -Stable. Resume montelukast Hyperlipidemia -Resume statin Hypothyroidism -Resume levothyroxine Status post aortic valve replacement Peripheral vascular disease Obstructive sleep apnea: to bring CPAP from home DVT prophylaxis: Eliquis Prognosis is guarded CODE STATUS:full code DVT prophylaxis: Eliquis Anticipated length of stay > than [address]:
[2021-10-03] MEDS: metOLazone 2.5 MG TAB PO SCH (12:31)
--- NOTE | 2021-10-03 14:52 | US ---
EXAMINATION TYPE: US carotid duplex BILAT DATE OF EXAM: 10/03/2021 COMPARISON: NONE CLINICAL HISTORY: Carotid bruit, tremors. Poor Historian Extremely difficult exam due to severe tortuosity of vessels EXAM MEASUREMENTS: RIGHT: Peak Systolic Velocity (PSV) cm/sec ----- Right CCA: 27.7 ----- Right ICA: 91.8 ----- Right ECA: 49.6 ICA/CCA ratio: 3.3 RIGHT: End Diastole cm/sec ----- Right CCA: 7.8 ----- Right ICA: 16.7 ----- Right ECA: 6.0 LEFT: Peak Systolic Velocity (PSV) cm/sec ----- Left CCA: 48.8 ----- Left ICA: 68.0 ----- Left ECA: 56.6 ICA/CCA ratio: 1.4 LEFT: End Diastole cm/sec ----- Left CCA: 11.3 ----- Left ICA: 20.9 ----- Left ECA: 6.0 VERTEBRALS (direction of flow): Right Vertebral: Antegrade Left Vertebral: Antegrade Rhythm: Normal Severe vessel tortuosity with difficulty to follow. Severe plaque bilateral carotid bulb level on grayscale images. Increased peak systolic velocity and abnormal ratio proximal right internal carotid artery. IMPRESSION: Severe atherosclerotic changes bilateral carotid bulb level. Cannot exclude significant stenosis bilaterally particularly on the right. Advise further investigation with CTA or MRA of the neck. Criteria for Assigning % of Stenosis / Diameter reduction (Estimation based on the indirect measurements of the internal carotid artery velocities (ICA PSV). 1. Normal (no stenosis)=ICA PSV < 125 cm/s: ratio < 2.0: ICA EDV<40 cm/s. 2. Less than 50% stenosis=ICA PSV < 125 cm/s: ratio < 2.0: ICA EDV<40 cm/s. 3. 50 to 69% stenosis=ICA PSV of 125 to 230 cm/s: ration 2.0 ? 4.0: ICA EDV 40-100 cm/s. 4. Greater than 70% stenosis to near occlusion= ICA PSV > 230 cm/s: ratio > 4.0: ICA EDV > 100 cm/s. 5. Near occlusion= ICA PSV velocities may be low or undetectable: variable ratio and ICA EDV. 6. Total occlusion=unable to detect flow.
--- NOTE | 2021-10-03 15:40 | P.CNNES ---
History of Present Illness Consult date: 10/03/21 Requesting physician: Irma Allred Reason for Consult: Left upper extremity twitching History of Present Illness: Patient is a 80-year-old right-handed female who came to the hospital by ambulance yesterday at 1:57 AM because of generalized weakness, difficulty walking and then she had a fall from commode when she attempted to get up. Patient also complaining of dyspnea mainly when she attempts to lie down. Avila munguia has bilateral leg edema increasing over days. No fever or chills or cough. Neurology was consulted because of some twitching of left upper extremity. When I came to see the patient, patient is having myoclonic jerking of her upper extremities and sometimes facial region. Patient denies any clinical history of stroke although she says that she had "a light one" before many years ago, but she says that she does not even know when it happened. Patient does have a history of CHF, COPD. Patient says that she lives with her , does have children which are grown up. Patient states that for last 6 months she has been using a roller walker at home. Prior to that she has been using a cane for many years. Patient's chest x-ray showed cardiomegaly, no heart failure. There is new small left pleural effusion compared to old exam. EKG showed electronic ventricular pacemaker. Prolonged QT interval. CT of the cervical spine revealed cervical multilevel spondylotic changes, no fracture. No change compared to old exam. CT of the head showed Cerebral atrophy. 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 Old left internal capsular lacunar infarct. No acute process. No liam nge. I personally reviewed computed tomography scan of the head and agree with the findings. However the old infarct is involving the caudate on the right, and periventricular white matter on the left side. Patient's blood test shows normal WBC hemoglobin 13.8, the sodium is 135 potassium 3.4 BUN is 81 creatinine 1.76. AST is 65 ALT 19. Troponin is mildly elevated. UA negative. Patient does have chronic renal disease, stage 3. Patient's lactate is 2.4. Patient's ABG shows pH of 7.49, pCO2 47, pO2 is 157, saturation 99%. Her most recent BUN is improved 79 and creatinine 1.67. Patient's last hemoglobin A1c 6.6 on 08/19/2021. Lipid panel with cholesterol 127 LDL 64, HDL 41 and triglycerides weren't and on 09/13/2020. Review of Systems Complains of generalized weakness, tremors, gait imbalance, uses walker. Denies any chest pain. She does have difficulty breathing. No rash. She does have bruises. No problem with the vision, no headache. All other 14 point of uses a reviewed and noncontributory to the present illness. Past Medical History Past Medical History: Atrial Fibrillation, Asthma, Coronary Artery Disease (CAD), Cancer, Heart Failure, COPD, Hyperlipidemia, Hypertension, Osteoarthritis (OA), Sleep Apnea/CPAP/BIPAP, Thyroid Disorder, Vascular Disorder Additional Past Medical History / Comment(s): Tachy/tracey syndrome with pacemaker, PVD, bilateral intermittent claudication, varicosities, GEO with Cpap, hypothyroid, vertigo, kidney stones surgically removed, skin cancer removed from nose, past shingelles. History of Any Multi-Drug Resistant Organisms: None Reported Past Surgical History: Appendectomy, Cholecystectomy, Heart Catheterization, Heart Catheterization With Stent, Joint Replacement, Pacemaker, Tonsillectomy Additional Past Surgical History / Comment(s): Cardioversion, 2009 Aortic valve replacement/bovine, pacemaker originally placed 2008 with gen change 2013, PCI with stent 1998, groin hemotoma with evacuation of clot, bilateral vascular procedures/aortagram with runoffs/ arteriogram/arthrectomy with stent SFA, bilateral total knee arthroplasties, colonoscopy, skin cancer removal, bilateral cataract removals. Past Anesthesia/Blood Transfusion Reactions: No Reported Reaction, Motion Sickness Additional Past Anesthesia/Blood Transfusion Reaction / Comment(s): No problems with prior blood transfusions. Date of Last Stent Placement:: 1998 Type of Cardiac Device: Permanent Pacemaker Device Placement Date:: 2008 device/gen change 2013 Past Psychological History: Anxiety, Depression Additional Psychological History / Comment(s): Pt resides with her spouse. She uses a walker to ambulate. She no longer drives. Her spouse is able to assist her when needed and can drive. Lately, spouse has been managing her medications. Smoking Status: Second hand smoke exposure Past Alcohol Use History: None Reported Additional Past Alcohol Use History / Comment(s): Patient is a lifelong nonsmoker but she was exposed to secondhand smoke. Past Drug Use History: None Reported - Past Family History Mother Family Medical History: Cancer Additional Family Medical History / Comment(s): skin CA Father Family Medical History: Cancer Additional Family Medical History / Comment(s): stomach ulcer at age 52 Brother(s) Additional Family Medical History / Comment(s): Patient has 6 brothers and one is known to have coronary artery disease. Patient is no sisters. Patient has 4 children one has Crohn's disease and one has rheumatoid arthritis. Medications and Allergies Home Medications Medication Instructions Recorded Confirmed Type Levothyroxine Sodium [Synthroid] 50 mcg PO DAILY 08/24/18 10/02/21 History Montelukast [Singulair] 10 mg PO HS 08/24/18 10/02/21 History Apixaban [Eliquis] 5 mg PO BID #180 tab 11/28/18 10/02/21 Rx Metoprolol Succinate (ER) [Toprol 100 mg PO HS 12/19/18 10/02/21 History XL] Pravastatin Sodium [Pravachol] 10 mg PO DAILY 12/19/18 10/02/21 History Ubidecarenone [Co Q-10] 100 mg PO DAILY 09/11/20 10/02/21 History Furosemide [Lasix] 40 mg PO BID@0900,1600 tab 09/13/20 10/02/21 Rx Citalopram Hydrobromide [CeleXA] 20 mg PO DAILY 08/17/21 10/02/21 History Meclizine [Antivert] 12.5 mg PO BID PRN 08/17/21 10/02/21 History Midodrine [ProAmatine] 5 mg PO TID 08/17/21 10/02/21 History metOLazone [Zaroxolyn] 2.5 mg PO MOWEFR 08/17/21 10/02/21 History Baclofen [Lioresal] 5 mg PO BID PRN 10/02/21 10/02/21 History Allergies Allergy/AdvReac Type Severity Reaction Status Date / Time amlodipine [From Lotrel] Allergy Unknown Verified 10/02/21 07:03 benazepril [From Lotrel] Allergy Unknown Verified 10/02/21 07:03 cephalexin [From Keflex] Allergy Rash/Hives Verified 10/02/21 07:03 clindamycin Allergy Rash/Hives Verified 10/02/21 07:03 doxazosin [From Cardura] Allergy Unknown Verified 10/02/21 07:03 hydrochlorothiazide Allergy Unknown Verified 10/02/21 07:03 [From Maxzide] isosorbide [From Imdur] Allergy Anaphylaxis Verified 10/02/21 07:03 metoprolol [From Toprol XL] Allergy Unknown Verified 10/02/21 07:03 ramipril [From Altace] Allergy Anaphylaxis Verified 10/02/21 07:03 sulfamethoxazole Allergy severe Verified 10/02/21 07:03 [From Bactrim] skin reaction triamterene [From Maxzide] Allergy Unknown Verified 10/02/21 07:03 trimethoprim [From Bactrim] Allergy severe Verified 10/02/21 07:03 skin reaction valsartan [From Diovan] Allergy severe Verified 10/02/21 07:03 headache clonidine [From Catapres] AdvReac anxious Verified 10/02/21 07:03 diltiazem AdvReac severe Verified 10/02/21 07:03 headache Penicillins AdvReac "passes Verified 10/02/21 07:04 out" oral steroids AdvReac Afib Uncoded 10/02/21 07:03 Physical Examination - Vital Signs Vital Signs: Vital Signs Temp Pulse Resp BP Pulse Ox 10/03/21 09:10 97.9 F 60 20 121/89 96 10/03/21 04:00 98.4 F 62 18 102/66 91 L 10/03/21 02:00 60 18 10/03/21 00:00 60 18 101/58 92 L 10/02/21 20:00 98.8 F 66 18 104/60 93 L 10/02/21 17:21 61 18 116/73 94 L 10/02/21 14:37 66 18 Intake and Output 10/02/21 10/03/21 10/03/21 22:59 06:59 14:59 Output Total 500 Balance -500 Output: Urine 500 Other: Voiding Method External Catheter External Catheter External Catheter Weight 78.471 kg Patient is an elderly female, who appears in mild difficulty breathing.. Patient is slightly encephalopathic, but does wake up and becomes alert awake oriented to time place and person. She knows it is September 30 and that she lives in [facility] and that she is in [facility]. She knows name of the current president Jv. She could not tell the name of the capital [place]. Speech and language functions are normal. No aphasia or dysarthria. Attention, concentration and fund of knowledge is minimally impaired. On cranial examination, pupils are equal, round and reacting to light, visual griffin are full on confrontation, no neglect on double simultaneous stimulation. Her extraocular muscles are intact with no nystagmus. Face has mild right- sided asymmetry which appears chronic, tongue protrudes to the midline. Palatal elevation and sensation normal, hearing and shoulder shrug normal, facial sensation normal. Shoulder shrug normal. On muscle strength testing, there is no pronator drift and the strength is normal in arms and legs, except for hip flexion 4/4, deltoid 4/4, rest is all normal. Deep tendon reflexes are 1+ in the upper limbs, 0 in the lower limbs and plantars are downgoing. She had previous knee replacement. Sensory to touch is equal with no neglect. Cerebellar function showed no ataxia for [id number] testing. Patient has prominent myoclonic jerks of outstretched hands with some asterixis. Patient also has myoclonic jerks noted intermittently while at rest involving the upper trunk in the arms. Tone and bulk of muscles normal. Gait not checked. On general examination, there is probable right-sided carotid bruit. No murmur, S1-S2 audible. Abdomen is soft nontender. No organomegaly, bowel sounds present. Chest is clear to auscultation. Patient has mild peripheral edema. Some ecchymosis are noted in the skin. Results - Laboratory Findings CBC and BMP: 10/03/21 08:55 10/03/21 08:55 Abnormal Lab Findings: Abnormal Labs 10/02/21 10/02/21 10/02/21 02:56 02:56 02:56 Hct MCHC 30.6 L RDW 18.8 H Plt Count 67 L ABG pH ABG pCO2 ABG pO2 ABG HCO3 ABG Total CO2 ABG O2 Saturation Sodium 135 L Potassium 3.4 L Chloride 90 L Carbon Dioxide 34 H BUN 81 H Creatinine 1.76 H Glucose 103 H Plasma Lactic Acid Colby 2.4 H* Calcium 10.5 H Total Bilirubin 4.3 H AST 65 H Alkaline Phosphatase 180 H Troponin I Ur Leukocyte Esterase 10/02/21 10/02/21 10/02/21 02:56 08:52 09:55 Hct MCHC RDW Plt Count ABG pH ABG pCO2 ABG pO2 ABG HCO3 ABG Total CO2 ABG O2 Saturation Sodium Potassium Chloride Carbon Dioxide BUN Creatinine Glucose Plasma Lactic Acid Colby Calcium Total Bilirubin AST Alkaline Phosphatase Troponin I 0.037 H* 0.045 H* Ur Leukocyte Esterase Trace H 10/02/21 10/02/21 10/02/21 10:46 12:30 21:23 Hct 48.8 H MCHC 30.0 L RDW 18.4 H Plt Count 64 L ABG pH 7.49 H ABG pCO2 47 H ABG pO2 157 H ABG HCO3 36 H ABG Total CO2 37 H ABG O2 Saturation 99.0 H Sodium Potassium Chloride Carbon Dioxide BUN Creatinine Glucose Plasma Lactic Acid Colby Calcium Total Bilirubin AST Alkaline Phosphatase Troponin I 0.043 H* Ur Leukocyte Esterase 10/03/21 10/03/21 08:55 08:55 Hct 46.8 H MCHC 29.4 L RDW 18.7 H Plt Count 62 L ABG pH ABG pCO2 ABG pO2 ABG HCO3 ABG Total CO2 ABG O2 Saturation Sodium 135 L Potassium 3.4 L Chloride 94 L Carbon Dioxide BUN 79 H Creatinine 1.67 H Glucose Plasma Lactic Acid Colby Calcium 10.4 H Total Bilirubin AST Alkaline Phosphatase Troponin I Ur Leukocyte Esterase Assessment and Plan Assessment: * Intermittent twitches/tremors, likely myoclonic jerks from metabolic dysfunction. Reasons multifactorial as mentioned below. * Mild encephalopathy due to reasons mentioned below. * Chronic renal disease, stage III * Mild acute on chronic diastolic heart failure * Elevated cardiac enzymes * Atrial fibrillation, on anticoagulation * COPD * Hyponatremia, hypokalemia, lactic acidosis * Borderline diabetes * Hypertension * Hypothyroidism * Pacemaker * History of aortic valve replacement Plan: * Patient's myoclonic jerks are likely due to metabolic encephalopathy due to reasons mentioned above. The metabolic myoclonic jerks will improve once her medical/metabolic conditions come under control. * Patient has bilateral carotid bruit, particularly on the right. We will check carotid Doppler. * No other neurological workup indicated. * Thank you for the consult. Addendum: Carotid Doppler revealed severe atherosclerotic changes bilateral carotid bulb level. Cannot exclude significant stenosis bilaterally particularly in the right. Advise further investigation with CTA or MRA of the neck. Patient unfortunately has significant renal disease, cannot have either of those tests. Cardiology on board. Patient may be a candidate for carotid stenting because of multiple comorbidities. Otherwise may consider a vascular surgery consultation. Case discussed in detail with primary physician. Please call neurology if any other further concerns.
[2021-10-03] MEDS: MONTELUKAST 10 MG TAB PO SCH (21:40)
[2021-10-03] MEDS: METOPROLOL SUCCINATE (ER) 100 MG TAB.ER.24H PO SCH (21:40)
[2021-10-04] MEDS ORDERED: ONDANSETRON 4 MG/2 ML VIAL IVP STA (06:15)
[2021-10-04] MEDS: LEVOTHYROXINE 50 MCG TAB PO SCH (06:51)
[2021-10-04 07:20] LABS: Anisocytosis Slight; Basophils % (A) 0 %; Eosinophils # (A) 0.1 k/uL (0-0.7); Eosinophils % (A) 1 %; HCT 46.3 % (34.0-46.0); HGB 13.7 gm/dL (11.4-16.0); Hypochromasia Marked; Lymphocytes # (A) 1.5 k/uL (1.0-4.8); Lymphocytes % (A) 23 %; MCHC 29.7 g/dL (31.0-37.0); MCV 91.1 fL (80.0-100.0); Mean Platelet Volume 9.2; Monocytes # (A) 0.7 k/uL (0-1.0); Monocytes % (A) 11 %; Neutrophils # (A) 3.9 k/uL (1.3-7.7); Neutrophils % (A) 61 %; RBC 5.08 m/uL (3.80-5.40); RDW 18.7 % (11.5-15.5); WBC 6.5 k/uL (3.8-10.6)
[2021-10-04 07:24] LABS: Platelet Count 73 k/uL (150-450)
[2021-10-04] MEDS: APIXABAN 5 MG TAB PO SCH (09:20)
[2021-10-04] MEDS: FUROSEMIDE 10 MG/ML 4 ML VIAL IV SCH (09:20)
[2021-10-04] MEDS: ATORVASTATIN 40 MG TAB PO SCH (09:20)
[2021-10-04] MEDS: MIDODRINE 5 MG TAB PO SCH ×3 (09:20→21:51)
[2021-10-04] MEDS: CITALOPRAM HYDROBROMIDE 20 MG TAB PO SCH (09:20)
[2021-10-04 10:06] LABS: Calcium 9.8 mg/dL (8.4-10.2)
[2021-10-04 10:11] LABS: Magnesium 2.2 mg/dL (1.6-2.3); Potassium 3.9 mmol/L (3.5-5.1)
--- NOTE | 2021-10-04 10:43 | P.PN ---
Subjective Progress Note Date: 10/04/21 Patient is 80-year-old female with a past medical history of atrial fibrillation, chronic diastolic heart failure, peripheral vascular disease, hypertension, dyslipidemia, bovine aortic valve replacement and pacemaker secondary to tachybradycardia syndrome, hypothyroidism, GEO and noncompliant w ith CPAP, hypothyroidism, CK D stage III, asthma who was brought in for generalized weakness and difficulty with walking. n the ED patient was found to have a creatinine of 1.7 (baseline 1.5), lactic acid trending down from 2.4-1.7, platelets 64 and chest x-ray showed cardiomegaly with no signs of heart failure. There is new small left pleural effusion compared to old exam. Patient was started on IV Lasix. 10/03/2021: This morning patient was a bit more awake and alert then yesterday. She is having some incoherent thoughts. She initially mentioned that she was seeing fire and she also has my bates. I then oriented patient. She was AAO 2. I then asked her again about the fire and about my bates and then the patient replied back saying that she was sleepy and doesn't know why she said it. Patient stated that she still feels short of breath. 10/04/2021: Patient comes in this morning was having some hallucinations. She stated that she was seeing pigs coming out of the wall. Patient is a poor historian where she is slow to answer questions. She is AAO 3. She knows that she is in the hospital because of falls. Patient is asking for legs are still swollen. I opened the blinds in the room. Nurse said that patient was yelling in her room last night so may not have slept well. We'll start patient on Seroquel tonight. Objective - Vital Signs Vital signs: Vital Signs Temp 98.3 F 10/04/21 08:00 Pulse 60 10/04/21 08:00 Resp 19 10/04/21 08:00 BP 98/64 10/04/21 08:00 Pulse Ox 100 10/04/21 08:00 Intake & Output 10/03/21 10/04/21 10/04/21 18:59 06:59 18:59 Intake Total 440 55 Balance 440 55 Weight 78.471 kg 117.5 kg Intake: Oral 440 55 Other: Voiding Method External Catheter Incontinent Incontinent External Catheter # Voids 2 - Exam General examination - Alert and Oriented 3 in NAD, appears chronically debilitated Heart - + S1S2 no murmurs Lungs - diminished but does bilaterally Abdomen soft NT ND +ve BS Extremities - nonpitting edema bilateral lower extremities, patient of the left upper extremity [employer]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 Psych - somnolent, lethargic and mild to moderately confused - Labs CBC & Chem 7: 10/04/21 06:31 10/04/21 09:37 Labs: Abnormal Lab Results - Last 24 Hours (Table) 10/04/21 10/04/21 Range/Units 06:31 09:37 Hct 46.3 H (34.0-46.0) % MCHC 29.7 L (31.0-37.0) g/dL RDW 18.7 H (11.5-15.5) % Plt Count 73 L (150-450) k/uL Sodium 129 L (137-145) mmol/L Chloride 92 L (98-107) mmol/L BUN 82 H (7-17) mg/dL Creatinine 1.78 H (0.52-1.04) mg/dL Assessment and Plan Assessment: Generalized weakness -PT/OT recommend SNF -Hold Bentyl as it is causing her to be more somnolent and likely also contributing to her falls Hallucinations observed early in the morning could be due to versus multiple comorbidities -We'll start patient on Seroquel -Rule out CO2 narcosis -> check ABG -We will recheck urine Lower extremity swellings consistent with lymphedema -Keep lower extremities elevated -DANNY -Doubt DVT since patient is on anticoagulation Mild acute on chronic diastolic heart failure -Cardiology managing diuretics. Patient currently on IV Lasix 40 mg twice a day -Resume Zaroxolyn -Daily weight -Strict I's and O's -Pacemaker interrogation pending Mild acute kidney injury on CK D stage III -Likely cardiorenal -Resume Lasix -Creatinine baseline is around 1.5 -Creatinine is stable this morning around her baseline Significant carotid stenosis -Consult vascular surgery Left upper extremity twitching likely due to metabolic derangement -Discussed with neurology who agreed that this is due to metabolic derangement Thrombocytopenia -Monitor CBC -Resume anticoagulation. Hold anticoagulation and platelets less than 50 -This morning platelets are 62 and stable Non-NE elevated troponin secondary to heart failure and chronic kidney disease -Troponin level is better than her baseline Persistent A. fib with RVR status post pacemaker -Resume Eliquis and metoprolol Hypertension -Resume home meds Asthma -Stable. Resume montelukast Hyperlipidemia -Resume statin Hypothyroidism -Resume levothyroxine Status post aortic valve replacement Peripheral vascular disease Obstructive sleep apnea: CPAP at night DVT prophylaxis: Eliquis Prognosis is guarded CODE STATUS:full code DVT prophylaxis: Eliquis Anticipated length of stay > than [address]: SNF
--- NOTE | 2021-10-04 11:14 | P.GSCN ---
History of Present Illness Consult date: 10/04/21 History of present illness: María is a 80-year-old female who initially came to the hospital by ambulance for generalized weakness and difficulty walking. She reportedly had a fall. She's had some myoclonic jerks therefore neurology was consult at. At the time of their evaluation a bruit was noted therefore a carotid Doppler was ordered. We have counseled regarding Doppler findings. At the time my evaluation the patient seems confused slightly however is uncertain if this is her baseline. She does not seem to understand or know why she is in the hospital. She does state that she fell. She thinks she is feeling a little bit better since then. She denies any overall weakness or unilateral symptoms Past Medical History Past Medical History: Atrial Fibrillation, Asthma, Coronary Artery Disease (CAD), Cancer, Heart Failure, COPD, Hyperlipidemia, Hypertension, Osteoarthritis (OA), Sleep Apnea/CPAP/BIPAP, Thyroid Disorder, Vascular Disorder Additional Past Medical History / Comment(s): Tachy/tracey syndrome with pacemaker, PVD, bilateral intermittent claudication, varicosities, GEO with Cpap, hypothyroid, vertigo, kidney stones surgically removed, skin cancer nazario amy from nose, past shingelles. History of Any Multi-Drug Resistant Organisms: None Reported Past Surgical History: Appendectomy, Cholecystectomy, Heart Catheterization, Heart Catheterization With Stent, Joint Replacement, Pacemaker, Tonsillectomy Additional Past Surgical History / Comment(s): Cardioversion, 2008 Aortic valve replacement/bovine, pacemaker originally placed 2008 with gen change 2013, PCI with stent 1998, R groin hemotoma with evacuation of clot, bilateral vascular procedures/aortagram with runoffs/ arteriogram/arthrectomy with stent SFA, bilateral total knee arthroplasties, colonoscopy, skin cancer removal, bilateral cataract removals. Past Anesthesia/Blood Transfusion Reactions: No Reported Reaction, Motion Sickness Additional Past Anesthesia/Blood Transfusion Reaction / Comm: No problems with prior blood transfusions. Date of Last Stent Placement:: 1998 Type of Cardiac Device: Permanent Pacemaker Device Placement Date:: 2008 device/gen change 2013 Past Psychological History: Anxiety, Depression Additional Psychological History / Comment(s): Pt resides with her spouse. She uses a walker to ambulate. She no longer drives. Her spouse is able to assist her when needed and can drive. Lately, spouse has been managing her medications. Smoking Status: Second hand smoke exposure Past Alcohol Use History: None Reported Additional Past Alcohol Use History / Comment(s): Patient is a lifelong nonsmoker but she was exposed to secondhand smoke. Past Drug Use History: None Reported - Past Family History Mother Family Medical History: Cancer Additional Family Medical History / Comment(s): skin CA Father Family Medical History: Cancer Additional Family Medical History / Comment(s): stomach ulcer at age 52 Brother(s) Additional Family Medical History / Comment(s): Patient has 6 brothers and one is known to have coronary artery disease. Patient is no sisters. Patient has 4 children one has Crohn's disease and one has rheumatoid arthritis. Medications and Allergies Home Medications Medication Instructions Recorded Confirmed Type Levothyroxine Sodium [Synthroid] 50 mcg PO DAILY 08/24/18 10/02/21 History Montelukast [Singulair] 10 mg PO HS 08/24/18 10/02/21 History Apixaban [Eliquis] 5 mg PO BID #180 tab 11/28/18 10/02/21 Rx Metoprolol Succinate (ER) [Toprol 100 mg PO HS 12/19/18 10/02/21 History XL] Pravastatin Sodium [Pravachol] 10 mg PO DAILY 12/19/18 10/02/21 History Ubidecarenone [Co Q-10] 100 mg PO DAILY 09/11/20 10/02/21 History Furosemide [Lasix] 40 mg PO BID@0900,1600 tab 09/13/20 10/02/21 Rx Citalopram Hydrobromide [CeleXA] 20 mg PO DAILY 08/17/21 10/02/21 History Meclizine [Antivert] 12.5 mg PO BID PRN 08/17/21 10/02/21 History Midodrine [ProAmatine] 5 mg PO TID 08/17/21 10/02/21 History metOLazone [Zaroxolyn] 2.5 mg PO MOWEFR 08/17/21 10/02/21 History Baclofen [Lioresal] 5 mg PO BID PRN 10/02/21 10/02/21 History Allergies Allergy/AdvReac Type Severity Reaction Status Date / Time amlodipine [From Lotrel] Allergy Unknown Verified 10/02/21 07:03 benazepril [From Lotrel] Allergy Unknown Verified 10/02/21 07:03 cephalexin [From Keflex] Allergy Rash/Hives Verified 10/02/21 07:03 clindamycin Allergy Rash/Hives Verified 10/02/21 07:03 doxazosin [From Cardura] Allergy Unknown Verified 10/02/21 07:03 hydrochlorothiazide Allergy Unknown Verified 10/02/21 07:03 [From Maxzide] isosorbide [From Imdur] Allergy Anaphylaxis Verified 10/02/21 07:03 metoprolol [From Toprol XL] Allergy Unknown Verified 10/02/21 07:03 ramipril [From Altace] Allergy Anaphylaxis Verified 10/02/21 07:03 sulfamethoxazole Allergy severe Verified 10/02/21 07:03 [From Bactrim] skin reaction triamterene [From Maxzide] Allergy Unknown Verified 10/02/21 07:03 trimethoprim [From Bactrim] Allergy severe Verified 10/02/21 07:03 skin reaction valsartan [From Diovan] Allergy severe Verified 10/02/21 07:03 headache clonidine [From Catapres] AdvReac anxious Verified 10/02/21 07:03 diltiazem AdvReac severe Verified 10/02/21 07:03 headache Penicillins AdvReac "passes Verified 10/02/21 07:04 out" oral steroids AdvReac Afib Uncoded 10/02/21 07:03 Surgical - Exam Vital Signs Temp Pulse Resp BP Pulse Ox 97.9 F 60 18 118/69 94 L 10/02/21 02:14 10/02/21 02:14 10/02/21 02:14 10/02/21 02:14 10/02/21 02:14 Gen. is a pleasant and cooperative slightly confused female in no acute distress. HEENT is normocephalic, atraumatic. Nasal cannula. Neck is supple. Trachea is midline. Heart appears regular at this time. Lungs are clear but diminished bilaterally. Abdomen is soft, nontender. Extremities show no clubbing, cyanosis or edema. Continue myoclonic upper extremity movements. Alert and oriented to self place and time Results - Labs 10/04/21 06:31 10/04/21 09:37 Abnormal Lab Results - Last 24 Hours (Table) 10/04/21 10/04/21 Range/Units 06:31 09:37 Hct 46.3 H (34.0-46.0) % MCHC 29.7 L (31.0-37.0) g/dL RDW 18.7 H (11.5-15.5) % Plt Count 73 L (150-450) k/uL Sodium 129 L (137-145) mmol/L Chloride 92 L (98-107) mmol/L BUN 82 H (7-17) mg/dL Creatinine 1.78 H (0.52-1.04) mg/dL Diabetes panel 10/04/21 Range/Units 09:37 Sodium 129 L (137-145) mmol/L Potassium 3.9 (3.5-5.1) mmol/L Chloride 92 L (98-107) mmol/L Carbon Dioxide 30 (22-30) mmol/L BUN 82 H (7-17) mg/dL Creatinine 1.78 H (0.52-1.04) mg/dL Glucose 97 (74-99) mg/dL Calcium 9.8 (8.4-10.2) mg/dL Calcium panel 10/04/21 Range/Units 09:37 Calcium 9.8 (8.4-10.2) mg/dL Pituitary panel 10/04/21 Range/Units 09:37 Sodium 129 L (137-145) mmol/L Potassium 3.9 (3.5-5.1) mmol/L Chloride 92 L (98-107) mmol/L Carbon Dioxide 30 (22-30) mmol/L BUN 82 H (7-17) mg/dL Creatinine 1.78 H (0.52-1.04) mg/dL Glucose 97 (74-99) mg/dL Calcium 9.8 (8.4-10.2) mg/dL Adrenal panel 10/04/21 Range/Units 09:37 Sodium 129 L (137-145) mmol/L Potassium 3.9 (3.5-5.1) mmol/L Chloride 92 L (98-107) mmol/L Carbon Dioxide 30 (22-30) mmol/L BUN 82 H (7-17) mg/dL Creatinine 1.78 H (0.52-1.04) mg/dL Glucose 97 (74-99) mg/dL Calcium 9.8 (8.4-10.2) mg/dL Assessment and Plan Assessment: Atherosclerotic carotid artery disease Plan: At this time the ultrasound was reviewed. There is some degree of calcific disease in the right carotid bulb but no evidence of velocity elevations to correlate with significant stenosis. Due to the calcific nature was somewhat difficult to visualize. At this time, the patient has renal insufficiency and chronic kidney disease therefore further angiographic imaging is unavailable. Given she is not having any localizing U image findings, we will plan to obtain repeat carotid Doppler as an outpatient to guide further treatment. No planned interventions at this time given no evidence of elevated velocities or significant narrowing visualized.
[2021-10-04 11:17] LABS: ABG Base Excess 10.4 mmol/L; ABG HCO3 34 mmol/L (21-25); ABG Oxygen Saturation 99.1 % (94-97); ABG PCO2 47 mmHg (35-45); ABG PH 7.47 (7.35-7.45); ABG PO2 133 mmHg (83-108); ABG TCO2 36 mmol/L (19-24); Allen Test Performed? Yes
--- NOTE | 2021-10-04 14:20 | P.PN ---
Subjective Progress Note Date: 10/04/21 PROGRESS NOTE Blood pressure This patient is a 80-year-old female with a known history of atrial fibrillation, CAD, ICD implantation and aortic valve replacement who presented with confusion and possible syncope and evidence of CHF. She is awake and alert today but appears to be confused. She denies any chest discomfort or dizziness. She is in atrial ablation with paced rhythm. She continues to be on Lipitor 40 mg daily, Lasix 40 mg IV every 12 hours, metoprolol succinate 100 mg daily, Singulair,Eliquis twice a day. PHYSICAL EXAMINATION: heart rate in the 60 was a blood pressure of 96/67 LUNGS: [Clear to auscultation] HEART: [Regular rate and rhythm, S1, S2. No S3. systolic ejection murmur 2/6 ] ABDOMEN: [Soft, nontender, no organomegaly] EXTREMETIES: [Trace edema] LAB: PH 7.47, PCO2 47, pO2 133, hemoglobin 13.7, BUN 82 and creatinine 1.78. IMPRESSION: 1. Change in mental status with confusion 2. Symptoms of CHF improving 3. Chronic persistent atrial fibrillation, anticoagulated 4. Status post ICD implantation 5. Worsening renal failure 6. Status post aortic valve replacement 7. Peripheral vessel disease 8. History of CAD PLAN: 1. I will change her to oral diuretics 2. Follow renal function closely 3. Increase activity as tolerated 4. Depending on her progress further recommendations will be made. Objective - Vital Signs Vital signs: Vital Signs Temp 97.6 F 10/04/21 12:00 Pulse 60 10/04/21 12:00 Resp 16 10/04/21 12:00 BP 96/67 10/04/21 12:00 Pulse Ox 99 10/04/21 12:00 Intake & Output 10/03/21 10/04/21 10/04/21 18:59 06:59 18:59 Intake Total 440 55 Balance 440 55 Weight 78.471 kg 117.5 kg Intake: Oral 440 55 Other: Voiding Method External Catheter Incontinent Incontinent External Catheter # Voids 2 - Labs CBC & Chem 7: 10/04/21 06:31 10/04/21 09:37 Labs: Abnormal Lab Results - Last 24 Hours (Table) 10/04/21 10/04/21 10/04/21 Range/Units 06:31 09:37 11:13 Hct 46.3 H (34.0-46.0) % MCHC 29.7 L (31.0-37.0) g/dL RDW 18.7 H (11.5-15.5) % Plt Count 73 L (150-450) k/uL ABG pH 7.47 H (7.35-7.45) ABG pCO2 47 H (35-45) mmHg ABG pO2 133 H (83-108) mmHg ABG HCO3 34 H (21-25) mmol/L ABG Total CO2 36 H (19-24) mmol/L ABG O2 Saturation 99.1 H (94-97) % Sodium 129 L (137-145) mmol/L Chloride 92 L (98-107) mmol/L BUN 82 H (7-17) mg/dL Creatinine 1.78 H (0.52-1.04) mg/dL
[2021-10-04] MEDS: FUROSEMIDE 40 MG TAB PO SCH (16:48)
[2021-10-04 17:43] LABS: Appearance,Urine Clear (Clear); Bilirubin,Urine Negative (Negative); Blood,Urine Negative (Negative); Color,Urine Yellow; Glucose,Urine (UA) Negative (Negative); Ketones,Urine Negative (Negative); Leukocyte Esterase,Urine Negative (Negative); Nitrite,Urine Negative (Negative); PH, Urine 6.5 (5.0-8.0); Protein,Urine Negative (Negative); Specific Gravity,Urine 1.012 (1.001-1.035)
[2021-10-04] MEDS ORDERED: QUEtiapine 25 MG TAB PO SCH (21:00)
[2021-10-04] MEDS: MONTELUKAST 10 MG TAB PO SCH (21:51)
[2021-10-04] MEDS: METOPROLOL SUCCINATE (ER) 100 MG TAB.ER.24H PO SCH (21:51)
[2021-10-04] MEDS: APIXABAN 2.5 MG TABLET PO SCH (21:52)
[2021-10-05] MEDS: LEVOTHYROXINE 50 MCG TAB PO SCH (06:04)
[2021-10-05] MEDS: APIXABAN 2.5 MG TABLET PO SCH ×2 (07:42→20:31)
[2021-10-05] MEDS: FUROSEMIDE 40 MG TAB PO SCH (07:42)
[2021-10-05] MEDS: ATORVASTATIN 40 MG TAB PO SCH (07:42)
[2021-10-05] MEDS: MIDODRINE 5 MG TAB PO SCH ×3 (07:42→20:31)
[2021-10-05 09:22] LABS: Magnesium 2.2 mg/dL (1.6-2.3); Potassium 3.3 mmol/L (3.5-5.1)
[2021-10-05 09:38] LABS: Anisocytosis Slight; Basophils # (A) 0.1 k/uL (0-0.2); Basophils % (A) 1 %; Eosinophils # (A) 0.1 k/uL (0-0.7); Eosinophils % (A) 2 %; HCT 44.3 % (34.0-46.0); HGB 13.3 gm/dL (11.4-16.0); Hypochromasia Marked; Lymphocytes # (A) 1.1 k/uL (1.0-4.8); Lymphocytes % (A) 19 %; MCH 27.5 pg (25.0-35.0); MCHC 30.1 g/dL (31.0-37.0); MCV 91.3 fL (80.0-100.0); Mean Platelet Volume 9.9; Monocytes # (A) 0.8 k/uL (0-1.0); Monocytes % (A) 14 %; Neutrophils # (A) 3.4 k/uL (1.3-7.7); Neutrophils % (A) 61 %; RBC 4.85 m/uL (3.80-5.40); RDW 18.8 % (11.5-15.5); WBC 5.6 k/uL (3.8-10.6)
--- NOTE | 2021-10-05 09:40 | P.PN ---
Subjective Progress Note Date: 10/04/21 Patient was seen for a follow-up. Patient comfortably laying in the bed. Continues to be slightly embolus, with myoclonic twitching. No new concerns. Objective - Vital Signs Vital signs: Vital Signs Temp 97.5 F L 10/05/21 07:40 Pulse 61 10/05/21 07:40 Resp 18 10/05/21 07:40 BP 103/60 10/05/21 07:40 Pulse Ox 100 10/05/21 08:32 Intake & Output 10/04/21 10/05/21 10/05/21 18:59 06:59 18:59 Intake Total 173 118 Output Total 150 Balance 173 -150 118 Weight 116.5 kg Intake: Oral 173 118 Output: Urine 150 Other: Voiding Method Incontinent Incontinent Incontinent - Exam Examination unchanged. Patient still having myoclonic twitching although the ones at rest is improved, but still with outstretched hands. - Labs CBC & Chem 7: 10/04/21 06:31 10/05/21 08:26 Labs: Abnormal Lab Results - Last 24 Hours (Table) 10/04/21 10/04/21 10/05/21 Range/Units 09:37 11:13 08:26 ABG pH 7.47 H (7.35-7.45) ABG pCO2 47 H (35-45) mmHg ABG pO2 133 H (83-108) mmHg ABG HCO3 34 H (21-25) mmol/L ABG Total CO2 36 H (19-24) mmol/L ABG O2 Saturation 99.1 H (94-97) % Sodium 129 L 131 L (137-145) mmol/L Potassium 3.3 L (3.5-5.1) mmol/L Chloride 92 L 92 L (98-107) mmol/L BUN 82 H 87 H (7-17) mg/dL Creatinine 1.78 H 2.01 H (0.52-1.04) mg/dL Assessment and Plan Assessment: * Intermittent twitches/tremors, likely myoclonic jerks from metabolic dysfu nction. Reasons multifactorial as mentioned below. * Bilateral ICA stenosis. * Mild encephalopathy due to reasons mentioned below. * Chronic renal disease, stage III * Mild acute on chronic diastolic heart failure * Elevated cardiac enzymes * Atrial fibrillation, on anticoagulation * COPD * Hyponatremia, hypokalemia, lactic acidosis * Borderline diabetes * Hypertension * Hypothyroidism * Pacemaker * History of aortic valve replacement Plan: * Patient's myoclonic jerks are likely due to metabolic encephalopathy due to reasons mentioned above. The metabolic myoclonic jerks will improve once her medical/metabolic conditions come under control. * Carotid Doppler revealed severe atherosclerotic changes bilateral carotid bulb level. Cannot exclude significant stenosis bilaterally particularly in the right. Advise further investigation with CTA or MRA of the neck. Vascular surgery saw the patient. There is some degree of calcific disease in the right carotid bulb but no evidence of velocity elevation to correlate with significant stenosis. Due to calcific nature was somewhat difficult to visualize. They recommended to repeat ultrasound as an outpatient. No intervention needed at this time. * Patient currently on Eliquis 2.5 mg twice a day. * Neurology will sign off. Please reconsult neurology if any other further concerns.
[2021-10-05 09:41] LABS: Platelet Count 57 k/uL (150-450)
[2021-10-05] MEDS ORDERED: POTASSIUM CHLORIDE ER 20 MEQ TAB.ER PO STA (13:50)
--- NOTE | 2021-10-05 13:56 | P.PN ---
Subjective Patient was examined at bedside today not complaining of any shortness of breath, chest pain or palpitations. No significant pitting edema noted in the lower extremities. Granddaughters were present at bedside all questions have been answered. Currently we are waiting for placement. I did discuss case with RN all questions have been answered. Patient continues to be on 2 L nasal cannula wean as tolerated. Objective - Vital Signs Vital signs: Vital Signs Temp 97.8 F 10/05/21 11:32 Pulse 60 10/05/21 11:32 Resp 16 10/05/21 11:32 BP 115/74 10/05/21 11:32 Pulse Ox 99 10/05/21 11:32 Intake & Output 10/04/21 10/05/21 10/05/21 18:59 06:59 18:59 Intake Total 173 118 Output Total 150 Balance 173 -150 118 Weight 116.5 kg Intake: Oral 173 118 Output: Urine 150 Other: Voiding Method Incontinent Incontinent Incontinent - Exam General examination - Alert and Oriented 3 in NAD, appears chronically debilitated Heart - + S1S2 no murmurs Lungs - diminished but does bilaterally Abdomen soft NT ND +ve BS Extremities - nonpitting edema bilateral lower extremities PRESIDENT & FOUNDER - Moving all 4 extremities spontaneously Psych - was able to have a conversation with patient, pleasant - Labs CBC & Chem 7: 10/05/21 08:26 10/05/21 08:26 Labs: Abnormal Lab Results - Last 24 Hours (Table) 10/05/21 10/05/21 Range/Units 08:26 08:26 MCHC 30.1 L (31.0-37.0) g/dL RDW 18.8 H (11.5-15.5) % Plt Count 57 L (150-450) k/uL Sodium 131 L (137-145) mmol/L Potassium 3.3 L (3.5-5.1) mmol/L Chloride 92 L (98-107) mmol/L BUN 87 H (7-17) mg/dL Creatinine 2.01 H (0.52-1.04) mg/dL Assessment and Plan Assessment: Generalized weakness -PT/OT recommend SNF -Hold Bentyl as it is causing her to be more somnolent and likely also contributing to her falls Hallucinations observed early in the morning could be due to ing versus multiple comorbidities -Continue with Seroquel -Rule out CO2 narcosis -reviewed -Urinalysis negative Lower extremity swellings consistent with lymphedema -Keep lower extremities elevated -DANNY Mild acute on chronic diastolic heart failure -Cardiology managing diuretics. Patient currently on PO Lasix 40 mg twice a day -Resume Zaroxolyn -Daily weight -Strict I's and O's -Pacemaker interrogation per cardio - Mild acute kidney injury on CKD stage III -Likely cardiorenal -Creatinine baseline is around 1.5 Significant carotid stenosis -Consult vascular surgery - no intervention as per their note. Will need outpatient follow-up. Left upper extremity twitching likely due to metabolic derangement -Discussed with neurology who agreed that this is due to metabolic derangement Thrombocytopenia -Monitor CBC -Resume anticoagulation. Hold anticoagulation and platelets less than 50 -This morning platelets are 57 and stable Non-NV elevated troponin secondary to heart failure and chronic kidney disease -Troponin level is better than her baseline Persistent A. fib with RVR status post pacemaker -Resume Eliquis and metoprolol Hypertension -Resume home meds Asthma -Stable. Resume montelukast Hyperlipidemia -Resume statin Hypothyroidism -Resume levothyroxine Status post aortic valve replacement Peripheral vascular disease Obstructive sleep apnea: CPAP at night DVT prophylaxis: Eliquis Prognosis is guarded CODE STATUS:full code DVT prophylaxis: Eliquis Anticipated length of stay > than [address]: PENDING PLACEMENT TO SNF.
--- NOTE | 2021-10-05 14:47 | P.PN ---
Subjective Progress Note Date: 10/05/21 PROGRESS NOTE Blood pressure This patient is a 80-year-old female with a known history of atrial fibrillation, CAD, ICD implantation and aortic valve replacement who presented with confusion and possible syncope and evidence of CHF. She is awake and alert today but appears to be confused. She denies any chest discomfort or dizziness. She is in atrial ablation with paced rhythm. She continues to be on Lipitor 40 mg daily, Lasix 40 mg IV every 12 hours, metoprolol succinate 100 mg daily, Singulair,Eliquis twice a day. October 05: The patient continues to be confused but she feels that her breathing is better. She denies any chest discomfort, dizziness or palpitations. She is in atrial fibrillation with 100% pacing. Hemodynamically she is stable, there is no evidence of malignant arrhythmia. She continues to be on Lipitor 40 mg daily, Lasix 40 mg twice a day, levothyroxine, Zaroxolyn 3 times a week, Toprol 100 mg daily, Singulair and Eliquis. PHYSICAL EXAMINATION: heart rate in the 60 was a blood pressure of 115/70 LUNGS: Clear to auscultation HEART: Regular rate and rhythm, S1, S2. No S3. systolic ejection murmur 2/ ABDOMEN: Soft, nontender, no organomegaly EXTREMETIES: Trace edema LAB: BUN 2.01, creatinine 87, potassium 3.3, hemoglobin 13.3 IMPRESSION: 1. Change in mental status with confusion 2. Symptoms of CHF improving 3. Chronic persistent atrial fibrillation, anticoagulated 4. Status post ICD implantation 5. Worsening renal failure 6. Status post aortic valve replacement 7. Peripheral vessel disease 8. History of CAD PLAN: 1. Decrease Lasix to once a day 2. Follow renal function closely 3. Increase activity as tolerated 4. Depending on her progress further recommendations will be made. Objective - Vital Signs Vital signs: Vital Signs Temp 97.8 F 10/05/21 11:32 Pulse 60 10/05/21 11:32 Resp 16 10/05/21 11:32 BP 115/74 10/05/21 11:32 Pulse Ox 99 10/05/21 11:32 Intake & Output 10/04/21 10/05/21 10/05/21 18:59 06:59 18:59 Intake Total 173 118 Output Total 150 Balance 173 -150 118 Weight 116.5 kg Intake: Oral 173 118 Output: Urine 150 Other: Voiding Method Incontinent Incontinent Incontinent - Labs CBC & Chem 7: 10/05/21 08:26 10/05/21 08:26 Labs: Abnormal Lab Results - Last 24 Hours (Table) 10/05/21 10/05/21 Range/Units 08:26 08:26 MCHC 30.1 L (31.0-37.0) g/dL RDW 18.8 H (11.5-15.5) % Plt Count 57 L (150-450) k/uL Sodium 131 L (137-145) mmol/L Potassium 3.3 L (3.5-5.1) mmol/L Chloride 92 L (98-107) mmol/L BUN 87 H (7-17) mg/dL Creatinine 2.01 H (0.52-1.04) mg/dL
[2021-10-05] MEDS: ACETAMINOPHEN TAB 500 MG TAB PO PRN (17:53)
[2021-10-05] MEDS: METOPROLOL SUCCINATE (ER) 100 MG TAB.ER.24H PO SCH (20:31)
[2021-10-05] MEDS: MONTELUKAST 10 MG TAB PO SCH (20:31)
[2021-10-05] MEDS ORDERED: QUEtiapine 25 MG TAB PO SCH (21:00)
[2021-10-06 00:06] VITALS: PULSE 60
[2021-10-06] MEDS: LEVOTHYROXINE 50 MCG TAB PO SCH (06:29)
[2021-10-06] MEDS: MIDODRINE 5 MG TAB PO SCH (08:38)
[2021-10-06] MEDS: APIXABAN 2.5 MG TABLET PO SCH (08:38)
[2021-10-06] MEDS: ATORVASTATIN 40 MG TAB PO SCH (08:38)
[2021-10-06] MEDS: metOLazone 2.5 MG TAB PO SCH (08:40)
[2021-10-06] MEDS ORDERED: FUROSEMIDE 40 MG TAB PO SCH (09:00)
[2021-10-06 09:08] LABS: Calcium 9.9 mg/dL (8.4-10.2)
--- NOTE | 2021-10-06 09:21 | P.DS ---
Providers Date of admission: 10/03/21 14:45 Expected date of discharge: 10/06/21 Attending physician: Leon Cheema Consults: 10/02/21 07:31 Consult Physician Routine Consulting Provider: Buck Mera Consult Reason/Comments: CHF exacerbation Do you want consulting provider notified?: Yes 10/03/21 11:45 Consult Physician Routine Consulting Provider: Addison Sousa Consult Reason/Comments: L upper extremity twitching Do you want consulting provider notified?: Yes Primary care physician: [facility] Hospital Course: Patient is 80-year-old female with a past medical history of atrial fibrillation, chronic diastolic heart failure, peripheral vascular disease, hypertension, dyslipidemia, bovine aortic valve replacement and 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 Patient currently is somnolent so history was obtained from at bedside. states that patient has chronic dizziness. He states that she has a hard time walking and fell from commode when she attempted to get up. He says that she has been complaining of shortness of breath and also worsening lower extremity swelling in bilateral lower extremities. He states that she is compliant with her medications and takes Lasix 40 mg twice a day. also states that she recently started bentyl for muscle spasms. In the ED patient was found to have a creatinine of 1.7 (baseline 1.5), lactic acid trending down from 2.4-1.7, platelets 64 and chest x-ray showed cardiomegaly with no signs of heart failure. There is new small left pleural effusion compared to old exam. 10/06: During patient's hospitalization, she was seen by neurology regarding intermittent twitches/tremors likely myoclonic jerks from metabolic dysfunction and expect this to improve as her medical condition also improves. Carotid Doppler revealed severe atherosclerotic changes bilateral carotid level. Cannot exclude significant stenosis bilaterally particularly in the right. Patient was also seen by vascular surgery, Dr. Xiong, regarding this with recommendations for repeat ultrasound as an outpatient and no plan for and or interventions immediately. Patient is oriented to person and place. Patient was seen and followed by cardiology for heart failure, chronic persistent atrial fibrillation. Patient was continued on anticoagulation with eliquis. Pacemaker was interrogated on 10/04. Patient is seen today on the cardiac stepdown unit. She denies having any chest pain, shortness of breath. Breathing is easier today. She has been afebrile, heart rate 60, blood pressure 106/64, pulse ox 99% on 2 L nasal cannula. monitoring coordinator ventricular paced rhythm. Repeat blood work reveals sodium 132, potassium 3.7, chloride 93, CO2 30, BUN 86 creatinine 2.01. Therapies recommended subacute rehab at discharge and arrangements are made for [facility]. Patient will be discharged today once all arrangements are completed. Patient's has been updated over the phone and all questions answered. DISCHARGE DIAGNOSES Generalized weakness with possible syncope metabolic encephalopathy Hallucinations observed early in the morning could be due to versus multiple comorbidities Lower extremity swellings consistent with lymphedema Mild acute on chronic diastolic heart failure Mild acute kidney injury on CKD stage III Significant carotid stenosis Left upper extremity twitching likely due to metabolic derangement Thrombocytopenia Abnormal troponins, acute coronary syndrome ruled out Persistent A. fib with RVR status post pacemaker Status post aortic valve replacement Peripheral artery disease History of coronary artery disease Hypertension Asthma, minimal intermittent Hyperlipidemia Hypothyroidism Status post aortic valve replacement DISCHARGE PLAN Subacute rehab at [facility] Greater than 35 minutes was utilized and coordinating patient's discharge. Impression and plan of care have been directed as dictated by the signing physician. Vickie Garg nurse practitioner acting as scribe for signing physician. Patient Condition at Discharge: Stable Plan - Discharge Summary Discharge Rx Participant: No New Discharge Prescriptions: New Apixaban [Eliquis] 2.5 mg PO BID tablet QUEtiapine [SEROquel] 12.5 mg PO HS tab Continue Montelukast [Singulair] 10 mg PO HS Levothyroxine Sodium [Synthroid] 50 mcg PO DAILY Metoprolol Succinate (ER) [Toprol XL] 100 mg PO HS Pravastatin Sodium [Pravachol] 10 mg PO DAILY Ubidecarenone [Co Q-10] 100 mg PO DAILY Furosemide [Lasix] 40 mg PO BID@0900,1600 tab Midodrine [ProAmatine] 5 mg PO TID metOLazone [Zaroxolyn] 2.5 mg PO MOWEFR Meclizine [Antivert] 12.5 mg PO BID PRN PRN Reason: Vertigo Discontinued Apixaban [Eliquis] 5 mg PO BID #180 tab Citalopram Hydrobromide [CeleXA] 20 mg PO DAILY Baclofen [Lioresal] 5 mg PO BID PRN PRN Reason: Muscle Spasm Discharge Medication List Levothyroxine Sodium [Synthroid] 50 mcg PO DAILY 08/24/18 [History] Montelukast [Singulair] 10 mg PO HS 08/24/18 [History] Metoprolol Succinate (ER) [Toprol XL] 100 mg PO HS 12/19/18 [History] Pravastatin Sodium [Pravachol] 10 mg PO DAILY 12/19/18 [History] Ubidecarenone [Co Q-10] 100 mg PO DAILY 09/11/20 [History] Furosemide [Lasix] 40 mg PO BID@0900,1600 tab 09/13/20 [Rx] Meclizine [Antivert] 12.5 mg PO BID PRN 08/17/21 [History] Midodrine [ProAmatine] 5 mg PO TID 08/17/21 [History] metOLazone [Zaroxolyn] 2.5 mg PO MOWEFR 08/17/21 [History] Apixaban [Eliquis] 2.5 mg PO BID tablet 10/06/21 [Rx] QUEtiapine [SEROquel] 12.5 mg PO HS tab 10/06/21 [Rx] Follow up Appointment(s)/Referral(s): Leon Cheema MD [Primary Care Provider] - 1-2 days
[2021-10-06 09:26] LABS: Potassium 3.7 mmol/L (3.5-5.1)
[2021-10-06] MEDS: ACETAMINOPHEN TAB 500 MG TAB PO PRN (10:04)
--- NOTE | 2021-10-06 10:27 | P.PN ---
Subjective Progress Note Date: 10/06/21 HISTORY OF PRESENT ILLNESS: This is a 80 year old female with a past medical history significant for congestive heart failure with preserved ejection fraction, pulmonary hypertension, hypertension, valvular heart disease, history of TAVR in 2008, chronic atrial fibrillation with previous ablations, BiV pacemaker, coronary artery disease with PCI in 1998, peripheral vascular disease, obstructive sleep apnea with CPAP use, and vertigo. Patient follows in the office with Dr. Mukesh ledesma. We have been asked to see the patient in consultation for CHF. Patient examined at the bedside. Patient is very lethargic at the time of examination. She is unable to stay alert long enough to answer any questions. There is no family present. According to the nurse, the patients brought her in the hospital after having a possible syncopal episode in the bathroom, along with increased weakness and lower extremity edema. * EKG reveals ventricular paced rhythm * Chest xray cardiomegaly. No heart failure seen. There is new small left pleural effusion compared to old exam. * Laboratory data: WBC 5.4. Hemoglobin 13.8. Platelet count 67. Sodium 135. Potassium 3.4. BUN 81. Creatinine 1.76. ProBNP 4530. Troponin 0.037. 0.045. 0.043. * Current home cardiac medications include Pravachol 10 mg daily, metoprolol succinate 100 mg at night, Lasix 40 mg twice a day, Eliquis 5 mg twice a day, and Midodrine 5mg TID * Most recent echocardiogram obtained in August 2021 revealed ejection fraction 55-60%, moderate aortic stenosis, mild mitral regurgitation, moderate mitral stenosis, and severe tricuspid regurgitation 10/03/2021 Patient examined this morning at the bedside. Patient is more awake today compared to yesterday. She denies chest pain or pressure. She reports mild SOB. She remains on IV lasix. Creatinine today 1.67. 10/06/2021 Patient examined this morning at the bedside. Patient is awake and alert. She denies chest pain or pressure. Denies SOB. She has been transitioned to oral lasix. Heart rate is in the 60s. Blood pressure 106/64. Creatinine 2.01 today. PHYSICAL EXAM: VITAL SIGNS: Reviewed. GENERAL: Well-developed in no acute distress. HEENT: Head is normocephalic. Pupils are equal, round. Sclerae anicteric. Mucous membranes of the mouth are moist. Neck supple. No JVD or thyromegaly LUNGS: Respirations even and unlabored. Lungs diminished auscultation bilaterally. HEART: Regular rate and rhythm. S1 and S2 heard. Systolic murmur. ABDOMEN: Soft. Nondistended. Nontender. EXTREMITIES: Normal range of motion. No clubbing or cyanosis. Peripheral pulses intact. 1+ lower nonpitting extremity edema ASSESSMENT: Lethargy/altered mental status Questionable syncope Acute on chronic heart failure with preserved ejection fraction Acute kidney injury Abnormal troponins, not suggestive of acute coronary syndrome, likely secondary to acute kidney injury Permanent atrial fibrillation, on Eliquis History of BiV pacemaker implantation Valvular heart disease History of TAVR, 2009 Coronary artery disease with previous PCI, exact details unknown Peripheral vascular disease PLAN: Continue current cardiac medications Patient is stable for discharge home today from a cardiac standpoint Patient to follow up outpatient with Dr. Patel Nurse practitioner note has been reviewed by physician. Signing provider agrees with the documented findings, assessment, and plan of care. Objective - Vital Signs Vital signs: Vital Signs Temp 97.4 F L 10/06/21 08:00 Pulse 60 10/06/21 08:00 Resp 17 10/06/21 08:00 BP 106/64 10/06/21 08:00 Pulse Ox 99 10/06/21 08:00 Intake & Output 10/05/21 10/06/21 10/06/21 18:59 06:59 18:59 Intake Total 236 Output Total 375 Balance -139 Weight 115 kg Intake: Oral 236 Output: Urine 375 Other: Voiding Method Incontinent Incontinent Incontinent # Voids 0 # Bowel Movements 0 - Labs CBC & Chem 7: 10/05/21 08:26 10/06/21 08:01 Labs: Abnormal Lab Results - Last 24 Hours (Table) 10/06/21 Range/Units 08:01 Sodium 132 L (137-145) mmol/L Chloride 93 L (98-107) mmol/L BUN 86 H (7-17) mg/dL Creatinine 2.01 H (0.52-1.04) mg/dL Glucose 134 H (74-99) mg/dL
[2021-10-06 16:11] VITALS: BP 100/64; RESP 16; TEMP 97.5
== END 2021-10-06 17:28 | DRG 70 ==
LOC: EC 01:57 → 3SCARD 07:30 → OBSVTOIN 10-03 14:45
PROVIDERS: ADMIT Internal Medicine Geriatric Medicine; ATTEND Internal Medicine Geriatric Medicine
DX: G93.41 Metabolic encephalopathy (principal); I50.33 Acute on chronic diastolic (congestive) heart failure; I13.0 Hypertensive heart and chronic kidney disease with heart failure and stage 1 through stage 4 chronic kidney disease, or unspecified chronic kidney disease; E87.1 Hypo-osmolality and hyponatremia; E87.2 Acidosis; I48.21 Permanent atrial fibrillation; N17.9 Acute kidney failure, unspecified; R44.3 Hallucinations, unspecified; G47.33 Obstructive sleep apnea (adult) (pediatric); D69.6 Thrombocytopenia, unspecified; E03.9 Hypothyroidism, unspecified; E78.5 Hyperlipidemia, unspecified; E87.6 Hypokalemia; F32.A Depression, unspecified; F41.9 Anxiety disorder, unspecified; G25.3 Myoclonus; I25.10 Atherosclerotic heart disease of native coronary artery without angina pectoris; I27.20 Pulmonary hypertension, unspecified; I65.23 Occlusion and stenosis of bilateral carotid arteries; I73.9 Peripheral vascular disease, unspecified; Z79.01 Long term (current) use of anticoagulants; Z20.822 Contact with and (suspected) exposure to COVID-19; R77.8 Other specified abnormalities of plasma proteins; J44.9 Chronic obstructive pulmonary disease, unspecified; Z95.3 Presence of xenogenic heart valve; Z95.820 Peripheral vascular angioplasty status with implants and grafts; T44.3X5A Adverse effect of other parasympatholytics [anticholinergics and antimuscarinics] and spasmolytics, initial encounter; Z91.81 History of falling; I89.0 Lymphedema, not elsewhere classified; Z77.22 Contact with and (suspected) exposure to environmental tobacco smoke (acute) (chronic); N18.30 Chronic kidney disease, stage 3 unspecified; R73.03 Prediabetes; R26.2 Difficulty in walking, not elsewhere classified; M19.90 Unspecified osteoarthritis, unspecified site; Z79.890 Hormone replacement therapy; Z79.899 Other long term (current) drug therapy; Z82.49 Family history of ischemic heart disease and other diseases of the circulatory system; Z85.828 Personal history of other malignant neoplasm of skin; Z86.73 Personal history of transient ischemic attack (TIA), and cerebral infarction without residual deficits; Z87.442 Personal history of urinary calculi; Z91.19 Patient's noncompliance with other medical treatment and regimen; Z95.5 Presence of coronary angioplasty implant and graft; Z95.810 Presence of automatic (implantable) cardiac defibrillator; Z96.653 Presence of artificial knee joint, bilateral; Z98.42 Cataract extraction status, left eye; Z98.41 Cataract extraction status, right eye; Z90.89 Acquired absence of other organs; Z98.890 Other specified postprocedural states; Z82.61 Family history of arthritis; Z83.79 Family history of other diseases of the digestive system; Z80.8 Family history of malignant neoplasm of other organs or systems; Z88.1 Allergy status to other antibiotic agents; Z88.0 Allergy status to penicillin; Z88.2 Allergy status to sulfonamides; Z88.8 Allergy status to other drugs, medicaments and biological substances
CPT/HCPCS: 36415; 36600; 70450; 71046; 72125; 80048; 80053; 81001; 81003; 82805; 83605; 83735; 83880; 84484; 85025; 85027; 87635; 93005; 93880; 94760; 99285